=== PATIENT | male | born 1935 | race Caucasian/White ===

== ENCOUNTER 2016-12-09 18:43 | Inpatient (IN) ==
--- NOTE | 2016-12-09 18:50 | Emergency Department Note ---
Disposition Clinical Impression: Hematuria UTI (urinary tract infection) Qualifiers: Urinary tract infection type: acute cystitis Hematuria presence: with hematuria Qualified Code(s): N30.01 - Acute cystitis with hematuria Fever Qualifiers: Fever type: unspecified Qualified Code(s): R50.9 - Fever, unspecified Anemia Qualifiers: Anemia type: unspecified type Qualified Code(s): D64.9 - Anemia, unspecified Disposition: Admitted As Inpatient Condition: Fair Referrals: Unassigned,Provider [Non-Partnered Physician] - Forms: ED Satisfaction Letter Time of Disposition: 22:20 Male Urogenital HPI - General Chief complaint: ED Urogenital-Male Stated complaint: hematuria Time Seen by Provider: 12/09/16 18:46 Source: EMS Mode of arrival: EMS Limitations: other Nursing Notes Reviewed: Yes Vital Signs Reviewed: Yes - History of Present Illness HPI Narrative: 81-year-old [facility] and difficulty irrigating his chronic indwelling Syed. Patient has been seen twice here for similar complaints. Patient does have dark blood in his Syed and is noted to have a hemoglobin drop down to 8.1 from 9.5. The patient denies any pain on arrival. Pt Subjective Complaint: other (Hematuria), urinary retention Onset (ago): day(s) Duration: constant indwelling catheter - Related Data Home Medications Medication Instructions Recorded Confirmed Acetaminophen [Tylenol] 650 mg PO BID MDD 3000 mg/day 12/09/16 12/09/16 Acetaminophen [Tylenol] 650 mg PO Q4H PRN MDD 3000 mg/day 12/09/16 12/09/16 Allopurinol [Zyloprim 100 MG] 100 mg GTUBE DAILY 12/09/16 12/09/16 Amlodipine Besylate 10 mg GTUBE DAILY 12/09/16 12/09/16 Atorvastatin [Lipitor] 40 mg GTUBE DAILY 12/09/16 12/09/16 Balsam [place] Oil [Venelex 1 appl TP QID 12/09/16 12/09/16 Ointment Packet] Brimonidine 0.2% [Alphagan] 1 drop OP TID 12/09/16 12/09/16 Calcitriol [Rocaltrol] 0.25 mcg GTUBE DAILY 12/09/16 12/09/16 Carvedilol 12.5 mg GTUBE BID 12/09/16 12/09/16 Cholecalciferol (D-3) [Vitamin D] 2,000 unit PO DAILY 12/09/16 12/09/16 CloNIDine HCl 0.1 mg PO BID 12/09/16 12/09/16 Dorzolamide/Timolol/Pf [Cosopt Pf 1 drop OP BID 12/09/16 12/09/16 Eye Drops] Doxazosin Mesylate [Cardura] 8 mg GTUBE HS 12/09/16 12/09/16 Doxazosin Mesylate [Cardura] 8 mg PO QAM 12/09/16 12/09/16 Epoetin [place] [Procrit] 5,000 unit SQ MOWEFR 12/09/16 12/09/16 Ferrous Sulfate 325 mg GTUBE TID 12/09/16 12/09/16 Finasteride [Proscar] 5 mg GTUBE DAILY 12/09/16 12/09/16 Furosemide [Lasix] 40 mg GTUBE DAILY 12/09/16 12/09/16 Hydralazine HCl 100 mg GTUBE Q8H 12/09/16 12/09/16 Insulin ASPART [NovoLOG] 3 - 8 unit SQ PRN PRN 12/09/16 12/09/16 Insulin Glargine [Lantus] 16 unit SQ DAILY 12/09/16 12/09/16 Ipratropium/Albuterol Neb [Duoneb] 3 ml IH Q4H PRN 12/09/16 12/09/16 Isosorbide DInitrate [Isosorbide 15 mg PO TID 12/09/16 12/09/16 Dinitrate] Ketoconazole 2% CRM [Nizoral Cream] 1 appl TP BID 12/09/16 12/09/16 Latanoprost [Xalatan] 1 drop OP HS 12/09/16 12/09/16 Magnesium Hydroxide [Milk of 2,400 mg PO DAILY PRN 12/09/16 12/09/16 Magnesia] Melatonin 3 mg GTUBE HS 12/09/16 12/09/16 Methyl Salicylate/Menthol [Muscle 1 appl TP BID 12/09/16 12/09/16 Rub Cream] Nystatin OINT [Mycostatin] 1 appl TP BID 12/09/16 12/09/16 Propylene Glycol/Peg 400 [Systane 1 drop OP QID 12/09/16 12/09/16 0.3-0.4% Eye Drops] Sennosides/Docusate Sodium [Senna 2 each PO HS 12/09/16 12/09/16 Plus] Sertraline [Zoloft] 100 mg GTUBE DAILY 12/09/16 12/09/16 Sodium Bicarbonate 650 mg PO TID 12/09/16 12/09/16 Sodium Chloride 5% OPTH Oint 1 appl OP DAILY 12/09/16 12/09/16 [Riky-128] Sodium Chloride [Riky-128] 1 drop OP TID 12/09/16 12/09/16 Triamcinolone Acet 0.1% CRM 1 appl TP BID 12/09/16 12/09/16 [Kenalog] Allergies Allergy/AdvReac Type Severity Reaction Status Date / Time lisinopril AdvReac unknown Verified 12/09/16 20:15 Constitutional: Denies: fever, chills, weakness, weight change Eyes: Denies: eye pain, eye discharge, vision change ENT ED: Denies: ear pain, throat pain, dental pain, hearing loss, epistaxis, congestion, dysphagia Cardiovascular: Denies: chest pain, palpitations, dyspnea on exertion, edema, syncope Respiratory: Denies: cough, dyspnea, wheezes, hemoptysis, stridor Gastrointestinal: Denies: abdominal pain, nausea, vomiting, diarrhea, constipation, hematemesis, melena, hematochezia Genitourinary: Reports: hematuria. Denies: urgency, dysuria, frequency Musculoskeletal: Denies: back pain, neck pain, arthralgia, myalgia Integumentary: Denies: rash, abrasion, lesions Neurological: Denies: headache, weakness, numbness, paresthesias, confusion, abnormal gait, vertigo Psychiatric: Denies: anxiety, depression, suicidal thoughts, homicidal thoughts , auditory hallucinations, visual hallucinations Endocrine: Denies: fatigue Hematological/Lymphatic: Denies: easy bleeding, easy bruising Allergic/Immunologic: Denies: facial swelling, urticaria Past Medical History - Past Medical History Medical history: Reports: CHF, coronary artery disease, diabetes, hypertension, renal disease - Social History Smoking Status: Unknown if ever smoked Alcohol use: Reports: unknown Drug use: Reports: unknown Physical Exam - General Limitations: no limitations - Head Head exam: normal inspection - Eye Eye exam: Present: normal appearance - ENT ENT exam: normal exam, normal oropharynx, mucous membranes moist, normal external ear exam - Neck Neck exam: Present: normal inspection, full ROM, trachea midline - Chest Chest inspection: Present: normal inspection, symmetric chest wall rise - Respiratory Respiratory exam: Present: normal lung sounds bilaterally - Cardiovascular Cardiovascular exam: Present: regular rate, normal rhythm, normal heart sounds - Neurological Exam Neurological exam: Present: alert, oriented X3, normal gait - Psychiatric Psychiatric exam: Present: normal affect, normal mood - Skin Skin exam: Present: warm, dry, intact, normal color Course - Reevaluation(s) Reevaluation #1: 81-year-old had some problems with recurrent hematuria and obstructive catheter. This is his third visit and the last few days. He's had about a 3 g hemoglobin drop. We will admit the patient he will be seen by urology was given Rocephin as he does have a bit of a temperature and indications of infection associated with urine. Time: 22:17 - Consultations Consultation #1: Discussed with Dr. Bell, dipti. Time: 22:18 Vital Signs Temperature 100.4 F H 12/09/16 18:49 Pulse Rate 85 12/09/16 18:49 Respiratory Rate 20 12/09/16 18:49 Blood Pressure 152/71 12/09/16 18:49 O2 Sat by Pulse Oximetry 95 12/09/16 18:49 Temperature 100.4 F H 12/09/16 18:49 Pulse Rate 93 12/09/16 21:42 Respiratory Rate 20 12/09/16 19:57 Blood Pressure 157/92 12/09/16 21:42 O2 Sat by Pulse Oximetry 97 12/09/16 21:42 Oxygen Delivery Oxygen Delivery Room Air Urogenital-Male - Lab Data Result diagrams: 12/09/16 19:01 12/09/16 19:01 Lab Results 12/09/16 12/09/16 12/09/16 Range/Units 19:01 19:01 19:01 WBC 6.4 (4.3-11.1) K/mcL RBC 3.47 L (4.19-5.50) M/mcL Hgb 8.6 L D (12.9-16.9) g/dL Hct 27.9 L (37.5-50.1) % MCV 80.4 L (83.0-100.0) fL MCH 24.8 L (28.0-33.3) pg MCHC 30.8 L (31.6-35.5) g/dL RDW 17.2 H (11.5-14.5) % Plt Count 155 (140-400) K/mcL MPV 10.5 (9.4-12.4) fL Immature Gran % 0.5 (0-4) % Seg Neutrophils % 78.7 % Lymphocytes % 6.7 % Monocytes % 11.1 % Eosinophils % 2.7 % Basophils % 0.3 % Neutrophils # 5.0 (1.6-8.9) K/mcL Lymphocytes # 0.4 L (0.6-4.6) K/mcL Monocytes # 0.7 (0.0-1.3) K/mcL Eosinophils # 0.2 (0.0-0.6) K/mcL Basophils # 0.0 (0.0-0.2) K/mcL Nucleated RBCs/100 WBC 0.3 H (0) /100 WBC PT 13.3 H (9.4-12.1) Seconds INR 1.2 APTT 32.5 (26.0-36.0) Seconds Sodium 139 (136-145) mEq/L Potassium 4.5 D (3.5-4.5) mEq/L Chloride 107 (98-109) mEq/L Carbon Dioxide 20 (19-29) mEq/L BUN 79 H (8-26) mg/dL Creatinine 3.87 H (0.72-1.25) mg/dL Est GFR ( Amer) 18 L (> 60) Est GFR (Non-Af Amer) 15 L (> 60) BUN/Creatinine Ratio 20 (6-26) Glucose 264 H (70-99) mg/dL Calculated Osmolality 321 H (280-300) Calcium 8.2 L (8.6-10.8) mg/dL Total Bilirubin 0.3 (0.2-1.2) mg/dL Direct Bilirubin 0.1 (0.0-0.5) mg/dL Indirect Bilirubin 0.2 (0.0-1.2) mg/dL AST 38 H (5-34) Units/L ALT 43 (0-55) Units/L Alkaline Phosphatase 61 (38-126) Units/L Serum Total Protein 6.0 (6.0-8.3) g/dL Albumin 2.3 L (3.5-5.0) g/dL Globulin 3.7 H (2.4-3.5) g/dL Albumin/Globulin Ratio 0.6 L (1.1-2.2) Ur Specimen Adequacy Urine Color (Yellow) Urine Clarity (Clear) Urine pH (5.0-8.0) pH Units Ur Specific Burns (1.010-1.025) Urine Protein (Neg-Trace) mg/dL Urine Glucose (UA) (Normal) mg/dL Urine Ketones (Negative) mg/dL Urine Blood (Negative) Urine Nitrite (Negative) Urine Bilirubin (Negative) Urine Urobilinogen (Normal) mg/dL Ur Leukocyte Esterase (Negative) Ur Culture Indicated? (NO) Blood Type Antibody Screen 12/09/16 12/09/16 Range/Units 19:01 19:15 WBC (4.3-11.1) K/mcL RBC (4.19-5.50) M/mcL Hgb (12.9-16.9) g/dL Hct (37.5-50.1) % MCV (83.0-100.0) fL MCH (28.0-33.3) pg MCHC (31.6-35.5) g/dL RDW (11.5-14.5) % Plt Count (140-400) K/mcL MPV (9.4-12.4) fL Immature Gran % (0-4) % Seg Neutrophils % % Lymphocytes % % Monocytes % % Eosinophils % % Basophils % % Neutrophils # (1.6-8.9) K/mcL Lymphocytes # (0.6-4.6) K/mcL Monocytes # (0.0-1.3) K/mcL Eosinophils # (0.0-0.6) K/mcL Basophils # (0.0-0.2) K/mcL Nucleated RBCs/100 WBC (0) /100 WBC PT (9.4-12.1) Seconds INR APTT (26.0-36.0) Seconds Sodium (136-145) mEq/L Potassium (3.5-4.5) mEq/L Chloride (98-109) mEq/L Carbon Dioxide (19-29) mEq/L BUN (8-26) mg/dL Creatinine (0.72-1.25) mg/dL Est GFR ( Amer) (> 60) Est GFR (Non-Af Amer) (> 60) BUN/Creatinine Ratio (6-26) Glucose (70-99) mg/dL Calculated Osmolality (280-300) Calcium (8.6-10.8) mg/dL Total Bilirubin (0.2-1.2) mg/dL Direct Bilirubin (0.0-0.5) mg/dL Indirect Bilirubin (0.0-1.2) mg/dL AST (5-34) Units/L ALT (0-55) Units/L Alkaline Phosphatase (38-126) Units/L Serum Total Protein (6.0-8.3) g/dL Albumin (3.5-5.0) g/dL Globulin (2.4-3.5) g/dL Albumin/Globulin Ratio (1.1-2.2) Ur Specimen Adequacy See below A Urine Color Red A (Yellow) Urine Clarity Turbid A (Clear) Urine pH 6.0 (5.0-8.0) pH Units Ur Specific Burns 1.018 (1.010-1.025) Urine Protein >=1000 H (Neg-Trace) mg/dL Urine Glucose (UA) Normal (Normal) mg/dL Urine Ketones 40 H (Negative) mg/dL Urine Blood Large H (Negative) Urine Nitrite Positive A (Negative) Urine Bilirubin Large H (Negative) Urine Urobilinogen 4.0 H (Normal) mg/dL Ur Leukocyte Esterase Large H (Negative) Ur Culture Indicated? YES A (NO) Blood Type A POSITIVE Antibody Screen NEGATIVE
[2016-12-09 19:18] LABS: Basophils % 0.3 %; Eosinophils # 0.2 K/mcL (0.0-0.6); Eosinophils % 2.7 %; Hematocrit 27.9 % (37.5-50.1); Immature Granulocytes % 0.5 % (0-4); Lymphocytes # 0.4 K/mcL (0.6-4.6); Lymphocytes % 6.7 %; Mean Corpuscular HGB Conc 30.8 g/dL (31.6-35.5); Mean Corpuscular Hemoglobin 24.8 pg (28.0-33.3); Mean Corpuscular Volume 80.4 fL (83.0-100.0); Mean Platelet Volume 10.5 fL (9.4-12.4); Monocytes # 0.7 K/mcL (0.0-1.3); Monocytes % 11.1 %; Nucleated Red Blood Cells 0.3 /100 WBC (0); Platelet Count 155 K/mcL (140-400); Red Blood Count 3.47 M/mcL (4.19-5.50); Red Cell Distribution Width 17.2 % (11.5-14.5); Segmented Neutrophils % 78.7 %
[2016-12-09 19:19] LABS: Hemoglobin 8.6 g/dL (12.9-16.9)
[2016-12-09 19:23] LABS: INR 1.2; Prothrombin Time 13.3 Seconds (9.4-12.1)
[2016-12-09 19:26] LABS: Activated Partial Thrombo Time 32.5 Seconds (26.0-36.0)
[2016-12-09 19:30] LABS: Bilirubin,Urine Large (Negative); Blood,Urine Large (Negative); Clarity,Urine Turbid (Clear); Color,Urine Red (Yellow); Glucose,Urine (UA) Normal (Normal); Ketones,Urine 40 mg/dL (Negative); Leukocyte Esterase,Urine Large (Negative); Nitrite,Urine Positive (Negative); Protein,Urine >=1000 mg/dL (Neg-Trace); Specific Gravity,Urine 1.018 (1.010-1.025)
[2016-12-09 19:33] LABS: Calcium 8.2 mg/dL (8.6-10.8)
[2016-12-09 19:37] LABS: Potassium 4.5 mEq/L (3.5-4.5)
[2016-12-09 21:38] LABS: Albumin 2.3 g/dL (3.5-5.0); Albumin/Globulin Ratio 0.6 (1.1-2.2); Bilirubin,Direct 0.1 mg/dL (0.0-0.5); Bilirubin,Indirect 0.2 mg/dL (0.0-1.2); Bilirubin,Total 0.3 mg/dL (0.2-1.2); Globulin 3.7 g/dL (2.4-3.5)
[2016-12-09] MEDS ORDERED: Acetaminophen 325 MG TABLET PO PRN (22:07)
[2016-12-09] MEDS ORDERED: Ipratropium/Albuterol Neb 3 ML IH PRN (22:07)
[2016-12-09] MEDS ORDERED: *HR* Morphine 2 MG/ML SYRINGE IVP PRN (22:20)
[2016-12-09] MEDS ORDERED: *HR* Dextrose 50 % in Water (Syg) 50 ML SYRINGE IVP PRN (22:20)
[2016-12-09] MEDS ORDERED: *HR* OxyCODONE Immed Rel 5 MG TABLET PO PRN (22:20)
[2016-12-09] MEDS ORDERED: Dextrose Gel 15 GM PO PRN ×2 (22:20)
[2016-12-09] MEDS ORDERED: Naloxone 0.4 MG/ML INJ IVP PRN (22:20)
[2016-12-09] MEDS ORDERED: D5% in Water 1,000 ML IV PRN (22:20)
[2016-12-09] MEDS ORDERED: Ondansetron 4 MG/2 ML VIAL IVP PRN (22:20)
--- NOTE | 2016-12-09 22:45 | Internal Med History&Physical ---
Date of Encounter: 12/09/16 Time of Encounter: 22:00 Assessment and Plan (1) Gross hematuria Status: Acute . (2) Indwelling catheter present on admission Status: Acute . (3) Urinary tract infection associated with indwelling urethral catheter Status: Acute . Qualifiers: Encounter type: initial encounter Qualified Code(s): T83.511A - Infection and inflammatory reaction due to indwelling urethral catheter, initial encounter ; N39.0 - Urinary tract infection, site not specified (4) Bladder outlet obstruction Status: Acute . (5) Acute kidney injury superimposed on CKD Status: Acute . (6) Acute blood loss anemia Status: Acute . (7) Anemia in chronic renal disease Status: Acute . (8) BPH (benign prostatic hypertrophy) with urinary retention Status: Acute . (9) Anasarca associated with disorder of kidney Status: Acute . (10) Asymptomatic cholelithiasis Status: Acute . (11) Adrenal hyperplasia Status: Acute . (12) Urinary retention Status: Acute . (13) Iron deficiency anemia due to chronic blood loss Status: Chronic . (14) Hypoalbuminemia due to protein-calorie malnutrition Status: Chronic . (15) UTI (urinary tract infection) Status: Acute . Qualifiers: Urinary tract infection type: acute cystitis Hematuria presence: with hematuria Qualified Code(s): N30.01 - Acute cystitis with hematuria Internal Medicine - H&P: HPI Chief complaint: bloody urine Admitted From: Hospital to Hospital Transfer (Hospital transfer from [facility] to [facility]) Plans for Post Hospital Care: Transfer Other ([facility]) History of present illness: Mr. Webb is a 81 year old male [facility] patient with history significant for CKD III-IV,anemia of chronic dis, type II DM, hypertension, dyslipidemia, CAD/CABG/ AMI, valvular heart disease/mild aortic stenosis and moderate tricuspid regurgitation/LVEF 65%, systolic CHF, PAD, lumbago, hyperuricemia/gout, asymptomatic cholelithiasis, diverticulosis coli, carotid stenoses/ right ICA 50 %, H/O TIA, chr constipation, BPH/prostatism-prostatomegaly, bladder outlet obstruction /chronic indwelling catheter, recurrent UTI, Multiple sclerosis, h/ o CVA-ICH/expressive rtacyxb-magnuurjwr-onciaxzqb-right hemiplegia, h/o c dificle colitis, glaucoma, non smoker The patient was visited and interviewed and examined. Patient was admitted to [facility] via the emergency department when he presented by EMS services from [facility] long term where he dwelled in long-term care assignment. The patient is a poor historian and unable to give additional history. He presented because of hematuria and difficulty voiding and irrigating his chronic indwelling Syed catheter. The patient had been indwelling catheter for an unknown period of time at the [place] medical facility. His history does document previous presentations to [facility] for traumatic catheter placement and frequent prostatomegaly and bladder outlet obstruction. The patient had been seen on 2 other occasions for similar complaints. Each occasion the patient had inadvertently traumatized the prostate/ bladder neck by pulling the catheter. He was found to have dark blood within his Syed and also noted that his hemoglobin had dropped to 8.1 from 11.2 on 12/07/16 when Urology bus info consultant last replaced the Syed catheter with a coude. He denied pain when asked. There was no report of any fevers chills sweats. Abdominal pain and urinary retention was documented at the [place] facility. Syed catheter could not be irrigated at the site due to retained clots. Findings in the ED: Febrile. Pulse 80 respirations 16 BP 138/78. O2 saturation by pulse oximetry 93% room air. WBC 6.4 hemoglobin 8.5 platelets 155,000. MCV 80.4 MCH 24.8. RDW 17.2. PT 13.3 INR 1.2 PTT 32.5. Metabolic panel noted BUN 79 creatinine 3.87. GFR 15. Glucose 264 osmolality 321. Calcium 8.2. Hepatic function noted AST 38. Albumin 2.3 total protein 6. Urinalysis red in color. Large protein. Large ketone. Large blood. Large bilirubin. Large leukocyte esterase. Positive nitrite. 4.0 urobilinogen. Fecal occult blood stool negative. CT of the abdomen and pelvis without contrast demonstrated market distention of the bladder extending above the level of the umbilicus. Air-fluid level likely from recent catheterization. Overall thickening or pericholecystic fluid noted to suggest cystitis. Prostatomegaly likely contributing to postobstructive changes of the bladder. Mild ascites and diffuse body wall anasarca noted. Cholelithiasis noted. No definite acute abnormality otherwise noted in the limitations of the study. Preliminary impression suggests recurrent bladder outlet obstruction from retained clot with associated gross hematuria and acute blood loss anemia. Etiology secondary to recurring likely catheter trauma of prostatomegaly and bladder neck. During suggests chronic blood loss some extent with indices suggesting a relative iron deficiency. Hemoccult stool negative for blood. Patient presented for continued risk for further acute clinical decline and morbidity given his severity of the comorbidities. Workup and treatment will proceed comprehensively. Cumulative laboratory and radiographic data base was reviewed, considered and discussed. Pertinent ancillary medical records including ECW and PCI documentation was reviewed and considered. Given the patient's presenting concerns, past medical history, clinical findings and symptoms, he is admitted at this time will undergo further evaluation and disposition. Orders were written as per the computerized physician medical orderly system.......................................................................... .................... Consultative opinions will be sought as clinical circumstances justify. Initial consultative request submitted to urology. Pain management needs will be addressed. Laboratory and radiographic data base will be updated as appropriate. Studies include: Cultures of blood and urine, hemoccult, iron studies, B12, folate, ammonia, cardiac injury panel, BNP, pt,inr,ptt, metabolic and hematologic panel , magnesium, phosphorus, ionized calcium, thyroid panel, lipid profile, A1c, C- peptide, CRP, sedimentation rate, blood gas, lactic acid, UA, serologies, etc. Precautions: Aspiration, fall, delirium protocol/surveillance initiated. Telemetry with continuous hemodynamic monitoring and pulse oximetry initiated. Orthostatic vital signs Empiric antibiotic coverage: Intravenous Zosyn pending culture data. Type and screen for 2 units of packed red blood cells. Transfused to achieve a stable hemoglobin of greater than 10. Special studies: CT abd/pelvis, chest x-ray, telemetry, EKG, US retroperitoneum. Pulmonary toilet: Incentive spirometry. Aerosol bronchodilator, mucolytic, antitussivePRN. Supplemental oxygen. Corticosteroid therapyPRN. CPAP/BiPAP supplemental oxygenPRN. Aerosol Mucomyst therapyPRN. Fluid and electrolyte repletion efforts will proceed. Careful attention to fluid balance and renal recovery will be emphasized. Avoidance of nephrotoxic exposure and adverse drug drug interaction in the setting of impaired renal function will be monitored closely. Acute coronary syndrome protocol/surveillance initiated. DVT and PUD prophylaxis initiated: PPI therapy, intermittent pneumatic cuffs. Subcutaneous heparin. Early ambulation will be encouraged. Immunization updates recommended. Influenza and pneumococcal vaccinations as part of ongoing preventative healthcare recommendations strongly recommended. Smoking cessation counseling briefly addressed. Patient is a nonsmoker. Advanced care directive discussion briefly addressed. Patient does not declare any healthcare restrictions at this time. Cardiovascular risk appraisal and cardiovascular risk reduction efforts will be emphasized. Physical and occupational therapy may be counseled to evaluate patient's functional capacity and progress mobility if circumstances permit. Nutrition/dietary education counseling may be considered as circumstances justify. Outpatient medication schedules will be reviewed, confirmed and facilitated as appropriate. Reconciliation of home treatments including adjustments, substitutions and reintroduction into the treatment regimen will address necessary maintenance therapies for chronic pre-existing medical conditions. Plan of care has been reviewed and discussed in detail with the patient's caregivers. Questions addressed. Hospital course dictated by clinical findings, treatment response and potential consultative interventions. Patient is at risk for further acute clinical decline and morbidity due to his advanced age, presenting chief complaints and comorbid conditions. Condition is serious. Prognosis is guarded. CODE STATUS is full. Past Med Surg Social Fam HX - Past Medical History Source: old records reviewed Medical history: arthritis, CHF, coronary artery disease, diabetes, GI bleed ( Diverticulitis. C. difficile infection.), hyperlipidemia, hypertension, myocardial infarction, osteoporosis, peripheral artery disease (Right carotid artery stenosis), renal disease, TIA, valvular heart disease (I will aortic stenosis. Mild to moderate tricuspid regurgitation.), other Psychiatric history: other - Past Surgical History Surgical History: coronary bypass (CABG), other - Social History Smoking Status: Unknown if ever smoked Smokeless Tobacco Status: No Alcohol use: unknown Drug use: unknown Occupational status: retired Activity Level: Mostly sedentary Recent Out of Country Travel Within the Last 8 Weeks: No Exposure or Possible Exposure to Illness During Travel: No Internal Medicine - H&P: Meds Acetaminophen [Tylenol] 650 mg PO BID MDD 3000 mg/day 12/09/16 [History] Acetaminophen [Tylenol] 650 mg PO Q4H PRN MDD 3000 mg/day 12/09/16 [History] Allopurinol [Zyloprim 100 MG] 100 mg GTUBE DAILY 12/09/16 [History] Amlodipine Besylate 10 mg GTUBE DAILY 12/09/16 [History] Atorvastatin [Lipitor] 40 mg GTUBE DAILY 12/09/16 [History] Balsam [place] Oil [Venelex Ointment Packet] 1 appl TP QID 12/09/16 [History ] Brimonidine 0.2% [Alphagan] 1 drop OP TID 12/09/16 [History] Calcitriol [Rocaltrol] 0.25 mcg GTUBE DAILY 12/09/16 [History] Carvedilol 12.5 mg GTUBE BID 12/09/16 [History] Cholecalciferol (D-3) [Vitamin D] 2,000 unit PO DAILY 12/09/16 [History] CloNIDine HCl 0.1 mg PO BID 12/09/16 [History] Dorzolamide/Timolol/Pf [Cosopt Pf Eye Drops] 1 drop OP BID 12/09/16 [History] Doxazosin Mesylate [Cardura] 8 mg GTUBE HS 12/09/16 [History] Doxazosin Mesylate [Cardura] 8 mg PO QAM 12/09/16 [History] Epoetin [place] [Procrit] 5,000 unit SQ MOWEFR 12/09/16 [History] Ferrous Sulfate 325 mg GTUBE TID 12/09/16 [History] Finasteride [Proscar] 5 mg GTUBE DAILY 12/09/16 [History] Furosemide [Lasix] 40 mg GTUBE DAILY 12/09/16 [History] Hydralazine HCl 100 mg GTUBE Q8H 12/09/16 [History] Insulin ASPART [NovoLOG] 3 - 8 unit SQ PRN PRN 12/09/16 [History] Insulin Glargine [Lantus] 16 unit SQ DAILY 12/09/16 [History] Ipratropium/Albuterol Neb [Duoneb] 3 ml IH Q4H PRN 12/09/16 [History] Isosorbide DInitrate [Isosorbide Dinitrate] 15 mg PO TID 12/09/16 [History] Ketoconazole 2% CRM [Nizoral Cream] 1 appl TP BID 12/09/16 [History] Latanoprost [Xalatan] 1 drop OP HS 12/09/16 [History] Magnesium Hydroxide [Milk of Magnesia] 2,400 mg PO DAILY PRN 12/09/16 [History] Melatonin 3 mg GTUBE HS 12/09/16 [History] Methyl Salicylate/Menthol [Muscle Rub Cream] 1 appl TP BID 12/09/16 [History] Nystatin OINT [Mycostatin] 1 appl TP BID 12/09/16 [History] Propylene Glycol/Peg 400 [Systane 0.3-0.4% Eye Drops] 1 drop OP QID 12/09/16 [ History] Sennosides/Docusate Sodium [Senna Plus] 2 each PO HS 12/09/16 [History] Sertraline [Zoloft] 100 mg GTUBE DAILY 12/09/16 [History] Sodium Bicarbonate 650 mg PO TID 12/09/16 [History] Sodium Chloride 5% OPTH Oint [Riky-128] 1 appl OP DAILY 12/09/16 [History] Sodium Chloride [Riky-128] 1 drop OP TID 12/09/16 [History] Triamcinolone Acet 0.1% CRM [Kenalog] 1 appl TP BID 12/09/16 [History] Levofloxacin 500 mg PO DAILY #3 tablet 12/12/16 [Rx] Allergies lisinopril Adverse Reaction (Verified 12/09/16 20:15) unknown per va list All Systems PM: A 10-system review of systems was performed and is negative for pertinent findings except as documented above in the HPI. - Constitutional Constitutional: as per HPI, no chills, no fever(s), no night sweats - EENT Eyes: as per HPI, no change in vision, no discharge, no pain, no photophobia Ears: as per HPI, no ear discharge, no ear pain, no tinnitus Nose, mouth and throat: as per HPI, no dysphagia, no nasal discharge, no neck pain, no sore throat - Cardiovascular Cardiovascular ROS IM: as per HPI, no chest pain, no diaphoresis, no dyspnea, no lightheadedness, no palpitations, no syncope - Respiratory Respiratory: as per HPI, no cough, no dyspnea, no wheezing, no excessive phlegm production - Gastrointestinal Gastrointestinal: as per HPI, no abdominal pain, no diarrhea, no hematemesis, no hematochezia, no melena, no nausea, no vomiting - Genitourinary Genitourinary ROS male: as per HPI, difficulty urinating, hematuria, urinary hesitancy, other - Musculoskeletal Musculoskeletal ROS IM: as per HPI, no numbness, no tingling - Integumentary Integumentary IM: as per HPI, no rash, no unusual bruising - Neurological Neurological ROS: as per HPI, abnormal movements, abnormal speech, weakness, other, no confusion, no convulsions, no focal weakness, no numbness, no tingling , no tremor(s) - Psychiatric Psychiatric: as per HPI - Endocrine Endocrine IM: as per HPI - Hematologic/Lymphatic Hematologic/Lymphatic: as per HPI, no easy bruising - Allergic/Immunologic Allergic/Immunologic: as per HPI, no tongue swelling - Constitutional Vitals: Temp Pulse Resp BP Pulse Ox 100.4 F H 81 16 153/74 96 12/09/16 18:49 12/09/16 22:28 12/09/16 22:28 12/09/16 22:28 12/09/16 22:28 General appearance: Present: mild distress, A&O X 3, obese, answers questions appropriately - Head Head exam: Present: atraumatic, normocephalic - Eye Eye exam: Present: EOMI, PERRL, conjuntiva pink, sclera anicteric Pupils: Present: normal accommodation, PERRL - ENT ENT exam: Present: mucous membranes moist, normal oropharynx - Neck Neck exam general surgery: Present: full ROM - Respiratory Respiratory exam: Present: decreased breath sounds, CTAB. Absent: accessory muscle use, rales, rhonchi, wheezes - Cardiovascular Cardiovascular exam: Present: distant heart sounds, RRR, +S1, +S2. Absent: diastolic murmur, gallop, rubs, systolic murmur - GI/Abdominal GI/Abdominal exam: Present: normal bowel sounds, soft, no peritoneal signs. Absent: distended, tenderness - Extremities Exam Extremities exam: Present: warm, radial pulses palpable and symetrical. Absent : calf tenderness, cyanotic, pedal edema - Neurological Exam Neurological exam: Present: alert, CN II-XII intact, oriented X3, no focal deficits. Absent: pronater drift, facial droop, speech deficit - Psychiatric Psychiatric exam: Present: normal affect, normal mood - Skin Skin exam: Present: dry, intact, warm Internal Med - H&P Results - Labs CBC & Chem 7: 12/11/16 04:47 12/11/16 04:47 Labs: Short CBC 12/09/16 Range/Units 19:01 WBC 6.4 (4.3-11.1) K/mcL Hgb 8.6 L D (12.9-16.9) g/dL Hct 27.9 L (37.5-50.1) % Plt Count 155 (140-400) K/mcL Neutrophils # 5.0 (1.6-8.9) K/mcL BMP 12/09/16 19:01 Sodium 139 Potassium 4.5 D Chloride 107 Carbon Dioxide 20 BUN 79 H Creatinine 3.87 H Glucose 264 H Calcium 8.2 L Liver Function 12/09/16 Range/Units 19:01 Total Bilirubin 0.3 (0.2-1.2) mg/dL Direct Bilirubin 0.1 (0.0-0.5) mg/dL AST 38 H (5-34) Units/L ALT 43 (0-55) Units/L Alkaline Phosphatase 61 (38-126) Units/L Albumin 2.3 L (3.5-5.0) g/dL Urine 12/09/16 Range/Units 19:15 Urine Color Red A (Yellow) Urine Clarity Turbid A (Clear) Urine pH 6.0 (5.0-8.0) pH Units Ur Specific [place] 1.018 (1.010-1.025) Urine Protein >=1000 H (Neg-Trace) mg/dL Urine Glucose (UA) Normal (Normal) mg/dL - Impressions Vital Signs Temp Pulse Resp BP Pulse Ox 12/09/16 22:28 81 16 153/74 96 12/09/16 19:57 83 20 157/92 97 12/09/16 18:49 100.4 F H 85 20 152/71 95 Intake and Output 12/09/16 12/09/16 12/09/16 07:59 15:59 23:59 Intake Total 100 / 100 Balance 100 / 100 Intake: IV Fluids 100 / 100 Rocephin 1,000 MG In 100 / 100 Dextrose 5% (Minibag+) 100 ML 100 ML @ 200 mls/ hr IVPB ONCE ONE Rx#: [id number] Other: Weight 77.564 kg Patient Weight 12/09/16 23:59 Weight 77.564 kg Short CBC 12/09/16 Range/Units 19:01 WBC 6.4 (4.3-11.1) K/mcL Hgb 8.6 L D (12.9-16.9) g/dL Hct 27.9 L (37.5-50.1) % Plt Count 155 (140-400) K/mcL Neutrophils # 5.0 (1.6-8.9) K/mcL BMP 12/09/16 Range/Units 19:01 Sodium 139 (136-145) mEq/L Potassium 4.5 D (3.5-4.5) mEq/L Chloride 107 (98-109) mEq/L Carbon Dioxide 20 (19-29) mEq/L BUN 79 H (8-26) mg/dL Creatinine 3.87 H (0.72-1.25) mg/dL Glucose 264 H (70-99) mg/dL Calcium 8.2 L (8.6-10.8) mg/dL Liver Function 12/09/16 Range/Units 19:01 Total Bilirubin 0.3 (0.2-1.2) mg/dL Direct Bilirubin 0.1 (0.0-0.5) mg/dL AST 38 H (5-34) Units/L ALT 43 (0-55) Units/L Alkaline Phosphatase 61 (38-126) Units/L Albumin 2.3 L (3.5-5.0) g/dL Urine 12/09/16 Range/Units 19:15 Urine Color Red A (Yellow) Urine Clarity Turbid A (Clear) Urine pH 6.0 (5.0-8.0) pH Units Ur Specific [place] 1.018 (1.010-1.025) Urine Protein >=1000 H (Neg-Trace) mg/dL Urine Glucose (UA) Normal (Normal) mg/dL Abnormal lab results RBC 3.47 M/mcL (4.19-5.50) L 12/09/16 19:01 Hgb 8.5 g/dL (12.9-16.9) L 12/09/16 22:46 Hct 28.3 % (37.5-50.1) L 12/09/16 22:46 MCV 80.4 fL (83.0-100.0) L 12/09/16 19:01 MCH 24.8 pg (28.0-33.3) L 12/09/16 19:01 MCHC 30.8 g/dL (31.6-35.5) L 12/09/16 19:01 RDW 17.2 % (11.5-14.5) H 12/09/16 19:01 Lymphocytes # 0.4 K/mcL (0.6-4.6) L 12/09/16 19:01 Nucleated RBCs/100 WBC 0.3 /100 WBC (0) H 12/09/16 19:01 PT 13.3 Seconds (9.4-12.1) H 12/09/16 19:01 BUN 79 mg/dL (8-26) H 12/09/16 19:01 Creatinine 3.87 mg/dL (0.72-1.25) H 12/09/16 19:01 Est GFR ( Amer) 18 (> 60) L 12/09/16 19:01 Est GFR (Non-Af Amer) 15 (> 60) L 12/09/16 19:01 Glucose 264 mg/dL (70-99) H 12/09/16 19:01 Calculated Osmolality 321 (280-300) H 12/09/16 19:01 Calcium 8.2 mg/dL (8.6-10.8) L 12/09/16 19:01 AST 38 Units/L (5-34) H 12/09/16 19:01 Albumin 2.3 g/dL (3.5-5.0) L 12/09/16 19:01 Globulin 3.7 g/dL (2.4-3.5) H 12/09/16 19:01 Albumin/Globulin Ratio 0.6 (1.1-2.2) L 12/09/16 19:01 Ur Specimen Adequacy See below A 12/09/16 19:15 Urine Color Red (Yellow) A 12/09/16 19:15 Urine Clarity Turbid (Clear) A 12/09/16 19:15 Urine Protein >=1000 mg/dL (Neg-Trace) H 12/09/16 19:15 Urine Ketones 40 mg/dL (Negative) H 12/09/16 19:15 Urine Blood Large (Negative) H 12/09/16 19:15 Urine Nitrite Positive (Negative) A 12/09/16 19:15 Urine Bilirubin Large (Negative) H 12/09/16 19:15 Urine Urobilinogen 4.0 mg/dL (Normal) H 12/09/16 19:15 Ur Leukocyte Esterase Large (Negative) H 12/09/16 19:15 Ur Culture Indicated? YES (NO) A 12/09/16 19:15 Allergies Allergy/AdvReac Type Severity Reaction Status Date / Time lisinopril AdvReac unknown Verified 12/09/16 20:15 Laboratory Results WBC 6.4 K/mcL (4.3-11.1) 12/09/16 19:01 RBC 3.47 M/mcL (4.19-5.50) L 12/09/16 19:01 Hgb 8.5 g/dL (12.9-16.9) L 12/09/16 22:46 Hct 28.3 % (37.5-50.1) L 12/09/16 22:46 MCV 80.4 fL (83.0-100.0) L 12/09/16 19:01 MCH 24.8 pg (28.0-33.3) L 12/09/16 19:01 MCHC 30.8 g/dL (31.6-35.5) L 12/09/16 19:01 RDW 17.2 % (11.5-14.5) H 12/09/16 19:01 Plt Count 155 K/mcL (140-400) 12/09/16 19:01 MPV 10.5 fL (9.4-12.4) 12/09/16 19:01 Immature Gran % 0.5 % (0-4) 12/09/16 19:01 Seg Neutrophils % 78.7 % 12/09/16 19:01 Lymphocytes % 6.7 % 12/09/16 19:01 Monocytes % 11.1 % 12/09/16 19:01 Eosinophils % 2.7 % 12/09/16 19:01 Basophils % 0.3 % 12/09/16 19:01 Neutrophils # 5.0 K/mcL (1.6-8.9) 12/09/16 19:01 Lymphocytes # 0.4 K/mcL (0.6-4.6) L 12/09/16 19:01 Monocytes # 0.7 K/mcL (0.0-1.3) 12/09/16 19:01 Eosinophils # 0.2 K/mcL (0.0-0.6) 12/09/16 19:01 Basophils # 0.0 K/mcL (0.0-0.2) 12/09/16 19:01 Nucleated RBCs/100 WBC 0.3 /100 WBC (0) H 12/09/16 19:01 PT 13.3 Seconds (9.4-12.1) H 12/09/16 19:01 INR 1.2 12/09/16 19:01 APTT 32.5 Seconds (26.0-36.0) 12/09/16 19:01 Sodium 139 mEq/L (136-145) 12/09/16 19:01 Potassium 4.5 mEq/L (3.5-4.5) D 12/09/16 19:01 Chloride 107 mEq/L (98-109) 12/09/16 19:01 Carbon Dioxide 20 mEq/L (19-29) 12/09/16 19:01 BUN 79 mg/dL (8-26) H 12/09/16 19:01 Creatinine 3.87 mg/dL (0.72-1.25) H 12/09/16 19:01 Est GFR ( Amer) 18 (> 60) L 12/09/16 19:01 Est GFR (Non-Af Amer) 15 (> 60) L 12/09/16 19:01 BUN/Creatinine Ratio 20 (6-26) 12/09/16 19:01 Glucose 264 mg/dL (70-99) H 12/09/16 19:01 Calculated Osmolality 321 (280-300) H 12/09/16 19:01 Calcium 8.2 mg/dL (8.6-10.8) L 12/09/16 19:01 Total Bilirubin 0.3 mg/dL (0.2-1.2) 12/09/16 19:01 Direct Bilirubin 0.1 mg/dL (0.0-0.5) 12/09/16 19:01 Indirect Bilirubin 0.2 mg/dL (0.0-1.2) 12/09/16 19:01 AST 38 Units/L (5-34) H 12/09/16 19:01 ALT 43 Units/L (0-55) 12/09/16 19:01 Alkaline Phosphatase 61 Units/L (38-126) 12/09/16 19:01 Serum Total Protein 6.0 g/dL (6.0-8.3) 12/09/16 19:01 Albumin 2.3 g/dL (3.5-5.0) L 12/09/16 19:01 Globulin 3.7 g/dL (2.4-3.5) H 12/09/16 19:01 Albumin/Globulin Ratio 0.6 (1.1-2.2) L 12/09/16 19:01 Ur Specimen Adequacy See below A 12/09/16 19: Urine Color Red (Yellow) A 12/09/16 19: Urine Clarity Turbid (Clear) A 12/09/16 19: Urine pH 6.0 pH Units (5.0-8.0) 12/09/16 19:15 Ur Specific [place] 1.018 (1.010-1.025) 12/09/16 19:15 Urine Protein >=1000 mg/dL (Neg-Trace) H 12/09/16 19:15 Urine Glucose (UA) Normal mg/dL (Normal) 12/09/16 19:15 Urine Ketones 40 mg/dL (Negative) H 12/09/16 19:15 Urine Blood Large (Negative) H 12/09/16 19:15 Urine Nitrite Positive (Negative) A 12/09/16 19:15 Urine Bilirubin Large (Negative) H 12/09/16 19:15 Urine Urobilinogen 4.0 mg/dL (Normal) H 12/09/16 19:15 Ur Leukocyte Esterase Large (Negative) H 12/09/16 19:15 Ur Culture Indicated? YES (NO) A 12/09/16 19:15 Blood Type A POSITIVE 12/09/16 19: Antibody Screen NEGATIVE 12/09/16 19:01 Crossmatch See Detail 12/09/16 19:01
[2016-12-09 22:53] LABS: Hematocrit 28.3 % (37.5-50.1); Hemoglobin 8.5 g/dL (12.9-16.9)
[2016-12-09 23:02] LABS: Hemoglobin A1C 7.3 %
[2016-12-10] MEDS ORDERED: 0.9 % Sodium Chloride Mini Bag 100 ML ONE ×2 (00:15→03:19)
[2016-12-10] MEDS: Insulin LISPRO 300 UNITS/3 ML VIAL SQ SCH ×5 (01:21→20:38)
[2016-12-10] MEDS: Piperacillin/Tazobactam 3.375 GM in D5% in Water (Mini-Bag+) 100 ML IVPB SCH ×2 (01:21→12:21)
[2016-12-10] MEDS: 0.9 % Sodium Chloride 1,000 ML IVC SCH (01:34)
[2016-12-10] MEDS: hydrALAZINE 25 MG TABLET PO SCH ×4 (03:02→21:17)
[2016-12-10] MEDS: Acetaminophen 325 MG TABLET PO SCH ×2 (05:27→20:34)
[2016-12-10] MEDS: cloNIDine HCl 0.1 MG TABLET PO SCH ×2 (07:57→20:35)
[2016-12-10] MEDS: amLODIPine 5 MG TABLET GTUBE SCH (07:58)
[2016-12-10] MEDS: Furosemide 40 MG TABLET PO SCH (07:58)
[2016-12-10] MEDS: Artificial Tears SOLN 15 ML BOTTLE OP SCH ×4 (08:00→21:19)
[2016-12-10] MEDS: Finasteride 5 MG TABLET PO SCH (08:00)
[2016-12-10] MEDS: Dorzolamide/Timolol OPTH 10 ML BOTTLE BOTH EYES SCH ×2 (08:00→21:19)
[2016-12-10] MEDS: BALSAM PERU TP SCH ×4 (08:03→20:37)
[2016-12-10] MEDS: CASTOR OIL TP SCH ×4 (08:03→20:37)
[2016-12-10] MEDS: Sodium Chloride 5% OPTH 3.5 GM TUBE OP SCH (08:27)
[2016-12-10] MEDS: Nystatin OINT 15 GM TUBE TP SCH ×2 (08:29→21:23)
[2016-12-10] MEDS: Insulin DETEMIR 100 UNIT/ML X5UNITS SQ SCH (08:29)
--- NOTE | 2016-12-10 08:36 | Urology - Consult Note ---
Date of Encounter: 12/10/16 Time of Encounter: 08:34 - Assessment and Plan (1) Anemia Current Visit: Yes Status: Acute Assessment and plan: likely related to acute blood loss from hematuria for the past week. recommend to repeat cbc tomorrow. Qualifiers: Anemia type: unspecified type Qualified Code(s): D64.9 - Anemia, unspecified (2) Hematuria Current Visit: Yes Status: Acute Assessment and plan: catheter was manually irrigated with a small amount of clots returned. drained well and clear. keep patient from pulling on catheter (3) UTI (urinary tract infection) Current Visit: Yes Status: Acute Assessment and plan: continue current abx. likely catheter associated. Qualifiers: Urinary tract infection type: acute cystitis Hematuria presence: with hematuria Qualified Code(s): N30.01 - Acute cystitis with hematuria Urology CN:HPI Consult date: 12/10/16 Reason for consult Urology: Gross Hematuria Requesting physician: Yung Bell History of present illness: Kalen is a 81 y/o male with history of 3 trips to the ED this week secondary to hematuria. The patient is unable to answer questions. I had to place a catheter earlier this week. he then pulled the catheter back into his prostate 2 times later in the week. He now is admitted for hematuria now with blood loss anemia. Past Med Surg Social Fam HX - Past Medical History Medical history: arthritis, CHF, coronary artery disease, diabetes, hyperlipidemia, hypertension, myocardial infarction, osteoporosis, peripheral artery disease, renal disease, TIA, valvular heart disease, other Psychiatric history: other - Past Surgical History Surgical History: coronary bypass (CABG), other - Social History Smoking Status: Unknown if ever smoked Smokeless Tobacco Status: No Alcohol use: unknown Drug use: unknown Medications and Allergies Acetaminophen [Tylenol] 650 mg PO BID MDD 3000 mg/day 12/09/16 [History] Acetaminophen [Tylenol] 650 mg PO Q4H PRN MDD 3000 mg/day 12/09/16 [History] Allopurinol [Zyloprim 100 MG] 100 mg GTUBE DAILY 12/09/16 [History] Amlodipine Besylate 10 mg GTUBE DAILY 12/09/16 [History] Atorvastatin [Lipitor] 40 mg GTUBE DAILY 12/09/16 [History] Balsam [place] Oil [Venelex Ointment Packet] 1 appl TP QID 12/09/16 [History ] Brimonidine 0.2% [Alphagan] 1 drop OP TID 12/09/16 [History] Calcitriol [Rocaltrol] 0.25 mcg GTUBE DAILY 12/09/16 [History] Carvedilol 12.5 mg GTUBE BID 12/09/16 [History] Cholecalciferol (D-3) [Vitamin D] 2,000 unit PO DAILY 12/09/16 [History] CloNIDine HCl 0.1 mg PO BID 12/09/16 [History] Dorzolamide/Timolol/Pf [Cosopt Pf Eye Drops] 1 drop OP BID 12/09/16 [History] Doxazosin Mesylate [Cardura] 8 mg GTUBE HS 12/09/16 [History] Doxazosin Mesylate [Cardura] 8 mg PO QAM 12/09/16 [History] Epoetin Cortez [Procrit] 5,000 unit SQ MOWEFR 12/09/16 [History] Ferrous Sulfate 325 mg GTUBE TID 12/09/16 [History] Finasteride [Proscar] 5 mg GTUBE DAILY 12/09/16 [History] Furosemide [Lasix] 40 mg GTUBE DAILY 12/09/16 [History] Hydralazine HCl 100 mg GTUBE Q8H 12/09/16 [History] Insulin ASPART [NovoLOG] 3 - 8 unit SQ PRN PRN 12/09/16 [History] Insulin Glargine [Lantus] 16 unit SQ DAILY 12/09/16 [History] Ipratropium/Albuterol Neb [Duoneb] 3 ml IH Q4H PRN 12/09/16 [History] Isosorbide DInitrate [Isosorbide Dinitrate] 15 mg PO TID 12/09/16 [History] Ketoconazole 2% CRM [Nizoral Cream] 1 appl TP BID 12/09/16 [History] Latanoprost [Xalatan] 1 drop OP HS 12/09/16 [History] Magnesium Hydroxide [Milk of Magnesia] 2,400 mg PO DAILY PRN 12/09/16 [History] Melatonin 3 mg GTUBE HS 12/09/16 [History] Methyl Salicylate/Menthol [Muscle Rub Cream] 1 appl TP BID 12/09/16 [History] Nystatin OINT [Mycostatin] 1 appl TP BID 12/09/16 [History] Propylene Glycol/Peg 400 [Systane 0.3-0.4% Eye Drops] 1 drop OP QID 12/09/16 [ History] Sennosides/Docusate Sodium [Senna Plus] 2 each PO HS 12/09/16 [History] Sertraline [Zoloft] 100 mg GTUBE DAILY 12/09/16 [History] Sodium Bicarbonate 650 mg PO TID 12/09/16 [History] Sodium Chloride 5% OPTH Oint [Riky-128] 1 appl OP DAILY 12/09/16 [History] Sodium Chloride [Riky-128] 1 drop OP TID 12/09/16 [History] Triamcinolone Acet 0.1% CRM [Kenalog] 1 appl TP BID 12/09/16 [History] Allergies lisinopril Adverse Reaction (Verified 12/09/16 20:15) unknown per [facility] list Review of Systems ROS unobtainable: due to mental status Exam Initial Vital Signs Temp Pulse Resp BP Pulse Ox 100.4 F H 85 20 152/71 95 12/09/16 18:49 12/09/16 18:49 12/09/16 18:49 12/09/16 18:49 12/09/16 18:49 - General physical appearance Present: well developed - ENT Present: normal nares - Neck Present: no masses - Respiratory Present: normal respiratory effort - Cardiovascular Cardiovascular exam IM: RRR - Abdomen Abdomen: Present: soft - Genitourinary other (18fr cath in place with slightly bloody urine in it. ) - Integumentary Absent: no rash Urology Results - Labs 12/09/16 22:46 12/09/16 19:01 Abnormal lab results RBC 3.47 M/mcL (4.19-5.50) L 12/09/16 19:01 Hgb 8.5 g/dL (12.9-16.9) L 12/09/16 22:46 Hct 28.3 % (37.5-50.1) L 12/09/16 22:46 MCV 80.4 fL (83.0-100.0) L 12/09/16 19:01 MCH 24.8 pg (28.0-33.3) L 12/09/16 19:01 MCHC 30.8 g/dL (31.6-35.5) L 12/09/16 19:01 RDW 17.2 % (11.5-14.5) H 12/09/16 19:01 Lymphocytes # 0.4 K/mcL (0.6-4.6) L 12/09/16 19:01 Nucleated RBCs/100 WBC 0.3 /100 WBC (0) H 12/09/16 19:01 PT 13.3 Seconds (9.4-12.1) H 12/09/16 19:01 BUN 79 mg/dL (8-26) H 12/09/16 19:01 Creatinine 3.87 mg/dL (0.72-1.25) H 12/09/16 19:01 Est GFR ( Amer) 18 (> 60) L 12/09/16 19:01 Est GFR (Non-Af Amer) 15 (> 60) L 12/09/16 19:01 Glucose 264 mg/dL (70-99) H 12/09/16 19:01 POC Glucose 183 (58-89) H 12/10/16 01:17 Hemoglobin A1c 7.3 % (-5.6) H 12/09/16 22:46 Calculated Osmolality 321 (280-300) H 12/09/16 19: Calcium 8.2 mg/dL (8.6-10.8) L 12/09/16 19:01 AST 38 Units/L (5-34) H 12/09/16 19:01 Albumin 2.3 g/dL (3.5-5.0) L 12/09/16 19: Globulin 3.7 g/dL (2.4-3.5) H 12/09/16 19:01 Albumin/Globulin Ratio 0.6 (1.1-2.2) L 12/09/16 19:01 Ur Specimen Adequacy See below A 12/09/16 19: Urine Color Red (Yellow) A 12/09/16 19:15 Urine Clarity Turbid (Clear) A 12/09/16 19:15 Urine Protein >=1000 mg/dL (Neg-Trace) H 12/09/16 19:15 Urine Ketones 40 mg/dL (Negative) H 12/09/16 19:15 Urine Blood Large (Negative) H 12/09/16 19:15 Urine Nitrite Positive (Negative) A 12/09/16 19:15 Urine Bilirubin Large (Negative) H 12/09/16 19:15 Urine Urobilinogen 4.0 mg/dL (Normal) H 12/09/16 19:15 Ur Leukocyte Esterase Large (Negative) H 12/09/16 19:15 Ur Culture Indicated? YES (NO) A 12/09/16 19:15 All other labs normal. Consult Discharge Plan - Plan [facility]errals: [facility] [Primary Care Provider] -
[2016-12-10 08:45] LABS: INR 1.2; Prothrombin Time 13.3 Seconds (9.4-12.1)
[2016-12-10 08:47] LABS: Activated Partial Thrombo Time 33.9 Seconds (26.0-36.0)
[2016-12-10 08:57] LABS: Albumin 2.4 g/dL (3.5-5.0); Albumin/Globulin Ratio 0.6 (1.1-2.2); Bilirubin,Total 0.3 mg/dL (0.2-1.2); Calcium 7.9 mg/dL (8.6-10.8); Chol/HDL Ratio 3.1 (0-4.9); Globulin 4.2 g/dL (2.4-3.5); Magnesium 1.7 mg/dL (1.6-2.6); Phosphorous 4.4 mg/dL (2.3-4.7); Potassium 4.3 mEq/L (3.5-4.5); Total Protein 6.6 g/dL (6.0-8.3)
[2016-12-10] MEDS ORDERED: INSULIN GLARGINE SQ SCH (09:00)
[2016-12-10 09:17] LABS: Hematocrit 35.9 % (37.5-50.1)
[2016-12-10 09:18] LABS: Thyroid Stimulating Hormone 2.445 mcIU/mL (0.350-4.840)
[2016-12-10 09:20] LABS: Hemoglobin 10.9 g/dL (12.9-16.9)
[2016-12-10 09:31] LABS: Folate 15.9 ng/mL (7.0-31.4)
[2016-12-10 14:48] LABS: Hematocrit 31.5 % (37.5-50.1)
--- NOTE | 2016-12-10 15:52 | Internal Med Progress Note ---
Date of Encounter: 12/10/16 Time of Encounter: 15:50 - Assessment and plan (1) Acute blood loss anemia Current Visit: Yes Status: Acute Assessment and plan: possibel from hematuria, also has iron defeciency, will supplement iron. 2 units transfused, hb stable today will monitor. (2) Hematuria Current Visit: Yes Status: Acute Assessment and plan: seen by urology. catheter was manually irrigated with a small amount of clots returned. currently draining clear. continue to monitor (3) Indwelling catheter present on admission Current Visit: Yes Status: Acute (4) UTI (urinary tract infection) Current Visit: Yes Status: Acute Assessment and plan: will continue IV antibiotics. no fever or leucocytosis urine cx growing gram negative rods. Qualifiers: Urinary tract infection type: acute cystitis Hematuria presence: with hematuria Qualified Code(s): N30.01 - Acute cystitis with hematuria - Time Spent With Patient 25 - 35 minutes - Subjective Interval history: seen at the bedside, no meaningful conversation, poor historian. seen by urology, bieng treated for UTI and hematuria. - Constitutional Vitals: Temp Pulse Resp BP Pulse Ox 97.7 F 69 18 142/66 95 12/10/16 11:00 12/10/16 11:00 12/10/16 11:00 12/10/16 11:00 12/10/16 11:00 General appearance: Present: mild distress, A&O X 3, obese, answers questions appropriately Exam: - ENT Present: normal nares - Neck Present: no masses - Respiratory Present: b/l clear, no added sounds - Cardiovascular Cardiovascular exam IM: s1 and s2, no mr//g - Abdomen Abdomen: Present: soft, non tender, bs are present - Genitourinary other (18fr cath in place with slightly bloody urine in it. ) - Integumentary Absent: no rash Internal Medicine: Result - Labs CBC & Chem 7: 12/10/16 14:39 12/10/16 08:13 Labs: Short CBC 12/10/16 12/10/16 Range/Units 08:13 14:39 Hgb 10.9 L D 10.0 L (12.9-16.9) g/dL Hct 35.9 L 31.5 L (37.5-50.1) % BMP 12/10/16 08:13 Sodium 140 Potassium 4.3 Chloride 107 Carbon Dioxide 20 BUN 78 H Creatinine 3.77 H Glucose 164 H Calcium 7.9 L Liver Function 12/10/16 Range/Units 08:13 Total Bilirubin 0.3 (0.2-1.2) mg/dL AST 69 H (5-34) Units/L ALT 73 H (0-55) Units/L Alkaline Phosphatase 72 (38-126) Units/L Albumin 2.4 L (3.5-5.0) g/dL - ABG Interpretation ABG results: PT/INR, D-dimer PT 13.3 Seconds (9.4-12.1) H 12/10/16 08:13 Consult Discharge Plan - Plan [facility]errals: [facility] [Primary Care Provider] -
[2016-12-10] MEDS: Sennosides/Docusate Sodium TABLET PO SCH (20:33)
[2016-12-10] MEDS: Melatonin 3 MG TABLET GTUBE SCH (20:35)
[2016-12-10 20:48] LABS: Hematocrit 33.9 % (37.5-50.1); Hemoglobin 10.2 g/dL (12.9-16.9)
[2016-12-10] MEDS: Latanoprost 2.5 ML BOTTLE BOTH EYES SCH (21:42)
[2016-12-11] MEDS: Piperacillin/Tazobactam 3.375 GM in D5% in Water (Mini-Bag+) 100 ML IVPB SCH ×3 (00:23→23:56)
[2016-12-11] MEDS: 0.9 % Sodium Chloride 1,000 ML IVC SCH ×3 (00:24→21:04)
[2016-12-11] MEDS: hydrALAZINE 25 MG TABLET PO SCH ×3 (05:44→21:09)
[2016-12-11 05:46] LABS: Basophils % 0.4 %; Eosinophils # 0.4 K/mcL (0.0-0.6); Hematocrit 30.9 % (37.5-50.1); Hemoglobin 9.9 g/dL (12.9-16.9); Immature Granulocytes % 0.4 % (0-4); Lymphocytes # 0.8 K/mcL (0.6-4.6); Lymphocytes % 10.6 %; Mean Corpuscular Hemoglobin 25.6 pg (28.0-33.3); Mean Corpuscular Volume 80.1 fL (83.0-100.0); Mean Platelet Volume 10.9 fL (9.4-12.4); Monocytes # 0.8 K/mcL (0.0-1.3); Monocytes % 11.3 %; Neutrophils # 5.4 K/mcL (1.6-8.9); Nucleated Red Blood Cells 0.4 /100 WBC (0); Platelet Count 156 K/mcL (140-400); Red Blood Count 3.86 M/mcL (4.19-5.50); Red Cell Distribution Width 16.6 % (11.5-14.5); Segmented Neutrophils % 72.3 %
[2016-12-11 06:00] LABS: Albumin 2.1 g/dL (3.5-5.0); Albumin/Globulin Ratio 0.6 (1.1-2.2); Bilirubin,Direct 0.2 mg/dL (0.0-0.5); Bilirubin,Indirect 0.2 mg/dL (0.0-1.2); Bilirubin,Total 0.4 mg/dL (0.2-1.2); Calcium 7.8 mg/dL (8.6-10.8); Globulin 3.7 g/dL (2.4-3.5); Potassium 4.2 mEq/L (3.5-4.5); Total Protein 5.8 g/dL (6.0-8.3)
--- NOTE | 2016-12-11 08:24 | Urology Progress Note ---
Date of Encounter: 12/11/16 Time of Encounter: 08:22 - Assessment and Plan (1) Anemia Current Visit: Yes Status: Acute Qualifiers: Anemia type: unspecified type Qualified Code(s): D64.9 - Anemia, unspecified (2) Hematuria Current Visit: Yes Status: Acute Assessment and plan: resolved. ok to dc from urology standpoint. f/u in 2-3 weeks. continue catheter (3) UTI (urinary tract infection) Current Visit: Yes Status: Acute Qualifiers: Urinary tract infection type: acute cystitis Hematuria presence: with hematuria Qualified Code(s): N30.01 - Acute cystitis with hematuria Progress Note Narrative: patient seen. doing well. no problems with catheter Objective Initial Vital Signs Temp Pulse Resp BP Pulse Ox 100.4 F H 85 20 152/71 95 12/09/16 18:49 12/09/16 18:49 12/09/16 18:49 12/09/16 18:49 12/09/16 18:49 - Abdomen Present: soft - Genitourinary Present: other (urine clear yellow in tubing) - Labs 12/11/16 04:47 12/11/16 04:47 Diabetes panel 12/11/16 Range/Units 04:47 Sodium 138 (136-145) mEq/L Potassium 4.2 (3.5-4.5) mEq/L Chloride 109 (98-109) mEq/L Carbon Dioxide 15 L (19-29) mEq/L BUN 77 H (8-26) mg/dL Creatinine 3.69 H (0.72-1.25) mg/dL Glucose 49 L (70-99) mg/dL Calcium 7.8 L (8.6-10.8) mg/dL AST 83 H (5-34) Units/L ALT 90 H (0-55) Units/L Alkaline Phosphatase 62 (38-126) Units/L Albumin 2.1 L (3.5-5.0) g/dL Calcium panel 12/11/16 Range/Units 04:47 Calcium 7.8 L (8.6-10.8) mg/dL Albumin 2.1 L (3.5-5.0) g/dL Pituitary panel 12/11/16 Range/Units 04:47 Sodium 138 (136-145) mEq/L Potassium 4.2 (3.5-4.5) mEq/L Chloride 109 (98-109) mEq/L Carbon Dioxide 15 L (19-29) mEq/L BUN 77 H (8-26) mg/dL Creatinine 3.69 H (0.72-1.25) mg/dL Glucose 49 L (70-99) mg/dL Calcium 7.8 L (8.6-10.8) mg/dL Adrenal panel 12/11/16 Range/Units 04:47 Sodium 138 (136-145) mEq/L Potassium 4.2 (3.5-4.5) mEq/L Chloride 109 (98-109) mEq/L Carbon Dioxide 15 L (19-29) mEq/L BUN 77 H (8-26) mg/dL Creatinine 3.69 H (0.72-1.25) mg/dL Glucose 49 L (70-99) mg/dL Calcium 7.8 L (8.6-10.8) mg/dL Total Bilirubin 0.4 (0.2-1.2) mg/dL AST 83 H (5-34) Units/L ALT 90 H (0-55) Units/L Alkaline Phosphatase 62 (38-126) Units/L Albumin 2.1 L (3.5-5.0) g/dL Consult Discharge Plan - Plan [facility]errals: [facility] [Primary Care Provider] -
[2016-12-11] MEDS: CASTOR OIL TP SCH ×4 (09:23→23:58)
[2016-12-11] MEDS: BALSAM PERU TP SCH ×4 (09:23→23:58)
[2016-12-11] MEDS: Insulin LISPRO 300 UNITS/3 ML VIAL SQ SCH ×4 (09:23→21:05)
[2016-12-11] MEDS: Insulin DETEMIR 100 UNIT/ML X5UNITS SQ SCH (09:23)
[2016-12-11] MEDS: Acetaminophen 325 MG TABLET PO SCH ×2 (09:28→21:07)
[2016-12-11] MEDS: Finasteride 5 MG TABLET PO SCH (09:28)
[2016-12-11] MEDS: Furosemide 40 MG TABLET PO SCH (09:28)
[2016-12-11] MEDS: cloNIDine HCl 0.1 MG TABLET PO SCH ×2 (09:28→21:08)
[2016-12-11] MEDS: amLODIPine 5 MG TABLET GTUBE SCH (09:29)
[2016-12-11] MEDS: Artificial Tears SOLN 15 ML BOTTLE OP SCH ×4 (09:33→21:12)
[2016-12-11] MEDS: Dorzolamide/Timolol OPTH 10 ML BOTTLE BOTH EYES SCH ×2 (09:33→21:10)
[2016-12-11] MEDS: Nystatin OINT 15 GM TUBE TP SCH ×2 (09:35→21:12)
[2016-12-11] MEDS: Sodium Chloride 5% OPTH 3.5 GM TUBE OP SCH (09:35)
--- NOTE | 2016-12-11 13:17 | Internal Med Progress Note ---
Date of Encounter: 12/11/16 Time of Encounter: 13:11 - Assessment and plan (1) Acute blood loss anemia Current Visit: Yes Status: Acute Assessment and plan: possibel from hematuria, also has iron defeciency, will supplement iron. no hematuria today. 2 units transfused, hb stable will monitor. (2) Hematuria Current Visit: Yes Status: Acute Assessment and plan: seen by urology. catheter was manually irrigated with a small amount of clots returned. currently draining clear. continue to monitor (3) Indwelling catheter present on admission Current Visit: Yes Status: Acute (4) UTI (urinary tract infection) Current Visit: Yes Status: Acute Assessment and plan: will continue IV antibiotics. no fever or leucocytosis urine cx growing klebsiella will change to oral antbiotic on dc Qualifiers: Urinary tract infection type: acute cystitis Hematuria presence: with hematuria Qualified Code(s): N30.01 - Acute cystitis with hematuria - Time Spent With Patient 25 - 35 minutes - Subjective Interval history: seen at the bedside, poor historian, denies any pain, n/v no hematuria noted on the bag. seen by urology, benedicto treated for UTI and hematuria. he will go back to [place],, will need social work for arrangement. - Constitutional Vitals: Temp Pulse Resp BP Pulse Ox 98.4 F 75 18 160/66 95 12/11/16 11:46 12/11/16 11:46 12/11/16 11:46 12/11/16 11:46 12/11/16 11:46 General appearance: Present: A&O X 3, obese, answers questions appropriately Exam: - ENT Present: normal nares - Neck Present: no masses - Respiratory Present: b/l clear, no added sounds - Cardiovascular Cardiovascular exam IM: s1 and s2, no mr//g - Abdomen Abdomen: Present: soft, non tender, bs are present - Genitourinary other (18fr cath in place , no hematuria ) - Integumentary Absent: no rash Internal Medicine: Result - Labs CBC & Chem 7: 12/11/16 04:47 12/11/16 04:47 Labs: Short CBC 12/10/16 12/11/16 Range/Units 20:42 04:47 WBC 7.4 (4.3-11.1) K/mcL Hgb 10.2 L 9.9 L (12.9-16.9) g/dL Hct 33.9 L 30.9 L (37.5-50.1) % Plt Count 156 (140-400) K/mcL Neutrophils # 5.4 (1.6-8.9) K/mcL BMP 12/11/16 04:47 Sodium 138 Potassium 4.2 Chloride 109 Carbon Dioxide 15 L BUN 77 H Creatinine 3.69 H Glucose 49 L Calcium 7.8 L Liver Function 12/11/16 Range/Units 04:47 Total Bilirubin 0.4 (0.2-1.2) mg/dL Direct Bilirubin 0.2 (0.0-0.5) mg/dL AST 83 H (5-34) Units/L ALT 90 H (0-55) Units/L Alkaline Phosphatase 62 (38-126) Units/L Albumin 2.1 L (3.5-5.0) g/dL - ABG Interpretation ABG results: PT/INR, D-dimer PT 13.3 Seconds (9.4-12.1) H 12/10/16 08:13 - Impressions Impressions Chest X-Ray 12/11/16 08:07 IMPRESSION: Cardiomegaly with suspected pulmonary vascular congestion. D/ / Sara Feliciano Cha, MD / Sara Feliciano Cha, MD Interpreting Provider: Sara Feliciano Cha, MD Consult Discharge Plan - Plan [facility]errals: [facility] [Primary Care Provider] -
[2016-12-11] MEDS: Sennosides/Docusate Sodium TABLET PO SCH (21:08)
[2016-12-11] MEDS: Melatonin 3 MG TABLET GTUBE SCH (21:09)
[2016-12-11] MEDS: Latanoprost 2.5 ML BOTTLE BOTH EYES SCH (21:11)
[2016-12-12] MEDS: hydrALAZINE 25 MG TABLET PO SCH (06:03)
[2016-12-12] MEDS: amLODIPine 5 MG TABLET GTUBE SCH (07:38)
[2016-12-12] MEDS: Finasteride 5 MG TABLET PO SCH (07:38)
[2016-12-12] MEDS: cloNIDine HCl 0.1 MG TABLET PO SCH (07:38)
[2016-12-12] MEDS: Acetaminophen 325 MG TABLET PO SCH (07:38)
[2016-12-12] MEDS: Furosemide 40 MG TABLET PO SCH (07:39)
[2016-12-12] MEDS: Insulin LISPRO 300 UNITS/3 ML VIAL SQ SCH (07:39)
[2016-12-12] MEDS: Artificial Tears SOLN 15 ML BOTTLE OP SCH (07:40)
[2016-12-12] MEDS: Dorzolamide/Timolol OPTH 10 ML BOTTLE BOTH EYES SCH (07:41)
[2016-12-12] MEDS: Sodium Chloride 5% OPTH 3.5 GM TUBE OP SCH (07:42)
[2016-12-12] MEDS: Nystatin OINT 15 GM TUBE TP SCH (07:42)
[2016-12-12] MEDS: BALSAM PERU TP SCH (07:43)
[2016-12-12] MEDS: CASTOR OIL TP SCH (07:43)
--- NOTE | 2016-12-12 10:31 | Discharge Summary ---
Date of Encounter: 12/12/16 Time of Encounter: 10:29 - Discharge Diagnosis (1) Acute blood loss anemia Priority: Primary Status: Acute (2) Hematuria Priority: Primary Status: Acute (3) Indwelling catheter present on admission Priority: Primary Status: Acute (4) UTI (urinary tract infection) Priority: Primary Status: Acute Qualifiers: Urinary tract infection type: acute cystitis Hematuria presence: with hematuria Qualified Code(s): N30.01 - Acute cystitis with hematuria - Discharge Medications Prescriptions: Levofloxacin 500 mg PO DAILY #3 tablet Home Medications: Acetaminophen [Tylenol] 650 mg PO BID MDD 3000 mg/day 12/09/16 [History] Acetaminophen [Tylenol] 650 mg PO Q4H PRN MDD 3000 mg/day 12/09/16 [History] Allopurinol [Zyloprim 100 MG] 100 mg GTUBE DAILY 12/09/16 [History] Amlodipine Besylate 10 mg GTUBE DAILY 12/09/16 [History] Atorvastatin [Lipitor] 40 mg GTUBE DAILY 12/09/16 [History] Balsam [place] Oil [Venelex Ointment Packet] 1 appl TP QID 12/09/16 [History ] Brimonidine 0.2% [Alphagan] 1 drop OP TID 12/09/16 [History] Calcitriol [Rocaltrol] 0.25 mcg GTUBE DAILY 12/09/16 [History] Carvedilol 12.5 mg GTUBE BID 12/09/16 [History] Cholecalciferol (D-3) [Vitamin D] 2,000 unit PO DAILY 12/09/16 [History] CloNIDine HCl 0.1 mg PO BID 12/09/16 [History] Dorzolamide/Timolol/Pf [Cosopt Pf Eye Drops] 1 drop OP BID 12/09/16 [History] Doxazosin Mesylate [Cardura] 8 mg GTUBE HS 12/09/16 [History] Doxazosin Mesylate [Cardura] 8 mg PO QAM 12/09/16 [History] Epoetin Cortez [Procrit] 5,000 unit SQ MOWEFR 12/09/16 [History] Ferrous Sulfate 325 mg GTUBE TID 12/09/16 [History] Finasteride [Proscar] 5 mg GTUBE DAILY 12/09/16 [History] Furosemide [Lasix] 40 mg GTUBE DAILY 12/09/16 [History] Hydralazine HCl 100 mg GTUBE Q8H 12/09/16 [History] Insulin ASPART [NovoLOG] 3 - 8 unit SQ PRN PRN 12/09/16 [History] Insulin Glargine [Lantus] 16 unit SQ DAILY 12/09/16 [History] Ipratropium/Albuterol Neb [Duoneb] 3 ml IH Q4H PRN 12/09/16 [History] Isosorbide DInitrate [Isosorbide Dinitrate] 15 mg PO TID 12/09/16 [History] Ketoconazole 2% CRM [Nizoral Cream] 1 appl TP BID 12/09/16 [History] Latanoprost [Xalatan] 1 drop OP HS 12/09/16 [History] Magnesium Hydroxide [Milk of Magnesia] 2,400 mg PO DAILY PRN 12/09/16 [History] Melatonin 3 mg GTUBE HS 12/09/16 [History] Methyl Salicylate/Menthol [Muscle Rub Cream] 1 appl TP BID 12/09/16 [History] Nystatin OINT [Mycostatin] 1 appl TP BID 12/09/16 [History] Propylene Glycol/Peg 400 [Systane 0.3-0.4% Eye Drops] 1 drop OP QID 12/09/16 [ History] Sennosides/Docusate Sodium [Senna Plus] 2 each PO HS 12/09/16 [History] Sertraline [Zoloft] 100 mg GTUBE DAILY 12/09/16 [History] Sodium Bicarbonate 650 mg PO TID 12/09/16 [History] Sodium Chloride 5% OPTH Oint [Riky-128] 1 appl OP DAILY 12/09/16 [History] Sodium Chloride [Riky-128] 1 drop OP TID 12/09/16 [History] Triamcinolone Acet 0.1% CRM [Kenalog] 1 appl TP BID 12/09/16 [History] Levofloxacin 500 mg PO DAILY #3 tablet 12/12/16 [Rx] Allergies/Adverse Reactions: Allergies lisinopril Adverse Reaction (Verified 12/09/16 20:15) unknown per [facility] list Date of admission: 12/10/16 18:50 [facility] care [facility]: [facility] Discharging clinician: Blas Mora Anticipated date of discharge: 12/12/16 - Patient Status Disposition: Transfer [facility] Condition: Fair Functional capacity at discharge: uses cane/walker Overall status at discharge: patient is back to baseline - Discharge Instructions Follow Up With: [facility] [Primary Care Provider] - - Diet and Activity Activity: as per physical therapy Diet: advance to your usual diet Interval History: Kalen is a 81 y/o male with history of arthritis, CHF, coronary artery disease , diabetes, hyperlipidemia, hypertension, myocardial infarction, osteoporosis, peripheral artery disease, renal disease, TIA, valvular heart disease. he has had 3 trips to the ED this week secondary to hematuria. HE keeps pulling the catheter leading to traumatic injury to the bladder causing hematuria. He now is admitted for hematuria now with blood loss anemia. urology was consulted and catheter was irrigated with return of clots. after that , he has had no hematuria. He received 2 units of PRBC while inpatient, repeat hemoglobin has been stable. He is being discharged in stable condition back to [facility] Hospital course: Mr. Webb is a 81 year old male Time spent discussing smoking cessation with patient: more than 10 minutes - Time Spent with Patient Total time spent providing and/or coordinating discharge services: Greater than 30 minutes - Constitutional Vitals: Temp Pulse Resp BP Pulse Ox 98.2 F 70 14 156/67 94 L 12/12/16 05:24 12/12/16 05:24 12/12/16 05:24 12/12/16 05:24 12/12/16 05:24 General appearance: Present: A&O X 3, obese, answers questions appropriately Exam: - ENT Present: normal nares - Neck Present: no masses - Respiratory Present: normal respiratory effort - Cardiovascular Cardiovascular exam IM: RRR - Abdomen Abdomen: Present: soft - Genitourinary urine clear in the bag - Integumentary Absent: no rash
--- NOTE | 2016-12-12 10:32 | Physician Discharge Referral ---
ExtendedCare Referral Info Transfer To: MD Provider in Charge: ambrose mcginnis Institutional Level of Care: Intermediate - MR - Diagnosis (1) Acute blood loss anemia Status: Acute (2) Hematuria Status: Acute (3) Indwelling catheter present on admission Status: Acute (4) UTI (urinary tract infection) Status: Acute - Transfer Medications Prescriptions: Levofloxacin 500 mg PO DAILY #3 tablet Home Medications: Acetaminophen [Tylenol] 650 mg PO BID MDD 3000 mg/day 12/09/16 [History] Acetaminophen [Tylenol] 650 mg PO Q4H PRN MDD 3000 mg/day 12/09/16 [History] Allopurinol [Zyloprim 100 MG] 100 mg GTUBE DAILY 12/09/16 [History] Amlodipine Besylate 10 mg GTUBE DAILY 12/09/16 [History] Atorvastatin [Lipitor] 40 mg GTUBE DAILY 12/09/16 [History] Balsam [place] Oil [Venelex Ointment Packet] 1 appl TP QID 12/09/16 [History ] Brimonidine 0.2% [Alphagan] 1 drop OP TID 12/09/16 [History] Calcitriol [Rocaltrol] 0.25 mcg GTUBE DAILY 12/09/16 [History] Carvedilol 12.5 mg GTUBE BID 12/09/16 [History] Cholecalciferol (D-3) [Vitamin D] 2,000 unit PO DAILY 12/09/16 [History] CloNIDine HCl 0.1 mg PO BID 12/09/16 [History] Dorzolamide/Timolol/Pf [Cosopt Pf Eye Drops] 1 drop OP BID 12/09/16 [History] Doxazosin Mesylate [Cardura] 8 mg GTUBE HS 12/09/16 [History] Doxazosin Mesylate [Cardura] 8 mg PO QAM 12/09/16 [History] Epoetin Cortez [Procrit] 5,000 unit SQ MOWEFR 12/09/16 [History] Ferrous Sulfate 325 mg GTUBE TID 12/09/16 [History] Finasteride [Proscar] 5 mg GTUBE DAILY 12/09/16 [History] Furosemide [Lasix] 40 mg GTUBE DAILY 12/09/16 [History] Hydralazine HCl 100 mg GTUBE Q8H 12/09/16 [History] Insulin ASPART [NovoLOG] 3 - 8 unit SQ PRN PRN 12/09/16 [History] Insulin Glargine [Lantus] 16 unit SQ DAILY 12/09/16 [History] Ipratropium/Albuterol Neb [Duoneb] 3 ml IH Q4H PRN 12/09/16 [History] Isosorbide DInitrate [Isosorbide Dinitrate] 15 mg PO TID 12/09/16 [History] Ketoconazole 2% CRM [Nizoral Cream] 1 appl TP BID 12/09/16 [History] Latanoprost [Xalatan] 1 drop OP HS 12/09/16 [History] Magnesium Hydroxide [Milk of Magnesia] 2,400 mg PO DAILY PRN 12/09/16 [History] Melatonin 3 mg GTUBE HS 12/09/16 [History] Methyl Salicylate/Menthol [Muscle Rub Cream] 1 appl TP BID 12/09/16 [History] Nystatin OINT [Mycostatin] 1 appl TP BID 12/09/16 [History] Propylene Glycol/Peg 400 [Systane 0.3-0.4% Eye Drops] 1 drop OP QID 12/09/16 [ History] Sennosides/Docusate Sodium [Senna Plus] 2 each PO HS 12/09/16 [History] Sertraline [Zoloft] 100 mg GTUBE DAILY 12/09/16 [History] Sodium Bicarbonate 650 mg PO TID 12/09/16 [History] Sodium Chloride 5% OPTH Oint [Riky-128] 1 appl OP DAILY 12/09/16 [History] Sodium Chloride [Riky-128] 1 drop OP TID 12/09/16 [History] Triamcinolone Acet 0.1% CRM [Kenalog] 1 appl TP BID 12/09/16 [History] Levofloxacin 500 mg PO DAILY #3 tablet 12/12/16 [Rx] Allergies/Adverse Reactions: Allergies lisinopril Adverse Reaction (Verified 12/09/16 20:15) unknown per [facility] list - Respiratory Orders Smoking Cessation: Smoking cessation has been advised. For more information, call the [place] Tobacco Quit Line at 8-905-MHAQ-NOW. - Advance Directives Code Status: Full Code - Mobility Orders Chair - Rehabiliation Orders Rehab Potential: Fair Rehab Orders: Evaluation for Physical Therapy, Evaluation for Occupational Therapy - Diet Orders Regular CERTIFICATION: I certify that the transfer of the above named patient to an Extended Care Facility is necessary for the continuing treatment of the diagnosis listed. The above information is true and accurate reflection of patient's current condition. Confidential - Redisclosure prohibited without a patient's written consent.
[2016-12-12] MEDS: Insulin DETEMIR 100 UNIT/ML X5UNITS SQ SCH (10:36)
[2016-12-12 10:43] VITALS: BP 136/66
== END 2016-12-12 11:12 | DRG 699 ==
LOC: EMEROO 18:43 → INTOOBSV 23:04 → 3ANU 23:04
PROVIDERS: ADMIT Internal Medicine; ATTEND Internal Medicine Endocrinology, Diabetes & Metabolism

== ENCOUNTER 2017-04-21 14:10 | Inpatient (IN) ==
--- NOTE | 2017-04-21 14:19 | Emergency Department Note ---
Disposition Clinical Impression: CKD (chronic kidney disease) stage 5, GFR less than 15 ml/min Congestive heart failure Qualifiers: Congestive heart failure type: unspecified congestive heart failure type Congestive heart failure chronicity: unspecified congestive heart failure chronicity Qualified Code(s): I50.9 - Heart failure, unspecified Dyspnea Qualifiers: Dyspnea type: unspecified Qualified Code(s): R06.00 - Dyspnea, unspecified Disposition: Admitted As Inpatient SOB HPI - General Chief Complaint: ED Shortness of Breath/Dyspnea Stated Complaint: shortness of breath Time Seen by Provider: 04/21/17 14:17 Source: EMS Limitations: language barrier Nursing Notes Reviewed: Yes Vital Signs Reviewed: Yes - History of Present Illness She is a pleasant 81-year-old male who is here for shortness of breath and worsening heart failure per the [place] detention. 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 [facility] is not yet mature they recommended coming to [facility] for dialysis for worsening edema and shortness of breath despite diuretics. The patient denies being in any pain he states he is comfortable is not short of breath now with oxygen. Pt Subjective Complaint: shortness of breath Onset (ago): day(s) (2) Severity: mild Consistency/Duration: constant Improves with: oxygen Worsens with: nothing Associated symptoms: Denies: chest pain, pain with inspiration, fever Treatment prior to arrival: oxygen Cough present: No - Related Data Home Medications Medication Instructions Recorded Confirmed Acetaminophen [Tylenol] 650 mg PO BID MDD 3000 mg/day 12/09/16 04/21/17 Acetaminophen [Tylenol] 650 mg PO Q4H PRN MDD 3000 mg/day 12/09/16 04/21/17 Allopurinol [Zyloprim 100 MG] 100 mg PO DAILY 12/09/16 04/21/17 Amlodipine Besylate 10 mg PO DAILY 12/09/16 04/21/17 Brimonidine 0.2% [Alphagan] 1 drop OP TID 12/09/16 04/21/17 Carvedilol 12.5 mg PO BID 12/09/16 04/21/17 Cholecalciferol (D-3) [Vitamin D] 2,000 unit PO DAILY 12/09/16 04/21/17 Dorzolamide/Timolol/Pf [Cosopt Pf 1 drop OP BID 12/09/16 04/21/17 Eye Drops] Doxazosin Mesylate [Cardura] 8 mg PO BID 12/09/16 04/21/17 Epoetin Cortez [Procrit] 5,000 unit SQ MOWEFR 12/09/16 04/21/17 Ferrous Sulfate 325 mg PO TID 12/09/16 04/21/17 Finasteride [Proscar] 5 mg PO DAILY 12/09/16 04/21/17 Furosemide [Lasix] 60 mg PO BID 12/09/16 04/21/17 Hydralazine HCl 100 mg PO Q8H 12/09/16 04/21/17 Insulin ASPART [NovoLOG] 2 unit SQ BID 12/09/16 04/21/17 Insulin Glargine [Lantus] 10 unit SQ DAILY 12/09/16 04/21/17 Ipratropium/Albuterol Neb [Duoneb] 3 ml IH Q4H PRN 12/09/16 04/21/17 Latanoprost [Xalatan] 1 drop OP HS 12/09/16 04/21/17 Melatonin 3 mg PO HS 12/09/16 04/21/17 Methyl Salicylate/Menthol [Muscle 1 appl TP BID PRN 12/09/16 04/21/17 Rub Cream] Sertraline [Zoloft] 100 mg PO DAILY 12/09/16 04/21/17 Sodium Chloride [Riky-128] 1 drop OP QID 12/09/16 04/21/17 Aspirin Enteric Coated [Aspirin EC] 81 mg PO DAILY 04/21/17 04/21/17 Atorvastatin Calcium [Lipitor] 20 mg PO HS 04/21/17 04/21/17 Bacitracin OINT [Ak-Tracin] 1 appl TP DAILY 04/21/17 04/21/17 Erythromycin OPTH Oint 1 appl OP HS 04/21/17 04/21/17 Isosorbide MONOnitrate (24 HR) 90 mg PO DAILY 04/21/17 04/21/17 [Imdur] Omeprazole [PriLOSEC] 20 mg PO DAILY 04/21/17 04/21/17 Polyvinyl Alcohol [Artificial 2 drop OP Q4H PRN 04/21/17 04/21/17 Tears] PrednisoLONE Acetate 1% Opth 1 drop OP QID 04/21/17 04/21/17 [PredFORTE 1%] Sevelamer [Renvela] 1,600 mg PO TIDWM 04/21/17 04/21/17 cloNIDine HCl [Clonidine HCl] 0.2 mg PO TID 04/21/17 04/21/17 metOLazone [Zaroxolyn] 2.5 mg PO DAILY 04/21/17 04/21/17 Allergies Allergy/AdvReac Type Severity Reaction Status Date / Time lisinopril AdvReac unknown Verified 02/07/17 07:43 All systems ED: reviewed and negative except as stated. Constitutional: Denies: fever Past Medical History - Past Medical History Source: patient, old records reviewed, obtained from family (detention), nursing notes reviewed Medical history: Reports: arthritis, CHF, coronary artery disease, diabetes, GI bleed, hyperlipidemia, hypertension, myocardial infarction, osteoporosis, peripheral artery disease, renal disease, TIA, valvular heart disease, other Surgical history: Reports: coronary bypass (CABG), other Psychiatric history: Reports: no psych history, other - Social History Smoking Status: Unknown if ever smoked Smokeless Tobacco Status: No Alcohol use: Reports: unknown Drug use: Reports: unknown Physical Exam - General Limitations: language barrier General appearance: alert, in no apparent distress, other (Patient will answer questions he has some speech difficulty secondary to stroke he moans almost continuously but denies being in any pain) - Eye Eye exam: Present: normal appearance, PERRL, EOMI - ENT ENT exam: normal exam, normal oropharynx, mucous membranes moist - Neck Neck exam: Present: normal inspection, full ROM, trachea midline - Chest Chest inspection: Present: normal inspection, symmetric chest wall rise - Respiratory Respiratory exam: Present: other (Basilar rales). Absent: respiratory distress - Cardiovascular Cardiovascular exam: Present: regular rate, normal rhythm, normal heart sounds - Abdominal Exam Abdominal exam: Present: soft, Non-Tender. Absent: tenderness, distention, guarding, rebound, rigidity - Expanded Lower Extremity Exam Lower leg exam: Present: other (2-3+ pitting edema) - Neurological Exam Neurological exam: Present: alert. Absent: oriented X3 (Alert to person and place) - Skin Skin exam: Present: warm, dry, intact, normal color Course Vital Signs Temperature 97.6 F 04/21/17 14:13 Pulse Rate 69 04/21/17 14:13 Respiratory Rate 22 04/21/17 14:13 Blood Pressure 137/79 04/21/17 14:13 O2 Sat by Pulse Oximetry 96 04/21/17 14:13 Temperature 97.6 F 04/21/17 14:13 Pulse Rate 65 04/21/17 16:07 Respiratory Rate 13 04/21/17 16:07 Blood Pressure 141/69 04/21/17 16:07 O2 Sat by Pulse Oximetry 94 04/21/17 16:07 Oxygen Delivery Oxygen Delivery Nasal Cannula Shortness of Breath/Dyspnea - MDM Narrative Medical decision making narrative: Dr. Magdaleno was consult. I do not see a fistula in either the patient's arms , the detention at the [place] stated that the clinical lab specialist that his fistula was not mature enough for dialysis. The patient has not been dialyzed as of yet they have been watching his renal function and using by mouth diuretics for his chronic congestive heart failure - Medical Records Medical records reviewed: Yes I reviewed the patient's medical records. - Lab Data Lab results reviewed: Yes I reviewed the patient's lab results. Result diagrams: 04/21/17 14:32 04/21/17 14:32 Lab Results 04/21/17 04/21/17 04/21/17 Range/Units 14:32 14:32 14:32 WBC 6.5 (4.3-11.1) K/mcL RBC 2.86 L (4.19-5.50) M/mcL Hgb 7.1 L (12.9-16.9) g/dL Hct 23.3 L (37.5-50.1) % MCV 81.5 L (83.0-100.0) fL MCH 24.8 L (28.0-33.3) pg MCHC 30.5 L (31.6-35.5) g/dL RDW 20.8 H (11.5-14.5) % Plt Count 118 L (140-400) K/mcL MPV 9.1 L (9.4-12.4) fL Immature Gran % 1.1 (0-4) % Seg Neutrophils % 72.4 % Lymphocytes % 11.8 % Monocytes % 9.6 % Eosinophils % 4.8 % Basophils % 0.3 % Neutrophils # 4.7 (1.6-8.9) K/mcL Lymphocytes # 0.8 (0.6-4.6) K/mcL Monocytes # 0.6 (0.0-1.3) K/mcL Eosinophils # 0.3 (0.0-0.6) K/mcL Basophils # 0.0 (0.0-0.2) K/mcL Nucleated RBCs/100 WBC 0.3 H (0) /100 WBC PT 13.1 H (9.4-12.1) Seconds INR 1.2 APTT 35.2 (26.0-36.0) Seconds Sodium 137 (136-145) mEq/L Potassium 4.9 H (3.5-4.5) mEq/L Chloride 104 (98-109) mEq/L Carbon Dioxide 25 (19-29) mEq/L BUN 65 H (8-26) mg/dL Creatinine 5.72 H (0.72-1.25) mg/dL Est GFR ( Amer) 12 L (> 60) Est GFR (Non-Af Amer) 10 L (> 60) BUN/Creatinine Ratio 11 (6-26) Glucose 186 H (70-99) mg/dL Calculated Osmolality 308 H (280-300) Calcium 7.8 L (8.6-10.8) mg/dL Troponin I (0-0.03) ng/mL B-Natriuretic Peptide (0-100) pg/mL 04/21/17 04/21/17 Range/Units 14:32 14:32 WBC (4.3-11.1) K/mcL RBC (4.19-5.50) M/mcL Hgb (12.9-16.9) g/dL Hct (37.5-50.1) % MCV (83.0-100.0) fL MCH (28.0-33.3) pg MCHC (31.6-35.5) g/dL RDW (11.5-14.5) % Plt Count (140-400) K/mcL MPV (9.4-12.4) fL Immature Gran % (0-4) % Seg Neutrophils % % Lymphocytes % % Monocytes % % Eosinophils % % Basophils % % Neutrophils # (1.6-8.9) K/mcL Lymphocytes # (0.6-4.6) K/mcL Monocytes # (0.0-1.3) K/mcL Eosinophils # (0.0-0.6) K/mcL Basophils # (0.0-0.2) K/mcL Nucleated RBCs/100 WBC (0) /100 WBC PT (9.4-12.1) Seconds INR APTT (26.0-36.0) Seconds Sodium (136-145) mEq/L Potassium (3.5-4.5) mEq/L Chloride (98-109) mEq/L Carbon Dioxide (19-29) mEq/L BUN (8-26) mg/dL Creatinine (0.72-1.25) mg/dL Est GFR ( Amer) (> 60) Est GFR (Non-Af Amer) (> 60) BUN/Creatinine Ratio (6-26) Glucose (70-99) mg/dL Calculated Osmolality (280-300) Calcium (8.6-10.8) mg/dL Troponin I 0.03 (0-0.03) ng/mL B-Natriuretic Peptide 1797 H (0-100) pg/mL - Radiology Data Radiology results reviewed: Yes I reviewed the patient's radiology results. - EKG Data Rhythm: Reports: other (Supraventricular rhythm rate 66) Interpretation: Reports: nonspecific ST-T wave changes
[2017-04-21 14:40] LABS: Basophils % 0.3 %; Eosinophils # 0.3 K/mcL (0.0-0.6); Eosinophils % 4.8 %; Hematocrit 23.3 % (37.5-50.1); Immature Granulocytes % 1.1 % (0-4); Lymphocytes # 0.8 K/mcL (0.6-4.6); Lymphocytes % 11.8 %; Mean Corpuscular HGB Conc 30.5 g/dL (31.6-35.5); Mean Corpuscular Hemoglobin 24.8 pg (28.0-33.3); Mean Corpuscular Volume 81.5 fL (83.0-100.0); Mean Platelet Volume 9.1 fL (9.4-12.4); Monocytes # 0.6 K/mcL (0.0-1.3); Monocytes % 9.6 %; Neutrophils # 4.7 K/mcL (1.6-8.9); Nucleated Red Blood Cells 0.3 /100 WBC (0); Platelet Count 118 K/mcL (140-400); Red Blood Count 2.86 M/mcL (4.19-5.50); Red Cell Distribution Width 20.8 % (11.5-14.5); Segmented Neutrophils % 72.4 %
[2017-04-21 14:45] LABS: INR 1.2; Prothrombin Time 13.1 Seconds (9.4-12.1)
[2017-04-21 14:48] LABS: Activated Partial Thrombo Time 35.2 Seconds (26.0-36.0)
[2017-04-21 14:52] LABS: Calcium 7.8 mg/dL (8.6-10.8); Potassium 4.9 mEq/L (3.5-4.5)
[2017-04-21 14:59] LABS: Hemoglobin 7.1 g/dL (12.9-16.9)
[2017-04-21] MEDS ORDERED: Ondansetron 4 MG/2 ML VIAL IVP ONE (15:12)
[2017-04-21] MEDS ORDERED: *HR* OxyCODONE Immed Rel 5 MG TABLET PO PRN (17:55)
[2017-04-21] MEDS ORDERED: Ondansetron 4 MG/2 ML VIAL IVP PRN (17:55)
[2017-04-21] MEDS ORDERED: *HR* Morphine 2 MG/ML SYRINGE IVP PRN (17:55)
[2017-04-21] MEDS ORDERED: Acetaminophen 325 MG TABLET PO PRN (17:55)
[2017-04-21] MEDS ORDERED: Naloxone 0.4 MG/ML INJ IVP PRN (17:55)
[2017-04-21] MEDS ORDERED: Ipratropium/Albuterol Neb 3 ML IH PRN (17:57)
[2017-04-21] MEDS ORDERED: *HR* Dextrose 50 % in Water (Syg) 50 ML SYRINGE IVP PRN (17:59)
[2017-04-21] MEDS ORDERED: Dextrose Gel 15 GM PO PRN ×2 (17:59)
[2017-04-21] MEDS ORDERED: D5% in Water 1,000 ML IVC PRN (17:59)
[2017-04-21 18:53] LABS: Hemoglobin A1C 7.3 %
[2017-04-21] MEDS: cloNIDine HCl 0.1 MG TABLET PO SCH (20:49)
[2017-04-21] MEDS: Insulin LISPRO 300 UNITS/3 ML VIAL SQ SCH (20:49)
[2017-04-21] MEDS: Insulin DETEMIR 100 UNIT/ML X5UNITS SQ SCH (20:49)
[2017-04-21] MEDS: Furosemide 40 MG/4 ML VIAL IVP SCH (20:50)
[2017-04-21] MEDS: hydrALAZINE 25 MG TABLET PO SCH (20:50)
[2017-04-21] MEDS: *HR* Heparin 5,000 UNIT/ML VIAL SQ SCH (20:50)
[2017-04-21] MEDS: DORZOLAMIDE OP SCH (21:03)
[2017-04-21] MEDS: TIMOLOL OP SCH (21:03)
[2017-04-22] MEDS: hydrALAZINE 25 MG TABLET PO SCH ×3 (01:53→17:17)
[2017-04-22] MEDS: *HR* Heparin 5,000 UNIT/ML VIAL SQ SCH ×2 (06:12→20:47)
[2017-04-22 06:23] LABS: Basophils % 0.2 %; Eosinophils # 0.3 K/mcL (0.0-0.6); Eosinophils % 4.5 %; Hematocrit 24.1 % (37.5-50.1); Hemoglobin 7.1 g/dL (12.9-16.9); Immature Granulocytes % 0.5 % (0-4); Lymphocytes # 0.6 K/mcL (0.6-4.6); Lymphocytes % 9.4 %; Mean Corpuscular HGB Conc 29.5 g/dL (31.6-35.5); Mean Corpuscular Hemoglobin 24.3 pg (28.0-33.3); Mean Corpuscular Volume 82.5 fL (83.0-100.0); Mean Platelet Volume 10.3 fL (9.4-12.4); Monocytes # 0.6 K/mcL (0.0-1.3); Monocytes % 9.9 %; Neutrophils # 4.9 K/mcL (1.6-8.9); Nucleated Red Blood Cells 0.3 /100 WBC (0); Platelet Count 117 K/mcL (140-400); Red Blood Count 2.92 M/mcL (4.19-5.50); Red Cell Distribution Width 20.8 % (11.5-14.5); Segmented Neutrophils % 75.5 %
[2017-04-22 06:29] LABS: Albumin 2.5 g/dL (3.5-5.0); Phosphorous 5.2 mg/dL (2.3-4.7); Potassium 4.9 mEq/L (3.5-4.5)
[2017-04-22] MEDS: Insulin LISPRO 300 UNITS/3 ML VIAL SQ SCH ×3 (07:35→16:39)
[2017-04-22] MEDS: Finasteride 5 MG TABLET PO SCH (07:46)
[2017-04-22] MEDS: Isosorbide MONOnitrate (24 HR) 30 MG TAB.ER.24H PO SCH (07:46)
[2017-04-22] MEDS: Aspirin Enteric Coated 81 MG Tablet PO SCH (07:47)
[2017-04-22] MEDS: Furosemide 40 MG/4 ML VIAL IVP SCH ×2 (07:47→17:17)
[2017-04-22] MEDS: cloNIDine HCl 0.1 MG TABLET PO SCH ×3 (07:47→20:46)
[2017-04-22] MEDS: TIMOLOL OP SCH (07:48)
[2017-04-22] MEDS: DORZOLAMIDE OP SCH (07:48)
[2017-04-22] MEDS: Insulin DETEMIR 100 UNIT/ML X5UNITS SQ SCH ×2 (08:11→20:47)
--- NOTE | 2017-04-22 09:02 | Internal Med History&Physical ---
Date of Encounter: 04/21/17 Time of Encounter: 16:00 Assessment and Plan (1) CKD (chronic kidney disease) stage 5, GFR less than 15 ml/min Current visit: Yes Status: Chronic Gradually progressive CKD, with volume overload; no hyperkalemia; no urgent indication for HD at this time. Case d/w Nephrology- by ER physician, recommend medical management, will f/up full consult. Continue phosphate binders and multivitamins. (2) Congestive heart failure Current visit: Yes Status: Acute Acute volume overload due to CHF and CKD. Telemetry monitoring, trend Troponins. IV diuresis with Lasix and fluid restriction. Continue beta titi, nitrates. 2D Echocardiogram as below. Qualifiers: Congestive heart failure type: unspecified congestive heart failure type Congestive heart failure chronicity: acute on chronic Qualified Code(s): I50.9 - Heart failure, unspecified (3) Acute respiratory failure Current visit: Yes Status: Acute related to volume overload and pulmonary edema due to underlying CKD, CHF. Start IV Lasix and fluid restriction and monitor urine output. Check 2D Echocardiogram. Supplemental O2 as needed. Qualifiers: Respiratory failure complication: hypoxia Qualified Code(s): J96.01 - Acute respiratory failure with hypoxia (4) CAD (coronary artery disease) Current visit: Yes Status: Chronic continue ASA, beta titi, statin; Telemetry monitoring. Qualifiers: Coronary Disease-Associated Artery/Lesion type: bypass graft [place] vs. transplanted heart: [place] heart Associated angina: without angina Qualified Code(s): I25.810 - Atherosclerosis of coronary artery bypass graft(s) without angina pectoris (5) Essential hypertension Current visit: Yes Status: Chronic BP noted to be fairly controlled; resume home meds; (6) Diabetes mellitus Current visit: Yes Status: Chronic [place] blood glucose monitoring with basal bolus insulin regimen. Diabetic diet. Qualifiers: Diabetes mellitus type: type 2 Diabetes mellitus complication status: with kidney complications Diabetes mellitus complication detail: with chronic kidney disease Diabetes mellitus fdc insulin use: with fdc use Chronic kidney disease stage: stage 4 (severe) Qualified Code(s): E11.22 - Type 2 diabetes mellitus with diabetic chronic kidney disease; N18.4 - Chronic kidney disease, stage 4 (severe); Z79.4 - [facility] (current) use of insulin (7) PAD (peripheral artery disease) Current visit: Yes Status: Chronic (8) Anemia Current visit: Yes Status: Chronic Hb noted to be low, at baseline- 7.1; monitor for now; patient requires IV iron , Epogen and possible PRBC transfusion if continues to be low. 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 Webb is a 81 year old male [facility] resident who was sent for evaluation of dyspnea. Patient has speech impairment at baseline and unable to provide complete history, which is obtained from review of previous medical records and d/w ER physician. Patient was noted to have respiratory distress and shortness of breath for the last 2 days, got worse this morning, associated with leg swelling. He does not report chest pain, dizziness/syncope, cough, fever/chills. Per [facility] notes, he has worsening chronic kidney disease, follows with Nephrology (outside [facility]) and has AV fistula in place, which has not matured yet, but no fistula was noted by ER. Past Med Surg Social Fam HX - Past Medical History Medical history: arthritis, CHF, coronary artery disease, diabetes, GI bleed, hyperlipidemia, hypertension, myocardial infarction, osteoporosis, peripheral artery disease, renal disease, TIA, valvular heart disease, other Psychiatric history: no psych history, other - Past Surgical History Surgical History: coronary bypass (CABG), other - Social History Smoking Status: Former smoker Smokeless Tobacco Status: No Alcohol use: none Drug use: none Occupational status: retired Current living situation: [facility] Activity Level: Uses cane/walker Recent Out of Country Travel Within the Last 8 Weeks: No Internal Medicine - H&P: Meds Acetaminophen [Tylenol] 650 mg PO BID MDD 3000 mg/day 12/09/16 [History] Acetaminophen [Tylenol] 650 mg PO Q4H PRN MDD 3000 mg/day 12/09/16 [History] Allopurinol [Zyloprim 100 MG] 100 mg PO DAILY 12/09/16 [History] Amlodipine Besylate 10 mg PO DAILY 12/09/16 [History] Brimonidine 0.2% [Alphagan] 1 drop OP TID 12/09/16 [History] Carvedilol 12.5 mg PO BID 12/09/16 [History] Cholecalciferol (D-3) [Vitamin D] 2,000 unit PO DAILY 12/09/16 [History] Dorzolamide/Timolol/Pf [Cosopt Pf Eye Drops] 1 drop OP BID 12/09/16 [History] Doxazosin Mesylate [Cardura] 8 mg PO BID 12/09/16 [History] Epoetin Cortez [Procrit] 5,000 unit SQ MOWEFR 12/09/16 [History] Ferrous Sulfate 325 mg PO TID 12/09/16 [History] Finasteride [Proscar] 5 mg PO DAILY 12/09/16 [History] Furosemide [Lasix] 60 mg PO BID 12/09/16 [History] Hydralazine HCl 100 mg PO Q8H 12/09/16 [History] Insulin ASPART [NovoLOG] 2 unit SQ BID 12/09/16 [History] Insulin Glargine [Lantus] 10 unit SQ DAILY 12/09/16 [History] Ipratropium/Albuterol Neb [Duoneb] 3 ml IH Q4H PRN 12/09/16 [History] Latanoprost [Xalatan] 1 drop OP HS 12/09/16 [History] Melatonin 3 mg PO HS 12/09/16 [History] Methyl Salicylate/Menthol [Muscle Rub Cream] 1 appl TP BID PRN 12/09/16 [History ] Sertraline [Zoloft] 100 mg PO DAILY 12/09/16 [History] Sodium Chloride [Riky-128] 1 drop OP QID 12/09/16 [History] Aspirin Enteric Coated [Aspirin EC] 81 mg PO DAILY 04/21/17 [History] Atorvastatin Calcium [Lipitor] 20 mg PO HS 04/21/17 [History] Bacitracin OINT [Ak-Tracin] 1 appl TP DAILY 04/21/17 [History] Erythromycin OPTH Oint 1 appl OP HS 04/21/17 [History] Isosorbide MONOnitrate (24 HR) [Imdur] 90 mg PO DAILY 04/21/17 [History] Omeprazole [PriLOSEC] 20 mg PO DAILY 04/21/17 [History] Polyvinyl Alcohol [Artificial Tears] 2 drop OP Q4H PRN 04/21/17 [History] PrednisoLONE Acetate 1% Opth [PredFORTE 1%] 1 drop OP QID 04/21/17 [History] Sevelamer [Renvela] 1,600 mg PO TIDWM 04/21/17 [History] cloNIDine HCl [Clonidine HCl] 0.2 mg PO TID 04/21/17 [History] metOLazone [Zaroxolyn] 2.5 mg PO DAILY 04/21/17 [History] Allergies lisinopril Adverse Reaction (Verified 02/07/17 07:43) unknown per [place] All Systems PM: A 10-system review of systems was performed and is negative for pertinent findings except as documented above in the HPI. - Constitutional Constitutional: weight gain, no chills, no fever(s), no night sweats - EENT Eyes: no change in vision, no discharge, no pain, no photophobia Ears: no ear discharge, no ear pain, no tinnitus Nose, mouth and throat: no dysphagia, no nasal discharge, no neck pain, no sore throat - Cardiovascular Cardiovascular ROS IM: edema, no chest pain, no diaphoresis, no dyspnea, no lightheadedness, no palpitations, no syncope - Respiratory Respiratory: dyspnea, dyspnea on exertion, wheezing - Gastrointestinal Gastrointestinal: no abdominal pain, no diarrhea, no hematemesis, no hematochezia, no melena, no nausea, no vomiting - Musculoskeletal Musculoskeletal ROS IM: no numbness, no tingling - Integumentary Integumentary IM: no rash, no unusual bruising - Neurological Neurological ROS: no confusion, no convulsions, no focal weakness, no numbness, no tingling, no tremor(s) - Hematologic/Lymphatic Hematologic/Lymphatic: no easy bruising - Constitutional Vitals: Temp Pulse Resp BP Pulse Ox 98 F 62 17 136/63 97 04/22/17 07:07 04/22/17 07:07 04/22/17 07:07 04/22/17 07:07 04/22/17 07:07 General appearance: Present: A&O X 2, answers questions appropriately (muffled speech) - Respiratory Respiratory exam: Present: rales (bibasal crackles+, scattered rhonchi). Absent : accessory muscle use, rhonchi, wheezes - Cardiovascular Cardiovascular exam: Present: RRR, +S1, +S2. Absent: diastolic murmur, gallop, rubs, systolic murmur - GI/Abdominal GI/Abdominal exam: Present: normal bowel sounds, soft, no peritoneal signs. Absent: distended, tenderness - Extremities Exam Extremities exam: Present: full ROM, pedal edema (3+ pitting pedal edema B/L ankles and legs), warm, radial pulses palpable and symetrical. Absent: calf tenderness, cyanotic - Neurological Exam Neurological exam: Present: oriented X3, no focal deficits. Absent: pronater drift, facial droop, speech deficit - Skin Skin exam: Present: dry, intact Internal Med - H&P Results - Labs CBC & Chem 7: 04/22/17 05:30 04/22/17 05:30 Labs: Short CBC 04/22/17 Range/Units 05:30 WBC 6.5 (4.3-11.1) K/mcL Hgb 7.1 L (12.9-16.9) g/dL Hct 24.1 L (37.5-50.1) % Plt Count 117 L (140-400) K/mcL Neutrophils # 4.9 (1.6-8.9) K/mcL BMP 04/22/17 05:30 Sodium 138 Potassium 4.9 H Chloride 105 Carbon Dioxide 27 BUN 68 H Creatinine 5.91 H Glucose 58 L Calcium 8.0 L Liver Function 04/22/17 Range/Units 05:30 Albumin 2.5 L (3.5-5.0) g/dL - EKG Data -: EKG Interpreted by Myself (regular, narrow complex, no discernible P waves- ? accelerated junctional )
[2017-04-22] MEDS: metOLazone 2.5 MG TABLET PO SCH (09:35)
[2017-04-22] MEDS: Cholecalciferol (D-3) 1,000 UNIT TABLET PO SCH (09:35)
--- NOTE | 2017-04-22 10:30 | Nephrology Consult Note ---
Date of Encounter: 04/22/17 Time of Encounter: 09:20 Assessment and Plan (1) Acute kidney injury superimposed on CKD Current Visit: No Status: Acute KAREN in setting of heart failure exacerbation, diuretics, superimposed on CKD, most likely diabetic nephropathy, baseline widely fluctuates 2.5-3.7. Will obtain Renal US to r/o obstructive uropathy. No immediate need for HD. Will monitor. Avoid nephrotoxins. History of Present Illness - Reason for Consult Acute Kidney Injury - History of Present Illness Mr. Webb is an 81 year old male who was transferred from the [facility] to [place] with shortness of breath, worsening heart failure and worsening edema, not responding to PO diuretics. Started on IV Lasix and fluid restriction. History of CKD, baseline widely fluctuates 2.5-3.7. told follows with Nephrology in [place]. Renal fct worse 5.72-5.91 today. K+ stable at 4.9. Mild-1+ pitting edema LE. CTAB, documented urine output 300 cc. Patient noted to have indwelling Syed catheter to leg bag with approximately 200 cc urine this morning. 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 Other PMH- stroke, dementia, DM II, HTN, arthritis, CHF, coronary artery disease, GI bleed, hyperlipidemia, myocardial infarction, osteoporosis, peripheral artery disease, TIA, valvular heart disease, coronary bypass (CABG). [facility] states has left radiocephalic AV fistula that is not mature for HD. No thrill appreciated, weak bruit. Unable to see surgical scar of AVF placement due to Heplock in wrist even though arm band states access, no IV's, Labs or BP. Nursing advised to remove. Past Med Surg Social Fam HX - Past Medical History Medical history: arthritis, CHF, coronary artery disease, diabetes, GI bleed, hyperlipidemia, hypertension, myocardial infarction, osteoporosis, peripheral artery disease, renal disease, TIA, valvular heart disease, other Psychiatric history: no psych history, other - Past Surgical History Surgical History: coronary bypass (CABG), other - Social History Smoking Status: Former smoker Smokeless Tobacco Status: No Alcohol use: none Drug use: none Medications and Allergies Acetaminophen [Tylenol] 650 mg PO BID MDD 3000 mg/day 12/09/16 [History] Acetaminophen [Tylenol] 650 mg PO Q4H PRN MDD 3000 mg/day 12/09/16 [History] Allopurinol [Zyloprim 100 MG] 100 mg PO DAILY 12/09/16 [History] Amlodipine Besylate 10 mg PO DAILY 12/09/16 [History] Brimonidine 0.2% [Alphagan] 1 drop OP TID 12/09/16 [History] Carvedilol 12.5 mg PO BID 12/09/16 [History] Cholecalciferol (D-3) [Vitamin D] 2,000 unit PO DAILY 12/09/16 [History] Dorzolamide/Timolol/Pf [Cosopt Pf Eye Drops] 1 drop OP BID 12/09/16 [History] Doxazosin Mesylate [Cardura] 8 mg PO BID 12/09/16 [History] Epoetin Cortez [Procrit] 5,000 unit SQ MOWEFR 12/09/16 [History] Ferrous Sulfate 325 mg PO TID 12/09/16 [History] Finasteride [Proscar] 5 mg PO DAILY 12/09/16 [History] Furosemide [Lasix] 60 mg PO BID 12/09/16 [History] Hydralazine HCl 100 mg PO Q8H 12/09/16 [History] Insulin ASPART [NovoLOG] 2 unit SQ BID 12/09/16 [History] Insulin Glargine [Lantus] 10 unit SQ DAILY 12/09/16 [History] Ipratropium/Albuterol Neb [Duoneb] 3 ml IH Q4H PRN 12/09/16 [History] Latanoprost [Xalatan] 1 drop OP HS 12/09/16 [History] Melatonin 3 mg PO HS 12/09/16 [History] Methyl Salicylate/Menthol [Muscle Rub Cream] 1 appl TP BID PRN 12/09/16 [History ] Sertraline [Zoloft] 100 mg PO DAILY 12/09/16 [History] Sodium Chloride [Riky-128] 1 drop OP QID 12/09/16 [History] Aspirin Enteric Coated [Aspirin EC] 81 mg PO DAILY 04/21/17 [History] Atorvastatin Calcium [Lipitor] 20 mg PO HS 04/21/17 [History] Bacitracin OINT [Ak-Tracin] 1 appl TP DAILY 04/21/17 [History] Erythromycin OPTH Oint 1 appl OP HS 04/21/17 [History] Isosorbide MONOnitrate (24 HR) [Imdur] 90 mg PO DAILY 04/21/17 [History] Omeprazole [PriLOSEC] 20 mg PO DAILY 04/21/17 [History] Polyvinyl Alcohol [Artificial Tears] 2 drop OP Q4H PRN 04/21/17 [History] PrednisoLONE Acetate 1% Opth [PredFORTE 1%] 1 drop OP QID 04/21/17 [History] Sevelamer [Renvela] 1,600 mg PO TIDWM 04/21/17 [History] cloNIDine HCl [Clonidine HCl] 0.2 mg PO TID 04/21/17 [History] metOLazone [Zaroxolyn] 2.5 mg PO DAILY 04/21/17 [History] Allergies lisinopril Adverse Reaction (Verified 02/07/17 07:43) unknown per [facility] list Review of Systems ROS unobtainable: due to mental status Exam - Vital Signs Vital signs: Initial Vital Signs Temp Pulse Resp BP Pulse Ox 97.6 F 69 22 137/79 96 04/21/17 14:13 04/21/17 14:13 04/21/17 14:13 04/21/17 14:13 04/21/17 14:13 Vital Signs - Last 8 Hours Temp Pulse Resp BP Pulse Ox 04/22/17 09:36 149/68 04/22/17 07:07 98 F 62 17 136/63 97 04/22/17 04:20 97.6 F 59 18 147/62 98 Intake and Output 04/21/17 04/22/17 04/22/17 23:59 07:59 15:59 Intake Total 0 / 0 60 / 60 Output Total 300 / 300 525 / 525 300 / 300 Balance -300 / -300 -525 / -525 -240 / -240 Intake: Oral 0 / 0 60 / 60 Output: Urine 300 / 300 525 / 525 Catheter 300 / 300 Other: Stool Size Moderate Stool Consistency formed Stool Color Go Colored # Bowel Movements 1 Weight 87.2 kg Blood Glucose* 201 61 Patient Weight 04/22/17 23:59 Weight 87.2 kg - General Appearance General appearance: well-developed, well-nourished, appears started age EENT: mucous membranes moist Neck: no JVD, no carotid bruit Respiratory: clear Cardiology: edema, regular rate, regular rhythm Additional Comments: 2/6 systolic murmur - Dialysis Access Dialysis Vascular Access: Arteriovenous Fistula thrill: No bruit: Yes Additional Comments: [facility] states has left radiocephalic AV fistula that is not mature for HD. No thrill appreciated, weak bruit. Unable to see surgical scar of AVF placement Gastrointestinal: normoactive bowel sounds, no tenderness Integumentary: warm and dry Psychiatric: mood/affect appropriate, cooperative Results - Lab Results 04/22/17 05:30 04/22/17 05:30 Most recent lab results Calcium 8.0 mg/dL (8.6-10.8) L 04/22/17 05:30 Phosphorus 5.2 mg/dL (2.3-4.7) H 04/22/17 05:30 Consult Discharge Plan - Plan Referrals: [facility] [Primary Care Provider] -
--- NOTE | 2017-04-22 10:56 | Internal Med Progress Note ---
Date of Encounter: 04/22/17 Time of Encounter: 09:25 - Assessment and plan (1) Congestive heart failure Current Visit: Yes Status: Acute Assessment and plan: Follow ECHO I/O -1365 Patient on metolazone at home, continue same Started on lasix IV BID here, continue same On BB at home, continue same Not on ACEI, possibly due to CKD5 Strict I/O 1500cc fluid restriction Troponin negative n admission, patient has no chest pain Qualifiers: Congestive heart failure type: unspecified congestive heart failure type Congestive heart failure chronicity: acute on chronic Qualified Code(s): I50.9 - Heart failure, unspecified (2) CKD (chronic kidney disease) stage 5, GFR less than 15 ml/min Current Visit: Yes Status: Chronic Assessment and plan: Renal function is at baseline, nephrology following, input appreciated (3) CAD (coronary artery disease) Current Visit: Yes Status: Chronic Assessment and plan: Chronic, no acute events Continue BB, ASA, Imdur, Lipitor Qualifiers: Coronary Disease-Associated Artery/Lesion type: bypass graft [place] vs. transplanted heart: [place] heart Associated angina: without angina Qualified Code(s): I25.810 - Atherosclerosis of coronary artery bypass graft(s) without angina pectoris (4) Essential hypertension Current Visit: Yes Status: Chronic Assessment and plan: BP mostly controlled, continue current meds (5) Diabetes mellitus Current Visit: Yes Status: Chronic Assessment and plan: A1C 7.3% ADA diet FS ACHS Basal, prandial and supplemental insulin Qualifiers: Diabetes mellitus type: type 2 Diabetes mellitus complication status: with kidney complications Diabetes mellitus complication detail: with chronic kidney disease Diabetes mellitus long term care pharmacist insulin use: with care home use Chronic kidney disease stage: stage 4 (severe) Qualified Code(s): E11.22 - Type 2 diabetes mellitus with diabetic chronic kidney disease; N18.4 - Chronic kidney disease, stage 4 (severe); 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 - Subjective Interval history: 81 M Seen and evaluated at bedside with his daughter [facility] He has a PMH of CHF, CKD5, Dementia, History of CVA He is being managed for CHF exacerbation He denies new complains - Constitutional Vitals: Temp Pulse Resp BP Pulse Ox 98 F 62 17 149/68 97 04/22/17 07:07 04/22/17 07:07 04/22/17 07:07 04/22/17 09:36 04/22/17 07:07 General appearance: Present: A&O X 3, pleasant, no acute distress, answers questions appropriately (muffled speech) - Head Head exam: Present: atraumatic, normocephalic - Eye Eye exam: Present: PERRL, conjuntiva pink, sclera anicteric Pupils: Present: PERRL - Neck Neck exam general surgery: Present: supple, trachea midline. Absent: lymphadenopathy - Respiratory Additional comments: Bilateral transmitted sounds, no rhonchi - Cardiovascular Cardiovascular exam: Present: RRR, +S1, +S2. Absent: diastolic murmur, gallop, rubs, systolic murmur - GI/Abdominal GI/Abdominal exam: Present: normal bowel sounds, soft, no peritoneal signs. Absent: distended, tenderness - Extremities Exam Extremities exam: Present: pedal edema (BIlateral pitting pedal edema up to the bonilla), warm, radial pulses palpable and symetrical. Absent: calf tenderness, cyanotic - Neurological Exam Neurological exam: Present: alert, CN II-XII intact, oriented X3, no focal deficits, facial droop (Chronic from prior CVA). Absent: pronater drift, speech deficit - Skin Skin exam: Present: dry, intact Internal Medicine: Result - Labs CBC & Chem 7: 04/22/17 05:30 04/22/17 05:30 Labs: Short CBC 04/22/17 Range/Units 05:30 WBC 6.5 (4.3-11.1) K/mcL Hgb 7.1 L (12.9-16.9) g/dL Hct 24.1 L (37.5-50.1) % Plt Count 117 L (140-400) K/mcL Neutrophils # 4.9 (1.6-8.9) K/mcL BMP 04/22/17 05:30 Sodium 138 Potassium 4.9 H Chloride 105 Carbon Dioxide 27 BUN 68 H Creatinine 5.91 H Glucose 58 L Calcium 8.0 L Liver Function 04/22/17 Range/Units 05:30 Albumin 2.5 L (3.5-5.0) g/dL - ABG Interpretation ABG results: PT/INR, D-dimer PT 13.1 Seconds (9.4-12.1) H 04/21/17 14:32 Consult Discharge Plan - Plan Referrals: [facility] [Primary Care Provider] -
[2017-04-22 11:52] LABS: % Iron Saturation 11 % (20-55); Iron 25 mcg/dL (65-175); Transferrin 168 mg/dL (174-364)
[2017-04-22 18:52] LABS: Creatinine,Urine 38 mg/dL; Microalbum/Creatinine Ratio,Ur 2903 (0-30)
[2017-04-22 18:55] LABS: Microalbumin,Urine 1103 mg/L
[2017-04-22] MEDS: Melatonin 3 MG TABLET PO SCH (20:47)
[2017-04-22] MEDS: Latanoprost 2.5 ML BOTTLE BOTH EYES SCH (20:58)
[2017-04-23] MEDS: Insulin LISPRO 300 UNITS/3 ML VIAL SQ SCH ×5 (01:29→21:31)
[2017-04-23] MEDS: hydrALAZINE 25 MG TABLET PO SCH ×3 (01:30→16:46)
[2017-04-23] MEDS: Dorzolamide/Timolol OPTH 10 ML BOTTLE BOTH EYES SCH ×3 (01:30→21:31)
[2017-04-23 04:44] LABS: Basophils % 0.4 %; Eosinophils # 0.3 K/mcL (0.0-0.6); Eosinophils % 5.1 %; Hematocrit 23.5 % (37.5-50.1); Hemoglobin 7.1 g/dL (12.9-16.9); Immature Granulocytes % 0.4 % (0-4); Lymphocytes # 0.9 K/mcL (0.6-4.6); Lymphocytes % 17.8 %; Mean Corpuscular HGB Conc 30.2 g/dL (31.6-35.5); Mean Corpuscular Hemoglobin 25.1 pg (28.0-33.3); Monocytes # 0.7 K/mcL (0.0-1.3); Monocytes % 12.5 %; Neutrophils # 3.4 K/mcL (1.6-8.9); Nucleated Red Blood Cells 0.4 /100 WBC (0); Platelet Count 134 K/mcL (140-400); Red Blood Count 2.83 M/mcL (4.19-5.50); Red Cell Distribution Width 20.8 % (11.5-14.5); Segmented Neutrophils % 63.8 %
[2017-04-23 05:00] LABS: Calcium 8.3 mg/dL (8.6-10.8); Potassium 4.7 mEq/L (3.5-4.5)
[2017-04-23] MEDS: *HR* Heparin 5,000 UNIT/ML VIAL SQ SCH ×2 (06:25→17:55)
--- NOTE | 2017-04-23 08:37 | Nephrology Progress Note ---
Date of Encounter: 04/23/17 Time of Encounter: 08:25 - Assessment and Plan (1) Acute kidney injury superimposed on CKD Current Visit: No Status: Acute KAREN in setting of heart failure exacerbation, diuretics, superimposed on CKD, most likely diabetic nephropathy, baseline widely fluctuates 2.5-3.7. Renal fct worsening, creat 6.07, GFR 0, K 4.7. Has left radiocephalic AVF, that is not mature for use. Renal US shows no obstructive uropathy. No immediate need for HD. Will monitor. Avoid nephrotoxins. Subjective Interval history: Sitting up in bed, being fed breakfast per staff. Denies SOB. No new complaints. Objective - Vital Signs Vital signs: Vital Signs Temp Pulse Resp BP Pulse Ox 04/23/17 07:06 97.5 F L 58 18 140/58 97 04/23/17 03:34 97.9 F 60 18 157/71 95 04/22/17 23:23 98.2 F 66 16 155/69 97 04/22/17 19:25 98.2 F 64 14 156/69 98 04/22/17 16:26 98.1 F 67 18 148/64 97 04/22/17 11:44 98.1 F 65 16 129/63 97 04/22/17 09:36 149/68 Intake and Output 04/22/17 04/23/17 04/23/17 23:59 07:59 15:59 Intake Total 160 / 160 0 / 0 Output Total 800 / 800 600 / 600 Balance -640 / -640 -600 / -600 Intake: Oral 160 / 160 0 / 0 Output: Catheter 800 / 800 600 / 600 Other: Meal Dinner Percent of Meal Consumed 50% Weight 86.1 kg Blood Glucose* 115 101 Patient Weight 04/23/17 23:59 Weight 86.1 kg - General Appearance General appearance: Present: well-developed, well-nourished, appears started age EENT: Present: mucous membranes moist Neck: Present: no JVD Respiratory: Present: clear Cardiology: Present: edema, regular rate, regular rhythm Additional Comments: mild-1+ pitting edema, knees down. 2/6 systolic murmur. Dialysis Vascular Access: Arteriovenous Fistula thrill: No bruit: Yes Additional Comments: left radiocephlic AVF, + bruit, no thrill, unable to use Gastrointestinal: Present: normoactive bowel sounds, no tenderness Integumentary: Present: warm and dry Psychiatric: Present: mood/affect appropriate, cooperative - Lab 04/23/17 03:30 04/23/17 03:30 Most recent lab results Calcium 8.3 mg/dL (8.6-10.8) L 04/23/17 03:30 Phosphorus 5.2 mg/dL (2.3-4.7) H 04/22/17 05:30 Urine Creatinine 38 mg/dL 04/22/17 17:57 Consult Discharge Plan - Plan Referrals: [facility] [Primary Care Provider] -
[2017-04-23] MEDS: metOLazone 2.5 MG TABLET PO SCH (08:47)
[2017-04-23] MEDS: Isosorbide MONOnitrate (24 HR) 30 MG TAB.ER.24H PO SCH (08:47)
[2017-04-23] MEDS: Finasteride 5 MG TABLET PO SCH (08:47)
[2017-04-23] MEDS: Cholecalciferol (D-3) 1,000 UNIT TABLET PO SCH (08:47)
[2017-04-23] MEDS: Aspirin Enteric Coated 81 MG Tablet PO SCH (08:47)
[2017-04-23] MEDS: cloNIDine HCl 0.1 MG TABLET PO SCH ×3 (08:53→21:20)
[2017-04-23] MEDS ORDERED: Furosemide 40 MG/4 ML VIAL IVP SCH (09:00)
[2017-04-23] MEDS ORDERED: Insulin DETEMIR 100 UNIT/ML X5UNITS SQ SCH (09:00)
--- NOTE | 2017-04-23 12:00 | Internal Med Progress Note ---
Date of Encounter: 04/23/17 Time of Encounter: 09:10 - Assessment and plan (1) Congestive heart failure Current Visit: Yes Status: Acute Assessment and plan: Follow ECHO I/O -2405 Patient on metolazone at home, continue same Decrease Lasix to 40 mg daily IV On BB at home, continue same Not on ACEI, possibly due to CKD5 Strict I/O 1500cc fluid restriction Troponin negative n admission, patient has no chest pain Qualifiers: Congestive heart failure type: unspecified congestive heart failure type Congestive heart failure chronicity: acute on chronic Qualified Code(s): I50.9 - Heart failure, unspecified (2) CKD (chronic kidney disease) stage 5, GFR less than 15 ml/min Current Visit: Yes Status: Chronic Assessment and plan: Renal function is likely worsened this morning, nephrology following, input appreciated Lasix has been decreased, as per nephrology days no emergent indication for hemodialysis. (3) CAD (coronary artery disease) Current Visit: Yes Status: Chronic Assessment and plan: Chronic, no acute events Continue BB, ASA, Imdur, Lipitor Qualifiers: Coronary Disease-Associated Artery/Lesion type: bypass graft [place] vs. transplanted heart: [place] heart Associated angina: without angina Qualified Code(s): I25.810 - Atherosclerosis of coronary artery bypass graft(s) without angina pectoris (4) Essential hypertension Current Visit: Yes Status: Chronic Assessment and plan: BP mostly controlled, continue current meds (5) Diabetes mellitus Current Visit: Yes Status: Chronic Assessment and plan: A1C 7.3% ADA diet FS ACHS Basal, prandial and supplemental insulin, insulin has been decreased due to an episode of hypoglycemia documented in the labs without clinical symptoms. Patient encouraged to take his food. 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 His creatinine is worsening and has increased to 6 from 5.95 his baseline creatinine is around 4. Patient was having breakfast at time of evaluation and denies any new complaints. We will decrease his dose of Lasix due to his worsening renal function. Nephrology is following. - Constitutional Vitals: Temp Pulse Resp BP Pulse Ox 98.0 F 66 18 152/68 96 04/23/17 10:57 04/23/17 10:57 04/23/17 10:57 04/23/17 10:57 04/23/17 10:57 General appearance: Present: A&O X 3, pleasant, no acute distress, answers questions appropriately (muffled speech) - Head Head exam: Present: atraumatic, normocephalic - Eye Eye exam: Present: PERRL, conjuntiva pink, sclera anicteric Pupils: Present: PERRL - Neck Neck exam general surgery: Present: supple, trachea midline. Absent: lymphadenopathy - Respiratory Respiratory exam: Present: CTAB. Absent: accessory muscle use, rales, rhonchi, wheezes - Cardiovascular Cardiovascular exam: Present: irregular rhythm, +S1, +S2. Absent: diastolic murmur, gallop, rubs, systolic murmur - GI/Abdominal GI/Abdominal exam: Present: normal bowel sounds, soft, no peritoneal signs. Absent: distended, tenderness - Extremities Exam Extremities exam: Present: pedal edema, warm, radial pulses palpable and symetrical. Absent: calf tenderness, cyanotic - Neurological Exam Neurological exam: Present: alert, CN II-XII intact, oriented X3, no focal deficits, facial droop. Absent: pronater drift, speech deficit - Skin Skin exam: Present: dry Internal Medicine: Result - Labs CBC & Chem 7: 04/23/17 03:30 04/23/17 03:30 Labs: Short CBC 04/23/17 Range/Units 03:30 WBC 5.3 (4.3-11.1) K/mcL Hgb 7.1 L (12.9-16.9) g/dL Hct 23.5 L (37.5-50.1) % Plt Count 134 L (140-400) K/mcL Neutrophils # 3.4 (1.6-8.9) K/mcL BMP 07/16/17 03:30 Sodium 137 Potassium 4.7 H Chloride 104 Carbon Dioxide 25 BUN 72 H Creatinine 6.07 H Glucose 27 L* Calcium 8.3 L - ABG Interpretation ABG results: PT/INR, D-dimer PT 13.1 Seconds (9.4-12.1) H 04/21/17 14:32 - Impressions Impressions Retroperitoneum Ultrasound 04/22/17 13:00 IMPRESSION: Findings suggesting chronic medical renal disease with mild renal cortical atrophy. No hydronephrosis or intrarenal stones. Bilateral simple renal cortical cysts. Postvoid residual bladder volume of 123 mL. Otherwise unremarkable appearance of the bladder. Trace perihepatic ascites. D/ / 04/22/2017 13:44:12 Hill Abebe MD / Diana Castillo Interpreting Provider: Hill Abebe MD Consult Discharge Plan - Plan Referrals: [facility] [Primary Care Provider] -
[2017-04-23] MEDS: Insulin DETEMIR 100 UNIT/ML X5UNITS SQ SCH (21:32)
[2017-04-23] MEDS: Melatonin 3 MG TABLET PO SCH (21:32)
[2017-04-23] MEDS: Latanoprost 2.5 ML BOTTLE BOTH EYES SCH (21:32)
[2017-04-24] MEDS: hydrALAZINE 25 MG TABLET PO SCH ×3 (03:39→17:00)
[2017-04-24 05:34] LABS: Basophils % 0.3 %; Eosinophils # 0.3 K/mcL (0.0-0.6); Eosinophils % 4.7 %; Hematocrit 23.2 % (37.5-50.1); Immature Granulocytes % 0.5 % (0-4); Lymphocytes # 0.8 K/mcL (0.6-4.6); Lymphocytes % 13.9 %; Mean Corpuscular HGB Conc 30.2 g/dL (31.6-35.5); Mean Corpuscular Hemoglobin 25.1 pg (28.0-33.3); Mean Corpuscular Volume 83.2 fL (83.0-100.0); Mean Platelet Volume 11.1 fL (9.4-12.4); Monocytes # 0.7 K/mcL (0.0-1.3); Neutrophils # 3.9 K/mcL (1.6-8.9); Nucleated Red Blood Cells 0.3 /100 WBC (0); Platelet Count 131 K/mcL (140-400); Red Blood Count 2.79 M/mcL (4.19-5.50); Red Cell Distribution Width 20.9 % (11.5-14.5); Segmented Neutrophils % 68.6 %
[2017-04-24 05:45] LABS: Calcium 8.1 mg/dL (8.6-10.8)
--- NOTE | 2017-04-24 06:20 | Electrocardiograph Report ---
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
[2017-04-24] MEDS: *HR* Heparin 5,000 UNIT/ML VIAL SQ SCH ×2 (06:59→17:00)
[2017-04-24] MEDS: Insulin LISPRO 300 UNITS/3 ML VIAL SQ SCH ×4 (07:47→21:12)
[2017-04-24] MEDS: Cholecalciferol (D-3) 1,000 UNIT TABLET PO SCH (08:01)
[2017-04-24] MEDS: Isosorbide MONOnitrate (24 HR) 30 MG TAB.ER.24H PO SCH (08:01)
[2017-04-24] MEDS: Finasteride 5 MG TABLET PO SCH (08:01)
[2017-04-24] MEDS: Aspirin Enteric Coated 81 MG Tablet PO SCH (08:01)
[2017-04-24] MEDS: cloNIDine HCl 0.1 MG TABLET PO SCH ×3 (08:01→21:01)
[2017-04-24] MEDS: Dorzolamide/Timolol OPTH 10 ML BOTTLE BOTH EYES SCH ×2 (08:03→21:02)
--- NOTE | 2017-04-24 08:12 | Nephrology Progress Note ---
Date of Encounter: 04/24/17 Time of Encounter: 08:10 - Assessment and Plan (1) CKD (chronic kidney disease) stage 5, GFR less than 15 ml/min Current Visit: Yes Status: Chronic The patient has progressive chronic kidney disease related to diabetic nephropathy. He is down stage V. GFR is below 10. Was recommended to the patient will initiate dialysis following placement of a tunnel dialysis catheter. Patient states that he wants to think about whether or not he wants to proceed with dialysis at this time. We can continue with diuresis and monitor the patient's renal function. He will be started on Aranesp for management of his anemia. 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 He denies any nausea vomiting or shortness of breath. His azotemia continues to worsen. Urine output is satisfactory. Objective - Vital Signs Vital signs: Vital Signs Temp Pulse Resp BP Pulse Ox 04/24/17 06:40 98.3 F 61 16 145/71 97 04/24/17 03:43 97.5 F L 63 17 152/67 97 04/23/17 23:26 98.0 F 65 17 172/62 100 04/23/17 20:37 97.8 F 68 16 163/72 98 04/23/17 16:15 98.1 F 66 16 157/71 96 04/23/17 10:57 98.0 F 66 18 152/68 96 Intake and Output 04/23/17 04/24/17 04/24/17 23:59 07:59 15:59 Intake Total 60 / 60 Output Total 1200 / 1200 Balance -1140 / -1140 Intake: Oral 60 / 60 Output: Catheter 1200 / 1200 Other: Weight 86.3 kg Blood Glucose* 200 108 Patient Weight 04/24/17 23:59 Weight 86.3 kg - General Appearance Exam: Patient appears alert and oriented. He is in no acute distress. He does have some dysphagia. Lungs expiratory wheezing. Heart regular rate and rhythm. Abdomen is benign. There is some lower extremity swelling. There is an immature AV fistula in the left upper extremity. - Lab 04/24/17 04:39 04/24/17 04:39 Most recent lab results Calcium 8.1 mg/dL (8.6-10.8) L 04/24/17 04:39 Phosphorus 5.2 mg/dL (2.3-4.7) H 04/22/17 05:30 Urine Creatinine 38 mg/dL 04/22/17 17:57 Consult Discharge Plan - Plan Referrals: [facility] [Primary Care Provider] -
[2017-04-24] MEDS ORDERED: Darbepoetin 100 MCG/0.5 ML SYRINGE SQ SCH (08:15)
--- NOTE | 2017-04-24 11:52 | Internal Med Progress Note ---
Date of Encounter: 04/24/17 Time of Encounter: 08:30 - Assessment and plan (1) Congestive heart failure Current Visit: Yes Status: Acute Assessment and plan: ECHO not done, reordered I/O -[id number] Patient on metolazone at home, hold for now due to worsening renal function He was initially started on Lasix 40mg IV BID, was decreased to Lasix 40mg daily 04/23/17 Today his renal function i worse, I will hold lasix fo rnow On BB at home, continue same Not on ACEI, possibly due to CKD5 Strict I/O 1500cc fluid restriction Troponin negative on admission, patient has no chest pain I discussed option of hemodialysis/ultrafiltration with patient, he declines for now Patient is full code, continue to monitor Qualifiers: Congestive heart failure type: unspecified congestive heart failure type Congestive heart failure chronicity: acute on chronic Qualified Code(s): I50.9 - Heart failure, unspecified (2) CKD (chronic kidney disease) stage 5, GFR less than 15 ml/min Current Visit: Yes Status: Chronic Assessment and plan: Renal function worse this morning, nephrology following, input appreciated Lasix/Metolazone held, renal following Patient may need catheter placement and HD Check INR (3) CAD (coronary artery disease) Current Visit: Yes Status: Chronic Assessment and plan: Chronic, no acute events Continue BB, ASA, Imdur, Lipitor Qualifiers: Coronary Disease-Associated Artery/Lesion type: bypass graft [place] vs. transplanted heart: [place] heart Associated angina: without angina Qualified Code(s): I25.810 - Atherosclerosis of coronary artery bypass graft(s) without angina pectoris (4) Essential hypertension Current Visit: Yes Status: Chronic Assessment and plan: BP mostly controlled, continue current meds (5) Diabetes mellitus Current Visit: Yes Status: Chronic Assessment and plan: A1C 7.3% ADA diet FS ACHS Basal, prandial and supplemental insulin, insulin has been decreased due to an episode of hypoglycemia documented in the labs 04/23/17 without clinical symptoms. FS has improved, continue current regimen Qualifiers: Diabetes mellitus type: type 2 Diabetes mellitus complication status: with kidney complications Diabetes mellitus complication detail: with chronic kidney disease Diabetes mellitus terminal operations supervisor insulin use: with usp use Chronic kidney disease stage: stage 4 (severe) Qualified Code(s): E11.22 - Type 2 diabetes mellitus with diabetic chronic kidney disease; N18.4 - Chronic kidney disease, stage 4 (severe); Z79.4 - FDC (current) use of insulin - Subjective Interval history: 81 M Seen and evaluated at bedside He has a PMH of CHF, CKD5, Dementia, History of CVA He is being managed for CHF exacerbation He denies new complains His renal function continues to worsen, limiting how much diuresis we can do When I talked to the patient about dialysis, he declined , and states he will think about it He is otherwise stable and not in any form of respiratory distress His Oxygenation remains stable His other electrolytes are stable Nephrology is actively following - Constitutional Vitals: Temp Pulse Resp BP Pulse Ox 98.3 F 66 14 148/66 96 04/24/17 10:36 04/24/17 10:36 04/24/17 10:36 04/24/17 10:36 04/24/17 10:36 General appearance: Present: A&O X 3, pleasant, no acute distress, answers questions appropriately (muffled speech, chronic from prior CVA) - Head Head exam: Present: atraumatic, normocephalic - Eye Eye exam: Present: PERRL, conjuntiva pink, sclera anicteric Pupils: Present: PERRL - Neck Neck exam general surgery: Present: supple, trachea midline. Absent: lymphadenopathy - Respiratory Respiratory exam: Present: CTAB. Absent: accessory muscle use, rales, rhonchi, wheezes - Cardiovascular Cardiovascular exam: Present: RRR, +S1, +S2. Absent: systolic murmur - GI/Abdominal GI/Abdominal exam: Present: normal bowel sounds, soft, no peritoneal signs. Absent: distended, tenderness - Extremities Exam Extremities exam: Present: pedal edema, warm, radial pulses palpable and symetrical. Absent: calf tenderness, cyanotic Additional comments: Bilateral 2+-3+ pitting pedal edema up to the bonilla, with chronic venous stasis skin changes L>R No ulcers - Neurological Exam Neurological exam: Present: alert, CN II-XII intact, oriented X3, no focal deficits, speech deficit (Chronic). Absent: pronater drift, facial droop - Skin Skin exam: Present: dry Internal Medicine: Result - Labs CBC & Chem 7: 04/24/17 04:39 04/24/17 04:39 Labs: Short CBC 04/24/17 Range/Units 04:39 WBC 5.7 (4.3-11.1) K/mcL Hgb 7.0 L (12.9-16.9) g/dL Hct 23.2 L (37.5-50.1) % Plt Count 131 L (140-400) K/mcL Neutrophils # 3.9 (1.6-8.9) K/mcL BMP 04/24/17 04:39 Sodium 135 L Potassium 5.0 H Chloride 102 Carbon Dioxide 27 BUN 81 H Creatinine 6.48 H Glucose 107 H Calcium 8.1 L - ABG Interpretation ABG results: PT/INR, D-dimer PT 13.1 Seconds (9.4-12.1) H 04/21/17 14:32 Consult Discharge Plan - Plan [facility]: [facility]Primary Care Provider[facility] - ([facility]
[2017-04-24 13:45] LABS: INR 1.2; Prothrombin Time 12.9 Seconds (9.4-12.1)
[2017-04-24] MEDS: Melatonin 3 MG TABLET PO SCH (21:01)
[2017-04-24] MEDS: Insulin DETEMIR 100 UNIT/ML X5UNITS SQ SCH (21:03)
[2017-04-24] MEDS: Latanoprost 2.5 ML BOTTLE BOTH EYES SCH (21:03)
[2017-04-25] MEDS: hydrALAZINE 25 MG TABLET PO SCH ×3 (01:57→17:30)
[2017-04-25 05:35] LABS: INR 1.2; Prothrombin Time 12.6 Seconds (9.4-12.1)
[2017-04-25 05:36] LABS: Basophils % 0.3 %; Eosinophils # 0.3 K/mcL (0.0-0.6); Eosinophils % 4.8 %; Hematocrit 22.6 % (37.5-50.1); Hemoglobin 6.9 g/dL (12.9-16.9); Immature Granulocytes % 0.8 % (0-4); Lymphocytes # 0.7 K/mcL (0.6-4.6); Lymphocytes % 12.3 %; Mean Corpuscular HGB Conc 30.5 g/dL (31.6-35.5); Mean Corpuscular Hemoglobin 25.4 pg (28.0-33.3); Mean Corpuscular Volume 83.1 fL (83.0-100.0); Mean Platelet Volume 10.9 fL (9.4-12.4); Monocytes # 0.7 K/mcL (0.0-1.3); Monocytes % 11.3 %; Neutrophils # 4.3 K/mcL (1.6-8.9); Nucleated Red Blood Cells 0.3 /100 WBC (0); Platelet Count 136 K/mcL (140-400); Red Blood Count 2.72 M/mcL (4.19-5.50); Red Cell Distribution Width 20.8 % (11.5-14.5); Segmented Neutrophils % 70.5 %
[2017-04-25 05:56] LABS: Albumin 2.4 g/dL (3.5-5.0); Albumin/Globulin Ratio 0.7 (1.1-2.2); Bilirubin,Total 0.3 mg/dL (0.2-1.2); Calcium 8.2 mg/dL (8.6-10.8); Globulin 3.6 g/dL (2.4-3.5); Potassium 5.1 mEq/L (3.5-4.5)
[2017-04-25] MEDS: *HR* Heparin 5,000 UNIT/ML VIAL SQ SCH ×2 (06:23→17:33)
--- NOTE | 2017-04-25 08:12 | Nephrology Progress Note ---
Date of Encounter: 04/25/17 Time of Encounter: 08:10 - Assessment and Plan (1) CKD (chronic kidney disease) stage 5, GFR less than 15 ml/min Current Visit: Yes Status: Chronic The patient has progressive chronic kidney disease related to diabetic nephropathy. He is down stage V. GFR is below 10. I had another discussion with the patient regarding dialysis and what is involved. We discussed the dialysis schedule and how long each treatment takes and what would be involved. He did attempt to have some questions but at times he is difficult to understand. At the conclusion of the conversation he said that he would continue to think about it. 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 He denies any shortness of breath nausea vomiting anorexia or abdominal pain. Renal function remains poor. Urine output is about a liter yesterday. He remains anemic. He continues to say he is not sure if he wants dialysis. Objective - Vital Signs Vital signs: Vital Signs Temp Pulse Resp BP Pulse Ox 04/25/17 04:17 97.7 F 63 19 158/74 97 04/24/17 23:40 98.6 F 65 15 160/70 96 04/24/17 18:47 98.5 F 64 16 162/65 95 04/24/17 17:09 98.7 F 65 18 163/76 96 04/24/17 10:36 98.3 F 66 14 148/66 96 Intake and Output 04/24/17 04/25/17 04/25/17 23:59 07:59 15:59 Intake Total 100 / 100 0 / 0 Output Total 350 / 350 750 / 750 Balance -250 / -250 -750 / -750 Intake: Oral 100 / 100 0 / 0 Output: Urine 350 / 350 Catheter 750 / 750 Other: Meal Dinner Percent of Meal Consumed 95% Weight 81.2 kg Blood Glucose* 193 148 Patient Weight 04/25/17 23:59 Weight 81.2 kg - General Appearance Exam: Patient is alert and oriented. He does have dysphagia and is difficult to understand at times. Lungs clear to auscultation. Heart regular rate and rhythm. Abdomen is benign. There is lower extremity swelling. There is an immature fistula in the left upper extremity. - Lab 04/25/17 04:11 04/25/17 04:11 Most recent lab results Calcium 8.2 mg/dL (8.6-10.8) L 04/25/17 04:11 Phosphorus 5.2 mg/dL (2.3-4.7) H 04/22/17 05:30 Urine Creatinine 38 mg/dL 04/22/17 17:57 Consult Discharge Plan - Plan [facility]errals: [facility]Primary Care Provider[facility] - ([facility]
[2017-04-25] MEDS: Isosorbide MONOnitrate (24 HR) 30 MG TAB.ER.24H PO SCH (09:13)
[2017-04-25] MEDS: cloNIDine HCl 0.1 MG TABLET PO SCH ×3 (09:14→21:14)
[2017-04-25] MEDS: Cholecalciferol (D-3) 1,000 UNIT TABLET PO SCH (09:14)
[2017-04-25] MEDS: Aspirin Enteric Coated 81 MG Tablet PO SCH (09:14)
[2017-04-25] MEDS: Finasteride 5 MG TABLET PO SCH (09:14)
[2017-04-25] MEDS: Dorzolamide/Timolol OPTH 10 ML BOTTLE BOTH EYES SCH ×2 (09:17→21:16)
[2017-04-25] MEDS: Insulin LISPRO 300 UNITS/3 ML VIAL SQ SCH ×4 (09:41→21:23)
[2017-04-25] MEDS ORDERED: Heparin 1,000 UNITS/500 mL NS 0 ML ONE (09:42)
[2017-04-25] MEDS ORDERED: ceFAZolin 2,000 MG in D5% in Water (Mini-Bag+) 100 ML IVPB ONE ×2 (09:50→12:35)
[2017-04-25] MEDS ORDERED: *HR* Midazolam HCl 2 MG/2 ML VIAL IVP PRN ×2 (09:51→12:36)
[2017-04-25] MEDS ORDERED: *HR* FentaNYL (PF) 100 MCG/2 ML VIAL IVP PRN ×2 (09:51→12:36)
--- NOTE | 2017-04-25 09:54 | Pre-Sedation Evaluation ---
Pre-sedation evaluation - Pre-sedation checklist Date of procedure: 04/25/17 Procedure: Permacath Recent Vitals: Last Vital Signs Temp 98.3 F 04/25/17 07:15 Pulse 62 04/25/17 07:15 Resp 14 04/25/17 07:15 BP 160/73 04/25/17 07:15 Pulse Ox 95 04/25/17 07:15 H&P (including ROS) documented in medical record: Yes Previous reaction to sedatives/anesthetics: No Dietary Status: NPO after Midnight Dentition: poor dentition ASA Classification *see protocol: CLASS II-Mild systemic disease Plan of Care: Pt appropriate candidate for procedure/moderate/conscious sedation , Risks/benefits of procedure/sedation discussed w/ patient/family
--- NOTE | 2017-04-25 10:05 | IR Progress Note ---
Date of IR Procedure: 04/25/17 Vital Signs: Vital Signs/O2 Sat, Most Current Temp Pulse Resp BP Pulse Ox 98.3 F 62 14 160/73 95 04/25/17 07:15 04/25/17 07:15 04/25/17 07:15 04/25/17 07:15 04/25/17 07:15 Recent Labs: Lab Results 04/25/17 04/25/17 04/24/17 04:11 04:11 04:39 WBC 6.0 RBC 2.72 L Hgb 6.9 L Hct 22.6 L MCV 83.1 MCH 25.4 L MCHC 30.5 L RDW 20.8 H Plt Count 136 L MPV 10.9 Neutrophils # 4.3 Lymphocytes # 0.7 Monocytes # 0.7 Eosinophils # 0.3 Basophils # 0.0 Sodium 136 135 L Potassium 5.1 H 5.0 H Chloride 104 102 Carbon Dioxide 25 27 BUN 87 H 81 H Creatinine 6.53 H 6.48 H Est GFR ( Amer) 10 L 10 L Est GFR (Non-Af Amer) 8 L 8 L BUN/Creatinine Ratio 13 13 Glucose 162 H 107 H Uric Acid Calcium 8.2 L 8.1 L 04/24/17 04/23/17 04/23/17 04:39 03:30 03:30 WBC 5.7 5.3 RBC 2.79 L 2.83 L Hgb 7.0 L 7.1 L Hct 23.2 L 23.5 L MCV 83.2 83.0 MCH 25.1 L 25.1 L MCHC 30.2 L 30.2 L RDW 20.9 H 20.8 H Plt Count 131 L 134 L MPV 11.1 11.0 Neutrophils # 3.9 3.4 Lymphocytes # 0.8 0.9 Monocytes # 0.7 0.7 Eosinophils # 0.3 0.3 Basophils # 0.0 0.0 Sodium 137 Potassium 4.7 H Chloride 104 Carbon Dioxide 25 BUN 72 H Creatinine 6.07 H Est GFR ( Amer) 11 L Est GFR (Non-Af Amer) 9 L BUN/Creatinine Ratio 12 Glucose 27 L* Uric Acid Calcium 8.3 L 04/22/17 11:08 WBC RBC Hgb Hct MCV MCH MCHC RDW Plt Count MPV Neutrophils # Lymphocytes # Monocytes # Eosinophils # Basophils # Sodium Potassium Chloride Carbon Dioxide BUN Creatinine Est GFR ( Amer) Est GFR (Non-Af Amer) BUN/Creatinine Ratio Glucose Uric Acid 5.6 Calcium Assessment and Plan Pt here for tunneled dialysis catheter. After reviewing Dr Crocker's note will hold off on placement until he has had chance to discuss with POA. Tentatively rescheduled for tomorrow. Keep NPO after midnight.
--- NOTE | 2017-04-25 10:14 | Internal Med Progress Note ---
<AlexisJose E mazariegos - Last Filed: 04/25/17 11:23> Date of Encounter: 04/25/17 Time of Encounter: 09:59 - Assessment and plan (1) Congestive heart failure Current Visit: Yes Status: Acute Assessment and plan: - Heart failure with preserved EF of 50-55% on Echo done 04/24 - I/O - 4L since admission. BNP 1797 in ED. Tolerating 2 L O2 via NC. - lasix being held due to decreased renal function and refusal of HD, patient is on metolazone at home. - Continue home carvedilol 12.5mg BID - Not on ACEI, possibly due to CKD5 - Strict I/O, 1500cc fluid restriction - Patient is agreeing to line placement and HD this morning. - Scheduled for permacatheter placement this morning, however patient became very anxious on the way to placement. Nephrology was called and instructed to hold off on catheter and will reevaluate tomorrow because patient had not agreed to HD yet. Patient is currently in agreement for line placement and HD upon reevaluation this morning Qualifiers: Congestive heart failure type: diastolic Congestive heart failure chronicity: unspecified congestive heart failure chronicity Qualified Code(s) : I50.30 - Unspecified diastolic (congestive) heart failure (2) CKD (chronic kidney disease) stage 5, GFR less than 15 ml/min Current Visit: Yes Status: Chronic Assessment and plan: - Renal function worse this morning, BUN/ CR is 87/6.53, K or 5.1. nephrology following, input appreciated - Scheduled for permacatheter placement this AM, patient but patient was hesitant about dialysis so the line placement was cancelled. Re evaluation this morning the patient is agreeing to both line placement and dialysis. Will reschedule permacath placement for this afternoon or tomorrow. - Lasix/Metolazone held - INR 1.2 (3) CAD (coronary artery disease) Current Visit: Yes Status: Chronic Assessment and plan: Chronic, no acute events Continue BB, ASA, Imdur, Lipitor per home meds Qualifiers: Coronary Disease-Associated Artery/Lesion type: bypass graft [place] vs. transplanted heart: [place] heart Associated angina: without angina Qualified Code(s): I25.810 - Atherosclerosis of coronary artery bypass graft(s) without angina pectoris (4) Essential hypertension Current Visit: Yes Status: Chronic Assessment and plan: BP mostly controlled 148/66, continue current meds (5) Diabetes mellitus Current Visit: Yes Status: Chronic Assessment and plan: A1C 7.3% ADA diet FS ACHS Basal, prandial and supplemental insulin, insulin has been decreased due to an episode of hypoglycemia documented in the labs 04/23/17 without clinical symptoms. FS has improved, continue current regimen Qualifiers: Diabetes mellitus type: type 2 Diabetes mellitus complication status: with kidney complications Diabetes mellitus complication detail: with chronic kidney disease Diabetes mellitus long term care pharmacist insulin use: with long term care pharmacist use Chronic kidney disease stage: stage 4 (severe) Qualified Code(s): E11.22 - Type 2 diabetes mellitus with diabetic chronic kidney disease; N18.4 - Chronic kidney disease, stage 4 (severe); Z79.4 - superintendent terminal (current) use of insulin - Time Spent With Patient 25 - 35 minutes - Subjective Interval history: Patient was seen and examined at bedside this morning. He denies any complaints at this time. He states his breathing is better. He is unsure of why he did not receive a port catheter placement this morning, however he is in agreement to proceed and this afternoon or tomorrow. - Constitutional Vitals: Temp Pulse Resp BP Pulse Ox 98.3 F 62 14 160/73 95 04/25/17 07:15 04/25/17 07:15 04/25/17 07:15 04/25/17 07:15 04/25/17 07:15 General appearance: Present: A&O X 3, pleasant, no acute distress, answers questions appropriately (muffled speech, chronic from prior CVA) Exam: Gen.: Vitals noted. No acute distress. AAOx2 HEENT: PERRL/EOMI, oropharynx clear, Normocephalic, atraumatic Neck: Supple. No adenopathy. Cardiac: RRR, no murmur, +S1/S2 Pulmonary: Diffuse mild Rales in bilateral lungs. equal chest expansion Abdomen: soft, nontender, BS noted, no guarding Back: Nontender throughout. MSK: ROM intact, no joint swelling noted Extremities: Chronic bilateral venous stasis ulcers. no BLE edema, nontender calf, no cyanosis or clubbing Neuro: Dysphagia, very difficult to understand speech. A&Ox2, moves all extremities, no focal deficits Psych: Appropriate mood and behavior Internal Medicine: Result - Labs CBC & Chem 7: 04/25/17 04:11 04/25/17 04:11 Labs: Short CBC 04/25/17 Range/Units 04:11 WBC 6.0 (4.3-11.1) K/mcL Hgb 6.9 L (12.9-16.9) g/dL Hct 22.6 L (37.5-50.1) % Plt Count 136 L (140-400) K/mcL Neutrophils # 4.3 (1.6-8.9) K/mcL BMP 04/25/17 04:11 Sodium 136 Potassium 5.1 H Chloride 104 Carbon Dioxide 25 BUN 87 H Creatinine 6.53 H Glucose 162 H Calcium 8.2 L Liver Function 04/25/17 Range/Units 04:11 Total Bilirubin 0.3 (0.2-1.2) mg/dL AST 17 (5-34) Units/L ALT 19 (0-55) Units/L Alkaline Phosphatase 83 (38-126) Units/L Albumin 2.4 L (3.5-5.0) g/dL - ABG Interpretation ABG results: PT/INR, D-dimer PT 12.6 Seconds (9.4-12.1) H 04/25/17 04:11 Consult Discharge Plan - Plan [facility]errals: [facility]Primary Care Provider[facility] - ([facility] <Mirza Johnston H - Last Filed: 04/25/17 11:27> Date of Encounter: 04/25/17 - Constitutional Vitals: Temp Pulse Resp BP Pulse Ox 98.3 F 62 14 160/73 95 04/25/17 07:15 04/25/17 07:15 04/25/17 07:15 04/25/17 07:15 04/25/17 07:15 Internal Medicine: Result - Labs CBC & Chem 7: 04/25/17 04:11 04/25/17 04:11 Labs: Short CBC 04/25/17 Range/Units 04:11 WBC 6.0 (4.3-11.1) K/mcL Hgb 6.9 L (12.9-16.9) g/dL Hct 22.6 L (37.5-50.1) % Plt Count 136 L (140-400) K/mcL Neutrophils # 4.3 (1.6-8.9) K/mcL BMP 04/25/17 04:11 Sodium 136 Potassium 5.1 H Chloride 104 Carbon Dioxide 25 BUN 87 H Creatinine 6.53 H Glucose 162 H Calcium 8.2 L Liver Function 04/25/17 Range/Units 04:11 Total Bilirubin 0.3 (0.2-1.2) mg/dL AST 17 (5-34) Units/L ALT 19 (0-55) Units/L Alkaline Phosphatase 83 (38-126) Units/L Albumin 2.4 L (3.5-5.0) g/dL - ABG Interpretation ABG results: PT/INR, D-dimer PT 12.6 Seconds (9.4-12.1) H 04/25/17 04:11 - Attending Attestation Permacath today I examined this patient and my medical decision-making was reviewed with the Resident Physician. I agree with the documented findings, disposition and treatment plan as described except to the extent set forth below.
[2017-04-25] MEDS ORDERED: Heparin 1,000 UNITS/500 mL NS 500 ML ONE (11:59)
[2017-04-25] MEDS ORDERED: 0.9 % Sodium Chloride 500 ML ONE (12:47)
[2017-04-25] MEDS ORDERED: *HR* Heparin 5,000 UNIT/ML VIAL ONE (13:11)
--- NOTE | 2017-04-25 13:13 | IR Procedure Note ---
Date of procedure: 04/25/17 Consent Obtained: Written consent Timeout: Correct patient and procedure verified, Time out performed, Skin prep completed Local anesthetic: Lidocaine 1% Indications: CRF Procedure Performed: Permacath placement Results/Findings: RIJ 14F 28cm Tito-Split TDc placement Complications: None; Tolerated procedure well (Monitor on floor)
[2017-04-25] MEDS: Furosemide 40 MG/4 ML VIAL IVP SCH (17:29)
[2017-04-25] MEDS: Insulin DETEMIR 100 UNIT/ML X5UNITS SQ SCH (21:15)
[2017-04-25] MEDS: Latanoprost 2.5 ML BOTTLE BOTH EYES SCH (21:15)
[2017-04-25] MEDS: Melatonin 3 MG TABLET PO SCH (21:15)
[2017-04-26] MEDS: hydrALAZINE 25 MG TABLET PO SCH ×3 (01:48→16:43)
[2017-04-26] MEDS: Triamcinolone Acet 0.1% CRM 15 GM TUBE TP SCH ×3 (02:24→22:45)
[2017-04-26] MEDS: *HR* Heparin 5,000 UNIT/ML VIAL SQ SCH (05:46)
[2017-04-26 06:57] LABS: Hematocrit 23.9 % (37.5-50.1); Mean Corpuscular HGB Conc 29.3 g/dL (31.6-35.5); Mean Corpuscular Hemoglobin 24.3 pg (28.0-33.3); Mean Platelet Volume 9.9 fL (9.4-12.4); Platelet Count 138 K/mcL (140-400); Red Blood Count 2.88 M/mcL (4.19-5.50); Red Cell Distribution Width 20.7 % (11.5-14.5)
[2017-04-26 06:59] LABS: Calcium 8.5 mg/dL (8.6-10.8); Potassium 5.1 mEq/L (3.5-4.5)
[2017-04-26] MEDS ORDERED: *HR* Heparin 10,000 UNIT/10 ML VIAL IV PRN (08:18)
[2017-04-26] MEDS ORDERED: 0.9 % Sodium Chloride 250 ML IVC PRN (08:18)
[2017-04-26] MEDS ORDERED: 0.9 % Sodium Chloride 1,000 ML PRIME SCH (08:30)
[2017-04-26] MEDS: Cholecalciferol (D-3) 1,000 UNIT TABLET PO SCH (09:06)
[2017-04-26] MEDS: cloNIDine HCl 0.1 MG TABLET PO SCH ×3 (09:06→22:29)
[2017-04-26] MEDS: Aspirin Enteric Coated 81 MG Tablet PO SCH (09:07)
[2017-04-26] MEDS: Finasteride 5 MG TABLET PO SCH (09:07)
[2017-04-26] MEDS: Isosorbide MONOnitrate (24 HR) 30 MG TAB.ER.24H PO SCH (09:07)
[2017-04-26] MEDS: Insulin LISPRO 300 UNITS/3 ML VIAL SQ SCH ×4 (09:08→22:44)
[2017-04-26] MEDS: Furosemide 40 MG/4 ML VIAL IVP SCH ×2 (09:08→16:42)
[2017-04-26] MEDS: Dorzolamide/Timolol OPTH 10 ML BOTTLE BOTH EYES SCH ×2 (09:09→22:32)
--- NOTE | 2017-04-26 09:09 | Nephrology Progress Note ---
Date of Encounter: 04/26/17 Time of Encounter: 08:50 - Assessment and Plan (1) Acute kidney injury superimposed on CKD Current Visit: No Status: Acute KAREN in setting of heart failure exacerbation, diuretics, superimposed on CKD, most likely diabetic nephropathy, baseline widely fluctuates 2.5-3.7. Renal fct plateued creat 6.25, GFR 10, K 5.1. Has left radiocephalic AVF, that is not mature for use. Renal US shows no obstructive uropathy. Had permacath placed yesterday with bleeding issues at site this morning with IR to obtain hemostasis. Had intentions of starting on HD today but will let permcath site rest and attempt tomorrow. Chronic HD being set up with [place] unit. Will monitor. Avoid nephrotoxins. Subjective Interval history: Bleeding issues at permcath site, IR in to control. Currently have statsis. Objective - Vital Signs Vital signs: Vital Signs Temp Pulse Resp BP Pulse Ox 04/26/17 05:27 97.7 F 66 17 148/66 93 04/26/17 00:29 97.6 F 63 16 156/64 95 04/25/17 19:55 97.8 F 70 16 163/73 95 04/25/17 15:11 97.9 F 66 14 152/70 97 04/25/17 14:35 69 16 142/63 04/25/17 14:20 97.5 F L 68 16 167/72 04/25/17 14:05 97.5 F L 65 14 153/70 98 04/25/17 13:43 98.5 F 64 16 150/63 04/25/17 13:03 70 16 162/66 96 04/25/17 12:57 60 16 153/76 96 04/25/17 11:42 97.6 F 63 18 159/81 97 Intake and Output 04/25/17 04/26/17 04/26/17 23:59 07:59 15:59 Intake Total 0 / 0 Output Total 1500 / 1500 Balance 0 / 0 -1500 / -1500 Intake: Oral 0 / 0 Output: Catheter 1500 / 1500 Other: Weight 81.1 kg Blood Glucose* 196 Patient Weight 04/26/17 23:59 Weight 81.1 kg - General Appearance General appearance: Present: well-developed, well-nourished, appears started age EENT: Present: mucous membranes moist Neck: Present: no JVD Respiratory: Present: clear Cardiology: Present: edema, regular rate, regular rhythm Additional Comments: mild pitting edema Gastrointestinal: Present: normoactive bowel sounds, no tenderness Integumentary: Present: warm and dry Psychiatric: Present: mood/affect appropriate, cooperative - Lab 04/26/17 05:42 04/26/17 05:42 Most recent lab results Calcium 8.5 mg/dL (8.6-10.8) L 04/26/17 05:42 Phosphorus 5.2 mg/dL (2.3-4.7) H 04/22/17 05:30 Urine Creatinine 38 mg/dL 04/22/17 10:10 Consult Discharge Plan - Plan Referrals: [facility] [Primary Care Provider[facility] - ([facility]
--- NOTE | 2017-04-26 10:36 | Internal Med Progress Note ---
<Nay Cunhaew - Last Filed: 04/26/17 11:51> Date of Encounter: 04/26/17 Time of Encounter: 10:33 - Assessment and plan (1) Congestive heart failure Current Visit: Yes Status: Acute Assessment and plan: - Diastolic Heart failure with preserved EF of 50-55% on Echo done 04/24 - Plan for hemodialysis tomorrow, given bleeding at site of catheter placement this morning. Nephrology following - I/O - 7L since admission. BNP 1797 in ED. Tolerating 3 L O2 via NC. - lasix being held due to decreased renal function. patient is on metolazone at home. - Strict I/O, 1500cc fluid restriction Qualifiers: Congestive heart failure type: diastolic Congestive heart failure chronicity: unspecified congestive heart failure chronicity Qualified Code(s) : I50.30 - Unspecified diastolic (congestive) heart failure (2) CKD (chronic kidney disease) stage 5, GFR less than 15 ml/min Current Visit: Yes Status: Chronic Assessment and plan: - Renal function worse this morning, BUN/ CR is 94/6.25, K of 5.1. nephrology following, input appreciated - Dialysis catheter placed yesterday at right subclavian, bleeding from site this morning. We will plan on dialysis tomorrow morning per nephrology. - Lasix/Metolazone held - INR 1.2 (3) CAD (coronary artery disease) Current Visit: Yes Status: Chronic Assessment and plan: Chronic, no acute events Continue BB, ASA, Imdur, Lipitor per home meds Qualifiers: Coronary Disease-Associated Artery/Lesion type: bypass graft [place] vs. transplanted heart: [place] heart Associated angina: without angina Qualified Code(s): I25.810 - Atherosclerosis of coronary artery bypass graft(s) without angina pectoris (4) Essential hypertension Current Visit: Yes Status: Chronic Assessment and plan: BP mostly controlled 148/66, continue current meds (5) Diabetes mellitus Current Visit: Yes Status: Chronic Assessment and plan: A1C 7.3% ADA diet FS ACHS Basal, prandial and supplemental insulin, insulin has been decreased due to an episode of hypoglycemia documented in the labs 04/23/17 without clinical symptoms. 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 He denies any complaints at this time. He states his breathing is better. He is tolerating the catheter placement well. - Constitutional Vitals: Temp Pulse Resp BP Pulse Ox 98.3 F 65 18 176/82 99 04/26/17 08:51 04/26/17 08:51 04/26/17 08:51 04/26/17 08:51 04/26/17 08:51 General appearance: Present: A&O X 3, pleasant, no acute distress, answers questions appropriately (muffled speech, chronic from prior CVA) Exam: Gen.: Vitals noted. No acute distress. AAOx1. Difficult to understand due to slurring of words. HEENT: PERRL/EOMI, oropharynx clear, Normocephalic, atraumatic Neck: Supple. No adenopathy. Cardiac: RRR, no murmur, +S1/S2. hemodialysis catheter in right subclavian bandage over, no current bleeding. Pulmonary: Mild wheezing and rales diffusely. no rales or rhonchi, equal chest expansion Abdomen: soft, nontender, BS noted, no guarding Back: Nontender throughout. MSK: ROM intact, no joint swelling noted Extremities: 1+ edema in bilateral lower extremities. nontender calf, no cyanosis or clubbing Neuro: A&Ox1, moves all extremities, no focal deficits Psych: Appropriate mood and behavior Internal Medicine: Result - Labs CBC & Chem 7: 04/26/17 05:42 04/26/17 05:42 Labs: Short CBC 04/26/17 Range/Units 05:42 WBC 6.1 (4.3-11.1) K/mcL Hgb 7.0 L (12.9-16.9) g/dL Hct 23.9 L (37.5-50.1) % Plt Count 138 L (140-400) K/mcL BMP 04/26/17 05:42 Sodium 138 Potassium 5.1 H Chloride 105 Carbon Dioxide 25 BUN 94 H Creatinine 6.25 H Glucose 136 H Calcium 8.5 L - ABG Interpretation ABG results: PT/INR, D-dimer PT 12.6 Seconds (9.4-12.1) H 04/25/17 04:11 - Impressions Impressions Guidance Needle Placement Ultrasound 04/25/17 00:00 IMPRESSION: 1. Right internal jugular vein tunneled dialysis catheter placement as discussed above. D/ / Ander Fuentes MD / Ander Fuentes MD Interpreting Provider: Ander Fuentes MD Insertion Tunneled Catheter 04/25/17 00:00 IMPRESSION: 1. Right internal jugular vein tunneled dialysis catheter placement as discussed above. D/ / Ander Fuentes MD / Ander Fuentes MD Interpreting Provider: Ander Fuentes MD Consult Discharge Plan - Plan [facility]errals: [facility] [Primary Care Provider[facility] - ([facility] <Mirza Johnston H - Last Filed: 04/26/17 14:37> Date of Encounter: 04/26/17 - Constitutional Vitals: Temp Pulse Resp BP Pulse Ox 98.5 F 68 18 164/67 98 04/26/17 11:10 04/26/17 11:10 04/26/17 11:10 04/26/17 11:10 04/26/17 11:10 Internal Medicine: Result - Labs CBC & Chem 7: 04/26/17 05:42 04/26/17 05:42 Labs: Short CBC 04/26/17 Range/Units 05:42 WBC 6.1 (4.3-11.1) K/mcL Hgb 7.0 L (12.9-16.9) g/dL Hct 23.9 L (37.5-50.1) % Plt Count 138 L (140-400) K/mcL BMP 04/26/17 05:42 Sodium 138 Potassium 5.1 H Chloride 105 Carbon Dioxide 25 BUN 94 H Creatinine 6.25 H Glucose 136 H Calcium 8.5 L - ABG Interpretation ABG results: PT/INR, D-dimer PT 12.6 Seconds (9.4-12.1) H 04/25/17 04:11 - Impressions Impressions Guidance Needle Placement Ultrasound 04/25/17 00:00 IMPRESSION: 1. Right internal jugular vein tunneled dialysis catheter placement as discussed above. D/ / Ander Fuentes MD / Ander Fuentes MD Interpreting Provider: Ander Fuentes MD Insertion Tunneled Catheter 04/25/17 00:00 IMPRESSION: 1. Right internal jugular vein tunneled dialysis catheter placement as discussed above. D/ / Ander Fuentes MD / Ander Fuentes MD Interpreting Provider: Ander Fuentes MD - Attending Attestation acute diastolic chf exacerbation acute on chronic renal failure ( CKD5) HD in am I examined this patient and my medical decision-making was reviewed with the Resident Physician. I agree with the documented findings, disposition and treatment plan as described except to the extent set forth below.
[2017-04-26 11:44] LABS: Hepatitis B Surface Antigen Nonreactive (Nonreactive)
[2017-04-26] MEDS ORDERED: SODIUM CHLORIDE 0.9% IVPB SCH (11:45)
[2017-04-26] MEDS ORDERED: DESMOPRESSIN IVPB SCH (11:45)
--- NOTE | 2017-04-26 11:45 | IR Progress Note ---
Vital Signs: Vital Signs/O2 Sat, Most Current Temp Pulse Resp BP Pulse Ox 98.5 F 68 18 164/67 98 04/26/17 11:10 04/26/17 11:10 04/26/17 11:10 04/26/17 11:10 04/26/17 11:10 Recent Labs: Lab Results 04/26/17 04/26/17 04/25/17 05:42 05:42 04:11 WBC 6.1 RBC 2.88 L Hgb 7.0 L Hct 23.9 L MCV 83.0 MCH 24.3 L MCHC 29.3 L RDW 20.7 H Plt Count 138 L MPV 9.9 Neutrophils # Lymphocytes # Monocytes # Eosinophils # Basophils # Sodium 138 136 Potassium 5.1 H 5.1 H Chloride 105 104 Carbon Dioxide 25 25 BUN 94 H 87 H Creatinine 6.25 H 6.53 H Est GFR ( Amer) 10 L 10 L Est GFR (Non-Af Amer) 9 L 8 L BUN/Creatinine Ratio 15 13 Glucose 136 H 162 H Calcium 8.5 L 8.2 L 04/25/17 04/24/17 04/24/17 04:11 04:39 04:39 WBC 6.0 5.7 RBC 2.72 L 2.79 L Hgb 6.9 L 7.0 L Hct 22.6 L 23.2 L MCV 83.1 83.2 MCH 25.4 L 25.1 L MCHC 30.5 L 30.2 L RDW 20.8 H 20.9 H Plt Count 136 L 131 L MPV 10.9 11.1 Neutrophils # 4.3 3.9 Lymphocytes # 0.7 0.8 Monocytes # 0.7 0.7 Eosinophils # 0.3 0.3 Basophils # 0.0 0.0 Sodium 135 L Potassium 5.0 H Chloride 102 Carbon Dioxide 27 BUN 81 H Creatinine 6.48 H Est GFR ( Amer) 10 L Est GFR (Non-Af Amer) 8 L BUN/Creatinine Ratio 13 Glucose 107 H Calcium 8.1 L Assessment and Plan Called to see patient because of bleeding from tunnel site. Applied pressure and surgiflow with gelfoam. Hemostasis achieved but then received a call back 2 hrs later with rebleed. Will try DD EYE SURGEON infusion.
[2017-04-26] MEDS ORDERED: SODIUM CHLORIDE 0.9% IVPB ONE (12:00)
[2017-04-26] MEDS ORDERED: DESMOPRESSIN IVPB ONE (12:00)
[2017-04-26] MEDS ORDERED: Sennosides/Docusate Sodium TABLET PO PRN (17:07)
--- NOTE | 2017-04-26 17:59 | Event Note ---
Date of Encounter: 04/26/17 Time of Encounter: 17:53 Physician was called into patient's room to evaluate new onset chest, abdominal pain. Patient was evaluated at bedside. Patient's daughter reports her father has had an upset stomach since eating chicken soup for lunch. EKG was ordered and showed no acute changed when compared from previous. Stat CXR also showed mild atelectasis and stable pleural effusion. Nursing reports patient's last bowel movement was yesterday, normal color but a small amount. Patient was given phenergan and sinna plus. Patient was noted to be hypertensive in the 180s. He received 100 mg of hydralazine and repeat systolic was in 150s. Patient reportedly had a large bowel movement and had no further complaints after and was sleeping soundly.
[2017-04-26] MEDS: Melatonin 3 MG TABLET PO SCH (22:28)
[2017-04-26] MEDS: Latanoprost 2.5 ML BOTTLE BOTH EYES SCH (22:31)
[2017-04-26] MEDS: Insulin DETEMIR 100 UNIT/ML X5UNITS SQ SCH (23:20)
[2017-04-27] MEDS: hydrALAZINE 25 MG TABLET PO SCH ×3 (04:02→19:29)
[2017-04-27 05:22] LABS: Hematocrit 23.1 % (37.5-50.1); Mean Corpuscular HGB Conc 30.3 g/dL (31.6-35.5); Mean Corpuscular Hemoglobin 25.5 pg (28.0-33.3); Mean Platelet Volume 10.6 fL (9.4-12.4); Platelet Count 137 K/mcL (140-400); Red Blood Count 2.75 M/mcL (4.19-5.50); Red Cell Distribution Width 20.8 % (11.5-14.5)
[2017-04-27 05:24] LABS: Calcium 8.4 mg/dL (8.6-10.8); Potassium 4.9 mEq/L (3.5-4.5)
[2017-04-27] MEDS: cloNIDine HCl 0.1 MG TABLET PO SCH ×3 (08:41→21:46)
[2017-04-27] MEDS: Isosorbide MONOnitrate (24 HR) 30 MG TAB.ER.24H PO SCH (08:41)
[2017-04-27] MEDS: Insulin LISPRO 300 UNITS/3 ML VIAL SQ SCH ×4 (08:41→21:47)
[2017-04-27] MEDS: Cholecalciferol (D-3) 1,000 UNIT TABLET PO SCH (08:42)
[2017-04-27] MEDS: Furosemide 40 MG/4 ML VIAL IVP SCH ×2 (08:42→16:21)
[2017-04-27] MEDS: Finasteride 5 MG TABLET PO SCH (08:42)
[2017-04-27] MEDS: Dorzolamide/Timolol OPTH 10 ML BOTTLE BOTH EYES SCH ×2 (08:43→21:46)
[2017-04-27] MEDS: Triamcinolone Acet 0.1% CRM 15 GM TUBE TP SCH ×2 (08:44→21:48)
--- NOTE | 2017-04-27 09:45 | Nephrology Progress Note ---
Date of Encounter: 04/27/17 Time of Encounter: 09:20 - Assessment and Plan (1) Acute kidney injury superimposed on CKD Current Visit: No Status: Acute KAREN in setting of heart failure exacerbation, diuretics, superimposed on CKD, most likely diabetic nephropathy, baseline widely fluctuates 2.5-3.7. Renal fct plateued creat 6.23, K 4.9. Has left radiocephalic AVF, that is not mature for use. Renal US shows no obstructive uropathy. No further bleeding issues with permacath. Will start HD today. Hgb 7.0. Will transfuse 2 units PRBC's with HD. Orders given. Chronic HD being set up with [facility] unit. Will monitor. Avoid nephrotoxins. Subjective Interval history: Laying in bed, alert, watching tv. Objective - Vital Signs Vital signs: Vital Signs Temp Pulse Resp BP Pulse Ox 04/27/17 07:03 97.9 F 73 16 127/74 97 04/27/17 05:28 98.4 F 70 16 137/70 99 04/27/17 00:58 98.5 F 77 20 134/54 98 04/26/17 20:39 99.1 F 75 20 146/68 97 04/26/17 18:10 152/73 04/26/17 16:15 98.3 F 80 18 180/74 97 04/26/17 11:10 98.5 F 68 18 164/67 98 Intake and Output 04/26/17 04/27/17 04/27/17 23:59 07:59 15:59 Intake Total 600 / 600 0 / 0 Output Total 1400 / 1400 300 / 300 Balance -800 / -800 -300 / -300 Intake: Oral 600 / 600 0 / 0 Output: Urine 0 / 0 Catheter 1400 / 1400 300 / 300 Other: Meal APPLESAUCE WITH MEDS Stool Size Moderate Smear Stool Consistency formed Stool Characteristics Pasty Stool Color Brown Brown # Bowel Movements 1 Weight 78.3 kg Blood Glucose* 199 187 Patient Weight 04/27/17 23:59 Weight 78.3 kg - General Appearance General appearance: Present: well-developed, well-nourished, appears started age EENT: Present: mucous membranes moist Neck: Present: no JVD Respiratory: Present: rhonchi Cardiology: Present: edema, regular rate, regular rhythm Additional Comments: mild pitting LE Gastrointestinal: Present: normoactive bowel sounds, no tenderness, no guarding Integumentary: Present: warm and dry Psychiatric: Present: mood/affect appropriate, cooperative - Lab 04/27/17 04:44 04/27/17 04:44 Most recent lab results Calcium 8.4 mg/dL (8.6-10.8) L 04/27/17 04:44 Phosphorus 5.2 mg/dL (2.3-4.7) H 04/22/17 05:30 Urine Creatinine 38 mg/dL 04/22/17 10:10 Consult Discharge Plan - Plan [facility]errals: [facility] [Primary Care Provider] - ([facility]
--- NOTE | 2017-04-27 10:01 | Discharge Summary ---
<Jose E Cunha - Last Filed: 04/27/17 10:38> Date of Encounter: 04/27/17 Time of Encounter: 09:56 - Discharge Diagnosis (1) Congestive heart failure Priority: Primary Status: Acute Comments: HFpEF, EF of 50-55% Qualifiers: Congestive heart failure type: diastolic Congestive heart failure chronicity: acute Qualified Code(s): I50.31 - Acute diastolic (congestive) heart failure (2) CKD (chronic kidney disease) stage 5, GFR less than 15 ml/min Priority: Primary Status: Chronic Comments: New onset of dialysis with right subclavian catheter placed (3) CAD (coronary artery disease) Priority: Secondary Status: Chronic Qualifiers: Coronary Disease-Associated Artery/Lesion type: bypass graft [place] vs. transplanted heart: [place] heart Associated angina: without angina Qualified Code(s): I25.810 - Atherosclerosis of coronary artery bypass graft(s) without angina pectoris (4) Essential hypertension Priority: Secondary Status: Chronic (5) Diabetes mellitus Priority: Secondary Status: Chronic Qualifiers: Diabetes mellitus type: type 2 Diabetes mellitus complication status: with kidney complications Diabetes mellitus complication detail: with chronic kidney disease Diabetes mellitus jail insulin use: with lobsterman use Chronic kidney disease stage: stage 4 (severe) Qualified Code(s): E11.22 - Type 2 diabetes mellitus with diabetic chronic kidney disease; N18.4 - Chronic kidney disease, stage 4 (severe); Z79.4 - senior care (current) use of insulin - Discharge Medications Home Medications: Acetaminophen [Tylenol] 650 mg PO BID MDD 3000 mg/day 12/09/16 [History] Acetaminophen [Tylenol] 650 mg PO Q4H PRN MDD 3000 mg/day 12/09/16 [History] Allopurinol [Zyloprim 100 MG] 100 mg PO DAILY 12/09/16 [History] Amlodipine Besylate 10 mg PO DAILY 12/09/16 [History] Brimonidine 0.2% [Alphagan] 1 drop OP TID 12/09/16 [History] Carvedilol 12.5 mg PO BID 12/09/16 [History] Cholecalciferol (D-3) [Vitamin D] 2,000 unit PO DAILY 12/09/16 [History] Dorzolamide/Timolol/Pf [Cosopt Pf Eye Drops] 1 drop OP BID 12/09/16 [History] Doxazosin Mesylate [Cardura] 8 mg PO BID 12/09/16 [History] Epoetin [place] [Procrit] 5,000 unit SQ MOWEFR 12/09/16 [History] Ferrous Sulfate 325 mg PO TID 12/09/16 [History] Finasteride [Proscar] 5 mg PO DAILY 12/09/16 [History] Furosemide [Lasix] 60 mg PO BID 12/09/16 [History] Hydralazine HCl 100 mg PO Q8H 12/09/16 [History] Insulin ASPART [NovoLOG] 2 unit SQ BID 12/09/16 [History] Insulin Glargine [Lantus] 10 unit SQ DAILY 12/09/16 [History] Ipratropium/Albuterol Neb [Duoneb] 3 ml IH Q4H PRN 12/09/16 [History] Latanoprost [Xalatan] 1 drop OP HS 12/09/16 [History] Melatonin 3 mg PO HS 12/09/16 [History] Methyl Salicylate/Menthol [Muscle Rub Cream] 1 appl TP BID PRN 12/09/16 [History ] Sertraline [Zoloft] 100 mg PO DAILY 12/09/16 [History] Sodium Chloride [Riky-128] 1 drop OP QID 12/09/16 [History] Aspirin Enteric Coated [Aspirin EC] 81 mg PO DAILY 04/21/17 [History] Atorvastatin Calcium [Lipitor] 20 mg PO HS 04/21/17 [History] Bacitracin OINT [Ak-Tracin] 1 appl TP DAILY 04/21/17 [History] Erythromycin OPTH Oint 1 appl OP HS 04/21/17 [History] Omeprazole [PriLOSEC] 20 mg PO DAILY 04/21/17 [History] Polyvinyl Alcohol [Artificial Tears] 2 drop OP Q4H PRN 04/21/17 [History] PrednisoLONE Acetate 1% Opth [PredFORTE 1%] 1 drop OP QID 04/21/17 [History] Sevelamer [Renvela] 1,600 mg PO TIDWM 04/21/17 [History] cloNIDine HCl [Clonidine HCl] 0.2 mg PO TID 04/21/17 [History] Allergies/Adverse Reactions: Allergies lisinopril Adverse Reaction (Verified 02/07/17 07:43) unknown per [facility] list Procedures/tests Complete & Pending: Procedures Performed prior 72 hours Category Date Time Status IR cvc insrt tunnel wo prt/family day carer [IR] Routine IR 04/25/17 Completed IR us guide needle place [IR] Routine IR 04/25/17 Completed EV echocardiogram Routine Y 04/24/17 11:55 Completed Date of admission: 04/21/17 16:48 Primary care physician: [facility]CP [facility] Consults: 04/21/17 19:00 Consult to Car Body Inspector [CONS] Routine Reason for SW Consult: discharge planning 04/24/17 13:26 Consult to Interventional Radiology [CONS] Routine Consulting Provider: Radiology Interventional Cols Reason for Consult: perma cath placement Call Completed: Yes 04/26/17 08:30 Consult to Dialysis [CONS] ONCE 04/26/17 15:10 Consult to Occupational Therapy [CONS] Routine Comment: Evaluate, develop and implement POC Reason for Consult: eval Consult to Physical Therapy [CONS] Routine Comment: Evaluate, develop and implement POC Reason for Consult: eval Discharging clinician: Jose E Cunha Anticipated date of discharge: 04/27/17 - Patient Status Disposition: Transfer SNF Condition: Fair Functional capacity at discharge: wheelchair bound Overall status at discharge: patient is progressing back to baseline - Discharge Instructions Follow Up With: [facility]Primary Care Provider] - ([place]) Additional Instructions: [facility] referral has been completed. Pts. chair time will be M-W-F at 1245. She states they are expecting pt. on Monday. [facility] informed. - Diet and Activity Activity: as per physical therapy Diet: diabetic diet, low salt diet Hospital course: Mr. Webb is a 81 year old male from the [place] shelter with the complaint of shortness of breath, lower extremity swelling. He has a Clinical history of congestive heart failure, stroke, dementia, multiple sclerosis, diabetes, CAD, hyperlipidemia, hypertension, [place], peripheral artery disease, chronic kidney disease stage V not on dialysis. Patient was not able to provide much history secondary to slurred speech upon admission. Per the shelter notes, he has worsening chronic kidney disease, follows with nephrology at an outside [place] [facility]. He does have an AV fistula in place in his left forearm, however this has not matured yet. In the emergency room, patient was noted to be in respiratory distress with shortness of breath for the last 2 days with associated bilateral leg swelling. He was able to communicate is not having any chest pain, dizziness, syncope, cough, fever, chills. Vital signs were within normal limits. His lab values were significant for anemia with H&H of 7.1/23.3, thrombocytopenia at 118, potassium 4.9, BUN/creatinine of 65/5.72, PT of 13.1, BNP of 1797, and troponin of 0.03. Patient was admitted to medicine service with a diagnosis of digestive heart failure exacerbation, chronic kidney disease stage V not on dialysis. During hospital stay, patient was treated with diuretics, fluid restriction. Echocardiogram revealed diastolic dysfunction with an ejection fraction of 50-55 %. Patient was gently diuresed with resolution of symptoms. Also during admission stay, Nephrology was consulted for chronic kidney disease stage V. After thorough discussion, patient and daughter who is his power of ip attorney have decided that he will begin hemodialysis at this time. A tunneled hemodialysis catheter was placed in his right subclavian vein with some bleeding from insertion sites during the following day, which has resolved after holding his aspirin, heparin and administering desmopressin. Patient will receive hemodialysis on day of discharge. Patient's hemoglobin remained stable at 79 hospital stay, he did receive 2 units of blood and on 04/27/17 for increased stability during dialysis, evaluation for physical therapy and occupational therapy. Patient tolerated hemodialysis without complications and improvement of volume status, electrolyte imbalances. Day of discharge, patient was medically stable and will be transferred back to the [place] long[place] stay facility. He was instructed to follow-up with his primary care physician, copper roller handler printing, button broacher. - Time Spent with Patient Total time spent providing and/or coordinating discharge services: - Constitutional Vitals: Temp Pulse Resp BP Pulse Ox 97.9 F 73 16 127/74 97 04/27/17 07:03 04/27/17 07:03 04/27/17 07:03 04/27/17 07:03 04/27/17 07:03 General appearance: Present: A&O X 3, pleasant, no acute distress, answers questions appropriately (muffled speech, chronic from prior CVA) Exam: Gen.: Vitals noted. No acute distress. Unable to determine mental status secondary to slurred speech. HEENT: PERRL/EOMI, oropharynx clear, Normocephalic, atraumatic Neck: Supple. No adenopathy. Cardiac: RRR, no murmur, +S1/S2 Pulmonary: mild wheezing diffusey. no rales or rhonchi, equal chest expansion Abdomen: soft, nontender, BS noted, no guarding Back: Nontender throughout. MSK: ROM intact, no joint swelling noted Extremities: no BLE edema, nontender calf, no cyanosis or clubbing Neuro: Difficult to understand speech. moves all extremities, no focal deficits Psych: Appropriate mood and behavior <Mirza Johnston H - Last Filed: 04/27/17 15:24> Date of Encounter: 04/27/17 Procedures/tests Complete & Pending: Procedures Performed prior 72 hours Category Date Time Status IR cvc insrt tunnel wo prt/family day carer [IR] Routine IR 04/25/17 Completed IR us guide needle place [IR] Routine IR 04/25/17 Completed ECG 12 lead ECG [ECG] Routine Y 04/26/17 16:45 Completed Date of admission: 04/21/17 16:48 Primary care physician: [facility]CP [facility] Consults: 04/21/17 19:00 Consult to Car Body Inspector [CONS] Routine Reason for SW Consult: discharge planning 04/24/17 13:26 Consult to Interventional Radiology [CONS] Routine Consulting Provider: Radiology Interventional Cols Reason for Consult: perma cath placement Call Completed: Yes 04/26/17 08:30 Consult to Dialysis [CONS] ONCE 04/26/17 15:10 Consult to Occupational Therapy [CONS] Routine Comment: Evaluate, develop and implement POC Reason for Consult: eval Consult to Physical Therapy [CONS] Routine Comment: Evaluate, develop and implement POC Reason for Consult: eval 04/27/17 13:00 Consult to Dialysis [CONS] ONCE Hospital course: Mr. Webb is a 81 year old male - Time Spent with Patient Total time spent providing and/or coordinating discharge services: - Constitutional Vitals: Temp Pulse Resp BP Pulse Ox 98.1 F 65 22 148/58 97 04/27/17 14:41 04/27/17 13:46 04/27/17 14:41 04/27/17 14:41 04/27/17 11:51 - Attending Attestation Acute diastolic CHF exacerbation likely secondary to volume overload/chronic kidney disease stage V on hemodialyses now Chronic anemia likely related to chronic kidney disease, transfused 2 units of red blood cells, complete dialysis today, may be discharged afterwards I examined this patient and my medical decision-making was reviewed with the Resident Physician. I agree with the documented findings, disposition and treatment plan as described except to the extent set forth below.
--- NOTE | 2017-04-27 11:00 | Physician Discharge Referral ---
<Jose E Cunha - Last Filed: 04/27/17 10:58> [facility] Referral Info Provider in Charge after Transfer: PCP Institutional Level of Care: Skilled - Diagnosis (1) Congestive heart failure Priority: Primary Status: Acute (2) CKD (chronic kidney disease) stage 5, GFR less than 15 ml/min Priority: Primary (Patient is scheduled expected at [facility] [place] on Monday) Status: Chronic (3) CAD (coronary artery disease) Priority: Secondary Status: Chronic (4) Essential hypertension Priority: Secondary Status: Chronic (5) Diabetes mellitus Priority: Secondary Status: Chronic - Transfer Medications Home Medications: Acetaminophen [Tylenol] 650 mg PO BID MDD 3000 mg/day 12/09/16 [History] Acetaminophen [Tylenol] 650 mg PO Q4H PRN MDD 3000 mg/day 12/09/16 [History] Allopurinol [Zyloprim 100 MG] 100 mg PO DAILY 12/09/16 [History] Amlodipine Besylate 10 mg PO DAILY 12/09/16 [History] Brimonidine 0.2% [Alphagan] 1 drop OP TID 12/09/16 [History] Carvedilol 12.5 mg PO BID 12/09/16 [History] Cholecalciferol (D-3) [Vitamin D] 2,000 unit PO DAILY 12/09/16 [History] Dorzolamide/Timolol/Pf [Cosopt Pf Eye Drops] 1 drop OP BID 12/09/16 [History] Doxazosin Mesylate [Cardura] 8 mg PO BID 12/09/16 [History] Epoetin Cortez [Procrit] 5,000 unit SQ MOWEFR 12/09/16 [History] Ferrous Sulfate 325 mg PO TID 12/09/16 [History] Finasteride [Proscar] 5 mg PO DAILY 12/09/16 [History] Furosemide [Lasix] 60 mg PO BID 12/09/16 [History] Hydralazine HCl 100 mg PO Q8H 12/09/16 [History] Insulin ASPART [NovoLOG] 2 unit SQ BID 12/09/16 [History] Insulin Glargine [Lantus] 10 unit SQ DAILY 12/09/16 [History] Ipratropium/Albuterol Neb [Duoneb] 3 ml IH Q4H PRN 12/09/16 [History] Latanoprost [Xalatan] 1 drop OP HS 12/09/16 [History] Melatonin 3 mg PO HS 12/09/16 [History] Methyl Salicylate/Menthol [Muscle Rub Cream] 1 appl TP BID PRN 12/09/16 [History ] Sertraline [Zoloft] 100 mg PO DAILY 12/09/16 [History] Sodium Chloride [Riky-128] 1 drop OP QID 12/09/16 [History] Aspirin Enteric Coated [Aspirin EC] 81 mg PO DAILY 04/21/17 [History] Atorvastatin Calcium [Lipitor] 20 mg PO HS 04/21/17 [History] Bacitracin OINT [Ak-Tracin] 1 appl TP DAILY 04/21/17 [History] Erythromycin OPTH Oint 1 appl OP HS 04/21/17 [History] Omeprazole [PriLOSEC] 20 mg PO DAILY 04/21/17 [History] Polyvinyl Alcohol [Artificial Tears] 2 drop OP Q4H PRN 04/21/17 [History] PrednisoLONE Acetate 1% Opth [PredFORTE 1%] 1 drop OP QID 04/21/17 [History] Sevelamer [Renvela] 1,600 mg PO TIDWM 04/21/17 [History] cloNIDine HCl [Clonidine HCl] 0.2 mg PO TID 04/21/17 [History] Allergies/Adverse Reactions: Allergies lisinopril Adverse Reaction (Verified 02/07/17 07:43) unknown per [facility] list - Respiratory Orders Oxygen / L per min (3 L) Smoking Cessation: Smoking cessation has been advised. For more information, call the [place] Tobacco Quit Line at 7-513-UMRC-NOW. - Advance Directives Power of Children'S Librarian: Yes (Daughter, Chloe) Code Status: Full Code - Rehabiliation Orders Rehab Potential: Fair Rehab Orders: Evaluation for Physical Therapy, Evaluation for Occupational Therapy - Diet Orders No Concentrated Sweets, Renal, Cardiac CERTIFICATION: I certify that the transfer of the above named patient to an Extended Care Facility is necessary for the continuing treatment of the diagnosis listed. The above information is true and accurate reflection of patient's current condition. Confidential - Redisclosure prohibited without a patient's written consent. <Mirza Johnston H - Last Filed: 04/27/17 15:24> - Respiratory Orders Smoking Cessation: Smoking cessation has been advised. For more information, call the [place] Tobacco Quit Line at 9-401-EXAN-NOW. CERTIFICATION: I certify that the transfer of the above named patient to an Extended Care Facility is necessary for the continuing treatment of the diagnosis listed. The above information is true and accurate reflection of patient's current condition. Confidential - Redisclosure prohibited without a patient's written consent. I examined this patient and my medical decision-making was reviewed with the Resident Physician. I agree with the documented findings, disposition and treatment plan as described except to the extent set forth below.
[2017-04-27] MEDS ORDERED: 0.9 % Sodium Chloride 250 ML IVC PRN (12:49)
[2017-04-27] MEDS ORDERED: 0.9 % Sodium Chloride 1,000 ML PRIME SCH (13:00)
--- NOTE | 2017-04-27 15:10 | Electrocardiograph Report ---
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
[2017-04-27 15:11] LABS: Hematocrit 26.7 % (37.5-50.1); Hemoglobin 8.1 g/dL (12.9-16.9); Mean Corpuscular HGB Conc 30.3 g/dL (31.6-35.5); Mean Corpuscular Hemoglobin 25.2 pg (28.0-33.3); Mean Corpuscular Volume 82.9 fL (83.0-100.0); Platelet Count 150 K/mcL (140-400); Red Blood Count 3.22 M/mcL (4.19-5.50)
[2017-04-27 15:23] LABS: Calcium 8.7 mg/dL (8.6-10.8); Potassium 4.1 mEq/L (3.5-4.5)
[2017-04-27] MEDS ORDERED: 0.9 % Sodium Chloride 250 ML ONE (17:15)
[2017-04-27] MEDS: Melatonin 3 MG TABLET PO SCH (21:46)
[2017-04-27] MEDS: Latanoprost 2.5 ML BOTTLE BOTH EYES SCH (21:50)
[2017-04-27] MEDS: Insulin DETEMIR 100 UNIT/ML X5UNITS SQ SCH (21:50)
[2017-04-28] MEDS: hydrALAZINE 25 MG TABLET PO SCH ×2 (01:54→14:23)
[2017-04-28 06:10] LABS: Calcium 8.5 mg/dL (8.6-10.8); Potassium 4.5 mEq/L (3.5-4.5)
[2017-04-28 06:23] LABS: Hematocrit 27.5 % (37.5-50.1); Hemoglobin 8.3 g/dL (12.9-16.9); Mean Corpuscular HGB Conc 30.2 g/dL (31.6-35.5); Mean Corpuscular Hemoglobin 25.2 pg (28.0-33.3); Mean Corpuscular Volume 83.6 fL (83.0-100.0); Mean Platelet Volume 10.2 fL (9.4-12.4); Platelet Count 149 K/mcL (140-400); Red Blood Count 3.29 M/mcL (4.19-5.50); Red Cell Distribution Width 19.9 % (11.5-14.5)
[2017-04-28] MEDS: Insulin LISPRO 300 UNITS/3 ML VIAL SQ SCH ×2 (07:44→12:13)
[2017-04-28] MEDS: Furosemide 40 MG/4 ML VIAL IVP SCH (07:48)
[2017-04-28] MEDS: Isosorbide MONOnitrate (24 HR) 30 MG TAB.ER.24H PO SCH (07:49)
[2017-04-28] MEDS: cloNIDine HCl 0.1 MG TABLET PO SCH (07:49)
[2017-04-28] MEDS: Triamcinolone Acet 0.1% CRM 15 GM TUBE TP SCH (07:50)
[2017-04-28] MEDS: Dorzolamide/Timolol OPTH 10 ML BOTTLE BOTH EYES SCH (07:50)
[2017-04-28] MEDS: Finasteride 5 MG TABLET PO SCH (07:50)
[2017-04-28] MEDS: Cholecalciferol (D-3) 1,000 UNIT TABLET PO SCH (07:50)
[2017-04-28] MEDS ORDERED: *HR* Heparin 10,000 UNIT/10 ML VIAL IV PRN (09:10)
[2017-04-28] MEDS ORDERED: 0.9 % Sodium Chloride 250 ML IVC PRN (09:10)
--- NOTE | 2017-04-28 09:38 | Nephrology Progress Note ---
Date of Encounter: 04/28/17 Time of Encounter: 09:15 - Assessment and Plan (1) Acute kidney injury superimposed on CKD Current Visit: No Status: Acute KAREN in setting of heart failure exacerbation, diuretics, superimposed on CKD, most likely diabetic nephropathy, baseline widely fluctuates 2.5-3.7. Has left radiocephalic AVF, that is not mature for use. Renal US shows no obstructive uropathy. No further bleeding issues with permacath. HD started yesterday, will dialyze again today. Orders given. Hgb 8.3 following 2 units PRBC's given yesterday. Chronic HD being set up with [place] unit. Will monitor. Avoid nephrotoxins. Subjective Interval history: Laying in bed, alert, watching tv. Objective - Vital Signs Vital signs: Vital Signs Temp Pulse Resp BP Pulse Ox 04/28/17 09:15 73 95 04/28/17 07:39 98 04/28/17 06:56 98.4 F 70 16 158/65 98 04/28/17 05:11 98.5 F 68 16 135/51 97 04/28/17 00:03 98.9 F 75 16 175/71 97 04/27/17 21:47 92 04/27/17 18:01 98.7 F 75 16 127/59 92 04/27/17 17:46 99.3 F 78 18 133/80 94 04/27/17 17:37 99.0 F 70 18 102/69 95 04/27/17 16:12 98.9 F 18 166/71 04/27/17 15:50 166/80 04/27/17 15:35 135/90 04/27/17 15:20 143/64 04/27/17 15:05 151/68 04/27/17 14:50 147/66 04/27/17 14:41 98.1 F 22 148/58 04/27/17 14:35 134/54 04/27/17 14:20 151/56 04/27/17 14:05 145/50 04/27/17 13:50 152/78 04/27/17 13:46 98.3 F 65 22 145/81 04/27/17 13:35 154/52 04/27/17 13:31 98.2 F 67 18 139/50 04/27/17 13:20 98.5 F 22 133/67 07/20/17 11:51 97.9 F 67 20 157/73 97 04/27/17 11:02 97.8 F 66 16 153/73 97 Intake and Output 04/27/17 04/28/17 04/28/17 23:59 07:59 15:59 Intake Total 760 / 760 60 / 60 120 / 120 Output Total 1949 / 1949 Balance -1190 / -1190 60 / 60 120 / 120 Intake: Oral 60 / 60 60 / 60 120 / 120 Blood Product 700 / 700 Rbcs Leuko Poor As-1 700 / 700 Unit [id number] Output: Urine 0 / 0 Total Dialysis (HD) 1949 Output Other: Meal Breakfast Percent of Meal Consumed 90% Stool Size Small Stool Consistency formed Blood Glucose* 295 184 Hemodialysis Net Fluid 1000 Removed (mL) - General Appearance General appearance: Present: well-developed, well-nourished, appears started age EENT: Present: mucous membranes moist Neck: Present: no JVD Respiratory: Present: rhonchi Cardiology: Present: edema, regular rate, regular rhythm Gastrointestinal: Present: normoactive bowel sounds, no tenderness, no guarding Integumentary: Present: warm and dry Psychiatric: Present: mood/affect appropriate, cooperative - Lab 04/28/17 05:39 04/28/17 05:39 Most recent lab results Calcium 8.5 mg/dL (8.6-10.8) L 04/28/17 05:39 Phosphorus 5.2 mg/dL (2.3-4.7) H 04/22/17 05:30 Urine Creatinine 38 mg/dL 04/22/17 10:10 Consult Discharge Plan - Plan Additional Instructions: [facility] referral has been completed. Pts. chair time will be M-W-F at 1245. She states they are expecting pt. on Monday. [facility] informed. Referrals: [facility],PCP [Primary Care Provider] - (Patient will follow up with VA PCP at the [place] inpatient facility)
--- NOTE | 2017-04-28 10:05 | Internal Med Progress Note ---
<RoxannJose E mccray - Last Filed: 04/28/17 10:02> Date of Encounter: 04/28/17 Time of Encounter: 10:02 - Assessment and plan (1) Congestive heart failure Status: Acute Assessment and plan: - Diastolic Heart failure with preserved EF of 50-55% on Echo done 04/24 - s/p HD yesterday. Will repeat dialysis this afternoon before discharge. - I/O - 7L since admission. BNP 1797 in ED. Tolerating 3 L O2 via NC. - Will continue lasix home dose. - Strict I/O, 1500cc fluid restriction Qualifiers: Congestive heart failure type: diastolic Congestive heart failure chronicity: acute Qualified Code(s): I50.31 - Acute diastolic (congestive) heart failure (2) CKD (chronic kidney disease) stage 5, GFR less than 15 ml/min Status: Chronic Assessment and plan: - Renal function worse this morning, BUN/ CR is 60/4.51, K of 4.5 after dialysis yesterday. nephrology following, input appreciated - Will receive second round of dialysis this morning before discharge to SNF. (3) CAD (coronary artery disease) Status: Chronic Assessment and plan: Chronic, no acute events Continue BB, ASA, Imdur, Lipitor per home meds Qualifiers: Coronary Disease-Associated Artery/Lesion type: bypass graft Platinum vs. transplanted heart: [place] heart Associated angina: without angina Qualified Code(s): I25.810 - Atherosclerosis of coronary artery bypass graft(s) without angina pectoris (4) Essential hypertension Status: Chronic Assessment and plan: BP mostly controlled 135/51, continue current meds (5) Diabetes mellitus Status: Chronic Assessment and plan: A1C 7.3% ADA diet FS ACHS Will continue home medications upon discharge. Qualifiers: Diabetes mellitus type: type 2 Diabetes mellitus complication status: with kidney complications Diabetes mellitus complication detail: with chronic kidney disease Diabetes mellitus half-way insulin use: with half-way use Chronic kidney disease stage: stage 4 (severe) Qualified Code(s): E11.22 - Type 2 diabetes mellitus with diabetic chronic kidney disease; N18.4 - Chronic kidney disease, stage 4 (severe); Z79.4 - group home (current) use of insulin - Time Spent With Patient 25 - 35 minutes - Subjective Interval history: Patient was seen and examined at bedside this morning. He denies any complaints at this time. He states his breathing is better. He denies any symptoms of SOB , CP, belly pain. Patient has been accepted at [facility] facility and will be discharged today. 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 No acute distress. AAOx3 HEENT: PERRL/EOMI, oropharynx clear, Normocephalic, atraumatic Neck: Supple. No adenopathy. Cardiac: RRR, no murmur, +S1/S2 Pulmonary: Mild diffuse wheezing. CTA bilaterally, no wheezes, rales or rhonchi , equal chest expansion Abdomen: soft, nontender, BS noted, no guarding Back: Nontender throughout. MSK: no joint swelling noted Extremities: no BLE edema, nontender calf, no cyanosis or clubbing Neuro: Slurred speech which is chronic, difficult to understand. Unable to assess AO status. moves all extremities, no focal deficits Psych: Appropriate mood and behavior Internal Medicine: Result - Labs CBC & Chem 7: 04/28/17 05:39 04/28/17 05:39 Labs: Short CBC 04/27/17 04/28/17 Range/Units 14:57 05:39 WBC 6.9 6.8 (4.3-11.1) K/mcL Hgb 8.1 L 8.3 L (12.9-16.9) g/dL Hct 26.7 L 27.5 L (37.5-50.1) % Plt Count 150 149 (140-400) K/mcL BMP 04/27/17 04/28/17 14:57 05:39 Sodium 138 138 Potassium 4.1 4.5 Chloride 101 102 Carbon Dioxide 27 30 H BUN 58 H D 60 H Creatinine 4.11 H 4.51 H Glucose 158 H 177 H Calcium 8.7 8.5 L - ABG Interpretation ABG results: PT/INR, D-dimer PT 12.6 Seconds (9.4-12.1) H 04/25/17 04:11 - Impressions Impressions Guidance Needle Placement Ultrasound 04/25/17 00:00 IMPRESSION: 1. Right internal jugular vein tunneled dialysis catheter placement as discussed above. D/ / Ander Fuentes MD / Ander Fuentes MD Interpreting Provider: Ander Fuentes MD Chest X-Ray 04/26/17 17:10 IMPRESSION: Increased size of small right pleural effusion. Stable to minimally increased pulmonary vascular congestion. Ill-defined opacification medially at the left lung base, most likely atelectasis. D/ / 04/26/2017 17:38:57 Jose Juan Ayala MD / jaskaran Interpreting Provider: Jose Juan Ayala MD Consult Discharge Plan - Plan Additional Instructions: [facility] referral has been completed. Pts. chair time will be M-W-F at 1245. She states they are expecting pt. on Monday. [facility] informed. Referrals: VA,PCP [Primary Care Provider] - (Patient will follow up with VA PCP at the [place] inpatient facility) <Mirza Johnston H - Last Filed: 04/28/17 15:02> Date of Encounter: 04/28/17 - Constitutional Vitals: Temp Pulse Resp BP Pulse Ox 97.7 F 73 6 148/39 95 04/28/17 13:10 04/28/17 09:15 04/28/17 13:10 04/28/17 13:10 04/28/17 09:15 Internal Medicine: Result - Labs CBC & Chem 7: 04/28/17 05:39 04/28/17 05:39 Labs: Short CBC 04/27/17 04/28/17 Range/Units 14:57 05:39 WBC 6.9 6.8 (4.3-11.1) K/mcL Hgb 8.1 L 8.3 L (12.9-16.9) g/dL Hct 26.7 L 27.5 L (37.5-50.1) % Plt Count 150 149 (140-400) K/mcL BMP 04/27/17 04/28/17 14:57 05:39 Sodium 138 138 Potassium 4.1 4.5 Chloride 101 102 Carbon Dioxide 27 30 H BUN 58 H D 60 H Creatinine 4.11 H 4.51 H Glucose 158 H 177 H Calcium 8.7 8.5 L - ABG Interpretation ABG results: PT/INR, D-dimer PT 12.6 Seconds (9.4-12.1) H 04/25/17 04:11 - Attending Attestation stable to discharge after dialysis I examined this patient and my medical decision-making was reviewed with the Resident Physician. I agree with the documented findings, disposition and treatment plan as described except to the extent set forth below.
[2017-04-28] MEDS ORDERED: 0.9 % Sodium Chloride 2,000 ML ONE (10:57)
[2017-04-28] MEDS: Aspirin Enteric Coated 81 MG Tablet PO SCH (11:40)
[2017-04-28 14:58] VITALS: BP 148/39
== END 2017-04-28 14:29 | DRG 291 ==
LOC: EMEROO 14:10 → 2ANU 16:48 → SUATTDRO 16:48 → 2ANU 17:48
PROVIDERS: ADMIT Internal Medicine; ATTEND Internal Medicine
PROC: IRPERMA (2017-04-25 12:00)

== ENCOUNTER 2017-05-10 14:58 | Inpatient (IN) ==
[2017-05-10 16:17] LABS: Basophils % 0.2 %; Eosinophils % 0.2 %; Hematocrit 36.8 % (37.5-50.1); Hemoglobin 11.1 g/dL (12.9-16.9); Immature Granulocytes % 0.7 % (0-4); Lymphocytes # 0.7 K/mcL (0.6-4.6); Lymphocytes % 5.8 %; Mean Corpuscular HGB Conc 30.2 g/dL (31.6-35.5); Mean Corpuscular Hemoglobin 24.9 pg (28.0-33.3); Mean Corpuscular Volume 82.7 fL (83.0-100.0); Mean Platelet Volume 9.3 fL (9.4-12.4); Monocytes # 1.1 K/mcL (0.0-1.3); Monocytes % 8.7 %; Neutrophils # 10.3 K/mcL (1.6-8.9); Platelet Count 211 K/mcL (140-400); Red Blood Count 4.45 M/mcL (4.19-5.50); Red Cell Distribution Width 18.7 % (11.5-14.5); Segmented Neutrophils % 84.4 %
[2017-05-10 16:26] LABS: INR 1.3; Prothrombin Time 14.3 Seconds (9.4-12.1)
[2017-05-10 16:27] LABS: Bilirubin,Urine Small (Negative); Blood,Urine Moderate (Negative); Clarity,Urine Turbid (Clear); Color,Urine Dark Yellow (Yellow); Glucose,Urine (UA) 250 mg/dL (Normal); Ketones,Urine Trace mg/dL (Negative); Leukocyte Esterase,Urine Large (Negative); Nitrite,Urine Negative (Negative); PH,Urine 7.5 pH Units (5.0-8.0); Protein,Urine >=1000 mg/dL (Neg-Trace); Urobilinogen,Urine Normal (Normal)
[2017-05-10 16:28] LABS: Activated Partial Thrombo Time 40.5 Seconds (26.0-36.0)
[2017-05-10 16:33] LABS: Albumin 2.4 g/dL (3.5-5.0); Albumin/Globulin Ratio 0.5 (1.1-2.2); Bilirubin,Direct 0.3 mg/dL (0.0-0.5); Bilirubin,Indirect 0.5 mg/dL (0.0-1.2); Bilirubin,Total 0.8 mg/dL (0.2-1.2); Calcium 8.9 mg/dL (8.6-10.8); Magnesium 1.7 mg/dL (1.6-2.6); Phosphorous 1.9 mg/dL (2.3-4.7); Potassium 3.4 mEq/L (3.5-4.5); Total Protein 7.4 g/dL (6.0-8.3)
[2017-05-10 16:39] LABS: Bacteria,Urine Moderate per hpf (None-Few); Hyaline Casts,Urine None Seen per lpf (None-Few); Squamous Epithelial Cell,Urine Many per lpf (None-Few); WBC,Urine TNTC per hpf (0-3)
[2017-05-10] MEDS ORDERED: Vancomycin 1,000 MG in D5% in Water 250 ML IVPB ONE (16:57)
[2017-05-10] MEDS ORDERED: Piperacillin/Tazobactam 3.375 GM in D5% in Water (Mini-Bag+) 100 ML IVPB ONE (16:57)
--- NOTE | 2017-05-10 16:57 | Emergency Department Note ---
Disposition Clinical Impression: Elevated troponin I level Sepsis Qualifiers: Sepsis type: sepsis due to unspecified organism Qualified Code(s): A41.9 - Sepsis, unspecified organism Disposition: Admitted As Inpatient Condition: Serious Time of Disposition: 17:43 General Adult HPI - General Chief complaint: ED Recheck/Abnormal Lab/Rx Stated complaint: sepsis per Dialysis Time Seen by Provider: 05/10/17 15:40 Source: patient, family Limitations: altered mental status, physical limitation, other Nursing Notes Reviewed: Yes Vital Signs Reviewed: Yes - History of Present Illness HPI Narrative: Patient is a 81-year-old male who presents to the ED and transferred from dialysis for suspected sepsis. [facility] Patient is due to dialysis had a new dialysis port placed 2 weeks ago. Patient began to have fevers running 102.5, was started on Tylenol and had cultures taken which grew out gram-positive clusters in started on bank and ceftazidime by [facility] infectious disease. Note that it was staff today. Patient was transferred from dialysis would believe that patient's temporary dialysis catheter is the source of infection. Spoke to [place] loan servicing representative Suze Joshi CMP states the patient was transferred here for treatment for sepsis and removal and replacement of temporary dialysis catheter. She states that patient has been improving since being started on vancomycin and ceftazidime, and was able to feed himself this morning. She states patient always has garbled speech, has a history of hypertension, COPD, CHF, CVA, CAD and PAD. Pain Scale: 6 - Related Data Home Medications Medication Instructions Recorded Confirmed Acetaminophen [Tylenol] 650 mg PO BID MDD 3000 mg/day 12/09/16 04/21/17 Acetaminophen [Tylenol] 650 mg PO Q4H PRN MDD 3000 mg/day 12/09/16 04/21/17 Allopurinol [Zyloprim 100 MG] 100 mg PO DAILY 12/09/16 04/21/17 Amlodipine Besylate 10 mg PO DAILY 12/09/16 04/21/17 Brimonidine 0.2% [Alphagan] 1 drop OP TID 12/09/16 04/21/17 Carvedilol 12.5 mg PO BID 12/09/16 04/21/17 Cholecalciferol (D-3) [Vitamin D] 2,000 unit PO DAILY 12/09/16 04/21/17 Dorzolamide/Timolol/Pf [Cosopt Pf 1 drop OP BID 12/09/16 04/21/17 Eye Drops] Doxazosin Mesylate [Cardura] 8 mg PO BID 12/09/16 04/21/17 Epoetin Cortez [Procrit] 5,000 unit SQ MOWEFR 12/09/16 04/21/17 Ferrous Sulfate 325 mg PO TID 12/09/16 04/21/17 Finasteride [Proscar] 5 mg PO DAILY 12/09/16 04/21/17 Furosemide [Lasix] 60 mg PO BID 12/09/16 04/21/17 Hydralazine HCl 100 mg PO Q8H 12/09/16 04/21/17 Insulin ASPART [NovoLOG] 2 unit SQ BID 12/09/16 04/21/17 Insulin Glargine [Lantus] 10 unit SQ DAILY 12/09/16 04/21/17 Ipratropium/Albuterol Neb [Duoneb] 3 ml IH Q4H PRN 12/09/16 04/21/17 Latanoprost [Xalatan] 1 drop OP HS 12/09/16 04/21/17 Melatonin 3 mg PO HS 12/09/16 04/21/17 Sertraline [Zoloft] 100 mg PO DAILY 12/09/16 04/21/17 Aspirin Enteric Coated [Aspirin EC] 81 mg PO DAILY 04/21/17 04/21/17 Atorvastatin Calcium [Lipitor] 20 mg PO HS 04/21/17 04/21/17 Omeprazole [PriLOSEC] 20 mg PO DAILY 04/21/17 04/21/17 PrednisoLONE Acetate 1% Opth 1 drop OP QID 04/21/17 04/21/17 [PredFORTE 1%] Sevelamer [Renvela] 1,600 mg PO TIDWM 04/21/17 04/21/17 cloNIDine HCl [Clonidine HCl] 0.2 mg PO TID 04/21/17 04/21/17 Allergies Allergy/AdvReac Type Severity Reaction Status Date / Time lisinopril AdvReac unknown Verified 05/10/17 15:37 Review of Systems: As Per HPI Limitations: ROS unobtainable due to patients medical condition (Patient's speech is garbled and difficult to understand) Past Medical History - Past Medical History Attestation: Yes The following information was validated with the patient. Source: obtained from family, nursing notes reviewed Medical history: Reports: arthritis, CHF, coronary artery disease, diabetes, GI bleed, hyperlipidemia, hypertension, myocardial infarction, osteoporosis, peripheral artery disease, renal disease, TIA, valvular heart disease, other Surgical history: Reports: coronary bypass (CABG), other Psychiatric history: Reports: no psych history, other - Social History Smoking Status: Former smoker Smokeless Tobacco Status: No Alcohol use: Reports: none Drug use: Reports: none Physical Exam Vital Signs Temperature 98.3 F 05/10/17 15:32 Pulse Rate 68 05/10/17 15:32 Respiratory Rate 12 05/10/17 15:32 Blood Pressure 147/69 05/10/17 15:32 O2 Sat by Pulse Oximetry 99 05/10/17 15:32 Temperature 98.3 F 05/10/17 15:32 Pulse Rate 68 05/10/17 17:12 Respiratory Rate 20 05/10/17 17:12 Blood Pressure 114/89 05/10/17 17:12 O2 Sat by Pulse Oximetry 97 05/10/17 17:12 Oxygen Delivery Oxygen Delivery Room Air -General Appearance: Patient is a 81-year-old male is alert and oriented to self and place. Difficult to understand patient's speech as it is garbled. Patient moans continuously. - Head Head exam: atraumatic, normocephalic, normal inspection - Eye Eye exam: Present: normal appearance, PERRL, EOMI, negative for scleral icterus negative for conjunctival pallor - ENT ENT exam: Patient's posterior cervical spine tenderness to light palpation - Neck Neck exam: Present: normal inspection, full ROM, trachea midline, negative JVD - Chest Chest inspection: Present: Patient has bilateral equal rise and fall of chest wall. Non-tender to palpation., - Respiratory Respiratory exam: Clear to auscultation bilaterally without wheezes rales or rhonchi Cardiovascular Cardiovascular exam: Present: regular rate, normal rhythm, normal heart sounds, without murmurs rubs or gallops. - Abdominal Exam Abdominal exam: Present: soft, nondistended, Non-Tender light and deep palpation in all quadrants. Bowel sounds normoactive throughout all 4 quadrants. Negative for hyper or hyperresonance. - Extremities Exam Extremities exam: Present: normal inspection, full ROM - Back Exam Back exam: Present: - Skin Skin exam: Present: warm, dry, intact, normal color - General Limitations: language barrier, altered mental status, physical limitation, other General appearance: alert, lethargic Course - Reevaluation(s) Reevaluation #1: Had long discussion with family members who requests transfer patient to [facility]. Explained to them that days currently closed right now and transfer will not be able to be facilitated this time. The social work administrator is a was present at the time and concurred with that assessment. They are in agreement for admission to the hospital but would like to discuss in with nephrology and hospitalist concerning near future transfer possible. Time: 16:50 Reevaluation #2: Vancomycin and Zosyn ordered Time: 16:57 Reevaluation #3: Patient blood pressure 101/73. Dropped from 114 over 70s. Patient's lung sounds are clear. Patient's breathing is clear and unlabored. Going to administer 1 L fluid bolus and reassess Time: 17:55 Additional Reevaluation(s): Patient's blood pressure appeared to have stopped and was 73 systolic from 101. Recheck patient's blood pressure manually which read 118/68. Patient's blood pressure pressure was from patient's leg. And recheck was found patient's right upper arm. Ordered fluid boluses with patient She liters for relative bradycardia patient. Patient's blood pressure is in normal ranges but this is a drop from 140s to 150s systolic. Patient will also be going to the ICU insulin of 2 to [place] for close monitoring. Upgrading patient from sepsis to severe sepsis. BMP 3251. - Consultations Consultation #1: [facility]: Suze aFrfan per phone call: Patient began having fevers several days ago. Patient's blood was cultured which grew out staph and was started on antibiotics per consult with [facility] infectious disease Dr. Quintero. Patient went for hemodialysis today under Dr. Banegas who recommended patient be sent here to [place] for removal and replacement of temperature and I will scattered believed to be source of infection. Time: 16:30 Consultation #2: Accepted for admission to the hospitalist Maritza Gamble at 1723 hrs. Time: 17:26 Time: 18:46 Vital Signs Temperature 98.3 F 05/10/17 15:32 Pulse Rate 68 05/10/17 15:32 Respiratory Rate 12 08/02/17 15:32 Blood Pressure 147/69 05/10/17 15:32 O2 Sat by Pulse Oximetry 99 05/10/17 15:32 Temperature 98.3 F 05/10/17 15:32 Pulse Rate 68 05/10/17 17:12 Respiratory Rate 20 05/10/17 18:04 Blood Pressure 101/78 05/10/17 18:04 O2 Sat by Pulse Oximetry 97 05/10/17 17:12 Oxygen Delivery Oxygen Delivery Room Air Medical Decision Making - MDM Narrative Medical decision making narrative: Patient presents with sepsis. Patient's vital signs normal ranges. Patient has a lactate of 1.0, and a WBC of 12.2. Hemoglobin shows anemia 11.1 which is slightly greater than previous of 10.2. Patient has chronic anemia and has received transfusion in the past. Patient's potassium today is 3.4 mildly low. Patient has a BUN and creatinine of 14 and 1.94 respectively which is greatly reduced from 41/4.17 [facility]. Patient's platelet count 210. Patient has an elevated troponin of 0.06 and patient's EKG shows some inverted T waves V1 and V2 V3 but no ST elevations or depressions and a leads. Culture performed at [facility] by infectious disease cultured out staph and patient was started on bank and cefotaxime. Cultures of urine drawn here Patient has been started on vancomycin and Zosyn here. Patient's last bank trough was 12.1. Patient's currently hemodynamically stable. Patient's chest x-ray does show vascular congestion. Patient has a history of CHF and ESRD on dialysis. Currently patient does not meet severe sepsis criteria and giving comorbidities patient will be continually monitored about withholding fluids in large boluses at this time. Patient will receive a 500 mL and reassessed after BNP results come in and patient is not in fluid overload. Patient's BMP around 3200. The patient's blood pressure dropped below 100. After recheck it was 101/73. Administered 1 L bolus normal saline. Patient received a second IV line. Pressors were placed the bedside. Considered placing central line but patient's blood pressures seemed to stay above 100. Patient will be admitted with [address] Spoke to hospitalist and explaining patient's situation concerning blood pressures here and patient placed to 2 [facility]. Recommend close evaluation and ICU placement if needed. Patient has been accepted for admission by hospitalist Damairs Gamble [facility] - Medical Records Medical records reviewed: Yes I reviewed the patient's medical records. [facility] present patient's file and reviewed - Lab Data Lab results reviewed: Yes I reviewed the patient's lab results. Lab results narrative: Short CBC 05/10/17 Range/Units 16:07 WBC 12.2 H (4.3-11.1) K/mcL Hgb 11.1 L (12.9-16.9) g/dL Hct 36.8 L (37.5-50.1) % Plt Count 211 (140-400) K/mcL Neutrophils # 10.3 H (1.6-8.9) K/mcL BMP 05/10/17 Range/Units 16:07 Sodium 139 (136-145) mEq/L Potassium 3.4 L (3.5-4.5) mEq/L Chloride 99 (98-109) mEq/L Carbon Dioxide 33 H (19-29) mEq/L BUN 14 (8-26) mg/dL Creatinine 1.94 H (0.72-1.25) mg/dL Glucose 134 H (70-99) mg/dL Calcium 8.9 (8.6-10.8) mg/dL Cardiac Enzymes 05/10/17 Range/Units 16:07 Troponin I 0.06 H* (0-0.03) ng/mL Liver Function 05/10/17 Range/Units 16:07 Total Bilirubin 0.8 (0.2-1.2) mg/dL Direct Bilirubin 0.3 (0.0-0.5) mg/dL AST 29 (5-34) Units/L ALT 36 (0-55) Units/L Alkaline Phosphatase 134 H (38-126) Units/L Albumin 2.4 L (3.5-5.0) g/dL Urine 05/10/17 Range/Units 16:12 Urine Color Dark Yellow (Yellow) Urine Clarity Turbid A (Clear) Urine pH 7.5 (5.0-8.0) pH Units Ur Specific [place] 1.030 H (1.010-1.025) Urine Protein >=1000 H (Neg-Trace) mg/dL Urine Glucose (UA) 250 H (Normal) mg/dL Result diagrams: 05/10/17 16:07 05/10/17 16:07 Lab Results 05/10/17 05/10/17 05/10/17 Range/Units 16:07 16:07 16:07 WBC 12.2 H (4.3-11.1) K/mcL RBC 4.45 (4.19-5.50) M/mcL Hgb 11.1 L (12.9-16.9) g/dL Hct 36.8 L (37.5-50.1) % MCV 82.7 L (83.0-100.0) fL MCH 24.9 L (28.0-33.3) pg MCHC 30.2 L (31.6-35.5) g/dL RDW 18.7 H (11.5-14.5) % Plt Count 211 (140-400) K/mcL MPV 9.3 L (9.4-12.4) fL Immature Gran % 0.7 (0-4) % Seg Neutrophils % 84.4 % Lymphocytes % 5.8 % Monocytes % 8.7 % Eosinophils % 0.2 % Basophils % 0.2 % Neutrophils # 10.3 H (1.6-8.9) K/mcL Lymphocytes # 0.7 (0.6-4.6) K/mcL Monocytes # 1.1 (0.0-1.3) K/mcL Eosinophils # 0.0 (0.0-0.6) K/mcL Basophils # 0.0 (0.0-0.2) K/mcL PT 14.3 H (9.4-12.1) Seconds INR 1.3 APTT 40.5 H (26.0-36.0) Seconds Sodium 139 (136-145) mEq/L Potassium 3.4 L (3.5-4.5) mEq/L Chloride 99 (98-109) mEq/L Carbon Dioxide 33 H (19-29) mEq/L BUN 14 (8-26) mg/dL Creatinine 1.94 H (0.72-1.25) mg/dL Est GFR ( Amer) 40 L (> 60) Est GFR (Non-Af Amer) 33 L (> 60) BUN/Creatinine Ratio 7 (6-26) Glucose 134 H (70-99) mg/dL Calculated Osmolality 290 (280-300) Lactic Acid (0.5-2.2) mmol/L Calcium 8.9 (8.6-10.8) mg/dL Phosphorus 1.9 L (2.3-4.7) mg/dL Magnesium 1.7 (1.6-2.6) mg/dL Total Bilirubin 0.8 (0.2-1.2) mg/dL Direct Bilirubin 0.3 (0.0-0.5) mg/dL Indirect Bilirubin 0.5 (0.0-1.2) mg/dL AST 29 (5-34) Units/L ALT 36 (0-55) Units/L Alkaline Phosphatase 134 H (38-126) Units/L Troponin I (0-0.03) ng/mL B-Natriuretic Peptide (0-100) pg/mL Serum Total Protein 7.4 (6.0-8.3) g/dL Albumin 2.4 L (3.5-5.0) g/dL Globulin 5.0 H (2.4-3.5) g/dL Albumin/Globulin Ratio 0.5 L (1.1-2.2) Lipase 21 (8-78) Units/L Urine Color (Yellow) Urine Clarity (Clear) Urine pH (5.0-8.0) pH Units Ur Specific [place] (1.010-1.025) Urine Protein (Neg-Trace) mg/dL Urine Glucose (UA) (Normal) mg/dL Urine Ketones (Negative) mg/dL Urine Blood (Negative) Urine Nitrite (Negative) Urine Bilirubin (Negative) Urine Urobilinogen (Normal) mg/dL Ur Leukocyte Esterase (Negative) Urine Microscopic RBC (0-3) per hpf Urine Microscopic WBC (0-3) per hpf Ur Squamous Epith Cells (None-Few) per lpf Triple Phos Crystals Urine Bacteria (None-Few) per hpf Hyaline Casts (None-Few) per lpf Urine Yeast Ur Culture Indicated? (NO) 05/10/17 05/10/17 05/10/17 Range/Units 16:07 16:07 16:07 WBC (4.3-11.1) K/mcL RBC (4.19-5.50) M/mcL Hgb (12.9-16.9) g/dL Hct (37.5-50.1) % MCV (83.0-100.0) fL MCH (28.0-33.3) pg MCHC (31.6-35.5) g/dL RDW (11.5-14.5) % Plt Count (140-400) K/mcL MPV (9.4-12.4) fL Immature Gran % (0-4) % Seg Neutrophils % % Lymphocytes % % Monocytes % % Eosinophils % % Basophils % % Neutrophils # (1.6-8.9) K/mcL Lymphocytes # (0.6-4.6) K/mcL Monocytes # (0.0-1.3) K/mcL Eosinophils # (0.0-0.6) K/mcL Basophils # (0.0-0.2) K/mcL PT (9.4-12.1) Seconds INR APTT (26.0-36.0) Seconds Sodium (136-145) mEq/L Potassium (3.5-4.5) mEq/L Chloride (98-109) mEq/L Carbon Dioxide (19-29) mEq/L BUN (8-26) mg/dL Creatinine (0.72-1.25) mg/dL Est GFR ( Amer) (> 60) Est GFR (Non-Af Amer) (> 60) BUN/Creatinine Ratio (6-26) Glucose (70-99) mg/dL Calculated Osmolality (280-300) Lactic Acid 1.0 (0.5-2.2) mmol/L Calcium (8.6-10.8) mg/dL Phosphorus (2.3-4.7) mg/dL Magnesium (1.6-2.6) mg/dL Total Bilirubin (0.2-1.2) mg/dL Direct Bilirubin (0.0-0.5) mg/dL Indirect Bilirubin (0.0-1.2) mg/dL AST (5-34) Units/L ALT (0-55) Units/L Alkaline Phosphatase (38-126) Units/L Troponin I 0.06 H* (0-0.03) ng/mL B-Natriuretic Peptide 3251 H (0-100) pg/mL Serum Total Protein (6.0-8.3) g/dL Albumin (3.5-5.0) g/dL Globulin (2.4-3.5) g/dL Albumin/Globulin Ratio (1.1-2.2) Lipase (8-78) Units/L Urine Color (Yellow) Urine Clarity (Clear) Urine pH (5.0-8.0) pH Units Ur Specific [place] (1.010-1.025) Urine Protein (Neg-Trace) mg/dL Urine Glucose (UA) (Normal) mg/dL Urine Ketones (Negative) mg/dL Urine Blood (Negative) Urine Nitrite (Negative) Urine Bilirubin (Negative) Urine Urobilinogen (Normal) mg/dL Ur Leukocyte Esterase (Negative) Urine Microscopic RBC (0-3) per hpf Urine Microscopic WBC (0-3) per hpf Ur Squamous Epith Cells (None-Few) per lpf Triple Phos Crystals Urine Bacteria (None-Few) per hpf Hyaline Casts (None-Few) per lpf Urine Yeast Ur Culture Indicated? (NO) 05/10/17 Range/Units 16:12 WBC (4.3-11.1) K/mcL RBC (4.19-5.50) M/mcL Hgb (12.9-16.9) g/dL Hct (37.5-50.1) % MCV (83.0-100.0) fL MCH (28.0-33.3) pg MCHC (31.6-35.5) g/dL RDW (11.5-14.5) % Plt Count (140-400) K/mcL MPV (9.4-12.4) fL Immature Gran % (0-4) % Seg Neutrophils % % Lymphocytes % % Monocytes % % Eosinophils % % Basophils % % Neutrophils # (1.6-8.9) K/mcL Lymphocytes # (0.6-4.6) K/mcL Monocytes # (0.0-1.3) K/mcL Eosinophils # (0.0-0.6) K/mcL Basophils # (0.0-0.2) K/mcL PT (9.4-12.1) Seconds INR APTT (26.0-36.0) Seconds Sodium (136-145) mEq/L Potassium (3.5-4.5) mEq/L Chloride (98-109) mEq/L Carbon Dioxide (19-29) mEq/L BUN (8-26) mg/dL Creatinine (0.72-1.25) mg/dL Est GFR ( Amer) (> 60) Est GFR (Non-Af Amer) (> 60) BUN/Creatinine Ratio (6-26) Glucose (70-99) mg/dL Calculated Osmolality (280-300) Lactic Acid (0.5-2.2) mmol/L Calcium (8.6-10.8) mg/dL Phosphorus (2.3-4.7) mg/dL Magnesium (1.6-2.6) mg/dL Total Bilirubin (0.2-1.2) mg/dL Direct Bilirubin (0.0-0.5) mg/dL Indirect Bilirubin (0.0-1.2) mg/dL AST (5-34) Units/L ALT (0-55) Units/L Alkaline Phosphatase (38-126) Units/L Troponin I (0-0.03) ng/mL B-Natriuretic Peptide (0-100) pg/mL Serum Total Protein (6.0-8.3) g/dL Albumin (3.5-5.0) g/dL Globulin (2.4-3.5) g/dL Albumin/Globulin Ratio (1.1-2.2) Lipase (8-78) Units/L Urine Color Dark Yellow (Yellow) Urine Clarity Turbid A (Clear) Urine pH 7.5 (5.0-8.0) pH Units Ur Specific [place] 1.030 H (1.010-1.025) Urine Protein >=1000 H (Neg-Trace) mg/dL Urine Glucose (UA) 250 H (Normal) mg/dL Urine Ketones Trace H (Negative) mg/dL Urine Blood Moderate H (Negative) Urine Nitrite Negative (Negative) Urine Bilirubin Small H (Negative) Urine Urobilinogen Normal (Normal) mg/dL Ur Leukocyte Esterase Large H (Negative) Urine Microscopic RBC 15-30 H (0-3) per hpf Urine Microscopic WBC TNTC H (0-3) per hpf Ur Squamous Epith Cells Many H (None-Few) per lpf Triple Phos Crystals Present Urine Bacteria Moderate H (None-Few) per hpf Hyaline Casts None Seen (None-Few) per lpf Urine Yeast PALLET REPAIRER Ur Culture Indicated? YES A (NO) - Radiology Data Radiology results reviewed: Yes I reviewed the patient's radiology results. Chest X-Ray 05/10/17 15:42 IMPRESSION: Cardiomegaly with vascular congestion. D/ / Rafat Kohli MD / Rafat Kohli MD Interpreting Provider: Rafat Kohli MD - EKG Data EKG #1 EKG attestation: Yes I reviewed and interpreted this EKG. EKG results narrative: EKG taken to May 2017 at 1549 hrs. shows a first-degree AV block underlying sinus rhythm no ST depressions or elevations any leads. Patient has a deep QRSs in V1 and V2 V3 4 left ventricular hypertrophy and inverted T waves in V1 and V2 through EKG was compared to previous EKG taken 04/26/2017 which is similar with the exception of inverted T waves in anterior leads V1 and V2 V3.
[2017-05-10 17:05] LABS: RBC,Urine 15-30 per hpf (0-3)
[2017-05-10 17:11] LABS: Triple Phosphate Crystal,Urine Present
[2017-05-10] MEDS ORDERED: 0.9 % Sodium Chloride 500 ML IVC ONE (17:40)
[2017-05-10] MEDS ORDERED: 0.9 % Sodium Chloride 1,000 ML IVC ONE ×2 (17:54→18:15)
[2017-05-10] MEDS ORDERED: *HR* Morphine 2 MG/ML SYRINGE IVP PRN (18:05)
[2017-05-10] MEDS ORDERED: Ondansetron 4 MG/2 ML VIAL IVP PRN (18:05)
[2017-05-10] MEDS ORDERED: Naloxone 0.4 MG/ML INJ IVP PRN (18:05)
[2017-05-10] MEDS ORDERED: *HR* Dextrose 50 % in Water (Syg) 50 ML SYRINGE IVP PRN (18:09)
[2017-05-10] MEDS ORDERED: D5% in Water 1,000 ML IVC PRN (18:09)
[2017-05-10] MEDS ORDERED: Dextrose Gel 15 GM PO PRN ×2 (18:09)
[2017-05-10] MEDS ORDERED: Ipratropium/Albuterol Neb 3 ML IH PRN (18:12)
[2017-05-10] MEDS ORDERED: 0.9 % Sodium Chloride 1,000 ML IVC SCH (18:15)
--- NOTE | 2017-05-10 18:29 | Internal Med History&Physical ---
Date of Encounter: 05/10/17 Time of Encounter: 18:15 Assessment and Plan (1) Sepsis Current visit: Yes Status: Acute Sepsis present on admission - likely source is right subclavian HD catheter and also due to UTI HD catheter will need to be removed and patient will require new access for HD Continue empiric IV Zosyn, IV vancomycin, Tylenol PRN Lactic acid - 1.0 WBC - 12.2 BN peptide - 3251 Troponin - 0.06 Cultures - pending Chest x-ray - cardiomegaly with vascular congestion UA - positive leukocyte esterase and bacteria Nephrology consult pending Strict I's and O's, fluid restriction, daily weight Cardiac telemetry, labs in a.m. Qualifiers: Sepsis type: sepsis due to unspecified organism Qualified Code(s): A41.9 - Sepsis, unspecified organism (2) ESRD (end stage renal disease) on dialysis Current visit: Yes Status: Acute End-stage renal disease on hemodialysis Monday Right subclavian hemodialysis catheter in place Nephrology consult (3) Elevated troponin I level Current visit: Yes Status: Acute Troponin elevated at 0.06 (probably due to CHF exacerbation), cycle troponin EKG - underlying sinus rhythm with first-degree AV block with no acute ST-T changes with inverted T waves in V1 and V2 Repeat EKG in a.m. (4) Congestive heart failure Current visit: No Status: Acute Acute exacerbation of chronic diastolic CHF LVEF 50-55% - lung sounds are clear bilaterally and patient does not have lower leg edema BN peptide - 3251 Troponin - 0.06 Chest x-ray - cardiomegaly with vascular congestion EKG - sinus rhythm with first-degree AV block with no acute ST-T changes Continue IV Lasix, strict I's and O's, fluid restriction, daily weight Cardiac telemetry, labs in a.m. 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 Webb is a 81 year old male with past medical history of arthritis, CHF, coronary artery disease, diabetes, history of GI bleed, hyperlipidemia, hypertension, osteoporosis, peripheral arterial disease, end-stage renal disease and CVA. Patient presents to the ED from dialysis unit for suspected sepsis. Patient is a resident of the [facility] at the [place]. Examined in the ED. Patient is drowsy but is easily arousable. He has dysarthria and his speech is garbled. He is unable to provide any history. All history is obtained from patient's daughter was at bedside and also from patient's medical records. Daughter states that patient was advised to go to the ED from dialysis today because of persistent fever. Patient has had a fever of 102. According to daughter he has not complained of chest pain or shortness of breath. Patient has not had any vomiting or diarrhea. No aggravating or alleviating factors. No other acute complaints. Patient apparently had cultures done recently and was started on Ceftazidime by [facility] infectious disease as per records. A entry level sales representative at the [place] was contacted by the ED physician today, and she stated the patient was transferred for sepsis and for removal of temporary dialysis catheter. Patient had a right subclavian dialysis catheter placed about 2 weeks ago. Patient was recently admitted for shortness of breath secondary to CHF exacerbation and fluid overload due to end-stage renal disease. He was recently started on dialysis. Dr. Crocker had advised the patient to be admitted for removal and placement of temporary hemodialysis catheter which is likely the source of his sepsis. Initial workup in the ED revealed elevated white count, elevated BNP peptide and elevated At 0.06. Urinalysis Was Positive for Leukocyte Esterase and Bacteria. Blood Cultures and Urine Cultures Have Been Ordered. Troponin Will Be Trended. IV Zosyn and Vancomycin Have Been Added. Patient is being admitted for sepsis. Patient and daughter have been explained about his guarded condition and plan of care. They understood and agreed. No unanswered questions. CODE STATUS full code. Past Med Surg Social Fam HX - Past Medical History Medical history: arthritis, CHF, coronary artery disease, diabetes, GI bleed, hyperlipidemia, hypertension, myocardial infarction, osteoporosis, peripheral artery disease, renal disease, TIA, valvular heart disease, other Psychiatric history: no psych history, other - Past Surgical History Surgical History: coronary bypass (CABG), other (Peripheral arterial graft) - Social History Smoking Status: Former smoker Smokeless Tobacco Status: No Alcohol use: none Drug use: none Internal Medicine - H&P: Meds Acetaminophen [Tylenol] 650 mg PO BID 12/09/16 [History] Acetaminophen [Tylenol] 650 mg PO Q4H PRN MDD 3000 mg/day 12/09/16 [History] Allopurinol [Zyloprim 100 MG] 100 mg PO DAILY 12/09/16 [History] Amlodipine Besylate 10 mg PO DAILY 12/09/16 [History] Brimonidine 0.2% [Alphagan] 1 drop OP TID 12/09/16 [History] Carvedilol 12.5 mg PO BID 12/09/16 [History] Cholecalciferol (D-3) [Vitamin D] 2,000 unit PO DAILY 12/09/16 [History] Dorzolamide/Timolol/Pf [Cosopt Pf Eye Drops] 1 drop OP BID 12/09/16 [History] Doxazosin Mesylate [Cardura] 8 mg PO BID 12/09/16 [History] Epoetin Cortez [Procrit] 5,000 unit SQ MOWEFR 12/09/16 [History] Ferrous Sulfate 325 mg PO TID 12/09/16 [History] Finasteride [Proscar] 5 mg PO DAILY 12/09/16 [History] Furosemide [Lasix] 60 mg PO BID 12/09/16 [History] Hydralazine HCl 100 mg PO Q8H 12/09/16 [History] Insulin ASPART [NovoLOG] 4 unit SQ BID 12/09/16 [History] Insulin Glargine [Lantus] 15 unit SQ DAILY 12/09/16 [History] Ipratropium/Albuterol Neb [Duoneb] 3 ml IH Q6H PRN 12/09/16 [History] Latanoprost [Xalatan] 1 drop OP HS 12/09/16 [History] Melatonin 3 mg PO HS 12/09/16 [History] Sertraline [Zoloft] 100 mg PO DAILY 12/09/16 [History] Aspirin Enteric Coated [Aspirin EC] 81 mg PO DAILY 04/21/17 [History] Atorvastatin Calcium [Lipitor] 20 mg PO HS 04/21/17 [History] Omeprazole [PriLOSEC] 20 mg PO DAILY 04/21/17 [History] PrednisoLONE Acetate 1% Opth [PredFORTE 1%] 1 drop OP QID 04/21/17 [History] Sevelamer [Renvela] 1,600 mg PO TIDWM 04/21/17 [History] cloNIDine HCl [Clonidine HCl] 0.2 mg PO TID 04/21/17 [History] Allergies lisinopril Adverse Reaction (Verified 05/10/17 15:37) unknown per [facility] list ROS unobtainable: due to mental status All Systems PM: A 10-system review of systems was performed and is negative for pertinent findings except as documented above in the HPI. Review of systems: Patient has dysarthria which is chronic and his speech is garbled. All history is obtained from daughter who was at bedside and also from patient's medical records. - Constitutional Vitals: Temp Pulse Resp BP Pulse Ox 98.3 F 68 20 101/78 97 05/10/17 15:32 05/10/17 17:12 05/10/17 18:04 05/10/17 18:04 05/10/17 17:12 General appearance: Present: no acute distress Exam: Generalized weakness, chronically ill appearing, dysarthria and garbled speech, drowsy but easily arousable. Unable to provide history. - Head Head exam: Present: atraumatic - Eye Eye exam: Absent: scleral icterus - ENT ENT exam: Present: mucous membranes dry - Neck Neck exam general surgery: Present: supple Additional comments: Right subclavian hemodialysis catheter in place - Respiratory Respiratory exam: Present: CTAB. Absent: accessory muscle use, rales, rhonchi, wheezes, tachypnea - Cardiovascular Cardiovascular exam: Present: RRR, +S1, +S2, systolic murmur - GI/Abdominal GI/Abdominal exam: Present: soft, no peritoneal signs. Absent: distended, firm , guarding, rigid, tenderness - Extremities Exam Extremities exam: Present: radial pulses palpable and symetrical. Absent: cyanotic, pedal edema, tenderness - Neurological Exam Neurological exam: Present: speech deficit. Absent: facial droop Additional comments: Patient is drowsy but easily arousable, he has dysarthria and garbled speech, he is unable to verbalize and does not provide history, he is able to follow simple verbal commands. Unable to fully assess neuro exam at this time. Patient does have a history of stroke and has a right-sided hemiparesis Internal Med - H&P Results - Labs CBC & Chem 7: 05/10/17 16:07 05/10/17 16:07
[2017-05-10] MEDS ORDERED: Norepinephrine 4 MG in D5% in Water 250 ML IVC SCH (18:30)
[2017-05-10] MEDS ORDERED: Vancomycin 1,250 MG in D5% in Water 250 ML IVPB ONE (19:00)
[2017-05-10] MEDS: cloNIDine HCl 0.1 MG TABLET PO SCH (20:29)
[2017-05-10] MEDS: hydrALAZINE 25 MG TABLET PO SCH (20:29)
[2017-05-10] MEDS: Furosemide 40 MG/4 ML VIAL IVP SCH (20:30)
[2017-05-10] MEDS: Acetaminophen 325 MG TABLET PO PRN (20:47)
[2017-05-10] MEDS ORDERED: Latanoprost 2.5 ML BOTTLE BOTH EYES SCH (21:00)
[2017-05-10] MEDS ORDERED: Insulin LISPRO 300 UNITS/3 ML VIAL SQ SCH (21:00)
[2017-05-10] MEDS ORDERED: Melatonin 3 MG TABLET PO SCH (21:00)
[2017-05-10] MEDS: Dorzolamide/Timolol OPTH 10 ML BOTTLE BOTH EYES SCH (21:01)
[2017-05-10] MEDS: PrednisoLONE Acetate 1% Opth 5 ML BOTTLE BOTH EYES SCH (21:08)
[2017-05-10] MEDS: 0.9 % Sodium Chloride 1,000 ML IVC SCH (21:15)
--- NOTE | 2017-05-10 21:34 | Emergency Department Note ---
START Narrative - START START: I examined this patient and my medical decision-making was reviewed with the Resident Physician. I agree with the documented findings, disposition and treatment plan as described except to the extent set forth below. In summary 81 -year-old male with a history of end-stage renal disease who had positive blood cultures from outside facility. Vancomycin was started by outside facility. Presents with now more lethargic overall appearance as well as concern for hypotension. Concern for underlying septic shock. IV fluids initiated. 30 mL per kilogram fluid bolus given. Broad-spectrum antibiotic therapy initiated. Cultures were repeated. Possible sources tempered dialysis catheter versus findings of urinary tract infection. Coverage for both gram-positive and gram- negative infections initiated. Patient be admitted for further evaluation. I think her to 35 minutes of critical care time assessed in this acutely ill male suffering from septic shock from underlying urinary tract infection and possible temporary dialysis catheter infection. Patient remains in critical condition with high potential for life-threatening deterioration. Critical care time is good and billable procedures.
[2017-05-11 01:20] LABS: Basophils % 0.3 %; Eosinophils # 0.1 K/mcL (0.0-0.6); Eosinophils % 0.6 %; Hematocrit 29.1 % (37.5-50.1); Immature Granulocytes % 0.6 % (0-4); Lymphocytes # 0.9 K/mcL (0.6-4.6); Lymphocytes % 8.5 %; Mean Corpuscular HGB Conc 30.2 g/dL (31.6-35.5); Mean Corpuscular Hemoglobin 25.2 pg (28.0-33.3); Mean Corpuscular Volume 83.4 fL (83.0-100.0); Mean Platelet Volume 10.1 fL (9.4-12.4); Monocytes # 1.3 K/mcL (0.0-1.3); Monocytes % 12.2 %; Neutrophils # 8.5 K/mcL (1.6-8.9); Nucleated Red Blood Cells 0.2 /100 WBC (0); Platelet Count 195 K/mcL (140-400); Red Blood Count 3.49 M/mcL (4.19-5.50); Red Cell Distribution Width 18.6 % (11.5-14.5); Segmented Neutrophils % 77.8 %
[2017-05-11 01:35] LABS: Hemoglobin 8.8 g/dL (12.9-16.9)
[2017-05-11 01:42] LABS: Albumin 2.1 g/dL (3.5-5.0); Albumin/Globulin Ratio 0.5 (1.1-2.2); Bilirubin,Total 0.5 mg/dL (0.2-1.2); Calcium 7.9 mg/dL (8.6-10.8); Potassium 3.2 mEq/L (3.5-4.5); Total Protein 6.1 g/dL (6.0-8.3)
[2017-05-11] MEDS: hydrALAZINE 25 MG TABLET PO SCH ×2 (02:17→10:03)
[2017-05-11] MEDS: 0.9 % Sodium Chloride 1,000 ML IVC SCH (05:38)
[2017-05-11] MEDS ORDERED: Famotidine 20 MG/2 ML VIAL IVP SCH (06:00)
[2017-05-11] MEDS ORDERED: Piperacillin/Tazobactam 3.375 GM in D5% in Water (Mini-Bag+) 100 ML IVPB SCH (06:00)
[2017-05-11] MEDS ORDERED: *HR* Heparin 5,000 UNIT/ML VIAL SQ SCH (06:00)
--- NOTE | 2017-05-11 08:21 | Nephrology Consult Note ---
Date of Encounter: 05/11/17 Time of Encounter: 08:18 Assessment and Plan (1) ESRD (end stage renal disease) on dialysis Current Visit: Yes Status: Acute Patient has staph aureus bacteremia in the setting of a recently placed hemodialysis catheter. He will require removal without dialysis catheter. He will require treatment with vancomycin until final culture results are available. In the meantime he will need to be dialyzed with a temporary dialysis catheter. A tunnel dialysis catheter can be replaced when blood cultures are clear. (2) Complication, dialysis catheter clot or failure Current Visit: Yes Status: Acute History of Present Illness - History of Present Illness This is an 81-year-old male who recently was started on dialysis. He is receiving dialysis in [place] resides at the [place] [facility]. Patient had a tunnel dialysis catheter placed her to DNR on April 26. Has an AV fistula in place that is not able to be used. Earlier in the week the patient developed some fever at the [place]. Peripheral blood cultures were done and those blood cultures are growing staph aureus. Blood cultures were rechecked in dialysis and drawn through his indwelling line. Those cultures are also growing gram-positive organisms. Patient with subsequent recent to the hospital. He will require catheter removal as well as antibiotic treatment. He will need to be dialyzed with a temporary dialysis catheter until blood cultures are clear. Patient is unable to give much history. He has remote history of a stroke and dysphagia. Currently appears to be less oriented than he was previously. When asked any questions all he does is moaning unintelligibly. Past Med Surg Social Fam HX - Past Medical History Medical history: arthritis, CHF, coronary artery disease, diabetes, GI bleed, hyperlipidemia, hypertension, myocardial infarction, osteoporosis, peripheral artery disease, renal disease, TIA, valvular heart disease, other Psychiatric history: no psych history, other - Past Surgical History Surgical History: coronary bypass (CABG), other - Social History Smoking Status: Former smoker Smokeless Tobacco Status: No Alcohol use: none Drug use: none Medications and Allergies Acetaminophen [Tylenol] 650 mg PO BID 12/09/16 [History] Acetaminophen [Tylenol] 650 mg PO Q4H PRN MDD 3000 mg/day 12/09/16 [History] Allopurinol [Zyloprim 100 MG] 100 mg PO DAILY 12/09/16 [History] Amlodipine Besylate 10 mg PO DAILY 12/09/16 [History] Brimonidine 0.2% [Alphagan] 1 drop OP TID 12/09/16 [History] Carvedilol 12.5 mg PO BID 12/09/16 [History] Cholecalciferol (D-3) [Vitamin D] 2,000 unit PO DAILY 12/09/16 [History] Dorzolamide/Timolol/Pf [Cosopt Pf Eye Drops] 1 drop OP BID 12/09/16 [History] Doxazosin Mesylate [Cardura] 8 mg PO BID 12/09/16 [History] Epoetin Cortez [Procrit] 5,000 unit SQ MOWEFR 12/09/16 [History] Ferrous Sulfate 325 mg PO TID 12/09/16 [History] Finasteride [Proscar] 5 mg PO DAILY 12/09/16 [History] Furosemide [Lasix] 60 mg PO BID 12/09/16 [History] Hydralazine HCl 100 mg PO Q8H 12/09/16 [History] Insulin ASPART [NovoLOG] 4 unit SQ BID 12/09/16 [History] Insulin Glargine [Lantus] 15 unit SQ DAILY 12/09/16 [History] Ipratropium/Albuterol Neb [Duoneb] 3 ml IH Q6H PRN 12/09/16 [History] Latanoprost [Xalatan] 1 drop OP HS 12/09/16 [History] Melatonin 3 mg PO HS 12/09/16 [History] Sertraline [Zoloft] 100 mg PO DAILY 12/09/16 [History] Aspirin Enteric Coated [Aspirin EC] 81 mg PO DAILY 04/21/17 [History] Atorvastatin Calcium [Lipitor] 20 mg PO HS 04/21/17 [History] Omeprazole [PriLOSEC] 20 mg PO DAILY 04/21/17 [History] PrednisoLONE Acetate 1% Opth [PredFORTE 1%] 1 drop OP QID 04/21/17 [History] Sevelamer [Renvela] 1,600 mg PO TIDWM 04/21/17 [History] cloNIDine HCl [Clonidine HCl] 0.2 mg PO TID 04/21/17 [History] Allergies lisinopril Adverse Reaction (Verified 05/10/17 15:37) unknown per [facility] list Review of Systems ROS unobtainable: due to mental status Exam - Vital Signs Vital signs: Initial Vital Signs Temp Pulse Resp BP Pulse Ox 98.3 F 68 12 147/69 99 05/10/17 15:32 05/10/17 15:32 05/10/17 15:32 05/10/17 15:32 05/10/17 15:32 Vital Signs - Last 8 Hours Temp Pulse Resp BP Pulse Ox 05/11/17 07:43 99.5 F 73 17 166/71 95 05/11/17 05:12 98.4 F 71 17 153/73 95 05/11/17 00:21 99.5 F 71 17 147/61 97 Intake and Output 05/10/17 05/11/17 05/11/17 23:59 07:59 15:59 Intake Total 250 / 350 915 / 915 Output Total 225 / 225 Balance 250 / 350 690 / 690 Intake: IV Fluids 250 / 250 915 / 915 0.9 % Sodium Chloride 1, 915 / 915 000 ML @ 100 mls/hr IVC . Q10H ANNI Rx#:[id number] Vancocin 1,250 MG In 250 / 250 Dextrose 5% 250 ML @ 167 mls/hr IVPB ONCE ONE Rx#: [id number] Output: Catheter 225 / 225 Other: Weight 68.5 kg Blood Glucose* 96 123 Patient Weight 05/11/17 23:59 Weight 68.5 kg - General Appearance Exam: Patient is unable to communicate. Blood pressure stable. Temperature is 99.5. Lung sounds otherwise clear. Heart regular rhythm with a 2/6 soft ejection murmur. There is a tunneled dialysis catheter in the right chest. There is no induration or redness over the tunnel. The catheter exit site does appear to be tende abdomen is soft and nontender. No guarding no rigidity. There is no peripheral edema. A Syed catheter is in place. Results - Lab Results 05/11/17 00:50 05/11/17 00:50 Most recent lab results Calcium 7.9 mg/dL (8.6-10.8) L 05/11/17 00:50 Phosphorus 1.9 mg/dL (2.3-4.7) L 05/10/17 16:07 Magnesium 1.7 mg/dL (1.6-2.6) 05/10/17 16:07 Consult Discharge Plan - Plan [facility]errals: [facility] [Primary Care Provider] -
[2017-05-11 08:33] LABS: Acinetobacter baumannii by PCR Not Detected (Not Detect); Candida albicans by PCR Not Detected (Not Detect); Candida glabrata by PCR Not Detected (Not Detect); Candida krusei by PCR Not Detected (Not Detect); Candida parapsilosis by PCR Not Detected (Not Detect); Candida tropicalis by PCR Not Detected (Not Detect); Enterococcus by PCR Not Detected (Not Detect); Escherichia coli by PCR Not Detected (Not Detect); Klebsiella oxytoca by PCR Not Detected (Not Detect); Klebsiella pneumoniae by PCR Not Detected (Not Detect); Pseudomonas aeruginosa by PCR Not Detected (Not Detect); Serratia marcescens by PCR Not Detected (Not Detect); Staphylococcus aureus by PCR ***DETECTED*** (Not Detect); Streptococcus agalactiae(B)PCR Not Detected (Not Detect); Streptococcus by PCR Not Detected (Not Detect); Streptococcus pneumoniae PCR Not Detected (Not Detect); Streptococcus pyogenes (A) PCR Not Detected (Not Detect); blaKPC Carbapenem-Resist Gene Not Detected (Not Detect); mecA Methicillin-Resist Gene ***DETECTED*** (Not Detect); vanA/B Vancomycin-Resist Genes Not Detected (Not Detect)
[2017-05-11] MEDS ORDERED: NON-FORMULARY MEDICATION 1 EACH EACH (Insulin Glargine [Lantus] 15 UNIT) SQ SCH (09:00)
[2017-05-11] MEDS ORDERED: Cholecalciferol (D-3) 1,000 UNIT TABLET PO SCH (09:00)
[2017-05-11] MEDS ORDERED: Insulin DETEMIR 100 UNIT/ML X5UNITS SQ SCH (09:00)
[2017-05-11] MEDS ORDERED: Finasteride 5 MG TABLET PO SCH (09:00)
[2017-05-11] MEDS ORDERED: amLODIPine 5 MG TABLET PO SCH (09:00)
[2017-05-11] MEDS ORDERED: Aspirin Enteric Coated 81 MG Tablet PO SCH (09:00)
[2017-05-11] MEDS: cloNIDine HCl 0.1 MG TABLET PO SCH ×2 (10:03→15:31)
[2017-05-11] MEDS: Acetaminophen 325 MG TABLET PO PRN (10:04)
[2017-05-11] MEDS: Furosemide 40 MG/4 ML VIAL IVP SCH (10:05)
[2017-05-11] MEDS: Insulin LISPRO 300 UNITS/3 ML VIAL SQ SCH ×2 (10:06→11:44)
[2017-05-11] MEDS: Dorzolamide/Timolol OPTH 10 ML BOTTLE BOTH EYES SCH (10:08)
[2017-05-11] MEDS: PrednisoLONE Acetate 1% Opth 5 ML BOTTLE BOTH EYES SCH ×2 (10:08→15:33)
--- NOTE | 2017-05-11 10:25 | Electrocardiograph Report ---
[place] [address] Test Date: 2017-05-10 Pat Name: Kalen Webb Department: 103 Room: 2N09 Gender: M Sample Wrapper: KELLIE : 1935 Requested By: Saurav Triplett Order Number: [id number] Reading MD: Omar Valdovinos MD Measurements Intervals [place] Rate: 70 P: 0 FL: 292 QRS: 3 QRSD: 90 T: 99 QT: 401 QTc: 422 Interpretive Statements SINUS RHYTHM WITH FIRST DEGREE AV BLOCK LEFT VENTRICULAR HYPERTROPHY AND ST-T CHANGE Poor R wave progression Electronically Signed On 05-11-2017 10:24:04 EDT by Omar Valdovinos MD
--- NOTE | 2017-05-11 15:38 | Discharge Summary ---
Date of Encounter: 05/11/17 Time of Encounter: 15:36 - Discharge Diagnosis (1) MRSA bacteremia Priority: Primary Status: Acute (2) Sepsis Priority: Primary Status: Acute Qualifiers: Sepsis type: sepsis due to unspecified organism Qualified Code(s): A41.9 - Sepsis, unspecified organism (3) ESRD (end stage renal disease) on dialysis Priority: Secondary Status: Acute (4) Iron deficiency anemia due to chronic blood loss Priority: Secondary Status: Chronic (5) Hypoalbuminemia due to protein-calorie malnutrition Priority: Secondary Status: Chronic (6) CAD (coronary artery disease) Priority: Secondary Status: Chronic Qualifiers: Coronary Disease-Associated Artery/Lesion type: bypass graft [place] vs. transplanted heart: [place] heart Associated angina: without angina Qualified Code(s): I25.810 - Atherosclerosis of coronary artery bypass graft(s) without angina pectoris (7) Essential hypertension Priority: Secondary Status: Chronic (8) Diabetes mellitus Priority: Secondary Status: Chronic Qualifiers: Diabetes mellitus type: type 2 Diabetes mellitus complication status: with kidney complications Diabetes mellitus complication detail: with chronic kidney disease Diabetes mellitus fdc insulin use: with fdc use Chronic kidney disease stage: stage 4 (severe) Qualified Code(s): E11.22 - Type 2 diabetes mellitus with diabetic chronic kidney disease; N18.4 - Chronic kidney disease, stage 4 (severe); 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 (9) PAD (peripheral artery disease) Priority: Secondary Status: Chronic (10) CVA (cerebral vascular accident) Priority: Secondary Status: Chronic Qualifiers: CVA mechanism: unspecified Qualified Code(s): I63.9 - Cerebral infarction, unspecified - Discharge Medications Home Medications: Acetaminophen [Tylenol] 650 mg PO BID 12/09/16 [History] Acetaminophen [Tylenol] 650 mg PO Q4H PRN MDD 3000 mg/day 12/09/16 [History] Allopurinol [Zyloprim 100 MG] 100 mg PO DAILY 12/09/16 [History] Amlodipine Besylate 10 mg PO DAILY 12/09/16 [History] Brimonidine 0.2% [Alphagan] 1 drop OP TID 12/09/16 [History] Carvedilol 12.5 mg PO BID 12/09/16 [History] Cholecalciferol (D-3) [Vitamin D] 2,000 unit PO DAILY 12/09/16 [History] Dorzolamide/Timolol/Pf [Cosopt Pf Eye Drops] 1 drop OP BID 12/09/16 [History] Doxazosin Mesylate [Cardura] 8 mg PO BID 12/09/16 [History] Epoetin Cortez [Procrit] 5,000 unit SQ MOWEFR 12/09/16 [History] Ferrous Sulfate 325 mg PO TID 12/09/16 [History] Finasteride [Proscar] 5 mg PO DAILY 12/09/16 [History] Furosemide [Lasix] 60 mg PO BID 12/09/16 [History] Hydralazine HCl 100 mg PO Q8H 12/09/16 [History] Insulin ASPART [NovoLOG] 4 unit SQ BID 12/09/16 [History] Insulin Glargine [Lantus] 15 unit SQ DAILY 12/09/16 [History] Ipratropium/Albuterol Neb [Duoneb] 3 ml IH Q6H PRN 12/09/16 [History] Latanoprost [Xalatan] 1 drop OP HS 12/09/16 [History] Melatonin 3 mg PO HS 12/09/16 [History] Sertraline [Zoloft] 100 mg PO DAILY 12/09/16 [History] Aspirin Enteric Coated [Aspirin EC] 81 mg PO DAILY 04/21/17 [History] Atorvastatin Calcium [Lipitor] 20 mg PO HS 04/21/17 [History] Omeprazole [PriLOSEC] 20 mg PO DAILY 04/21/17 [History] PrednisoLONE Acetate 1% Opth [PredFORTE 1%] 1 drop OP QID 04/21/17 [History] Sevelamer [Renvela] 1,600 mg PO TIDWM 04/21/17 [History] cloNIDine HCl [Clonidine HCl] 0.2 mg PO TID 04/21/17 [History] Heparin 5,000 unit SQ Q12HR vial 05/11/17 [Rx] Vancomycin [Vancocin] 0 each IVPB AD PRN vial 05/11/17 [Rx] Allergies/Adverse Reactions: Allergies lisinopril Adverse Reaction (Verified 05/10/17 15:37) unknown per [facility] list Procedures/tests Complete & Pending: Procedures Performed prior 72 hours Category Date Time Status IR 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 [IR] Routine IR 05/11/17 Completed Date of admission: 05/10/17 19:03 Primary care physician: [facility]CP [facility] Consults: 05/11/17 08:23 Consult to Interventional Radiology [CONS] Routine Consulting Provider: Radiology Interventional Cols Reason for Consult: remove tunneled dialysis catheter, send tip for culture Time Notified: 08:24 Call Completed: No - Patient Status Disposition: Transfer Other Condition: Serious - Discharge Instructions Follow Up With: [facility] [Primary Care Provider] - Hospital course: This is an 81-year-old male with past medical history of arthritis, CHF, coronary artery disease, diabetes, history of GI bleed, hyperlipidemia, hypertension, osteoporosis, peripheral arterial disease, end-stage renal disease and CVA who recently was started on dialysis. He is receiving dialysis in [facility] at the [place] [facility]. Patient had a tunnel dialysis catheter placed Rt IJ on April 26. Has an AV fistula in place that is not able to be used. Earlier in the week the patient developed some fever at the [place]. Peripheral blood cultures were done and those blood cultures are growing staph aureus. Blood cultures were rechecked in dialysis and drawn through his indwelling line. Those cultures are also growing gram-positive organisms. Pt was sent to our ER last night to get admitted for further care. Pt was amditted here for acute MRSA bacteremia and started him on Vancomycin IV abx. Also continued him on Lasix , pt does have chronic indwelling cordoba catheter which got changes y/d. We did remove his dialysis catheter by IR this morning and sent the tip for culture. Pt was seen by Emergency Medicine here and recommend to continue Lasix for diuresis and empirical abx. At this point pt's daughter wanted to transfer him to [facility] at [place]. Our SW did reach out to [facility] transfer center and Dr. Roy who reviewed pt's records and gracefully accepted for transfer for further care. Today pt is alert, awake and following few commands, seems to be at his baseline. His vitals at the time of discharge : BP: 165 /72, FL: 75, RR : 19, T: 98.5 - Time Spent with Patient Total time spent providing and/or coordinating discharge services: - Constitutional Vitals: Temp Pulse Resp BP Pulse Ox 98.5 F 66 19 165/72 95 05/11/17 11:06 05/11/17 15:16 05/11/17 11:06 05/11/17 11:06 05/11/17 11:06 General appearance: Present: A&O X 0, no acute distress - Head Head exam: Present: atraumatic, normal inspection - Respiratory Respiratory exam: Present: decreased breath sounds, rales, wheezes. Absent: respiratory distress, rhonchi - Cardiovascular Cardiovascular exam: Present: RRR, +S1, +S2. Absent: systolic murmur - GI/Abdominal GI/Abdominal exam: Present: normal bowel sounds, soft. Absent: rebound, rigid, tenderness - Neurological Exam Additional comments: chronic slurred speech and residual paralysis. Bed bound - Skin Skin exam: Absent: rash
[2017-05-11 16:26] VITALS: BP 156/66
[2017-05-11] MEDS ORDERED: Furosemide 40 MG TABLET PO SCH (17:00)
[2017-05-11] MEDS ORDERED: Aminoglycoside Consult 1 EACH MC ONE (18:22)
== END 2017-05-11 18:23 | disposition other institution (70) | DRG 314 ==
LOC: EMEROO 14:58 → 2NNU 14:58 → 2NENU 18:13 → ICNU 18:35 → 2NNU 19:03
PROVIDERS: ADMIT Internal Medicine; ATTEND Family Medicine

== ENCOUNTER 2017-10-28 19:02 | Observation (INO) ==
--- NOTE | 2017-10-28 19:13 | Emergency Department Note ---
Disposition Clinical Impression: Gross hematuria Disposition: Admitted As Inpatient Condition: Fair [facility]: [facility] Care Provider[facility] - Forms: ED Satisfaction Letter Time of Disposition: 21:00 Male Urogenital HPI - General Chief complaint: ED Urogenital-Male Stated complaint: blood in urine; [facility] pt Time Seen by Provider: 10/28/17 19:10 Source: patient, EMS Mode of arrival: EMS Limitations: no limitations Nursing Notes Reviewed: Yes Vital Signs Reviewed: Yes - History of Present Illness HPI Narrative: 82-year-old who was inpatient at the [facility] who was found to have some blood in his Syed and some blood around his catheter. She was sent here for urology evaluation. 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 Reports: denies other symptoms - Related Data Home Medications Medication Instructions Recorded Confirmed Acetaminophen [Tylenol] 650 mg PO BID 12/09/16 05/10/17 Acetaminophen [Tylenol] 650 mg PO Q4H PRN MDD 3000 mg/day 12/09/16 05/10/17 Allopurinol [Zyloprim 100 MG] 100 mg PO DAILY 12/09/16 05/10/17 Amlodipine Besylate 10 mg PO DAILY 12/09/16 05/10/17 Brimonidine 0.2% [Alphagan] 1 drop OP TID 12/09/16 05/10/17 Carvedilol 12.5 mg PO BID 12/09/16 05/10/17 Cholecalciferol (D-3) [Vitamin D] 2,000 unit PO DAILY 12/09/16 05/10/17 Dorzolamide/Timolol/Pf [Cosopt Pf 1 drop OP BID 12/09/16 05/10/17 Eye Drops] Doxazosin Mesylate [Cardura] 8 mg PO BID 12/09/16 05/10/17 Epoetin Cortez [Procrit] 5,000 unit SQ MOWEFR 12/09/16 05/10/17 Ferrous Sulfate 325 mg PO TID 12/09/16 05/10/17 Finasteride [Proscar] 5 mg PO DAILY 12/09/16 05/10/17 Furosemide [Lasix] 60 mg PO BID 12/09/16 05/10/17 Hydralazine HCl 100 mg PO Q8H 12/09/16 05/10/17 Insulin ASPART [NovoLOG] 4 unit SQ BID 12/09/16 05/10/17 Insulin Glargine [Lantus] 15 unit SQ DAILY 12/09/16 05/10/17 Ipratropium/Albuterol Neb [Duoneb] 3 ml IH Q6H PRN 12/09/16 05/10/17 Latanoprost [Xalatan] 1 drop OP HS 12/09/16 05/10/17 Melatonin 3 mg PO HS 12/09/16 05/10/17 Sertraline [Zoloft] 100 mg PO DAILY 12/09/16 05/10/17 Aspirin Enteric Coated [Aspirin EC] 81 mg PO DAILY 04/21/17 05/10/17 Atorvastatin Calcium [Lipitor] 20 mg PO HS 04/21/17 05/10/17 Omeprazole [PriLOSEC] 20 mg PO DAILY 04/21/17 05/10/17 PrednisoLONE Acetate 1% Opth 1 drop OP QID 04/21/17 05/10/17 [PredFORTE 1%] Sevelamer [Renvela] 1,600 mg PO TIDWM 04/21/17 05/10/17 cloNIDine HCl [Clonidine HCl] 0.2 mg PO TID 04/21/17 05/10/17 Previous Rx's Medication Instructions Recorded Heparin 5,000 unit SQ Q12HR vial 05/11/17 Vancomycin [Vancocin] 0 each IVPB AD PRN vial 05/11/17 Allergies Allergy/AdvReac Type Severity Reaction Status Date / Time lisinopril AdvReac unknown Verified 05/10/17 15:37 All systems ED: reviewed and negative except as stated. Constitutional: Denies: fever, chills, weakness, weight change Eyes: Denies: eye pain, eye discharge, vision change ENT ED: Denies: ear pain, throat pain, dental pain, hearing loss, epistaxis, congestion, dysphagia Cardiovascular: Denies: chest pain, palpitations, dyspnea on exertion, edema, syncope Respiratory: Denies: cough, dyspnea, wheezes, hemoptysis, stridor Gastrointestinal: Denies: abdominal pain, nausea, vomiting, diarrhea, constipation, hematemesis, melena, hematochezia Genitourinary: Reports: hematuria. Denies: urgency, dysuria, frequency Musculoskeletal: Denies: back pain, neck pain, arthralgia, myalgia Integumentary: Denies: rash, abrasion, lesions Neurological: Denies: headache, weakness, numbness, paresthesias, confusion, abnormal gait, vertigo Psychiatric: Denies: anxiety, depression, suicidal thoughts, homicidal thoughts , auditory hallucinations, visual hallucinations Endocrine: Denies: fatigue Hematological/Lymphatic: Denies: easy bleeding, easy bruising Allergic/Immunologic: Denies: facial swelling, urticaria Past Medical History - Past Medical History Medical history: Reports: arthritis, CHF, coronary artery disease, diabetes, GI bleed, hyperlipidemia, hypertension, myocardial infarction, osteoporosis, peripheral artery disease, renal disease, TIA, valvular heart disease, other Surgical history: Reports: coronary bypass (CABG), other Psychiatric history: Reports: no psych history, other - Social History Smoking Status: Former smoker Smokeless Tobacco Status: No Alcohol use: Reports: none Drug use: Reports: none Physical Exam - General Limitations: no limitations General appearance: alert, in no apparent distress - Head Head exam: normal inspection - Eye Eye exam: Present: normal appearance - ENT ENT exam: normal exam, normal oropharynx, mucous membranes moist, normal external ear exam - Neck Neck exam: Present: normal inspection, full ROM, trachea midline - Chest Chest inspection: Present: normal inspection, symmetric chest wall rise - Respiratory Respiratory exam: Present: normal lung sounds bilaterally - Cardiovascular Cardiovascular exam: Present: regular rate, normal rhythm, normal heart sounds - Neurological Exam Neurological exam: Present: alert - Psychiatric Psychiatric exam: Present: normal affect, normal mood - Skin Skin exam: Present: warm, dry, intact, normal color Course - Reevaluation(s) Reevaluation #1: 82-year-old male who comes from the [facility] with gross hematuria in his Syed. Patient will be admitted for further evaluation and treatment. Time: 20:59 - Consultations Consultation #1: Discussed with , he did come and see the patient and replace the Syed will admit to hospitalist with consult. Time: 20:59 Consultation #2: Discussed with , admit. Time: 20:59 Vital Signs Temperature 98.1 F 10/28/17 19:09 Pulse Rate 63 10/28/17 19:09 Respiratory Rate 16 10/28/17 19:09 Blood Pressure 141/69 10/28/17 19:09 O2 Sat by Pulse Oximetry 96 10/28/17 19:09 Temperature 98.1 F 10/28/17 19:09 Pulse Rate 63 10/28/17 19:09 Respiratory Rate 16 10/28/17 19:09 Blood Pressure 141/69 10/28/17 19:09 O2 Sat by Pulse Oximetry 96 10/28/17 19:09 Oxygen Delivery Oxygen Delivery Room Air Urogenital-Male - Lab Data Result diagrams: 10/28/17 19:17 10/28/17 19:17 Lab Results 10/28/17 10/28/17 10/28/17 Range/Units 19:17 19:17 19:17 WBC 6.9 (4.3-11.1) K/mcL RBC 4.26 (4.19-5.50) M/mcL Hgb 11.0 L (12.9-16.9) g/dL Hct 36.2 L (37.5-50.1) % MCV 85.0 (83.0-100.0) fL MCH 25.8 L (28.0-33.3) pg MCHC 30.4 L (31.6-35.5) g/dL RDW 17.2 H (11.5-14.5) % Plt Count 140 (140-400) K/mcL MPV 9.2 L (9.4-12.4) fL Immature Gran % 0.3 (0-4) % Seg Neutrophils % 79.6 % Lymphocytes % 8.3 % Monocytes % 7.4 % Eosinophils % 4.1 % Basophils % 0.3 % Neutrophils # 5.5 (1.6-8.9) K/mcL Lymphocytes # 0.6 (0.6-4.6) K/mcL Monocytes # 0.5 (0.0-1.3) K/mcL Eosinophils # 0.3 (0.0-0.6) K/mcL Basophils # 0.0 (0.0-0.2) K/mcL PT 13.0 H (9.4-12.1) Seconds INR 1.2 APTT 34.4 (26.0-36.0) Seconds Sodium 134 L (136-145) mEq/L Potassium 3.7 (3.5-5.1) mEq/L Chloride 99 (98-107) mEq/L Carbon Dioxide 27 (23-29) mEq/L BUN 30 H (8-23) mg/dL Creatinine 2.96 H (0.70-1.30) mg/dL Est GFR ( Amer) 25 L (> 60) Est GFR (Non-Af Amer) 20 L (> 60) BUN/Creatinine Ratio 10 (6-26) Glucose 179 H (70-105) mg/dL Calculated Osmolality 289 (280-300) Calcium 7.8 L (8.6-10.3) mg/dL Blood Type Antibody Screen 10/28/17 Range/Units 19:35 WBC (4.3-11.1) K/mcL RBC (4.19-5.50) M/mcL Hgb (12.9-16.9) g/dL Hct (37.5-50.1) % MCV (83.0-100.0) fL MCH (28.0-33.3) pg MCHC (31.6-35.5) g/dL RDW (11.5-14.5) % Plt Count (140-400) K/mcL MPV (9.4-12.4) fL Immature Gran % (0-4) % Seg Neutrophils % % Lymphocytes % % Monocytes % % Eosinophils % % Basophils % % Neutrophils # (1.6-8.9) K/mcL Lymphocytes # (0.6-4.6) K/mcL Monocytes # (0.0-1.3) K/mcL Eosinophils # (0.0-0.6) K/mcL Basophils # (0.0-0.2) K/mcL PT (9.4-12.1) Seconds INR APTT (26.0-36.0) Seconds Sodium (136-145) mEq/L Potassium (3.5-5.1) mEq/L Chloride (98-107) mEq/L Carbon Dioxide (23-29) mEq/L BUN (8-23) mg/dL Creatinine (0.70-1.30) mg/dL Est GFR ( Amer) (> 60) Est GFR (Non-Af Amer) (> 60) BUN/Creatinine Ratio (6-26) Glucose (70-105) mg/dL Calculated Osmolality (280-300) Calcium (8.6-10.3) mg/dL Blood Type A POSITIVE Antibody Screen NEGATIVE
[2017-10-28 19:25] LABS: Basophils % 0.3 %; Eosinophils # 0.3 K/mcL (0.0-0.6); Eosinophils % 4.1 %; Hematocrit 36.2 % (37.5-50.1); Immature Granulocytes % 0.3 % (0-4); Lymphocytes # 0.6 K/mcL (0.6-4.6); Lymphocytes % 8.3 %; Mean Corpuscular HGB Conc 30.4 g/dL (31.6-35.5); Mean Corpuscular Hemoglobin 25.8 pg (28.0-33.3); Mean Platelet Volume 9.2 fL (9.4-12.4); Monocytes # 0.5 K/mcL (0.0-1.3); Monocytes % 7.4 %; Neutrophils # 5.5 K/mcL (1.6-8.9); Platelet Count 140 K/mcL (140-400); Red Blood Count 4.26 M/mcL (4.19-5.50); Red Cell Distribution Width 17.2 % (11.5-14.5); Segmented Neutrophils % 79.6 %
[2017-10-28 19:30] LABS: INR 1.2
[2017-10-28 19:33] LABS: Activated Partial Thrombo Time 34.4 Seconds (26.0-36.0)
[2017-10-28 19:41] LABS: Calcium 7.8 mg/dL (8.6-10.3); Potassium 3.7 mEq/L (3.5-5.1)
--- NOTE | 2017-10-28 21:16 | Urology - Consult Note ---
Date of Encounter: 10/28/17 Time of Encounter: 21:13 - Assessment and Plan (1) Gross hematuria Current Visit: Yes Status: Acute Assessment and plan: I attempted to irrigate the patient's catheter with normal saline. I returned a small amount of clots in the patient's bladder. Patient's catheter did not irrigate appropriately. I removed this catheter where it was found to have greater than 60 mL in the balloon and then placed a 24-Uzbek hematuria catheter was significant resistance around the prostate. 25 mL's of saline was placed in the balloon. At this point I then manually irrigated the patient's bladder which irrigated well. Patient was connected to slow drip on continuous bladder irrigation. My best guess is that the catheter was not completely in the patient's bladder and this is why the catheter did not irrigate well. Patient has a history of traumatically pulling on his own catheters. We will need to keep a close eye on this. Patient was brought in for continuous bladder irrigation overnight. My hope is that he would be able to be discharged potentially tomorrow. Urology CN:HPI Consult date: 10/28/17 Reason for consult Urology: Difficult Syed Requesting physician: Ayush Penny History of present illness: Kalen is a 82-year-old male well-known to the urology service for history of traumatic catheter removal and needing continuous bladder irrigation. Patient arrived to the ED this evening as a transfer from the [place] for gross hematuria through the catheter and around the catheter. Attempts were made to irrigate the catheter which were unsuccessful in clearing the patient's catheter. Patient is nonverbal and unable to answer questions. Past Med Surg Social Fam HX - Past Medical History Medical history: arthritis, CHF, coronary artery disease, diabetes, GI bleed, hyperlipidemia, hypertension, myocardial infarction, osteoporosis, peripheral artery disease, renal disease, TIA, valvular heart disease, other Psychiatric history: no psych history, other - Past Surgical History Surgical History: coronary bypass (CABG), other - Social History Smoking Status: Former smoker Smokeless Tobacco Status: No Alcohol use: none Drug use: none Medications and Allergies Acetaminophen [Tylenol] 650 mg PO BID 12/09/16 [History] Acetaminophen [Tylenol] 650 mg PO Q4H PRN MDD 3000 mg/day 12/09/16 [History] Allopurinol [Zyloprim 100 MG] 100 mg PO DAILY 12/09/16 [History] Amlodipine Besylate 10 mg PO DAILY 12/09/16 [History] Brimonidine 0.2% [Alphagan] 1 drop OP TID 12/09/16 [History] Carvedilol 12.5 mg PO BID 12/09/16 [History] Cholecalciferol (D-3) [Vitamin D] 2,000 unit PO DAILY 12/09/16 [History] Dorzolamide/Timolol/Pf [Cosopt Pf Eye Drops] 1 drop OP BID 12/09/16 [History] Doxazosin Mesylate [Cardura] 8 mg PO BID 12/09/16 [History] Epoetin Cortez [Procrit] 5,000 unit SQ MOWEFR 12/09/16 [History] Ferrous Sulfate 325 mg PO TID 12/09/16 [History] Finasteride [Proscar] 5 mg PO DAILY 12/09/16 [History] Furosemide [Lasix] 60 mg PO BID 12/09/16 [History] Hydralazine HCl 100 mg PO Q8H 12/09/16 [History] Insulin ASPART [NovoLOG] 4 unit SQ BID 12/09/16 [History] Insulin Glargine [Lantus] 15 unit SQ DAILY 12/09/16 [History] Ipratropium/Albuterol Neb [Duoneb] 3 ml IH Q6H PRN 12/09/16 [History] Latanoprost [Xalatan] 1 drop OP HS 12/09/16 [History] Melatonin 3 mg PO HS 12/09/16 [History] Sertraline [Zoloft] 100 mg PO DAILY 12/09/16 [History] Aspirin Enteric Coated [Aspirin EC] 81 mg PO DAILY 04/21/17 [History] Atorvastatin Calcium [Lipitor] 20 mg PO HS 04/21/17 [History] Omeprazole [PriLOSEC] 20 mg PO DAILY 04/21/17 [History] PrednisoLONE Acetate 1% Opth [PredFORTE 1%] 1 drop OP QID 04/21/17 [History] Sevelamer [Renvela] 1,600 mg PO TIDWM 04/21/17 [History] cloNIDine HCl [Clonidine HCl] 0.2 mg PO TID 04/21/17 [History] Heparin 5,000 unit SQ Q12HR vial 05/11/17 [Rx] Vancomycin [Vancocin] 0 each IVPB AD PRN vial 05/11/17 [Rx] 3 Allergy/AdvReac Type Severity Reaction Status Date / Time lisinopril AdvReac unknown Verified 05/10/17 15:37 Review of Systems ROS unobtainable: due to mental status Exam Initial Vital Signs Temp Pulse Resp BP Pulse Ox 98.1 F 63 16 141/69 96 10/28/17 19:09 10/28/17 19:09 10/28/17 19:09 10/28/17 19:09 10/28/17 19:09 - General physical appearance Present: well developed, moderate distress - Eyes Present: PERRL. Absent: icteric - ENT Present: normal nares - Neck Present: no masses - Respiratory Present: normal respiratory effort - Cardiovascular Cardiovascular exam IM: RRR - Abdomen Abdomen: Present: soft. Absent: suprapubic tenderness - Genitourinary other (Gross blood coming from catheter as well as around catheter) - Integumentary Present: no rash - Neurologic Present: normal coordination - Musculoskeletal Present: normal gait Urology Results - Labs 10/28/17 19:17 10/28/17 19:17 Abnormal lab results Hgb 11.0 g/dL (12.9-16.9) L 10/28/17 19:17 Hct 36.2 % (37.5-50.1) L 10/28/17 19:17 MCH 25.8 pg (28.0-33.3) L 10/28/17 19:17 MCHC 30.4 g/dL (31.6-35.5) L 10/28/17 19:17 RDW 17.2 % (11.5-14.5) H 10/28/17 19:17 MPV 9.2 fL (9.4-12.4) L 10/28/17 19:17 PT 13.0 Seconds (9.4-12.1) H 10/28/17 19:17 Sodium 134 mEq/L (136-145) L 10/28/17 19:17 BUN 30 mg/dL (8-23) H 10/28/17 19:17 Creatinine 2.96 mg/dL (0.70-1.30) H 10/28/17 19:17 Est GFR ( Amer) 25 (> 60) L 10/28/17 19:17 Est GFR (Non-Af Amer) 20 (> 60) L 10/28/17 19:17 Glucose 179 mg/dL (70-105) H 10/28/17 19:17 Calcium 7.8 mg/dL (8.6-10.3) L 10/28/17 19:17 All other labs normal. Consult Discharge Plan - Plan [facility]errals: [facility] [Primary Care Provider] -
[2017-10-29] MEDS ORDERED: Ondansetron 4 MG/2 ML VIAL IVP PRN (00:56)
[2017-10-29] MEDS ORDERED: Naloxone 0.4 MG/ML INJ IVP PRN (00:56)
[2017-10-29] MEDS ORDERED: Acetaminophen 325 MG TABLET PO PRN (01:01)
--- NOTE | 2017-10-29 01:09 | Internal Med History&Physical ---
Date of Encounter: 10/29/17 Time of Encounter: 01:00 Assessment and Plan (1) Gross hematuria Current visit: Yes Status: Acute Secondary to cordoba trauma, being managed by urology service - Urology managing, appreciate assistance (2) Anemia Current visit: No Status: Chronic Chronic issue, hemoglobin at baseline. - Monitor daily hgb Qualifiers: Anemia type: due to chronic kidney disease Chronic kidney disease stage: stage 4 (severe) Qualified Code(s): N18.4 - Chronic kidney disease, stage 4 ( severe); D63.1 - Anemia in chronic kidney disease (3) ESRD (end stage renal disease) on dialysis Current visit: No Status: Acute Follows with Dr. Crocker. - Electrolytes stable. 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 Qualifiers: CVA mechanism: unspecified Qualified Code(s): I63.9 - Cerebral infarction, unspecified (5) DVT prophylaxis Current visit: No Status: Acute SCDs in setting of active bleeding Internal Medicine - H&P: HPI Chief complaint: hematuria Admitted From: Emergency Dept Plans for Post Hospital Care: Home History of present illness: Mr. Webb is a 82 year old male with history of ESRD on HD, CVA with residual speech deficits, and chronic cordoba who presented to the ED this evening from the [place] because of hematuria. He is unable to tell me history, but it appears he has been admitted numerous times because of hematuria from pulling on his cordoba. He was evaluated by urology in the ED and the cordoba was replaced and continuous bladder irrigation was initiated. He denies chest pain or shortness of breath and currently has no complaints other than being cold. Past Med Surg Social Fam HX - Past Medical History Medical history: arthritis, CHF, coronary artery disease, diabetes, GI bleed, hyperlipidemia, hypertension, myocardial infarction, osteoporosis, peripheral artery disease, renal disease, TIA, valvular heart disease, other Psychiatric history: no psych history, other - Past Surgical History Surgical History: coronary bypass (CABG), other - Social History Smoking Status: Former smoker Smokeless Tobacco Status: No Alcohol use: none Drug use: none Internal Medicine - H&P: Meds Acetaminophen [Tylenol] 650 mg PO BID 12/09/16 [History] Acetaminophen [Tylenol] 650 mg PO Q6HR PRN MDD 3000 mg/day 12/09/16 [History] Allopurinol [Zyloprim 100 MG] 100 mg PO DAILY 12/09/16 [History] Amlodipine Besylate 10 mg PO DAILY 12/09/16 [History] Brimonidine 0.2% [Alphagan] 1 drop OP TID 12/09/16 [History] Carvedilol 12.5 mg PO BID 12/09/16 [History] Cholecalciferol (D-3) [Vitamin D] 2,000 unit PO DAILY 12/09/16 [History] Dorzolamide/Timolol/Pf [Cosopt Pf Eye Drops] 1 drop OP BID 12/09/16 [History] Doxazosin Mesylate [Cardura] 8 mg PO BID 12/09/16 [History] Epoetin Cortez [Procrit] 5,000 unit SQ MOWEFR 12/09/16 [History] Ferrous Sulfate 325 mg PO TID 12/09/16 [History] Finasteride [Proscar] 5 mg PO DAILY 12/09/16 [History] Furosemide [Lasix] 60 mg PO BID 12/09/16 [History] Hydralazine HCl 100 mg PO Q8H 12/09/16 [History] Insulin ASPART [NovoLOG] 4 unit SQ BID 12/09/16 [History] Insulin Glargine [Lantus] 15 unit SQ DAILY 12/09/16 [History] Ipratropium/Albuterol Neb [Duoneb] 3 ml IH Q6H PRN 12/09/16 [History] Latanoprost [Xalatan] 1 drop OP HS 12/09/16 [History] Melatonin 3 mg PO HS 12/09/16 [History] Sertraline [Zoloft] 100 mg PO DAILY 12/09/16 [History] Aspirin Enteric Coated [Aspirin EC] 81 mg PO DAILY 04/21/17 [History] Atorvastatin Calcium [Lipitor] 40 mg PO HS 04/21/17 [History] Omeprazole [PriLOSEC] 20 mg PO DAILY 04/21/17 [History] PrednisoLONE Acetate 1% Opth [PredFORTE 1%] 1 drop OP QID 04/21/17 [History] Sevelamer [Renvela] 1,600 mg PO TIDWM 04/21/17 [History] cloNIDine HCl [Clonidine HCl] 0.2 mg PO TID 04/21/17 [History] Heparin 5,000 unit SQ Q12HR vial 05/11/17 [Rx] Vancomycin [Vancocin] 0 each IVPB AD PRN vial 05/11/17 [Rx] 3 Allergy/AdvReac Type Severity Reaction Status Date / Time lisinopril AdvReac unknown Verified 05/10/17 15:37 ROS unobtainable: due to mental status All Systems PM: A 10-system review of systems was performed and is negative for pertinent findings except as documented above in the HPI. - Constitutional Vitals: Temp Pulse Resp BP Pulse Ox 98.3 F 57 21 164/66 97 10/28/17 23:09 10/28/17 23:09 10/28/17 23:09 10/28/17 23:09 10/28/17 23:09 General appearance: Present: A&O X 2, no acute distress - Head Head exam: Present: atraumatic - Eye Eye exam: Present: EOMI, sclera anicteric - ENT ENT exam: Present: mucous membranes moist - Neck Neck exam general surgery: Present: supple - Respiratory Respiratory exam: Present: CTAB - Cardiovascular Cardiovascular exam: Present: RRR. Absent: diastolic murmur, gallop, rubs, systolic murmur - GI/Abdominal GI/Abdominal exam: Present: normal bowel sounds, soft. Absent: distended, tenderness - Extremities Exam Extremities exam: Absent: pedal edema - Skin Skin exam: Absent: rash Internal Med - H&P Results - Labs CBC & Chem 7: 10/28/17 19:17 10/28/17 19:17
[2017-10-29 04:32] LABS: Basophils # 0.1 K/mcL (0.0-0.2); Basophils % 0.8 %; Eosinophils # 0.3 K/mcL (0.0-0.6); Eosinophils % 4.4 %; Hematocrit 34.4 % (37.5-50.1); Hemoglobin 10.6 g/dL (12.9-16.9); Immature Granulocytes % 0.3 % (0-4); Lymphocytes # 0.9 K/mcL (0.6-4.6); Lymphocytes % 14.5 %; Mean Corpuscular HGB Conc 30.8 g/dL (31.6-35.5); Mean Corpuscular Hemoglobin 25.8 pg (28.0-33.3); Mean Corpuscular Volume 83.7 fL (83.0-100.0); Mean Platelet Volume 10.5 fL (9.4-12.4); Monocytes # 0.6 K/mcL (0.0-1.3); Monocytes % 8.6 %; Neutrophils # 4.6 K/mcL (1.6-8.9); Platelet Count 159 K/mcL (140-400); Red Blood Count 4.11 M/mcL (4.19-5.50); Red Cell Distribution Width 17.2 % (11.5-14.5); Segmented Neutrophils % 71.4 %
[2017-10-29 04:43] LABS: Calcium 8.1 mg/dL (8.6-10.3); Potassium 3.7 mEq/L (3.5-5.1)
[2017-10-29] MEDS: amLODIPine 5 MG TABLET PO SCH (08:41)
[2017-10-29] MEDS: Aspirin Enteric Coated 81 MG Tablet PO SCH (08:41)
--- NOTE | 2017-10-29 08:49 | Urology Progress Note ---
Date of Encounter: 10/29/17 Time of Encounter: 08:47 - Assessment and Plan (1) Gross hematuria Current Visit: Yes Status: Acute Assessment and plan: resolved. ok to dc home per urology with catheter in place. can f/u with DR. Jarvis in 3-4 weeks for catheter change. Progress Note Narrative: patient seen. urine clear this am on very slow drip. Objective Initial Vital Signs Temp Pulse Resp BP Pulse Ox 98.1 F 63 16 141/69 96 10/28/17 19:09 10/28/17 19:09 10/28/17 19:09 10/28/17 19:09 10/28/17 19:09 - General physical appearance Present: well developed - Abdomen Present: soft - Genitourinary Present: other (urine clear in tubing on very slow drip ) - Labs 10/29/17 03:45 10/29/17 03:45 Diabetes panel 10/29/17 Range/Units 03:45 Sodium 136 (136-145) mEq/L Potassium 3.7 (3.5-5.1) mEq/L Chloride 99 (98-107) mEq/L Carbon Dioxide 27 (23-29) mEq/L BUN 34 H (8-23) mg/dL Creatinine 3.36 H (0.70-1.30) mg/dL Glucose 155 H (70-105) mg/dL Calcium 8.1 L (8.6-10.3) mg/dL Calcium panel 10/29/17 Range/Units 03:45 Calcium 8.1 L (8.6-10.3) mg/dL Pituitary panel 10/29/17 Range/Units 03:45 Sodium 136 (136-145) mEq/L Potassium 3.7 (3.5-5.1) mEq/L Chloride 99 (98-107) mEq/L Carbon Dioxide 27 (23-29) mEq/L BUN 34 H (8-23) mg/dL Creatinine 3.36 H (0.70-1.30) mg/dL Glucose 155 H (70-105) mg/dL Calcium 8.1 L (8.6-10.3) mg/dL Adrenal panel 10/29/17 Range/Units 03:45 Sodium 136 (136-145) mEq/L Potassium 3.7 (3.5-5.1) mEq/L Chloride 99 (98-107) mEq/L Carbon Dioxide 27 (23-29) mEq/L BUN 34 H (8-23) mg/dL Creatinine 3.36 H (0.70-1.30) mg/dL Glucose 155 H (70-105) mg/dL Calcium 8.1 L (8.6-10.3) mg/dL - VTE Documentation of Mechanical Device: Intermittent pneumatic compression device Consult Discharge Plan - Plan [facility]errals: [facility] [Primary Care Provider[facility] -
[2017-10-29 13:53] LABS: Bilirubin,Urine Negative (Negative); Blood,Urine Large (Negative); Clarity,Urine Turbid (Clear); Color,Urine Dark Yellow (Yellow); Glucose,Urine (UA) 100 mg/dL (Normal); Ketones,Urine Negative (Negative); Leukocyte Esterase,Urine Large (Negative); Nitrite,Urine Negative (Negative); PH,Urine 6.5 pH Units (5.0-8.0); Protein,Urine >=300 mg/dL (Neg-Trace); Specific Gravity,Urine 1.008 (1.010-1.025); Urobilinogen,Urine Normal (Normal)
[2017-10-29 13:54] LABS: Bacteria,Urine None Seen per hpf (None-Few); Squamous Epithelial Cell,Urine Many per lpf (None-Few); WBC,Urine TNTC per hpf (0-3)
--- NOTE | 2017-10-29 15:09 | Discharge Summary ---
Date of Encounter: 10/29/17 Time of Encounter: 11:00 - Discharge Diagnosis (1) Hematuria Priority: Primary Status: Acute Qualifiers: Glomerular morphologic changes: unspecified whether glomerular morphologic changes present Qualified Code(s): N02.9 - Recurrent and persistent hematuria with unspecified morphologic changes - Discharge Medications Home Medications: Acetaminophen [Tylenol] 650 mg PO BID 12/09/16 [History] Acetaminophen [Tylenol] 650 mg PO Q6HR PRN MDD 3000 mg/day 12/09/16 [History] Allopurinol [Zyloprim 100 MG] 100 mg PO DAILY 12/09/16 [History] Amlodipine Besylate 10 mg PO DAILY 12/09/16 [History] Brimonidine 0.2% [Alphagan] 1 drop OP TID 12/09/16 [History] Carvedilol 25 mg PO BID 12/09/16 [History] Cholecalciferol (D-3) [Vitamin D] 2,000 unit PO DAILY 12/09/16 [History] Dorzolamide/Timolol/Pf [Cosopt Pf Eye Drops] 1 drop OP BID 12/09/16 [History] Doxazosin Mesylate [Cardura] 8 mg PO BID 12/09/16 [History] Epoetin Cortez [Procrit] 5,000 unit SQ MOWEFR 12/09/16 [History] Ferrous Sulfate 325 mg PO TID 12/09/16 [History] Finasteride [Proscar] 5 mg PO DAILY 12/09/16 [History] Furosemide [Lasix] 60 mg PO BID 12/09/16 [History] Hydralazine HCl 100 mg PO Q8H 12/09/16 [History] Insulin ASPART [NovoLOG] 4 unit SQ TIDAC 12/09/16 [History] Insulin Glargine [Lantus] 9 unit SQ DAILY 12/09/16 [History] Ipratropium/Albuterol Neb [Duoneb] 3 ml IH Q4HR 12/09/16 [History] Latanoprost [Xalatan] 1 drop OP HS 12/09/16 [History] Melatonin 3 mg PO HS 12/09/16 [History] Sertraline [Zoloft] 100 mg PO DAILY 12/09/16 [History] Aspirin Enteric Coated [Aspirin EC] 81 mg PO DAILY 04/21/17 [History] Atorvastatin Calcium [Lipitor] 40 mg PO HS 04/21/17 [History] Omeprazole [PriLOSEC] 20 mg PO DAILY 04/21/17 [History] PrednisoLONE Acetate 1% Opth [PredFORTE 1%] 1 drop OP QID 04/21/17 [History] Sevelamer [Renvela] 800 mg PO TIDWM 04/21/17 [History] cloNIDine HCl [Clonidine HCl] 0.1 mg PO TID 04/21/17 [History] Heparin 5,000 unit SQ Q12HR vial 05/11/17 [Rx] Vancomycin [Vancocin] 0 each IVPB AD PRN vial 05/11/17 [Rx] Allergies/Adverse Reactions: 3 Allergy/AdvReac Type Severity Reaction Status Date / Time lisinopril AdvReac unknown Verified 05/10/17 15:37 Date of admission: 10/28/17 21:09 Primary care physician: PCP SMITA - Patient Status Disposition: Transfer [facility] Condition: Fair - Discharge Instructions [facility] Care Provider[facility] - Hospital course: Patient is an 82-year-old male with past medical history significant for ESRD on HD, CVA with residual speech deficits, and chronic cordoba catheter who presented to the ER from the NH on 10/28/17 due to hematuria. He was evaluated by urology in the ED and the codroba catheter was replaced and continuous bladder irrigation was initiated per urology recommendations. He was admitted to the medical floor for further evaluation. During patients hospital stay, urology evaluated the patient and noted that the hematuria has resolved. Recommendations for patient to be discharged back to the NH with Cordoba catheter in place and to follow up with Dr. Jarvis in 3- 4 weeks for catheter change. - Time Spent with Patient Total time spent providing and/or coordinating discharge services: Less than 30 minutes - Constitutional Vitals: Temp Pulse Resp BP Pulse Ox 99.2 F 63 16 170/71 95 10/29/17 10:22 10/29/17 10:22 10/29/17 10:22 10/29/17 10:22 10/29/17 10:22 General appearance: Present: A&O X 2, no acute distress - Cardiovascular Cardiovascular exam: Present: RRR, +S1, +S2. Absent: diastolic murmur, gallop, rubs, systolic murmur - VTE Documentation of Mechanical Device: Intermittent pneumatic compression device
--- NOTE | 2017-10-29 15:10 | Physician Discharge Referral ---
[facility] Referral Info [facility] - Diagnosis (1) Hematuria Priority: Primary Status: Acute - Transfer Medications Home Medications: Acetaminophen [Tylenol] 650 mg PO BID 12/09/16 [History] Acetaminophen [Tylenol] 650 mg PO Q6HR PRN MDD 3000 mg/day 12/09/16 [History] Allopurinol [Zyloprim 100 MG] 100 mg PO DAILY 12/09/16 [History] Amlodipine Besylate 10 mg PO DAILY 12/09/16 [History] Brimonidine 0.2% [Alphagan] 1 drop OP TID 12/09/16 [History] Carvedilol 25 mg PO BID 12/09/16 [History] Cholecalciferol (D-3) [Vitamin D] 2,000 unit PO DAILY 12/09/16 [History] Dorzolamide/Timolol/Pf [Cosopt Pf Eye Drops] 1 drop OP BID 12/09/16 [History] Doxazosin Mesylate [Cardura] 8 mg PO BID 12/09/16 [History] Epoetin Cortez [Procrit] 5,000 unit SQ MOWEFR 12/09/16 [History] Ferrous Sulfate 325 mg PO TID 12/09/16 [History] Finasteride [Proscar] 5 mg PO DAILY 12/09/16 [History] Furosemide [Lasix] 60 mg PO BID 12/09/16 [History] Hydralazine HCl 100 mg PO Q8H 12/09/16 [History] Insulin ASPART [NovoLOG] 4 unit SQ TIDAC 12/09/16 [History] Insulin Glargine [Lantus] 9 unit SQ DAILY 12/09/16 [History] Ipratropium/Albuterol Neb [Duoneb] 3 ml IH Q4HR 12/09/16 [History] Latanoprost [Xalatan] 1 drop OP HS 12/09/16 [History] Melatonin 3 mg PO HS 12/09/16 [History] Sertraline [Zoloft] 100 mg PO DAILY 12/09/16 [History] Aspirin Enteric Coated [Aspirin EC] 81 mg PO DAILY 04/21/17 [History] Atorvastatin Calcium [Lipitor] 40 mg PO HS 04/21/17 [History] Omeprazole [PriLOSEC] 20 mg PO DAILY 04/21/17 [History] PrednisoLONE Acetate 1% Opth [PredFORTE 1%] 1 drop OP QID 04/21/17 [History] Sevelamer [Renvela] 800 mg PO TIDWM 04/21/17 [History] cloNIDine HCl [Clonidine HCl] 0.1 mg PO TID 04/21/17 [History] Heparin 5,000 unit SQ Q12HR vial 05/11/17 [Rx] Vancomycin [Vancocin] 0 each IVPB AD PRN vial 05/11/17 [Rx] Allergies/Adverse Reactions: 3 Allergy/AdvReac Type Severity Reaction Status Date / Time lisinopril AdvReac unknown Verified 05/10/17 15:37 - Respiratory Orders Smoking Cessation: Smoking cessation has been advised. For more information, call the [place] Tobacco Quit Line at 3-385-TKIDNOW. CERTIFICATION: I certify that the transfer of the above named patient to an Extended Care Facility is necessary for the continuing treatment of the diagnosis listed. The above information is true and accurate reflection of patient's current condition. Confidential - Redisclosure prohibited without a patient's written consent.
[2017-10-30 07:54] VITALS: BP 182/74
[2017-10-30] MEDS: Aspirin Enteric Coated 81 MG Tablet PO SCH (09:36)
[2017-10-30] MEDS: amLODIPine 5 MG TABLET PO SCH (09:36)
--- NOTE | 2017-10-30 17:50 | Event Note ---
Date of Encounter: 10/30/17 Time of Encounter: 11:00 [facility] to approved by their physician
== END 2017-10-30 11:55 ==
LOC: EMEROO 19:02 → 3NENU 19:02
PROVIDERS: ADMIT Internal Medicine; ATTEND Hospitalist

== ENCOUNTER 2017-11-01 19:16 | Inpatient (IN) ==
--- NOTE | 2017-11-01 19:25 | Emergency Department Note ---
Disposition Clinical Impression: Anemia, Hematuria, CKD (chronic kidney disease) stage V requiring chronic dialysis, Cystitis Disposition: Admitted As Inpatient Condition: Good General Adult HPI - General Chief complaint: ED General Medical Stated complaint: low Hgb, blood in urine Time Seen by Provider: 11/01/17 19:22 - Related Data Home Medications Medication Instructions Recorded Confirmed Acetaminophen [Tylenol] 650 mg PO Q6HR PRN 12/09/16 11/01/17 Amlodipine Besylate 10 mg PO DAILY 12/09/16 11/01/17 Brimonidine 0.2% [Alphagan] 1 drop LEFT EYE TID 12/09/16 11/01/17 Carvedilol 25 mg PO BID 12/09/16 11/01/17 Dorzolamide/Timolol/Pf [Cosopt Pf 1 drop LEFT EYE BID 12/09/16 11/01/17 Eye Drops] Doxazosin Mesylate [Cardura] 8 mg PO BID 12/09/16 11/01/17 Finasteride [Proscar] 5 mg PO DAILY 12/09/16 11/01/17 Hydralazine HCl 100 mg PO TID 12/09/16 11/01/17 Insulin ASPART [NovoLOG] 4 unit SQ TIDAC 12/09/16 11/01/17 Insulin Glargine [Lantus] 9 unit SQ DAILY 12/09/16 11/01/17 Ipratropium/Albuterol Neb [Duoneb] 3 ml IH Q4HR PRN 12/09/16 11/01/17 Latanoprost [Xalatan] 1 drop LEFT EYE HS 12/09/16 11/01/17 Sertraline [Zoloft] 100 mg PO DAILY 12/09/16 11/01/17 Atorvastatin Calcium [Lipitor] 40 mg PO HS 04/21/17 11/01/17 Omeprazole [PriLOSEC] 20 mg PO DAILY 04/21/17 11/01/17 PrednisoLONE Acetate 1% Opth 1 drop RIGHT EYE QID 04/21/17 11/01/17 [PredFORTE 1%] Sevelamer [Renvela] 800 mg PO TIDWM 04/21/17 11/01/17 cloNIDine HCl [Clonidine HCl] 0.1 mg PO TID 04/21/17 11/01/17 Aspirin 81 mg PO DAILY 11/01/17 11/01/17 Calcitriol [Rocaltrol] 0.25 mcg PO DAILY 11/01/17 11/01/17 Carboxymethylcellulose Sodium 1 drop BOTH EYES AD PRN 11/01/17 11/01/17 [Refresh Liquigel] Ergocalciferol (VITAMIN D2) 50,000 unit PO MO 11/01/17 11/01/17 [Vitamin D2] Erythromycin OPTH Oint 1 appl RIGHT EYE QID 11/01/17 11/01/17 Hydrocortisone 1% CREAM [Cortaid] 1 appl TP BID PRN 11/01/17 11/01/17 Isosorbide MONOnitrate (24 HR) 30 mg PO DAILY 11/01/17 11/01/17 [Imdur] Mineral Oil/Petrolatum,White 1 appl TP DAILY 11/01/17 11/01/17 [Eucerin Creme] Nitroglycerin [Nitrostat] 0.4 mg SL Q5M PRN 11/01/17 11/01/17 Ondansetron HCl [Zofran] 4 mg PO TID PRN 11/01/17 11/01/17 Polyethylene Glycol 3350 [MiraLAX] 17 gm PO DAILY PRN 11/01/17 11/01/17 Polyvinyl Alcohol [Artificial 2 drop BOTH EYES QID 11/01/17 11/01/17 Tears] Renal Vitamin [Renal Caps Softgel] 1 mg PO DAILY 11/01/17 11/01/17 Allergies Allergy/AdvReac Type Severity Reaction Status Date / Time lisinopril AdvReac unknown Verified 05/10/17 15:37 Past Medical History - Past Medical History Medical history: Reports: arthritis, CHF, coronary artery disease, diabetes, GI bleed, hyperlipidemia, hypertension, myocardial infarction, osteoporosis, peripheral artery disease, renal disease, TIA, valvular heart disease, other Surgical history: Reports: coronary bypass (CABG), other Psychiatric history: Reports: no psych history, other - Social History Smoking Status: Former smoker Smokeless Tobacco Status: No Alcohol use: Reports: none Drug use: Reports: none Course Vital Signs Temperature 99.1 F 11/01/17 19:18 Pulse Rate 74 11/01/17 19:18 Respiratory Rate 16 11/01/17 19:18 Blood Pressure 144/67 11/01/17 19:18 O2 Sat by Pulse Oximetry 96 11/01/17 19:18 Temperature 98.2 F 11/04/17 04:32 Pulse Rate 76 11/04/17 04:32 Respiratory Rate 14 11/04/17 04:32 Blood Pressure 166/70 11/04/17 04:32 O2 Sat by Pulse Oximetry 96 11/04/17 04:32 Oxygen Delivery Oxygen Delivery Room Air Medical Decision Making - Lab Data Result diagrams: 11/04/17 05:27 11/04/17 05:27 Lab Results 11/01/17 11/01/17 11/01/17 Range/Units 19:30 19:30 19:30 WBC 6.7 (4.3-11.1) K/mcL RBC 3.56 L (4.19-5.50) M/mcL Hgb 9.3 L (12.9-16.9) g/dL Hct 30.4 L (37.5-50.1) % MCV 85.4 (83.0-100.0) fL MCH 26.1 L (28.0-33.3) pg MCHC 30.6 L (31.6-35.5) g/dL RDW 17.2 H (11.5-14.5) % Plt Count 188 (140-400) K/mcL MPV 9.8 (9.4-12.4) fL Immature Gran % 0.4 (0-4) % Seg Neutrophils % 72.7 % Lymphocytes % 13.2 % Monocytes % 8.6 % Eosinophils % 4.5 % Basophils % 0.6 % Neutrophils # 4.9 (1.6-8.9) K/mcL Lymphocytes # 0.9 (0.6-4.6) K/mcL Monocytes # 0.6 (0.0-1.3) K/mcL Eosinophils # 0.3 (0.0-0.6) K/mcL Basophils # 0.0 (0.0-0.2) K/mcL Nucleated RBCs/100 WBC (0) /100 WBC PT 12.7 H (9.4-12.1) Seconds INR 1.2 Sodium 138 (136-145) mEq/L Potassium 4.9 (3.5-5.1) mEq/L Chloride 103 (98-107) mEq/L Carbon Dioxide 26 (23-29) mEq/L BUN 15 (8-23) mg/dL Creatinine 1.85 H (0.70-1.30) mg/dL Est GFR ( Amer) 43 L (> 60) Est GFR (Non-Af Amer) 35 L (> 60) BUN/Creatinine Ratio 8 (6-26) Glucose 277 H (70-105) mg/dL POC Glucose (58-89) Calculated Osmolality 297 (280-300) Calcium 7.0 L (8.6-10.3) mg/dL Iron (65-175) mcg/dL % Saturation (20-55) % Transferrin (203-362) mg/dL Total Bilirubin 0.3 (0.3-1.0) mg/dL AST 57 H (13-39) Units/L ALT 37 (7-52) Units/L Alkaline Phosphatase 68 (34-104) Units/L Troponin I (< 0.04) ng/mL Serum Total Protein 6.0 L (6.4-8.9) g/dL Albumin 3.2 L (3.5-5.7) g/dL Globulin 2.8 (2.4-3.5) g/dL Albumin/Globulin Ratio 1.1 (1.1-2.2) Hep Bs Antigen (Nonreactive) Hep Bs Antibody mIU/mL Specimen Rejected Blood Type Antibody Screen 11/01/17 11/01/17 11/01/17 Range/Units 19:30 19:30 19:45 WBC (4.3-11.1) K/mcL RBC (4.19-5.50) M/mcL Hgb (12.9-16.9) g/dL Hct (37.5-50.1) % MCV (83.0-100.0) fL MCH (28.0-33.3) pg MCHC (31.6-35.5) g/dL RDW (11.5-14.5) % Plt Count (140-400) K/mcL MPV (9.4-12.4) fL Immature Gran % (0-4) % Seg Neutrophils % % Lymphocytes % % Monocytes % % Eosinophils % % Basophils % % Neutrophils # (1.6-8.9) K/mcL Lymphocytes # (0.6-4.6) K/mcL Monocytes # (0.0-1.3) K/mcL Eosinophils # (0.0-0.6) K/mcL Basophils # (0.0-0.2) K/mcL Nucleated RBCs/100 WBC (0) /100 WBC PT (9.4-12.1) Seconds INR Sodium (136-145) mEq/L Potassium (3.5-5.1) mEq/L Chloride (98-107) mEq/L Carbon Dioxide (23-29) mEq/L BUN (8-23) mg/dL Creatinine (0.70-1.30) mg/dL Est GFR ( Amer) (> 60) Est GFR (Non-Af Amer) (> 60) BUN/Creatinine Ratio (6-26) Glucose (70-105) mg/dL POC Glucose (58-89) Calculated Osmolality (280-300) Calcium (8.6-10.3) mg/dL Iron (65-175) mcg/dL % Saturation (20-55) % Transferrin (203-362) mg/dL Total Bilirubin (0.3-1.0) mg/dL AST (13-39) Units/L ALT (7-52) Units/L Alkaline Phosphatase (34-104) Units/L Troponin I 0.04 H* (< 0.04) ng/mL Serum Total Protein (6.4-8.9) g/dL Albumin (3.5-5.7) g/dL Globulin (2.4-3.5) g/dL Albumin/Globulin Ratio (1.1-2.2) Hep Bs Antigen (Nonreactive) Hep Bs Antibody mIU/mL Specimen Rejected Hemolyzed Miscellaneous Blood Type Antibody Screen 11/01/17 11/01/17 11/02/17 Range/Units 20:17 22:29 05:22 WBC 6.8 (4.3-11.1) K/mcL RBC 3.38 L (4.19-5.50) M/mcL Hgb 8.8 L (12.9-16.9) g/dL Hct 28.9 L (37.5-50.1) % MCV 85.5 (83.0-100.0) fL MCH 26.0 L (28.0-33.3) pg MCHC 30.4 L (31.6-35.5) g/dL RDW 17.2 H (11.5-14.5) % Plt Count 169 (140-400) K/mcL MPV 9.8 (9.4-12.4) fL Immature Gran % 0.6 (0-4) % Seg Neutrophils % 69.7 % Lymphocytes % 14.8 % Monocytes % 8.9 % Eosinophils % 5.0 % Basophils % 1.0 % Neutrophils # 4.7 (1.6-8.9) K/mcL Lymphocytes # 1.0 (0.6-4.6) K/mcL Monocytes # 0.6 (0.0-1.3) K/mcL Eosinophils # 0.3 (0.0-0.6) K/mcL Basophils # 0.1 (0.0-0.2) K/mcL Nucleated RBCs/100 WBC 0.3 H (0) /100 WBC PT (9.4-12.1) Seconds INR Sodium (136-145) mEq/L Potassium (3.5-5.1) mEq/L Chloride (98-107) mEq/L Carbon Dioxide (23-29) mEq/L BUN (8-23) mg/dL Creatinine (0.70-1.30) mg/dL Est GFR ( Amer) (> 60) Est GFR (Non-Af Amer) (> 60) BUN/Creatinine Ratio (6-26) Glucose (70-105) mg/dL POC Glucose 307 H (58-89) Calculated Osmolality (280-300) Calcium (8.6-10.3) mg/dL Iron (65-175) mcg/dL % Saturation (20-55) % Transferrin (203-362) mg/dL Total Bilirubin (0.3-1.0) mg/dL AST (13-39) Units/L ALT (7-52) Units/L Alkaline Phosphatase (34-104) Units/L Troponin I (< 0.04) ng/mL Serum Total Protein (6.4-8.9) g/dL Albumin (3.5-5.7) g/dL Globulin (2.4-3.5) g/dL Albumin/Globulin Ratio (1.1-2.2) Hep Bs Antigen (Nonreactive) Hep Bs Antibody mIU/mL Specimen Rejected Blood Type A POSITIVE Antibody Screen NEGATIVE 11/02/17 11/02/17 11/02/17 Range/Units 05:22 07:45 10:30 WBC (4.3-11.1) K/mcL RBC (4.19-5.50) M/mcL Hgb 9.5 L (12.9-16.9) g/dL Hct (37.5-50.1) % MCV (83.0-100.0) fL MCH (28.0-33.3) pg MCHC (31.6-35.5) g/dL RDW (11.5-14.5) % Plt Count (140-400) K/mcL MPV (9.4-12.4) fL Immature Gran % (0-4) % Seg Neutrophils % % Lymphocytes % % Monocytes % % Eosinophils % % Basophils % % Neutrophils # (1.6-8.9) K/mcL Lymphocytes # (0.6-4.6) K/mcL Monocytes # (0.0-1.3) K/mcL Eosinophils # (0.0-0.6) K/mcL Basophils # (0.0-0.2) K/mcL Nucleated RBCs/100 WBC (0) /100 WBC PT (9.4-12.1) Seconds INR Sodium 141 (136-145) mEq/L Potassium 3.4 L D (3.5-5.1) mEq/L Chloride 104 (98-107) mEq/L Carbon Dioxide 29 (23-29) mEq/L BUN 23 (8-23) mg/dL Creatinine 2.50 H (0.70-1.30) mg/dL Est GFR ( Amer) 30 L (> 60) Est GFR (Non-Af Amer) 25 L (> 60) BUN/Creatinine Ratio 9 (6-26) Glucose 103 (70-105) mg/dL POC Glucose 110 H (58-89) Calculated Osmolality 296 (280-300) Calcium 7.5 L (8.6-10.3) mg/dL Iron (65-175) mcg/dL % Saturation (20-55) % Transferrin (203-362) mg/dL Total Bilirubin (0.3-1.0) mg/dL AST (13-39) Units/L ALT (7-52) Units/L Alkaline Phosphatase (34-104) Units/L Troponin I (< 0.04) ng/mL Serum Total Protein (6.4-8.9) g/dL Albumin (3.5-5.7) g/dL Globulin (2.4-3.5) g/dL Albumin/Globulin Ratio (1.1-2.2) Hep Bs Antigen (Nonreactive) Hep Bs Antibody mIU/mL Specimen Rejected Blood Type Antibody Screen 11/02/17 11/02/17 11/02/17 Range/Units 11:57 14:08 17:04 WBC (4.3-11.1) K/mcL RBC (4.19-5.50) M/mcL Hgb 9.0 L (12.9-16.9) g/dL Hct (37.5-50.1) % MCV (83.0-100.0) fL MCH (28.0-33.3) pg MCHC (31.6-35.5) g/dL RDW (11.5-14.5) % Plt Count (140-400) K/mcL MPV (9.4-12.4) fL Immature Gran % (0-4) % Seg Neutrophils % % Lymphocytes % % Monocytes % % Eosinophils % % Basophils % % Neutrophils # (1.6-8.9) K/mcL Lymphocytes # (0.6-4.6) K/mcL Monocytes # (0.0-1.3) K/mcL Eosinophils # (0.0-0.6) K/mcL Basophils # (0.0-0.2) K/mcL Nucleated RBCs/100 WBC (0) /100 WBC PT (9.4-12.1) Seconds INR Sodium (136-145) mEq/L Potassium (3.5-5.1) mEq/L Chloride (98-107) mEq/L Carbon Dioxide (23-29) mEq/L BUN (8-23) mg/dL Creatinine (0.70-1.30) mg/dL Est GFR ( Amer) (> 60) Est GFR (Non-Af Amer) (> 60) BUN/Creatinine Ratio (6-26) Glucose (70-105) mg/dL POC Glucose 150 H 159 H (58-89) Calculated Osmolality (280-300) Calcium (8.6-10.3) mg/dL Iron (65-175) mcg/dL % Saturation (20-55) % Transferrin (203-362) mg/dL Total Bilirubin (0.3-1.0) mg/dL AST (13-39) Units/L ALT (7-52) Units/L Alkaline Phosphatase (34-104) Units/L Troponin I (< 0.04) ng/mL Serum Total Protein (6.4-8.9) g/dL Albumin (3.5-5.7) g/dL Globulin (2.4-3.5) g/dL Albumin/Globulin Ratio (1.1-2.2) Hep Bs Antigen (Nonreactive) Hep Bs Antibody mIU/mL Specimen Rejected Blood Type Antibody Screen 11/02/17 11/03/17 11/03/17 Range/Units 20:49 05:46 05:46 WBC 6.4 (4.3-11.1) K/mcL RBC 3.12 L (4.19-5.50) M/mcL Hgb 8.2 L (12.9-16.9) g/dL Hct 26.9 L (37.5-50.1) % MCV 86.2 (83.0-100.0) fL MCH 26.3 L (28.0-33.3) pg MCHC 30.5 L (31.6-35.5) g/dL RDW 17.3 H (11.5-14.5) % Plt Count 175 (140-400) K/mcL MPV 10.2 (9.4-12.4) fL Immature Gran % (0-4) % Seg Neutrophils % % Lymphocytes % % Monocytes % % Eosinophils % % Basophils % % Neutrophils # (1.6-8.9) K/mcL Lymphocytes # (0.6-4.6) K/mcL Monocytes # (0.0-1.3) K/mcL Eosinophils # (0.0-0.6) K/mcL Basophils # (0.0-0.2) K/mcL Nucleated RBCs/100 WBC (0) /100 WBC PT (9.4-12.1) Seconds INR Sodium 139 (136-145) mEq/L Potassium 3.7 (3.5-5.1) mEq/L Chloride 105 (98-107) mEq/L Carbon Dioxide 25 (23-29) mEq/L BUN 39 H (8-23) mg/dL Creatinine 3.74 H (0.70-1.30) mg/dL Est GFR ( Amer) 19 L (> 60) Est GFR (Non-Af Amer) 16 L (> 60) BUN/Creatinine Ratio 10 (6-26) Glucose 185 H (70-105) mg/dL POC Glucose 261 H (58-89) Calculated Osmolality 302 H (280-300) Calcium 7.9 L (8.6-10.3) mg/dL Iron 47 L (65-175) mcg/dL % Saturation 23 (20-55) % Transferrin 147 L (203-362) mg/dL Total Bilirubin (0.3-1.0) mg/dL AST (13-39) Units/L ALT (7-52) Units/L Alkaline Phosphatase (34-104) Units/L Troponin I (< 0.04) ng/mL Serum Total Protein (6.4-8.9) g/dL Albumin (3.5-5.7) g/dL Globulin (2.4-3.5) g/dL Albumin/Globulin Ratio (1.1-2.2) Hep Bs Antigen (Nonreactive) Hep Bs Antibody mIU/mL Specimen Rejected Blood Type Antibody Screen 11/03/17 11/03/17 11/03/17 Range/Units 07:01 07:53 11:41 WBC (4.3-11.1) K/mcL RBC (4.19-5.50) M/mcL Hgb (12.9-16.9) g/dL Hct (37.5-50.1) % MCV (83.0-100.0) fL MCH (28.0-33.3) pg MCHC (31.6-35.5) g/dL RDW (11.5-14.5) % Plt Count (140-400) K/mcL MPV (9.4-12.4) fL Immature Gran % (0-4) % Seg Neutrophils % % Lymphocytes % % Monocytes % % Eosinophils % % Basophils % % Neutrophils # (1.6-8.9) K/mcL Lymphocytes # (0.6-4.6) K/mcL Monocytes # (0.0-1.3) K/mcL Eosinophils # (0.0-0.6) K/mcL Basophils # (0.0-0.2) K/mcL Nucleated RBCs/100 WBC (0) /100 WBC PT (9.4-12.1) Seconds INR Sodium (136-145) mEq/L Potassium (3.5-5.1) mEq/L Chloride (98-107) mEq/L Carbon Dioxide (23-29) mEq/L BUN (8-23) mg/dL Creatinine (0.70-1.30) mg/dL Est GFR ( Amer) (> 60) Est GFR (Non-Af Amer) (> 60) BUN/Creatinine Ratio (6-26) Glucose (70-105) mg/dL POC Glucose 186 H 158 H (58-89) Calculated Osmolality (280-300) Calcium (8.6-10.3) mg/dL Iron (65-175) mcg/dL % Saturation (20-55) % Transferrin (203-362) mg/dL Total Bilirubin (0.3-1.0) mg/dL AST (13-39) Units/L ALT (7-52) Units/L Alkaline Phosphatase (34-104) Units/L Troponin I (< 0.04) ng/mL Serum Total Protein (6.4-8.9) g/dL Albumin (3.5-5.7) g/dL Globulin (2.4-3.5) g/dL Albumin/Globulin Ratio (1.1-2.2) Hep Bs Antigen Nonreactive (Nonreactive) Hep Bs Antibody 0.15 mIU/mL Specimen Rejected Blood Type Antibody Screen Attestation Statement - Attestation Attestation: I examined this patient and my medical decision-making was reviewed with the Resident Physician. I agree with the documented findings, disposition and treatment plan as described except to the extent set forth below. [id number] time provided Patient arrives by EMS from dialysis. There was concern that the patient has a dropping hemoglobin and gross hematuria from his Syed catheter. The patient is debilitated at baseline. The Syed collection appliance does contain dark bloody-colored urine.
--- NOTE | 2017-11-01 19:31 | Emergency Department Note ---
Disposition Clinical Impression: CKD (chronic kidney disease) stage V requiring chronic dialysis, Cystitis Anemia Qualifiers: Anemia type: unspecified type Qualified Code(s): D64.9 - Anemia, unspecified Hematuria Qualifiers: Hematuria type: gross Qualified Code(s): R31.0 - Gross hematuria Disposition: Admitted As Inpatient Condition: Good [facility]errals: [facility]Primary Care Provider[facility] - Forms: ED Satisfaction Letter, Work/School Release Time of Disposition: 21:08 General Adult HPI - General Chief complaint: ED General Medical Stated complaint: low Hgb, blood in urine Time Seen by Provider: 11/01/17 19:22 Source: EMS Limitations: no limitations Nursing Notes Reviewed: Yes Vital Signs Reviewed: Yes - History of Present Illness HPI Narrative: Patient is an 82-year-old male that presents to the emergency department for blood in his urine. Vision has been seen for this and been admitted to the hospital for the same thing approximately 5 days ago. The patient is a dialysis patient who dialyzes Monday and Monday. The family member in the room states that he has had a history of hematuria and it is progressively gotten worse over the past few days. He was brought to the emergency department due to an acute drop in his hemoglobin. Patient also has limited ability to provide history due to previous stroke and limited speech. She did mention that he is having abdominal pain at this time. Denies any other pain. Pain Scale: 4 - Related Data Home Medications Medication Instructions Recorded Confirmed Acetaminophen [Tylenol] 650 mg PO BID 12/09/16 10/29/17 Acetaminophen [Tylenol] 650 mg PO Q6HR PRN MDD 3000 mg/day 12/09/16 10/28/17 Allopurinol [Zyloprim 100 MG] 100 mg PO DAILY 12/09/16 10/28/17 Amlodipine Besylate 10 mg PO DAILY 12/09/16 10/28/17 Brimonidine 0.2% [Alphagan] 1 drop OP TID 12/09/16 10/29/17 Carvedilol 25 mg PO BID 12/09/16 10/29/17 Cholecalciferol (D-3) [Vitamin D] 2,000 unit PO DAILY 12/09/16 05/10/17 Dorzolamide/Timolol/Pf [Cosopt Pf 1 drop OP BID 12/09/16 10/29/17 Eye Drops] Doxazosin Mesylate [Cardura] 8 mg PO BID 12/09/16 10/29/17 Epoetin Cortez [Procrit] 5,000 unit SQ MOWEFR 12/09/16 05/10/17 Ferrous Sulfate 325 mg PO TID 12/09/16 05/10/17 Finasteride [Proscar] 5 mg PO DAILY 12/09/16 10/29/17 Furosemide [Lasix] 60 mg PO BID 12/09/16 05/10/17 Hydralazine HCl 100 mg PO Q8H 12/09/16 10/29/17 Insulin ASPART [NovoLOG] 4 unit SQ TIDAC 12/09/16 10/29/17 Insulin Glargine [Lantus] 9 unit SQ DAILY 12/09/16 10/29/17 Ipratropium/Albuterol Neb [Duoneb] 3 ml IH Q4HR 12/09/16 10/29/17 Latanoprost [Xalatan] 1 drop OP HS 12/09/16 10/29/17 Melatonin 3 mg PO HS 12/09/16 05/10/17 Sertraline [Zoloft] 100 mg PO DAILY 12/09/16 10/29/17 Aspirin Enteric Coated [Aspirin EC] 81 mg PO DAILY 04/21/17 10/28/17 Atorvastatin Calcium [Lipitor] 40 mg PO HS 04/21/17 10/28/17 Omeprazole [PriLOSEC] 20 mg PO DAILY 04/21/17 10/29/17 PrednisoLONE Acetate 1% Opth 1 drop OP QID 04/21/17 05/10/17 [PredFORTE 1%] Sevelamer [Renvela] 800 mg PO TIDWM 04/21/17 10/29/17 cloNIDine HCl [Clonidine HCl] 0.1 mg PO TID 04/21/17 10/29/17 Previous Rx's Medication Instructions Recorded Heparin 5,000 unit SQ Q12HR vial 05/11/17 Vancomycin [Vancocin] 0 each IVPB AD PRN vial 05/11/17 Allergies Allergy/AdvReac Type Severity Reaction Status Date / Time lisinopril AdvReac unknown Verified 05/10/17 15:37 All systems ED: reviewed and negative except as stated. Gastrointestinal: Reports: abdominal pain Genitourinary: Reports: hematuria, other (Cordoba catherter in place) Past Medical History - Past Medical History Medical history: Reports: arthritis, CHF, coronary artery disease, diabetes, GI bleed, hyperlipidemia, hypertension, myocardial infarction, osteoporosis, peripheral artery disease, renal disease, TIA, valvular heart disease, other Surgical history: Reports: coronary bypass (CABG), other Psychiatric history: Reports: no psych history, other - Social History Smoking Status: Former smoker Smokeless Tobacco Status: No Alcohol use: Reports: none Drug use: Reports: none Physical Exam - General Limitations: no limitations General appearance: alert, in no apparent distress - Head Head exam: atraumatic, normocephalic - Eye Eye exam: Present: normal appearance, EOMI - Neck Neck exam: Present: normal inspection, full ROM, trachea midline - Respiratory Respiratory exam: Present: normal lung sounds bilaterally. Absent: respiratory distress, wheezes - Cardiovascular Cardiovascular exam: Present: regular rate, normal rhythm, normal heart sounds, +S1, +S2 - Abdominal Exam Abdominal exam: Present: soft, tenderness, normal bowel sounds Abdominal tenderness: Present: suprapubic, diffuse - Neurological Exam Neurological exam: Present: alert - Psychiatric Psychiatric exam: Present: normal affect, normal mood - Skin Skin exam: Present: warm, dry, intact - Other Other exam information: Patient has luzmaria hematuria in his cordoba bag and tubing Course Vital Signs Temperature 99.1 F 11/01/17 19:18 Pulse Rate 74 11/01/17 19:18 Respiratory Rate 16 11/01/17 19:18 Blood Pressure 144/67 11/01/17 19:18 O2 Sat by Pulse Oximetry 96 11/01/17 19:18 Temperature 99.1 F 11/01/17 19:18 Pulse Rate 79 11/01/17 20:27 Respiratory Rate 18 11/01/17 20:27 Blood Pressure 136/63 11/01/17 20:27 O2 Sat by Pulse Oximetry 95 11/01/17 20:27 Oxygen Delivery Oxygen Delivery Room Air Medical Decision Making - [facility] Narrative Medical decision making narrative: Due the patient having hematuria and having recently been hospitalized we will repeat basic laboratory testings and get a CT scan of the abdomen and pelvis. The patient's hemoglobin was 9.3. This has actually increased from earlier today when it was 8.4. The patient having recently been seen by urology and having gross hematuria we have called and spoke with urology and they agreed to consult on this patient after they have been admitted to the hospital. The patient elevated creatinine but this actually is at baseline for the patient due to the patient having chronic kidney disease and receiving dialysis. Patient elevated troponin of 0.04. Patient has a chronically elevated troponin likely secondary to his chronic kidney disease. The patient's urinalysis was unable to be performed by lab due to the specimen containing gross blood. CT scan showed possible cystitis with a Cordoba catheter in place. The patient will need to be admitted to the hospital for further evaluation and management. Called and spoke with the hospitalist and they have accepted the patient service. Patient will be admitted to the hospital this time for further evaluation and management. - Medical Records Medical records reviewed: Yes I reviewed the patient's medical records. - Lab Data Lab results reviewed: Yes I reviewed the patient's lab results. Result diagrams: 11/01/17 19:30 11/01/17 19:30 Lab Results 11/01/17 11/01/17 11/01/17 Range/Units 19:30 19:30 19:30 WBC 6.7 (4.3-11.1) K/mcL RBC 3.56 L (4.19-5.50) M/mcL Hgb 9.3 L (12.9-16.9) g/dL Hct 30.4 L (37.5-50.1) % MCV 85.4 (83.0-100.0) fL MCH 26.1 L (28.0-33.3) pg MCHC 30.6 L (31.6-35.5) g/dL RDW 17.2 H (11.5-14.5) % Plt Count 188 (140-400) K/mcL MPV 9.8 (9.4-12.4) fL Immature Gran % 0.4 (0-4) % Seg Neutrophils % 72.7 % Lymphocytes % 13.2 % Monocytes % 8.6 % Eosinophils % 4.5 % Basophils % 0.6 % Neutrophils # 4.9 (1.6-8.9) K/mcL Lymphocytes # 0.9 (0.6-4.6) K/mcL Monocytes # 0.6 (0.0-1.3) K/mcL Eosinophils # 0.3 (0.0-0.6) K/mcL Basophils # 0.0 (0.0-0.2) K/mcL PT 12.7 H (9.4-12.1) Seconds INR 1.2 Sodium 138 (136-145) mEq/L Potassium 4.9 (3.5-5.1) mEq/L Chloride 103 (98-107) mEq/L Carbon Dioxide 26 (23-29) mEq/L BUN 15 (8-23) mg/dL Creatinine 1.85 H (0.70-1.30) mg/dL Est GFR ( Amer) 43 L (> 60) Est GFR (Non-Af Amer) 35 L (> 60) BUN/Creatinine Ratio 8 (6-26) Glucose 277 H (70-105) mg/dL Calculated Osmolality 297 (280-300) Calcium 7.0 L (8.6-10.3) mg/dL AST 57 H (13-39) Units/L ALT 37 (7-52) Units/L Alkaline Phosphatase 68 (34-104) Units/L Serum Total Protein 6.0 L (6.4-8.9) g/dL Albumin 3.2 L (3.5-5.7) g/dL Globulin 2.8 (2.4-3.5) g/dL Albumin/Globulin Ratio 1.1 (1.1-2.2) Specimen Rejected 11/01/17 11/01/17 Range/Units 19:30 19:45 WBC (4.3-11.1) K/mcL RBC (4.19-5.50) M/mcL Hgb (12.9-16.9) g/dL Hct (37.5-50.1) % MCV (83.0-100.0) fL MCH (28.0-33.3) pg MCHC (31.6-35.5) g/dL RDW (11.5-14.5) % Plt Count (140-400) K/mcL MPV (9.4-12.4) fL Immature Gran % (0-4) % Seg Neutrophils % % Lymphocytes % % Monocytes % % Eosinophils % % Basophils % % Neutrophils # (1.6-8.9) K/mcL Lymphocytes # (0.6-4.6) K/mcL Monocytes # (0.0-1.3) K/mcL Eosinophils # (0.0-0.6) K/mcL Basophils # (0.0-0.2) K/mcL PT (9.4-12.1) Seconds INR Sodium (136-145) mEq/L Potassium (3.5-5.1) mEq/L Chloride (98-107) mEq/L Carbon Dioxide (23-29) mEq/L BUN (8-23) mg/dL Creatinine (0.70-1.30) mg/dL Est GFR ( Amer) (> 60) Est GFR (Non-Af Amer) (> 60) BUN/Creatinine Ratio (6-26) Glucose (70-105) mg/dL Calculated Osmolality (280-300) Calcium (8.6-10.3) mg/dL AST (13-39) Units/L ALT (7-52) Units/L Alkaline Phosphatase (34-104) Units/L Serum Total Protein (6.4-8.9) g/dL Albumin (3.5-5.7) g/dL Globulin (2.4-3.5) g/dL Albumin/Globulin Ratio (1.1-2.2) Specimen Rejected Hemolyzed Miscellaneous - Radiology Data Radiology results reviewed: Yes I reviewed the patient's radiology results. Abdomen/Pelvis CT 11/01/17 19:23 IMPRESSION: 1. Diffuse bladder wall thickening with mild infiltration of the adjacent fat suggesting a cystitis. No evidence of obstructive uropathy. Cordoba catheter in place. 2. Diffuse colonic stool burden. Diverticulosis with no acute features. 3. Grossly stable bilateral renal lesions most consistent with cysts. 4. Moderate prostatomegaly. 5. Atherosclerotic disease within the aorta and coronary circulation. D/ / 11/01/2017 20:34:07 Emeka Peralta MD / [email or web address] Interpreting Provider: Emeka Peralta MD - EKG Data EKG #1 EKG attestation: Yes I reviewed and interpreted this EKG. EKG results narrative: EKG showed a sinus rhythm at a rate of 79 bpm, LA interval of 333, QRS ration of 79, QTC of 472 with a normal axis. There is no STEMI noted on this EKG. There were some T-wave inversions in the inferior and lateral leads. This is compared to previous EKG on 8/2/17 these inversions were not present on previous EKG.
[2017-11-01 19:55] LABS: Basophils % 0.6 %; Eosinophils # 0.3 K/mcL (0.0-0.6); Eosinophils % 4.5 %; Hematocrit 30.4 % (37.5-50.1); Hemoglobin 9.3 g/dL (12.9-16.9); Immature Granulocytes % 0.4 % (0-4); Lymphocytes # 0.9 K/mcL (0.6-4.6); Lymphocytes % 13.2 %; Mean Corpuscular HGB Conc 30.6 g/dL (31.6-35.5); Mean Corpuscular Hemoglobin 26.1 pg (28.0-33.3); Mean Corpuscular Volume 85.4 fL (83.0-100.0); Mean Platelet Volume 9.8 fL (9.4-12.4); Monocytes # 0.6 K/mcL (0.0-1.3); Monocytes % 8.6 %; Neutrophils # 4.9 K/mcL (1.6-8.9); Platelet Count 188 K/mcL (140-400); Red Blood Count 3.56 M/mcL (4.19-5.50); Red Cell Distribution Width 17.2 % (11.5-14.5); Segmented Neutrophils % 72.7 %
[2017-11-01 19:58] LABS: Albumin 3.2 g/dL (3.5-5.7); Albumin/Globulin Ratio 1.1 (1.1-2.2); Globulin 2.8 g/dL (2.4-3.5); Potassium 4.9 mEq/L (3.5-5.1)
[2017-11-01 20:25] LABS: INR 1.2; Prothrombin Time 12.7 Seconds (9.4-12.1)
[2017-11-01] MEDS ORDERED: cefTRIAXone 1,000 MG in Water for inj. (sterile) 20 ML 10 ML IVP ONE (20:47)
[2017-11-01] MEDS ORDERED: *HR* Dextrose 50 % in Water (Syg) 50 ML SYRINGE IVP PRN (22:05)
[2017-11-01] MEDS ORDERED: Naloxone 0.4 MG/ML INJ IVP PRN (22:05)
[2017-11-01] MEDS ORDERED: Dextrose Gel 15 GM/37.5 ML TUBE PO PRN ×2 (22:05)
[2017-11-01] MEDS ORDERED: Acetaminophen 325 MG TABLET PO PRN (22:05)
[2017-11-01] MEDS ORDERED: D5% in Water 1,000 ML IVC PRN (22:05)
[2017-11-01] MEDS ORDERED: 0.9 % Sodium Chloride 1,000 ML IVC SCH (22:15)
[2017-11-01] MEDS ORDERED: Ondansetron ODT 4 MG TAB.RAPDIS PO PRN (22:17)
--- NOTE | 2017-11-01 22:37 | Internal Med History&Physical ---
<Omi Patel - Last Filed: 11/01/17 22:33> Date of Encounter: 11/01/17 Time of Encounter: 21:33 Assessment and Plan (1) Gross hematuria Current visit: No Status: Acute Patient is chronically anemic, but somewhat acutely so as well; hematuria potentially factor of detectable blood loss will trend H&H qAM Urology consulted and visit pending will give patient gentle IVF at 75mL/hr (2) Indwelling catheter present on admission Current visit: No Status: Chronic possible precipitant of present hematuria as well as CT-demonstrated wall thickening will maintain pending uro consult urology has been consulted by ED team (3) Bladder wall thickening Current visit: Yes Status: Acute will continue IV Rocephin for concern of UTI (4) Elevated troponin I level Current visit: No Status: Acute likely due to volume overload & underling mixed CHF -- last ECHO done in April of 2017 will monitor no known anginal equivalent symptoms such as chest pain per daughter (5) Diabetes mellitus Current visit: No Status: Chronic SSI orders placed holding LA insulin Qualifiers: Diabetes mellitus type: type 2 Diabetes mellitus complication status: with kidney complications Diabetes mellitus complication detail: with chronic kidney disease Diabetes mellitus terminal clerk insulin use: with terminal clerk use Chronic kidney disease stage: stage 4 (severe) Qualified Code(s): E11.22 - Type 2 diabetes mellitus with diabetic chronic kidney disease; N18.4 - Chronic kidney disease, stage 4 (severe); Z79.4 - long term care administrator (current) use of insulin (6) ESRD (end stage renal disease) on dialysis Current visit: Yes Status: Acute on HD MWF -- recent consult note by HERNÁN Curtis -- [facility] will probably need consult depending on length of stay for IP HD (7) DVT prophylaxis Current visit: No Status: Acute due to bleeding, will withhold pharmacologic prophylaxis SCDs ordered Internal Medicine - H&P: HPI Chief complaint: blood in urine + decrease hemoglobin Admitted From: Emergency Dept History of present illness: Mr. Webb is a 82 year old male with history of CVA, long-term Syed placement , CKD/ESRD on HD. CVA in 2016. Recent history of ongoing hematuria that has been worse over the last for 5 days. History limited due to patient's inability to speak clearly secondary to prior CVA. Patient's daughter's present and provides all available medical history. Of note, patient's daughter states she is DPI probation. Patient's daughter states that over the past few days, urine has become notably grossly bloody, but darker in quality and has featured with clots. Patient has had recent admission for this an evaluation by urology. Patient is also on hemodialysis 3 times a week; recent documentation in computer system by HERNÁN Tineo. Patient's daughter states she has not aware of any other newer ongoing symptoms in recent time course. On emergency department work up, patient was shown to have slight decrease in hemoglobin versus prior/usual levels. Patient also had CT of the abdomen which demonstrated diffuse bladder wall thickening. Patient is admitted for further evaluation and monitoring as well as for urology consultation. Past Med Surg Social Fam HX - Past Medical History Medical history: arthritis, CHF, coronary artery disease, diabetes, GI bleed, hyperlipidemia, hypertension, myocardial infarction, osteoporosis, peripheral artery disease, renal disease, TIA, valvular heart disease, other Psychiatric history: no psych history, other - Past Surgical History Surgical History: coronary bypass (CABG), other - Social History Smoking Status: Former smoker Smokeless Tobacco Status: No Alcohol use: none Drug use: none Internal Medicine - H&P: Meds Acetaminophen [Tylenol] 650 mg PO Q6HR PRN 12/09/16 [History] Amlodipine Besylate 10 mg PO DAILY 12/09/16 [History] Brimonidine 0.2% [Alphagan] 1 drop LEFT EYE TID 12/09/16 [History] Carvedilol 25 mg PO BID 12/09/16 [History] Dorzolamide/Timolol/Pf [Cosopt Pf Eye Drops] 1 drop LEFT EYE BID 12/09/16 [ History] Doxazosin Mesylate [Cardura] 8 mg PO BID 12/09/16 [History] Finasteride [Proscar] 5 mg PO DAILY 12/09/16 [History] Hydralazine HCl 100 mg PO TID 12/09/16 [History] Insulin ASPART [NovoLOG] 4 unit SQ TIDAC 12/09/16 [History] Insulin Glargine [Lantus] 9 unit SQ DAILY 12/09/16 [History] Ipratropium/Albuterol Neb [Duoneb] 3 ml IH Q4HR PRN 12/09/16 [History] Latanoprost [Xalatan] 1 drop LEFT EYE HS 12/09/16 [History] Sertraline [Zoloft] 100 mg PO DAILY 12/09/16 [History] Atorvastatin Calcium [Lipitor] 40 mg PO HS 04/21/17 [History] Omeprazole [PriLOSEC] 20 mg PO DAILY 04/21/17 [History] PrednisoLONE Acetate 1% Opth [PredFORTE 1%] 1 drop RIGHT EYE QID 04/21/17 [ History] Sevelamer [Renvela] 800 mg PO TIDWM 04/21/17 [History] cloNIDine HCl [Clonidine HCl] 0.1 mg PO TID 04/21/17 [History] Aspirin 81 mg PO DAILY 11/01/17 [History] Calcitriol [Rocaltrol] 0.25 mcg PO DAILY 11/01/17 [History] Carboxymethylcellulose Sodium [Refresh Liquigel] 1 drop BOTH EYES AD PRN [History] Ergocalciferol (VITAMIN D2) [Vitamin D2] 50,000 unit PO MO 11/01/17 [History] Erythromycin OPTH Oint 1 appl RIGHT EYE QID 11/01/17 [History] Hydrocortisone 1% CREAM [Cortaid] 1 appl TP BID PRN 11/01/17 [History] Isosorbide MONOnitrate (24 HR) [Imdur] 30 mg PO DAILY 11/01/17 [History] Mineral Oil/Petrolatum,White [Eucerin Creme] 1 appl TP DAILY 11/01/17 [History] Nitroglycerin [Nitrostat] 0.4 mg SL Q5M PRN 11/01/17 [History] Ondansetron HCl [Zofran] 4 mg PO TID PRN 11/01/17 [History] Polyethylene Glycol 3350 [MiraLAX] 17 gm PO DAILY PRN 11/01/17 [History] Polyvinyl Alcohol [Artificial Tears] 2 drop BOTH EYES QID 11/01/17 [History] Renal Vitamin [Renal Caps Softgel] 1 mg PO DAILY 11/01/17 [History] 3 Allergy/AdvReac Type Severity Reaction Status Date / Time lisinopril AdvReac unknown Verified 05/10/17 15:37 All Systems PM: incomprehensible speech limits ability to elaborate on ROS - Constitutional Vitals: Temp Pulse Resp BP Pulse Ox 99.3 F 73 16 131/74 95 11/01/17 22:18 11/01/17 22:18 11/01/17 22:18 11/01/17 22:18 11/01/17 22:18 CONSTITUTIONAL: Alert and oriented X3, well-nourished, well appearing, in no apparent distress; unable to speak comprehensibly due to CVA history HEAD: Normocephalic; atraumatic. EYES: PERRL, no scleral icterus, no drainage, no conjunctival injection NOSE: The nose is normal in appearance without rhinorrhea Oropharynx: pink/moist, no tonsillar edema/erythema/exudates CHEST: temp cath apparent and apparently well-intact to right anterior chest wall RESP: NRD without use of accessory musculature, CTA b/l with no wheezes/rales/ rhonchi CARD: Regular rhythm, without murmurs, rubs, or gallop SKIN: normal appearance, no pallor/diaphoresis,mottling,jaundice,cyanosis EXT: DP/Rad pulses 2+ and symmetrical; no lateralizing edema; no other lesions seen Internal Med - H&P Results - Labs CBC & Chem 7: 11/01/17 19:30 11/01/17 19:30 <Aracely Lopez - Last Filed: 11/01/17 23:39> Date of Encounter: 11/01/17 Time of Encounter: 21:20 Internal Medicine - H&P: HPI History of present illness: Mr. Webb is a 82 year old male All Systems PM: A 10-system review of systems was performed and is negative for pertinent findings except as documented above in the HPI. - Constitutional Vitals: Temp Pulse Resp BP Pulse Ox 99.3 F 73 16 131/74 95 11/01/17 22:18 11/01/17 22:18 11/01/17 22:18 11/01/17 22:18 11/01/17 22:18 Internal Med - H&P Results - Labs CBC & Chem 7: 11/01/17 19:30 11/01/17 19:30 - Attending Attestation I examined this patient and my medical decision-making was reviewed with the Resident Physician, Omi Patel. I agree with the documented findings, disposition and treatment plan as described except to the extent set forth below. 82-year-old male patient with history of end-stage renal disease on hemodialysis and chronic indwelling Syed catheter presented with complaints of gross hematuria. He had just been discharged from the hospital following a similar presentation during which time he had bladder irrigation done by urology. At the time of discharge his hematuria had subsided. The patient denies any symptoms but he had been called the dialysis center and advised to come in after he was noted to have a drop in his hemoglobin levels. Blood work done earlier today showed a hemoglobin level of 8.4. Recheck here showed a hemoglobin level of 9.3. At the time of discharge on 10/29/2017, his hemoglobin was 10.6. He denies any pain, shortness of breath or dizziness. He was able to complete dialysis today. On exam, patient is awake and alert. He has difficult speech due to prior stroke. Heart sounds are normal. No pedal edema noted. Does have grossly bloody urine in his Syed bag. Gross hematuria: Monitor vital signs. Monitor blood counts. Consult urology for further recommendations and management. High risk for complications given his underlying comorbidities. Chronic indwelling Syed catheter: High risk for infections. Prior urine culture results positive for Lexie. Patient received ceftriaxone in the ER. Stop ceftriaxone. Will start treatment for Lexie with fluconazole. Mild troponin elevation: This is chronic for the patient. ESRD: On hemodialysis. Will consult nephrology for dialysis needs. DVT prophylaxis: With SCDs alone.
[2017-11-01 23:10] LABS: Bilirubin,Total 0.3 mg/dL (0.3-1.0)
[2017-11-01] MEDS: Insulin LISPRO 300 UNITS/3 ML VIAL SQ SCH (23:44)
[2017-11-01] MEDS ORDERED: Fluconazole 200 MG/100 ML 200 MG/100 ML BAG IVPB SCH (23:45)
[2017-11-02 05:39] LABS: Hematocrit 28.9 % (37.5-50.1); Hemoglobin 8.8 g/dL (12.9-16.9); Immature Granulocytes % 0.6 % (0-4); Lymphocytes % 14.8 %; Mean Corpuscular HGB Conc 30.4 g/dL (31.6-35.5); Mean Corpuscular Volume 85.5 fL (83.0-100.0); Mean Platelet Volume 9.8 fL (9.4-12.4); Monocytes % 8.9 %; Platelet Count 169 K/mcL (140-400); Red Blood Count 3.38 M/mcL (4.19-5.50); Red Cell Distribution Width 17.2 % (11.5-14.5); Segmented Neutrophils % 69.7 %
[2017-11-02 05:40] LABS: Basophils # 0.1 K/mcL (0.0-0.2); Eosinophils # 0.3 K/mcL (0.0-0.6); Monocytes # 0.6 K/mcL (0.0-1.3); Neutrophils # 4.7 K/mcL (1.6-8.9); Nucleated Red Blood Cells 0.3 /100 WBC (0)
[2017-11-02 06:15] LABS: Calcium 7.5 mg/dL (8.6-10.3); Potassium 3.4 mEq/L (3.5-5.1)
--- NOTE | 2017-11-02 07:24 | Urology - Consult Note ---
Date of Encounter: 11/02/17 Time of Encounter: 07:22 - Assessment and Plan (1) Hematuria Current Visit: Yes Status: Acute Assessment and plan: 8-year-old male with recurrent gross hematuria. We will irrigate the catheter and initiate bladder irrigation. His H&H will be closely followed. Bleeding is likely related to his prostate. Urology will continue to follow along. Qualifiers: Hematuria type: gross Qualified Code(s): R31.0 - Gross hematuria Urology CN:CRISTAL Consult date: 11/02/17 Reason for consult Urology: Gross Hematuria History of present illness: Kalen is a 82-year-old male well-known to the urology service for history of traumatic catheter removal and needing continuous bladder irrigation. He has a history of renal failure and has been undergoing hemodialysis. He was in dialysis yesterday and began to have gross hematuria through the catheter. He has a 24 Yi through a catheter from his most recent admission. Patient is nonverbal and unable to answer questions. Past Med Surg Social Fam HX - Past Medical History Medical history: arthritis, CHF, coronary artery disease, CVA, diabetes, dialysis, GI bleed, hyperlipidemia, hypertension, myocardial infarction, osteoporosis, peripheral artery disease, renal disease, TIA, valvular heart disease, other Psychiatric history: no psych history, other - Past Surgical History Surgical History: coronary bypass (CABG) - Social History Smoking Status: Former smoker Smokeless Tobacco Status: No Alcohol use: none Drug use: none - Family History Mother History Unknown: Yes Medications and Allergies Acetaminophen [Tylenol] 650 mg PO Q6HR PRN 12/09/16 [History] Amlodipine Besylate 10 mg PO DAILY 12/09/16 [History] Brimonidine 0.2% [Alphagan] 1 drop LEFT EYE TID 12/09/16 [History] Carvedilol 25 mg PO BID 12/09/16 [History] Dorzolamide/Timolol/Pf [Cosopt Pf Eye Drops] 1 drop LEFT EYE BID 12/09/16 [ History] Doxazosin Mesylate [Cardura] 8 mg PO BID 12/09/16 [History] Finasteride [Proscar] 5 mg PO DAILY 12/09/16 [History] Hydralazine HCl 100 mg PO TID 12/09/16 [History] Insulin ASPART [NovoLOG] 4 unit SQ TIDAC 12/09/16 [History] Insulin Glargine [Lantus] 9 unit SQ DAILY 12/09/16 [History] Ipratropium/Albuterol Neb [Duoneb] 3 ml IH Q4HR PRN 12/09/16 [History] Latanoprost [Xalatan] 1 drop LEFT EYE HS 12/09/16 [History] Sertraline [Zoloft] 100 mg PO DAILY 12/09/16 [History] Atorvastatin Calcium [Lipitor] 40 mg PO HS 04/21/17 [History] Omeprazole [PriLOSEC] 20 mg PO DAILY 04/21/17 [History] PrednisoLONE Acetate 1% Opth [PredFORTE 1%] 1 drop RIGHT EYE QID 04/21/17 [ History] Sevelamer [Renvela] 800 mg PO TIDWM 04/21/17 [History] cloNIDine HCl [Clonidine HCl] 0.1 mg PO TID 04/21/17 [History] Aspirin 81 mg PO DAILY 11/01/17 [History] Calcitriol [Rocaltrol] 0.25 mcg PO DAILY 11/01/17 [History] Carboxymethylcellulose Sodium [Refresh Liquigel] 1 drop BOTH EYES AD PRN [History] Ergocalciferol (VITAMIN D2) [Vitamin D2] 50,000 unit PO MO 11/01/17 [History] Erythromycin OPTH Oint 1 appl RIGHT EYE QID 11/01/17 [History] Hydrocortisone 1% CREAM [Cortaid] 1 appl TP BID PRN 11/01/17 [History] Isosorbide MONOnitrate (24 HR) [Imdur] 30 mg PO DAILY 11/01/17 [History] Mineral Oil/Petrolatum,White [Eucerin Creme] 1 appl TP DAILY 11/01/17 [History] Nitroglycerin [Nitrostat] 0.4 mg SL Q5M PRN 11/01/17 [History] Ondansetron HCl [Zofran] 4 mg PO TID PRN 11/01/17 [History] Polyethylene Glycol 3350 [MiraLAX] 17 gm PO DAILY PRN 11/01/17 [History] Polyvinyl Alcohol [Artificial Tears] 2 drop BOTH EYES QID 11/01/17 [History] Renal Vitamin [Renal Caps Softgel] 1 mg PO DAILY 11/01/17 [History] 3 Allergy/AdvReac Type Severity Reaction Status Date / Time lisinopril AdvReac unknown Verified 05/10/17 15:37 Review of Systems ROS unobtainable: due to mental status Exam Initial Vital Signs Temp Pulse Resp BP Pulse Ox 99.1 F 74 16 144/67 96 11/01/17 19:18 11/01/17 19:18 11/01/17 19:18 11/01/17 19:18 11/01/17 19:18 - General physical appearance Present: well developed, well nourished, no distress - Eyes Absent: icteric - ENT Present: normal nares - Neck Present: trachea midline - Respiratory Present: normal respiratory effort - Cardiovascular Cardiovascular exam IM: RRR - Abdomen Abdomen: Present: soft - Genitourinary other (24 Yi three-way catheter with grossly bloody urine present.) Urology Results - Labs 11/02/17 05:22 11/02/17 05:22 Abnormal lab results RBC 3.38 M/mcL (4.19-5.50) L 11/02/17 05:22 Hgb 8.8 g/dL (12.9-16.9) L 11/02/17 05:22 Hct 28.9 % (37.5-50.1) L 11/02/17 05:22 MCH 26.0 pg (28.0-33.3) L 11/02/17 05:22 MCHC 30.4 g/dL (31.6-35.5) L 11/02/17 05:22 RDW 17.2 % (11.5-14.5) H 11/02/17 05:22 Nucleated RBCs/100 WBC 0.3 /100 WBC (0) H 11/02/17 05:22 PT 12.7 Seconds (9.4-12.1) H 11/01/17 19:30 Potassium 3.4 mEq/L (3.5-5.1) L D 11/02/17 05:22 Creatinine 2.50 mg/dL (0.70-1.30) H 11/02/17 05:22 Est GFR ( Amer) 30 (> 60) L 11/02/17 05:22 Est GFR (Non-Af Amer) 25 (> 60) L 11/02/17 05:22 Calcium 7.5 mg/dL (8.6-10.3) L 11/02/17 05:22 AST 57 Units/L (13-39) H 11/01/17 19:30 Troponin I 0.04 ng/mL (< 0.04) H* 11/01/17 19:30 Serum Total Protein 6.0 g/dL (6.4-8.9) L 11/01/17 19:30 Albumin 3.2 g/dL (3.5-5.7) L 11/01/17 19:30 Diabetes panel 11/02/17 Range/Units 05:22 Sodium 141 (136-145) mEq/L Potassium 3.4 L D (3.5-5.1) mEq/L Chloride 104 (98-107) mEq/L Carbon Dioxide 29 (23-29) mEq/L BUN 23 (8-23) mg/dL Creatinine 2.50 H (0.70-1.30) mg/dL Glucose 103 (70-105) mg/dL Calcium 7.5 L (8.6-10.3) mg/dL Calcium panel 11/02/17 Range/Units 05:22 Calcium 7.5 L (8.6-10.3) mg/dL Pituitary panel 11/02/17 Range/Units 05:22 Sodium 141 (136-145) mEq/L Potassium 3.4 L D (3.5-5.1) mEq/L Chloride 104 (98-107) mEq/L Carbon Dioxide 29 (23-29) mEq/L BUN 23 (8-23) mg/dL Creatinine 2.50 H (0.70-1.30) mg/dL Glucose 103 (70-105) mg/dL Calcium 7.5 L (8.6-10.3) mg/dL Adrenal panel 11/02/17 Range/Units 05:22 Sodium 141 (136-145) mEq/L Potassium 3.4 L D (3.5-5.1) mEq/L Chloride 104 (98-107) mEq/L Carbon Dioxide 29 (23-29) mEq/L BUN 23 (8-23) mg/dL Creatinine 2.50 H (0.70-1.30) mg/dL Glucose 103 (70-105) mg/dL Calcium 7.5 L (8.6-10.3) mg/dL All other labs normal. - Imaging CT scan - abdomen: report reviewed, image reviewed CT scan - pelvis: report reviewed, image reviewed Consult Discharge Plan - Plan [facility]: [facility] [Primary Care Provider] -
[2017-11-02] MEDS: Insulin LISPRO 300 UNITS/3 ML VIAL SQ SCH ×4 (07:54→21:29)
[2017-11-02] MEDS ORDERED: cefTRIAXone 1,000 MG in Water for inj. (sterile) 10 ML IVP SCH (09:00)
[2017-11-02] MEDS: Artificial Tears SOLN 15 ML BOTTLE BOTH EYES SCH ×4 (09:45→21:21)
[2017-11-02] MEDS: cloNIDine HCl 0.1 MG TABLET PO SCH ×2 (13:20→21:20)
[2017-11-02] MEDS: amLODIPine 5 MG TABLET PO SCH (13:21)
--- NOTE | 2017-11-02 17:52 | Electrocardiograph Report ---
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
--- NOTE | 2017-11-02 18:18 | Nephrology Consult Note ---
Date of Encounter: 11/02/17 Time of Encounter: 10:10 Assessment and Plan (1) ESRD (end stage renal disease) on dialysis Current Visit: Yes Status: Chronic ESRD on HD M/W/. He last dialyzed at [facility] yesterday (Monday), and so I recommend he next have dialysis on Monday (tomorrow). He may need MICHELLE added during this admission. Will monitor BP, H/H, UOP, Ca, Albumin and nutrition. I requested the inpatient np test his Permacath, which aspirated and flushed well, plus she was able dress it nicely. Continue to follow a renal protective and supportive strategy. Thank you for consulting the [facility] service My colleague Dr. Finn will be on-call tomorrow. Thank you. (2) Hematuria Current Visit: Yes Status: Acute Agree with CBI. Appreciate urology. Qualifiers: Hematuria type: gross Qualified Code(s): R31.0 - Gross hematuria (3) Acute blood loss anemia Current Visit: No Status: Acute Suspect d/t the gross hematuria (4) Essential hypertension Current Visit: No Status: Chronic CCC History of Present Illness - Reason for Consult Consult date: 11/02/17 end stage renal disease Requesting physician: Gabriella De Luna - Chief Complaint ESRD - History of Present Illness Kalen Webb is a very pleasant 82 y/o male with a pmh of CVA and dysarthria, ESRD on HD M/W/ (followed by Dr. Stovall) and et al who presented for gross hematuria. He was seen by Urology and started on CBI. The pt's primary kindergarten assistant is Dr. Stovall, since per report, the pt recently returned to [place], [place], after a hospitalization in [place], [place], for CVA and was started on HD there, and then the pt was placed randomly into the [facility] dialysis unit when he was discharged from a [place] hospital. The was not able provide much history due to his dysarthria and there was no family in the room during my rounds this AM. His dialysis catheter (Right Permacath) had some loose sutures per the floor RN and in redressing it with the inpatient np, the cuff was not exposed. Most HPI and ROS was completely limited other than chart review d/t his hx of CVA and pronounced dysarthria. Past Med Surg Social Fam HX - Past Medical History Medical history: arthritis, CHF, coronary artery disease, CVA, diabetes, dialysis, GI bleed, hyperlipidemia, hypertension, myocardial infarction, osteoporosis, peripheral artery disease, renal disease, TIA, valvular heart disease, other Psychiatric history: no psych history, other - Past Surgical History Surgical History: coronary bypass (CABG) - Social History Smoking Status: Former smoker Smokeless Tobacco Status: No Alcohol use: none Drug use: none - Family History Mother History Unknown: Yes Medications and Allergies Acetaminophen [Tylenol] 650 mg PO Q6HR PRN 12/09/16 [History] Amlodipine Besylate 10 mg PO DAILY 12/09/16 [History] Brimonidine 0.2% [Alphagan] 1 drop LEFT EYE TID 12/09/16 [History] Carvedilol 25 mg PO BID 12/09/16 [History] Dorzolamide/Timolol/Pf [Cosopt Pf Eye Drops] 1 drop LEFT EYE BID 12/09/16 [ History] Doxazosin Mesylate [Cardura] 8 mg PO BID 12/09/16 [History] Finasteride [Proscar] 5 mg PO DAILY 12/09/16 [History] Hydralazine HCl 100 mg PO TID 12/09/16 [History] Insulin ASPART [NovoLOG] 4 unit SQ TIDAC 12/09/16 [History] Insulin Glargine [Lantus] 9 unit SQ DAILY 12/09/16 [History] Ipratropium/Albuterol Neb [Duoneb] 3 ml IH Q4HR PRN 12/09/16 [History] Latanoprost [Xalatan] 1 drop LEFT EYE HS 12/09/16 [History] Sertraline [Zoloft] 100 mg PO DAILY 12/09/16 [History] Atorvastatin Calcium [Lipitor] 40 mg PO HS 04/21/17 [History] Omeprazole [PriLOSEC] 20 mg PO DAILY 04/21/17 [History] PrednisoLONE Acetate 1% Opth [PredFORTE 1%] 1 drop RIGHT EYE QID 04/21/17 [ History] Sevelamer [Renvela] 800 mg PO TIDWM 04/21/17 [History] cloNIDine HCl [Clonidine HCl] 0.1 mg PO TID 04/21/17 [History] Aspirin 81 mg PO DAILY 11/01/17 [History] Calcitriol [Rocaltrol] 0.25 mcg PO DAILY 11/01/17 [History] Carboxymethylcellulose Sodium [Refresh Liquigel] 1 drop BOTH EYES AD PRN [History] Ergocalciferol (VITAMIN D2) [Vitamin D2] 50,000 unit PO MO 11/01/17 [History] Erythromycin OPTH Oint 1 appl RIGHT EYE QID 11/01/17 [History] Hydrocortisone 1% CREAM [Cortaid] 1 appl TP BID PRN 11/01/17 [History] Isosorbide MONOnitrate (24 HR) [Imdur] 30 mg PO DAILY 11/01/17 [History] Mineral Oil/Petrolatum,White [Eucerin Creme] 1 appl TP DAILY 11/01/17 [History] Nitroglycerin [Nitrostat] 0.4 mg SL Q5M PRN 11/01/17 [History] Ondansetron HCl [Zofran] 4 mg PO TID PRN 11/01/17 [History] Polyethylene Glycol 3350 [MiraLAX] 17 gm PO DAILY PRN 11/01/17 [History] Polyvinyl Alcohol [Artificial Tears] 2 drop BOTH EYES QID 11/01/17 [History] Renal Vitamin [Renal Caps Softgel] 1 mg PO DAILY 11/01/17 [History] 3 Allergy/AdvReac Type Severity Reaction Status Date / Time lisinopril AdvReac unknown Verified 05/10/17 15:37 Review of Systems ROS unobtainable: other (CVA induced dysarthria) Exam - Vital Signs Vital signs: Initial Vital Signs Temp Pulse Resp BP Pulse Ox 99.1 F 74 16 144/67 96 11/01/17 19:18 11/01/17 19:18 11/01/17 19:18 11/01/17 19:18 11/01/17 19:18 Vital Signs - Last 8 Hours Temp Pulse Resp BP Pulse Ox 11/02/17 17:02 98.6 F 70 16 168/69 96 11/02/17 11:00 97.6 F 75 18 184/77 94 Intake and Output 11/02/17 11/02/17 11/02/17 07:59 15:59 23:59 Intake Total 100 / 100 170 / 170 Output Total 825 / 825 250 / 250 Balance 100 / 100 -655 / -655 -250 / -250 Intake: IV Fluids 100 / 100 Diflucan Premix 200 MG/100 ML 100 / 100 200 mg In 100 ml @ 100 mls/hr IVPB Q24H [facility] Rx#:[id number] Oral 170 / 170 Output: Urine 575 / 575 250 / 250 Catheter 250 / 250 Other: Intake, CBI Fluid 700 800 Meal Breakfast Percent of Meal Consumed 100% Output, CBI Fluid 700 800 Blood Glucose* 110 150 159 - General Appearance General appearance: well-developed, appears started age, cachectic, chronically ill, fatigue, frail EENT: ATNC, PERRL, mucous membranes moist Neck: supple Respiratory: clear Cardiology: no edema, regular rate, regular rhythm, normal S1, normal S2 - Dialysis Access Dialysis Vascular Access: Venous Catheter (Rt Permacath: cuff not exposed and no surrounding erythema but the suture was not securely placed) Gastrointestinal: normoactive bowel sounds, no tenderness, no guarding Integumentary: warm and dry Neurologic: no asterixis, aphasia (and dysarthria) Musculoskeletal: no deformities, no erythema, no clubbing Psychiatric: mood/affect appropriate, cooperative Results - Lab Results 11/02/17 14:08 11/02/17 05:22 Most recent lab results Calcium 7.5 mg/dL (8.6-10.3) L 11/02/17 05:22 I reviewed the progress notes, labs, meds, vital signs, imaging. Consult Discharge Plan - Plan [facility]errals: [facility] [Primary Care Provider] -
[2017-11-02] MEDS: Isosorbide MONOnitrate (24 HR) 30 MG TAB.ER.24H PO SCH (18:21)
--- NOTE | 2017-11-02 18:40 | Internal Med Progress Note ---
Date of Encounter: 11/02/17 Time of Encounter: 08:50 - Assessment and plan (1) Hematuria Current Visit: Yes Status: Acute Assessment and plan: Noted to have gross hematuria with clots; Urology on board, plan for CBI today; likely related to prostatomegaly; CT abdomen shows prostatomegaly and bladder wall thickening; monitor Hb, baseline at 10 and it is 8.8 today; plan to transfuse of <8; Qualifiers: Glomerular morphologic changes: unspecified whether glomerular morphologic changes present Qualified Code(s): N02.9 - Recurrent and persistent hematuria with unspecified morphologic changes (2) UTI (urinary tract infection) Current Visit: Yes Status: Acute Assessment and plan: recent urine culture from 10/29/17 grows Lexie; continue PO Fluconazole to complete a 5-day course; Qualifiers: Urinary tract infection type: acute cystitis Hematuria presence: with hematuria Qualified Code(s): N30.01 - Acute cystitis with hematuria (3) Diabetes mellitus Current Visit: Yes Status: Chronic Assessment and plan: continue Accucheck blood glucose monitoring with sliding scale insulin; diabetic diet; Qualifiers: Diabetes mellitus type: type 2 Diabetes mellitus complication status: with kidney complications Diabetes mellitus complication detail: with chronic kidney disease Diabetes mellitus penitentiary insulin 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 Chronic kidney disease stage: on chronic dialysis Qualified Code(s): E11.22 - Type 2 diabetes mellitus with diabetic chronic kidney disease; N18.6 - End stage renal disease; N18.6 - End stage renal disease; N18.6 - End stage renal disease; N18.6 - End stage renal disease; Z79.4 - prison (current) use of insulin; Z79.4 - prison (current) use of insulin; Z79.4 - prison (current ) use of insulin; Z79.4 - prison (current) use of insulin; Z99.2 - Dependence on renal dialysis; Z99.2 - Dependence on renal dialysis; Z99.2 - Dependence on renal dialysis; Z99.2 - Dependence on renal dialysis (4) ESRD (end stage renal disease) on dialysis Current Visit: Yes Status: Chronic Assessment and plan: Nephrology on board, receiving regular HD sessions in the hospital; (5) Indwelling catheter present on admission Current Visit: Yes Status: Chronic Assessment and plan: patient has chronic Syed catheter due to previous stroke; (6) Acute blood loss anemia Current Visit: Yes Status: Acute Assessment and plan: continue to monitor Hb and transfuse if <8; (7) 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 transplanted heart: [place] heart Associated angina: without angina Qualified Code(s): I25.810 - Atherosclerosis of coronary artery bypass graft(s) without angina pectoris (10) Essential hypertension Current Visit: Yes Status: Chronic Assessment and plan: BP noted to be elevated; will resume home meds; (11) PAD (peripheral artery disease) Current Visit: Yes Status: Chronic (12) CVA (cerebral vascular accident) Current Visit: Yes Status: Chronic Qualifiers: CVA mechanism: unspecified Qualified Code(s): I63.9 - Cerebral infarction, unspecified - Subjective Interval history: Reports feeling well; denies abdominal pain, nausea, vomiting; he continues to have hematuria with clots; has slurred speech with intermittent confusion from previous stroke; - Constitutional Vitals: Temp Pulse Resp BP Pulse Ox 99.2 F 71 16 163/70 97 11/02/17 18:31 11/02/17 18:31 11/02/17 18:31 11/02/17 18:31 11/02/17 18:31 General appearance: Present: A&O X 2. Absent: answers questions appropriately - Respiratory Respiratory exam: Present: CTAB. Absent: accessory muscle use, rales, rhonchi, wheezes - Cardiovascular Cardiovascular exam: Present: RRR, +S1, +S2, systolic murmur. Absent: diastolic murmur, gallop, rubs - GI/Abdominal GI/Abdominal exam: Present: normal bowel sounds, soft (lower abdominal and suprapubic tenderness), no peritoneal signs. Absent: distended, tenderness - Extremities Exam Extremities exam: Present: pedal edema, warm, radial pulses palpable and symmetrical. Absent: calf tenderness, cyanotic - Neurological Exam Neurological exam: Present: altered, CN II-XII intact (dysphasia), no focal deficits (B/L LE weakness). Absent: pronater drift, facial droop, speech deficit Internal Medicine: Result - Labs CBC & Chem 7: 11/04/17 05:27 11/04/17 05:27 Labs: Short CBC 11/02/17 11/02/17 11/02/17 Range/Units 05:22 10:30 14:08 WBC 6.8 (4.3-11.1) K/mcL Hgb 8.8 L 9.5 L 9.0 L (12.9-16.9) g/dL Hct 28.9 L (37.5-50.1) % Plt Count 169 (140-400) K/mcL Neutrophils # 4.7 (1.6-8.9) K/mcL BMP 11/02/17 05:22 Sodium 141 Potassium 3.4 L D Chloride 104 Carbon Dioxide 29 BUN 23 Creatinine 2.50 H Glucose 103 Calcium 7.5 L - ABG Interpretation ABG results: PT/INR, D-dimer PT 12.7 Seconds (9.4-12.1) H 11/01/17 19:30 Consult Discharge Plan - Plan [facility]errals: [facility] [Primary Care Provider] -
[2017-11-02] MEDS ORDERED: Insulin LISPRO 300 UNITS/3 ML VIAL SQ SCH (21:00)
[2017-11-02] MEDS: Fluconazole 100 MG TABLET PO SCH (21:20)
[2017-11-03 06:02] LABS: Hematocrit 26.9 % (37.5-50.1); Hemoglobin 8.2 g/dL (12.9-16.9); Mean Corpuscular HGB Conc 30.5 g/dL (31.6-35.5); Mean Corpuscular Hemoglobin 26.3 pg (28.0-33.3); Mean Corpuscular Volume 86.2 fL (83.0-100.0); Mean Platelet Volume 10.2 fL (9.4-12.4); Platelet Count 175 K/mcL (140-400); Red Blood Count 3.12 M/mcL (4.19-5.50); Red Cell Distribution Width 17.3 % (11.5-14.5)
[2017-11-03] MEDS ORDERED: 0.9 % Sodium Chloride 250 ML IVC PRN (06:09)
[2017-11-03 06:23] LABS: Calcium 7.9 mg/dL (8.6-10.3); Potassium 3.7 mEq/L (3.5-5.1)
--- NOTE | 2017-11-03 07:25 | Urology Progress Note ---
Date of Encounter: 11/03/17 Time of Encounter: 07:24 - Assessment and Plan (1) Hematuria Current Visit: Yes Status: Acute Assessment and plan: Hematuria has resolved. We will monitor for now. Okay to turn off CBI. I would continue Syed catheter. Qualifiers: Hematuria type: gross Qualified Code(s): R31.0 - Gross hematuria Progress Note Narrative: 82-year-old man with hematuria is improving. Urine is clear today on CBI. Objective Initial Vital Signs Temp Pulse Resp BP Pulse Ox 99.1 F 74 16 144/67 96 11/01/17 19:18 11/01/17 19:18 11/01/17 19:18 11/01/17 19:18 11/01/17 19:18 - General physical appearance Present: well developed, well nourished, no distress - Respiratory Present: normal respiratory effort - Genitourinary Urine Appearance: Present: Clear - Labs 11/03/17 05:46 11/03/17 05:46 Diabetes panel 11/03/17 Range/Units 05:46 Sodium 139 (136-145) mEq/L Potassium 3.7 (3.5-5.1) mEq/L Chloride 105 (98-107) mEq/L Carbon Dioxide 25 (23-29) mEq/L BUN 39 H (8-23) mg/dL Creatinine 3.74 H (0.70-1.30) mg/dL Glucose 185 H (70-105) mg/dL Calcium 7.9 L (8.6-10.3) mg/dL Calcium panel 11/03/17 Range/Units 05:46 Calcium 7.9 L (8.6-10.3) mg/dL Pituitary panel 11/03/17 Range/Units 05:46 Sodium 139 (136-145) mEq/L Potassium 3.7 (3.5-5.1) mEq/L Chloride 105 (98-107) mEq/L Carbon Dioxide 25 (23-29) mEq/L BUN 39 H (8-23) mg/dL Creatinine 3.74 H (0.70-1.30) mg/dL Glucose 185 H (70-105) mg/dL Calcium 7.9 L (8.6-10.3) mg/dL Adrenal panel 11/03/17 Range/Units 05:46 Sodium 139 (136-145) mEq/L Potassium 3.7 (3.5-5.1) mEq/L Chloride 105 (98-107) mEq/L Carbon Dioxide 25 (23-29) mEq/L BUN 39 H (8-23) mg/dL Creatinine 3.74 H (0.70-1.30) mg/dL Glucose 185 H (70-105) mg/dL Calcium 7.9 L (8.6-10.3) mg/dL Consult Discharge Plan - Plan Referrals: [facility] [Primary Care Provider] -
[2017-11-03] MEDS: Insulin LISPRO 300 UNITS/3 ML VIAL SQ SCH ×4 (08:08→21:47)
[2017-11-03] MEDS: cloNIDine HCl 0.1 MG TABLET PO SCH ×3 (08:08→21:34)
[2017-11-03] MEDS: Isosorbide MONOnitrate (24 HR) 30 MG TAB.ER.24H PO SCH (08:08)
[2017-11-03] MEDS: amLODIPine 5 MG TABLET PO SCH (08:08)
[2017-11-03] MEDS: Artificial Tears SOLN 15 ML BOTTLE BOTH EYES SCH ×4 (08:09→21:41)
[2017-11-03 08:39] LABS: Hepatitis B Surface Antibody 0.15 mIU/mL; Hepatitis B Surface Antigen Nonreactive (Nonreactive)
--- NOTE | 2017-11-03 13:04 | Nephrology Progress Note ---
Date of Encounter: 11/03/17 Time of Encounter: 13:00 - Assessment and Plan (1) ESRD (end stage renal disease) on dialysis Status: Chronic Continue HD with UF as tolerated Continue renal diet (2) Anemia Status: Chronic Hgb decreased at 8.2 likely due to hematuria Will check iron levels and continue EPO Qualifiers: Anemia type: unspecified type Qualified Code(s): D64.9 - Anemia, unspecified (3) Hematuria Status: Acute Per recs Qualifiers: Hematuria type: gross Qualified Code(s): R31.0 - Gross hematuria Subjective Interval history: Pt seen and examined on HD, interim events noted. gross hematuria resolved after CBI. Objective - Vital Signs Vital signs: Vital Signs Temp Pulse Resp BP Pulse Ox 11/03/17 10:39 98.3 F 66 17 116/49 96 11/03/17 06:59 98.5 F 72 17 163/69 97 11/03/17 03:57 98.5 F 65 17 161/76 97 11/02/17 23:32 98.7 F 71 17 162/69 97 11/02/17 18:31 99.2 F 71 16 163/70 97 11/02/17 17:02 98.6 F 70 16 168/69 96 Intake and Output 11/02/17 11/03/17 11/03/17 23:59 07:59 15:59 Intake Total 0 / 0 0 / 0 120 / 120 Output Total 3400 / 3400 1949 / 1950 0 / 0 Balance -3400 / -3400 -1950 / -1950 120 / 120 Intake: Oral 0 / 0 0 / 0 120 / 120 Output: Urine 2350 / 2350 1949 0 / 0 Catheter 1050 / 1050 2-way Urethral 1050 / 1050 Other: Intake, CBI Fluid 800 1,000 Meal Breakfast Percent of Meal Consumed 100% Output, CBI Fluid 800 1,000 Weight 71.9 kg Blood Glucose* 261 186 158 Patient Weight 11/03/17 23:59 Weight 71.9 kg - General Appearance General appearance: Present: frail EENT: Present: ATNC, mucous membranes moist Neck: Present: no JVD, supple Respiratory: Present: clear (ant bilat) Cardiology: Present: no edema, normal S1, normal S2 Dialysis Vascular Access: Venous Catheter (permcath) Gastrointestinal: Present: no tenderness, no guarding Integumentary: Present: warm and dry Neurologic: Present: no asterixis Musculoskeletal: Present: no deformities Psychiatric: Present: mood/affect appropriate, cooperative - Lab 11/06/17 04:08 11/06/17 04:08 Most recent lab results Calcium 7.9 mg/dL (8.6-10.3) L 11/03/17 05:46 Consult Discharge Plan - Plan Referrals: [facility] [Primary Care Provider] - ([facility]) Prescriptions: Fluconazole [Diflucan] 200 mg PO Q24H #2 tablet
[2017-11-03] MEDS: hydrALAZINE 25 MG TABLET PO SCH ×2 (17:00→21:35)
[2017-11-03] MEDS ORDERED: 0.9 % Sodium Chloride 1,000 ML ONE (17:50)
--- NOTE | 2017-11-03 17:53 | Internal Med Progress Note ---
Date of Encounter: 11/03/17 Time of Encounter: 11:00 - Assessment and plan (1) Hematuria Current Visit: Yes Status: Acute Assessment and plan: Improved. Completed continuous bladder irrigation. Urology follow-up noted, continue to monitor hemoglobin. CT abdomen shows prostatomegaly and bladder wall thickening; monitor Hb, baseline at 10 and it is 8.2 today; plan to transfuse if <8; Qualifiers: Glomerular morphologic changes: unspecified whether glomerular morphologic changes present Qualified Code(s): N02.9 - Recurrent and persistent hematuria with unspecified morphologic changes (2) UTI (urinary tract infection) Current Visit: Yes Status: Acute Assessment and plan: recent urine culture from 10/29/17 grows Lexie; continue PO Fluconazole to complete a 5-day course; Qualifiers: Urinary tract infection type: acute cystitis Hematuria presence: with hematuria Qualified Code(s): N30.01 - Acute cystitis with hematuria (3) Indwelling catheter present on admission Current Visit: Yes Status: Chronic Assessment and plan: patient has chronic Syed catheter due to previous stroke; (4) Acute blood loss anemia Current Visit: Yes Status: Acute Assessment and plan: continue to monitor Hb and transfuse if <8; (5) 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 transplanted heart: [place] heart Associated angina: without angina Qualified Code(s): I25.810 - Atherosclerosis of coronary artery bypass graft(s) without angina pectoris (8) Essential hypertension Current Visit: Yes Status: Chronic Assessment and plan: BP noted to be better controlled; continue home meds; (9) Diabetes mellitus Current Visit: Yes Status: Chronic Assessment and plan: continue Accucheck blood glucose monitoring with sliding scale insulin; diabetic diet; Qualifiers: Diabetes mellitus type: type 2 Diabetes mellitus complication status: with kidney complications Diabetes mellitus complication detail: with chronic kidney disease Diabetes mellitus mcc insulin use: with intermediate teacher use Chronic kidney disease stage: on chronic dialysis Qualified Code(s): E11.22 - Type 2 diabetes mellitus with diabetic chronic kidney disease; N18.6 - End stage renal disease; Z99.2 - Dependence on renal dialysis; Z99.2 - Dependence on renal dialysis; Z99.2 - Dependence on renal dialysis; N18.6 - End stage renal disease; N18.6 - End stage renal disease; N18.6 - End stage renal disease ; Z79.4 - detention (current) use of insulin; Z79.4 - detention (current) use of insulin; Z79.4 - long term care social worker (current) use of insulin; Z79.4 - long term care social worker ( current) use of insulin; Z99.2 - Dependence on renal dialysis (10) PAD (peripheral artery disease) Current Visit: Yes Status: Chronic (11) ESRD (end stage renal disease) on dialysis Current Visit: Yes Status: Chronic Assessment and plan: Nephrology on board, receiving regular HD sessions in the hospital; (12) CVA (cerebral vascular accident) Current Visit: Yes Status: Chronic Qualifiers: CVA mechanism: unspecified Qualified Code(s): I63.9 - Cerebral infarction, unspecified - Subjective Interval history: Patient is noted to be very sleepy, unable to provide any history. Hematuria appears to be resolved, noted to have clear urine in Syed bag. No fever, chills, shortness of breath. - Constitutional Vitals: Temp Pulse Resp BP Pulse Ox 97.5 F L 66 17 105/53 96 11/03/17 17:04 11/03/17 10:39 11/03/17 17:04 11/03/17 17:04 11/03/17 10:39 General appearance: Present: A&O X 1. Absent: answers questions appropriately - Respiratory Respiratory exam: Present: CTAB. Absent: accessory muscle use, rales, rhonchi, wheezes - Cardiovascular Cardiovascular exam: Present: RRR, +S1, +S2, systolic murmur. Absent: diastolic murmur, gallop, rubs - GI/Abdominal GI/Abdominal exam: Present: normal bowel sounds, soft (Syed catheter with clear urine.), no peritoneal signs. Absent: distended, tenderness - Extremities Exam Extremities exam: Present: pedal edema, warm, radial pulses palpable and symmetrical. Absent: calf tenderness, cyanotic - Neurological Exam Neurological exam: Present: altered, CN II-XII intact, no focal deficits ( Decreased motor power in bilateral lower extremities). Absent: pronater drift, facial droop, speech deficit Internal Medicine: Result - Labs CBC & Chem 7: 11/04/17 05:27 11/04/17 05:27 - ABG Interpretation ABG results: PT/INR, D-dimer PT 12.7 Seconds (9.4-12.1) H 11/01/17 19:30 Consult Discharge Plan - Plan [facility] Care Provider[facility] - ([facility])
[2017-11-03] MEDS: Ipratropium/Albuterol Neb 3 ML IH SCH ×2 (20:41→22:04)
[2017-11-03] MEDS: Acetylcysteine 10% 2 ML INHSOL IH SCH ×2 (20:41→22:04)
[2017-11-03] MEDS: Fluconazole 100 MG TABLET PO SCH (21:34)
[2017-11-04] MEDS: Ipratropium/Albuterol Neb 3 ML IH SCH ×4 (03:29→21:50)
[2017-11-04] MEDS: Acetylcysteine 10% 2 ML INHSOL IH SCH ×4 (03:30→21:50)
[2017-11-04 05:53] LABS: Hematocrit 28.5 % (37.5-50.1); Hemoglobin 8.8 g/dL (12.9-16.9); Mean Corpuscular HGB Conc 30.9 g/dL (31.6-35.5); Mean Corpuscular Hemoglobin 26.3 pg (28.0-33.3); Mean Corpuscular Volume 85.3 fL (83.0-100.0); Mean Platelet Volume 9.7 fL (9.4-12.4); Platelet Count 194 K/mcL (140-400); Red Blood Count 3.34 M/mcL (4.19-5.50); Red Cell Distribution Width 17.1 % (11.5-14.5)
[2017-11-04 06:17] LABS: Calcium 8.2 mg/dL (8.6-10.3); Potassium 3.1 mEq/L (3.5-5.1)
[2017-11-04] MEDS: Insulin LISPRO 300 UNITS/3 ML VIAL SQ SCH ×4 (08:55→20:55)
[2017-11-04] MEDS: cloNIDine HCl 0.1 MG TABLET PO SCH ×3 (08:55→20:50)
[2017-11-04] MEDS: Artificial Tears SOLN 15 ML BOTTLE BOTH EYES SCH ×4 (08:55→23:14)
[2017-11-04] MEDS: amLODIPine 5 MG TABLET PO SCH (08:55)
[2017-11-04] MEDS: hydrALAZINE 25 MG TABLET PO SCH ×3 (08:55→20:50)
[2017-11-04] MEDS: Isosorbide MONOnitrate (24 HR) 30 MG TAB.ER.24H PO SCH (08:55)
--- NOTE | 2017-11-04 09:19 | Urology Progress Note ---
Date of Encounter: 11/04/17 Time of Encounter: 09:17 - Assessment and Plan (1) Hematuria Current Visit: Yes Status: Acute Assessment and plan: His hematuria has resolved. I would recommend discharging him home with the current catheter. He can follow up in 1-2 weeks for a catheter change. Alternatively, [facility] Qualifiers: Hematuria type: gross Qualified Code(s): R31.0 - Gross hematuria Progress Note Narrative: 82-year-old man with hematuria. The bleeding has resolved. He has been off bladder irrigation. He is doing well. Objective Initial Vital Signs Temp Pulse Resp BP Pulse Ox 99.1 F 74 16 144/67 96 11/01/17 19:18 11/01/17 19:18 11/01/17 19:18 11/01/17 19:18 11/01/17 19:18 - General physical appearance Present: well developed, well nourished, no distress - Respiratory Present: normal respiratory effort - Abdomen Present: soft - Genitourinary Urine Appearance: Present: Clear - Labs 11/04/17 05:27 11/04/17 05:27 Diabetes panel 11/04/17 Range/Units 05:27 Sodium 138 (136-145) mEq/L Potassium 3.1 L (3.5-5.1) mEq/L Chloride 96 L (98-107) mEq/L Carbon Dioxide 35 H (23-29) mEq/L BUN 21 (8-23) mg/dL Creatinine 2.70 H (0.70-1.30) mg/dL Glucose 217 H (70-105) mg/dL Calcium 8.2 L (8.6-10.3) mg/dL Calcium panel 11/04/17 Range/Units 05:27 Calcium 8.2 L (8.6-10.3) mg/dL Pituitary panel 11/04/17 Range/Units 05:27 Sodium 138 (136-145) mEq/L Potassium 3.1 L (3.5-5.1) mEq/L Chloride 96 L (98-107) mEq/L Carbon Dioxide 35 H (23-29) mEq/L BUN 21 (8-23) mg/dL Creatinine 2.70 H (0.70-1.30) mg/dL Glucose 217 H (70-105) mg/dL Calcium 8.2 L (8.6-10.3) mg/dL Adrenal panel 11/04/17 Range/Units 05:27 Sodium 138 (136-145) mEq/L Potassium 3.1 L (3.5-5.1) mEq/L Chloride 96 L (98-107) mEq/L Carbon Dioxide 35 H (23-29) mEq/L BUN 21 (8-23) mg/dL Creatinine 2.70 H (0.70-1.30) mg/dL Glucose 217 H (70-105) mg/dL Calcium 8.2 L (8.6-10.3) mg/dL Consult Discharge Plan - Plan Referrals: [facility] [Primary Care Provider] -
--- NOTE | 2017-11-04 10:46 | Nephrology Progress Note ---
Date of Encounter: 11/04/17 Time of Encounter: 10:45 - Assessment and Plan (1) ESRD (end stage renal disease) on dialysis Status: Chronic s/p HD yesterday, next HD for monday whether inpatient or outpatient Lytes stable except low potassium, can gently replete per primary team (2) Anemia Status: Chronic Hgb low but stable at 8.8 Iron sat WNL and continue EPO Qualifiers: Anemia type: unspecified type Qualified Code(s): D64.9 - Anemia, unspecified Subjective Interval history: Pt seen and examined with no new complaints. Off bladder irrigation with no further gross hematuria Objective - Vital Signs Vital signs: Vital Signs Temp Pulse Resp BP Pulse Ox 11/04/17 07:50 97.9 F 59 15 177/72 98 11/04/17 04:32 98.2 F 76 14 166/70 96 11/04/17 03:30 16 96 11/04/17 00:57 98.5 F 67 14 160/64 96 11/03/17 21:15 99.8 F H 74 16 151/67 96 11/03/17 20:41 16 99 11/03/17 17:04 97.5 F L 17 105/53 11/03/17 16:30 97/50 11/03/17 16:15 113/60 11/03/17 16:00 132/66 11/03/17 15:45 142/73 11/03/17 15:30 135/74 11/03/17 15:15 143/72 11/03/17 15:00 157/82 11/03/17 14:45 143/77 11/03/17 14:30 121/67 11/03/17 14:15 116/60 11/03/17 14:00 114/64 11/03/17 13:45 105/57 11/03/17 13:30 116/61 Intake and Output 11/03/17 11/04/17 11/04/17 23:59 07:59 15:59 Output Total 4100 / 4100 250 / 250 Balance -4100 / -4100 -250 / -250 Output: Urine 0 / 0 Total Dialysis (HD) Output 4100 / 4100 Catheter 250 / 250 Other: Weight 67 kg Blood Glucose* 287 198 Hemodialysis Net Fluid Removed 3500 (mL) Patient Weight 11/04/17 23:59 Weight 67 kg - General Appearance General appearance: Present: chronically ill, frail EENT: Present: ATNC, mucous membranes moist Neck: Present: no JVD, supple Respiratory: Present: clear Cardiology: Present: no edema, normal S1, normal S2 Dialysis Vascular Access: Venous Catheter (permcath) Gastrointestinal: Present: no tenderness, no guarding Integumentary: Present: warm and dry Neurologic: Present: no focal deficit Musculoskeletal: Present: no deformities Psychiatric: Present: mood/affect appropriate - Lab 11/06/17 04:08 11/06/17 04:08 Most recent lab results Calcium 8.2 mg/dL (8.6-10.3) L 11/04/17 05:27 Consult Discharge Plan - Plan [facility]errals: [facility] [Primary Care Provider[facility] - (ECF) Prescriptions: Fluconazole [Diflucan] 200 mg PO Q24H #2 tablet
[2017-11-04] MEDS: Fluconazole 100 MG TABLET PO SCH (20:50)
[2017-11-05] MEDS: Ipratropium/Albuterol Neb 3 ML IH SCH ×4 (03:40→21:31)
[2017-11-05] MEDS: Acetylcysteine 10% 2 ML INHSOL IH SCH ×4 (03:40→21:31)
[2017-11-05 05:56] LABS: Hematocrit 28.2 % (37.5-50.1); Hemoglobin 8.6 g/dL (12.9-16.9); Mean Corpuscular HGB Conc 30.5 g/dL (31.6-35.5); Mean Corpuscular Hemoglobin 25.9 pg (28.0-33.3); Mean Corpuscular Volume 84.9 fL (83.0-100.0); Mean Platelet Volume 10.1 fL (9.4-12.4); Platelet Count 229 K/mcL (140-400); Red Blood Count 3.32 M/mcL (4.19-5.50); Red Cell Distribution Width 17.2 % (11.5-14.5)
[2017-11-05 06:16] LABS: Calcium 8.2 mg/dL (8.6-10.3); Potassium 3.5 mEq/L (3.5-5.1)
[2017-11-05] MEDS: hydrALAZINE 25 MG TABLET PO SCH ×3 (08:31→21:46)
[2017-11-05] MEDS: Isosorbide MONOnitrate (24 HR) 30 MG TAB.ER.24H PO SCH (08:31)
[2017-11-05] MEDS: amLODIPine 5 MG TABLET PO SCH (08:31)
[2017-11-05] MEDS: Artificial Tears SOLN 15 ML BOTTLE BOTH EYES SCH ×4 (08:32→21:55)
[2017-11-05] MEDS: cloNIDine HCl 0.1 MG TABLET PO SCH ×3 (08:32→21:46)
[2017-11-05] MEDS: Insulin LISPRO 300 UNITS/3 ML VIAL SQ SCH ×4 (08:32→21:40)
--- NOTE | 2017-11-05 10:58 | Nephrology Progress Note ---
Date of Encounter: 11/05/17 Time of Encounter: 11:05 - Assessment and Plan (1) ESRD (end stage renal disease) on dialysis Status: Chronic s/p HD monday, next HD planned for monday Lytes stable, WNL (2) Anemia Status: Chronic Hgb low but fairly stable at 8.6 Iron sat WNL and continue EPO Qualifiers: Anemia type: unspecified type Qualified Code(s): D64.9 - Anemia, unspecified Subjective Interval history: Pt seen and examined with no new complaints. Objective - Vital Signs Vital signs: Vital Signs Temp Pulse Resp BP Pulse Ox 11/05/17 07:55 97 11/05/17 07:45 98.7 F 71 17 144/63 97 11/05/17 04:03 98.8 F 70 17 120/93 95 11/05/17 03:40 16 93 11/05/17 00:18 98.7 F 68 16 115/87 93 11/04/17 21:50 16 96 11/04/17 21:01 96 11/04/17 19:31 97.9 F 68 16 118/59 96 11/04/17 15:52 97.9 F 59 169 129/68 100 11/04/17 15:47 16 95 11/04/17 11:45 98.2 F 67 20 113/61 95 11/04/17 11:07 15 95 Intake and Output 11/04/17 11/05/17 11/05/17 23:59 07:59 15:59 Intake Total 120 / 120 360 / 360 Output Total 300 / 300 Balance 120 / 120 -300 / -300 360 / 360 Intake: Oral 120 / 120 360 / 360 Output: Catheter 300 / 300 Other: Meal Dinner Breakfast Percent of Meal Consumed 100% 100% Weight 67 kg Blood Glucose* 217 196 Patient Weight 11/05/17 23:59 Weight 67 kg - General Appearance General appearance: Present: chronically ill, frail EENT: Present: ATNC, mucous membranes moist Neck: Present: no JVD, supple Respiratory: Present: clear (ant bilat) Cardiology: Present: no edema, normal S1, normal S2 Gastrointestinal: Present: no tenderness, no guarding Integumentary: Present: warm and dry Neurologic: Present: no focal deficit Musculoskeletal: Present: no deformities Psychiatric: Present: mood/affect appropriate - Lab 11/06/17 04:08 11/06/17 04:08 Most recent lab results Calcium 8.2 mg/dL (8.6-10.3) L 11/05/17 05:20 Consult Discharge Plan - Plan Referrals: [facility] [Primary Care Provider] - (ECF) Prescriptions: Fluconazole [Diflucan] 200 mg PO Q24H #2 tablet
--- NOTE | 2017-11-05 17:08 | Internal Med Progress Note ---
Date of Encounter: 11/04/17 Time of Encounter: 17:00 - Assessment and plan (1) Hematuria Current Visit: Yes Status: Acute Assessment and plan: Improved. Completed continuous bladder irrigation. Urology follow-up noted, to f/up in 1-2 weeks as outpatient and to discharge on current Syed catheter. CT abdomen shows prostatomegaly and bladder wall thickening; Hb stable; Qualifiers: Glomerular morphologic changes: unspecified whether glomerular morphologic changes present Qualified Code(s): N02.9 - Recurrent and persistent hematuria with unspecified morphologic changes (2) UTI (urinary tract infection) Current Visit: Yes Status: Acute Assessment and plan: recent urine culture from 10/29/17 grows Lexie; continue PO Fluconazole to complete a 5-day course; Qualifiers: Urinary tract infection type: acute cystitis Hematuria presence: with hematuria Qualified Code(s): N30.01 - Acute cystitis with hematuria (3) Indwelling catheter present on admission Current Visit: Yes Status: Chronic (4) Acute blood loss anemia Current Visit: Yes Status: Resolved Assessment and plan: continue to monitor Hb and transfuse if <8; (5) 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 transplanted heart: [place] heart Associated angina: without angina Qualified Code(s): I25.810 - Atherosclerosis of coronary artery bypass graft(s) without angina pectoris (8) Essential hypertension Current Visit: Yes Status: Chronic Assessment and plan: BP noted to be better controlled; continue home meds; (9) Diabetes mellitus Current Visit: Yes Status: Chronic Assessment and plan: continue Accucheck blood glucose monitoring with sliding scale insulin; diabetic diet; Qualifiers: Diabetes mellitus type: type 2 Diabetes mellitus complication status: with kidney complications Diabetes mellitus complication detail: with chronic kidney disease Diabetes mellitus terminal worker insulin use: with terminal worker use Chronic kidney disease stage: on chronic dialysis Qualified Code(s): E11.22 - Type 2 diabetes mellitus with diabetic chronic kidney disease; N18.6 - End stage renal disease; Z99.2 - Dependence on renal dialysis; Z99.2 - Dependence on renal dialysis; Z99.2 - Dependence on renal dialysis; N18.6 - End stage renal disease; N18.6 - End stage renal disease; N18.6 - End stage renal disease ; Z79.4 - extermination inspector (current) use of insulin; Z79.4 - snf (current) use of insulin; Z79.4 - extermination inspector (current) use of insulin; Z79.4 - extermination inspector ( current) use of insulin; Z99.2 - Dependence on renal dialysis (10) PAD (peripheral artery disease) Current Visit: Yes Status: Chronic (11) ESRD (end stage renal disease) on dialysis Current Visit: Yes Status: Chronic Assessment and plan: Nephrology on board, receiving regular HD sessions in the hospital; (12) CVA (cerebral vascular accident) Current Visit: Yes Status: Chronic Qualifiers: CVA mechanism: unspecified Qualified Code(s): I63.9 - Cerebral infarction, unspecified - Subjective Interval history: Denies new complaints; no chest pain, dyspnea, abdominal pain; hematuria improved; completed CBI; - Constitutional Vitals: Temp Pulse Resp BP Pulse Ox 98.3 F 68 18 137/55 96 11/05/17 16:17 11/05/17 16:17 11/05/17 16:17 11/05/17 16:17 11/05/17 16:17 General appearance: Present: A&O X 2, answers questions appropriately - Cardiovascular Cardiovascular exam: Present: RRR, +S1, +S2, systolic murmur. Absent: diastolic murmur, gallop, rubs - GI/Abdominal GI/Abdominal exam: Present: normal bowel sounds, soft, no peritoneal signs. Absent: distended, tenderness Additional comments: Syed with no hematuria, clear urine; - Extremities Exam Extremities exam: Present: pedal edema, warm, radial pulses palpable and symmetrical. Absent: calf tenderness, cyanotic Internal Medicine: Result - Labs CBC & Chem 7: 11/05/17 05:20 11/05/17 05:20 Labs: Short CBC 11/05/17 Range/Units 05:20 WBC 7.2 (4.3-11.1) K/mcL Hgb 8.6 L (12.9-16.9) g/dL Hct 28.2 L (37.5-50.1) % Plt Count 229 (140-400) K/mcL BMP 11/05/17 05:20 Sodium 138 Potassium 3.5 Chloride 97 L Carbon Dioxide 31 H BUN 34 H Creatinine 4.23 H Glucose 162 H Calcium 8.2 L - ABG Interpretation ABG results: PT/INR, D-dimer PT 12.7 Seconds (9.4-12.1) H 11/01/17 19:30 Consult Discharge Plan - Plan [facility]errals: [facility] [Primary Care Provider[facility] - ([facility]F)
--- NOTE | 2017-11-05 17:13 | Internal Med Progress Note ---
Date of Encounter: 11/05/17 Time of Encounter: 11:35 - Assessment and plan (1) Hematuria Current Visit: Yes Status: Acute Assessment and plan: Resolved. Completed continuous bladder irrigation. Urology follow-up noted, to f/up in 1-2 weeks as outpatient and to discharge on current Syed catheter. Hb stable; medically stable, awaiting transfer back to [place]. Qualifiers: Glomerular morphologic changes: unspecified whether glomerular morphologic changes present Qualified Code(s): N02.9 - Recurrent and persistent hematuria with unspecified morphologic changes (2) UTI (urinary tract infection) Current Visit: Yes Status: Acute Assessment and plan: recent urine culture from 10/29/17 grows Lexie; continue PO Fluconazole to complete a 5-day course; Qualifiers: Urinary tract infection type: acute cystitis Hematuria presence: with hematuria Qualified Code(s): N30.01 - Acute cystitis with hematuria (3) Indwelling catheter present on admission Current Visit: Yes Status: Chronic (4) Acute blood loss anemia Current Visit: Yes Status: Resolved (5) 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 transplanted heart: [place] heart Associated angina: without angina Qualified Code(s): I25.810 - Atherosclerosis of coronary artery bypass graft(s) without angina pectoris (8) Essential hypertension Current Visit: Yes Status: Chronic (9) Diabetes mellitus Current Visit: Yes Status: Chronic Qualifiers: Diabetes mellitus type: type 2 Diabetes mellitus complication status: with kidney complications Diabetes mellitus complication detail: with chronic kidney disease Diabetes mellitus superintendent terminal insulin use: with fci use Chronic kidney disease stage: on chronic dialysis Qualified Code(s): E11.22 - Type 2 diabetes mellitus with diabetic chronic kidney disease; N18.6 - End stage renal disease; Z99.2 - Dependence on renal dialysis; Z99.2 - Dependence on renal dialysis; Z99.2 - Dependence on renal dialysis; N18.6 - End stage renal disease; N18.6 - End stage renal disease; N18.6 - End stage renal disease ; Z79.4 - extermination inspector (current) use of insulin; Z79.4 - extermination inspector (current) use of insulin; Z79.4 - senior care (current) use of insulin; Z79.4 - extermination inspector ( current) use of insulin; Z99.2 - Dependence on renal dialysis (10) PAD (peripheral artery disease) Current Visit: Yes Status: Chronic (11) ESRD (end stage renal disease) on dialysis Current Visit: Yes Status: Chronic Assessment and plan: Nephrology on board, receiving regular HD sessions in the hospital; (12) CVA (cerebral vascular accident) Current Visit: Yes Status: Chronic Qualifiers: CVA mechanism: unspecified Qualified Code(s): I63.9 - Cerebral infarction, unspecified - Subjective Interval history: Denies new complaints; no chest pain, dyspnea, abdominal pain; hematuria improved; good appetite; - Constitutional Vitals: Temp Pulse Resp BP Pulse Ox 98.3 F 68 18 137/55 96 11/05/17 16:17 11/05/17 16:17 11/05/17 16:17 11/05/17 16:17 11/05/17 16:17 General appearance: Present: A&O X 2 (slurred speech at baseline), answers questions appropriately - Respiratory Respiratory exam: Present: CTAB. Absent: accessory muscle use, rales, rhonchi, wheezes - Cardiovascular Cardiovascular exam: Present: RRR, +S1, +S2, systolic murmur. Absent: diastolic murmur, gallop, rubs - GI/Abdominal GI/Abdominal exam: Present: normal bowel sounds, soft, no peritoneal signs. Absent: distended, tenderness Internal Medicine: Result - Labs CBC & Chem 7: 11/05/17 05:20 11/05/17 05:20 Labs: Short CBC 11/05/17 Range/Units 05:20 WBC 7.2 (4.3-11.1) K/mcL Hgb 8.6 L (12.9-16.9) g/dL Hct 28.2 L (37.5-50.1) % Plt Count 229 (140-400) K/mcL BMP 11/05/17 05:20 Sodium 138 Potassium 3.5 Chloride 97 L Carbon Dioxide 31 H BUN 34 H Creatinine 4.23 H Glucose 162 H Calcium 8.2 L - ABG Interpretation ABG results: PT/INR, D-dimer PT 12.7 Seconds (9.4-12.1) H 11/01/17 19:30 Consult Discharge Plan - Plan Referrals: [facility] [Primary Care Provider] - (ECF)
[2017-11-05] MEDS: Fluconazole 100 MG TABLET PO SCH (21:46)
[2017-11-06] MEDS: Ipratropium/Albuterol Neb 3 ML IH SCH ×2 (03:45→10:56)
[2017-11-06] MEDS: Acetylcysteine 10% 2 ML INHSOL IH SCH ×2 (03:45→10:56)
[2017-11-06 04:43] LABS: Hematocrit 27.2 % (37.5-50.1); Hemoglobin 8.5 g/dL (12.9-16.9); Immature Platelets 1.3 % (1.1-6.1); Mean Corpuscular HGB Conc 31.3 g/dL (31.6-35.5); Mean Corpuscular Hemoglobin 26.4 pg (28.0-33.3); Mean Corpuscular Volume 84.5 fL (83.0-100.0); Mean Platelet Volume 10.3 fL (9.4-12.4); Red Blood Count 3.22 M/mcL (4.19-5.50); Red Cell Distribution Width 17.5 % (11.5-14.5)
[2017-11-06 04:46] LABS: Basophils # 0.1 K/mcL (0.0-0.2); Basophils % 0.6 %; Eosinophils # 0.4 K/mcL (0.0-0.6); Eosinophils % 4.7 %; Hematocrit 28.1 % (37.5-50.1); Hemoglobin 8.5 g/dL (12.9-16.9); Immature Granulocytes % 0.6 % (0-4); Lymphocytes % 12.7 %; Mean Corpuscular HGB Conc 30.2 g/dL (31.6-35.5); Mean Corpuscular Hemoglobin 25.7 pg (28.0-33.3); Mean Corpuscular Volume 84.9 fL (83.0-100.0); Mean Platelet Volume 9.9 fL (9.4-12.4); Monocytes # 0.6 K/mcL (0.0-1.3); Monocytes % 7.9 %; Neutrophils # 5.8 K/mcL (1.6-8.9); Platelet Count 217 K/mcL (140-400); Red Blood Count 3.31 M/mcL (4.19-5.50); Red Cell Distribution Width 17.3 % (11.5-14.5); Segmented Neutrophils % 73.5 %
[2017-11-06] MEDS: Isosorbide MONOnitrate (24 HR) 30 MG TAB.ER.24H PO SCH (08:46)
[2017-11-06] MEDS: amLODIPine 5 MG TABLET PO SCH (08:46)
[2017-11-06] MEDS: hydrALAZINE 25 MG TABLET PO SCH (08:46)
[2017-11-06] MEDS: cloNIDine HCl 0.1 MG TABLET PO SCH (08:46)
[2017-11-06] MEDS: Insulin LISPRO 300 UNITS/3 ML VIAL SQ SCH (08:47)
[2017-11-06] MEDS: Artificial Tears SOLN 15 ML BOTTLE BOTH EYES SCH (08:48)
--- NOTE | 2017-11-06 10:22 | Discharge Summary ---
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 truck driver use Chronic kidney disease stage: on chronic dialysis Qualified Code(s): E11.22 - Type 2 diabetes mellitus with diabetic chronic kidney disease; N18.6 - End stage renal disease; N18.6 - End stage renal disease; N18.6 - End stage renal disease; N18.6 - End stage renal disease; Z79.4 - [facility] (current) use of insulin; Z79.4 - [facility] (current) use of insulin; Z79.4 - [facility] (current ) use of insulin; Z79.4 - [facility] (current) use of insulin; Z99.2 - Dependence on renal dialysis; Z99.2 - Dependence on renal dialysis; Z99.2 - Dependence on renal dialysis; Z99.2 - Dependence on renal dialysis (10) PAD (peripheral artery disease) Priority: Secondary Status: Chronic (11) ESRD (end stage renal disease) on dialysis Priority: Secondary Status: Chronic (12) CVA (cerebral vascular accident) Priority: Secondary Status: Chronic Qualifiers: CVA mechanism: unspecified Qualified Code(s): I63.9 - Cerebral infarction, unspecified - Discharge Medications Prescriptions: Fluconazole [Diflucan] 200 mg PO Q24H #2 tablet Home Medications: Acetaminophen [Tylenol] 650 mg PO Q6HR PRN 12/09/16 [History] Amlodipine Besylate 10 mg PO DAILY 12/09/16 [History] Brimonidine 0.2% [Alphagan] 1 drop LEFT EYE TID 12/09/16 [History] Carvedilol 25 mg PO BID 12/09/16 [History] Dorzolamide/Timolol/Pf [Cosopt Pf Eye Drops] 1 drop LEFT EYE BID 12/09/16 [ History] Doxazosin Mesylate [Cardura] 8 mg PO BID 12/09/16 [History] Finasteride [Proscar] 5 mg PO DAILY 12/09/16 [History] Hydralazine HCl 100 mg PO TID 12/09/16 [History] Insulin ASPART [NovoLOG] 4 unit SQ TIDAC 12/09/16 [History] Insulin Glargine [Lantus] 9 unit SQ DAILY 12/09/16 [History] Ipratropium/Albuterol Neb [Duoneb] 3 ml IH Q4HR PRN 12/09/16 [History] Latanoprost [Xalatan] 1 drop LEFT EYE HS 12/09/16 [History] Sertraline [Zoloft] 100 mg PO DAILY 12/09/16 [History] Atorvastatin Calcium [Lipitor] 40 mg PO HS 04/21/17 [History] Omeprazole [PriLOSEC] 20 mg PO DAILY 04/21/17 [History] PrednisoLONE Acetate 1% Opth [PredFORTE 1%] 1 drop RIGHT EYE QID 04/21/17 [ History] Sevelamer [Renvela] 800 mg PO TIDWM 04/21/17 [History] cloNIDine HCl [Clonidine HCl] 0.1 mg PO TID 04/21/17 [History] Calcitriol [Rocaltrol] 0.25 mcg PO DAILY 11/01/17 [History] Carboxymethylcellulose Sodium [Refresh Liquigel] 1 drop BOTH EYES AD PRN [History] Ergocalciferol (VITAMIN D2) [Vitamin D2] 50,000 unit PO MO 11/01/17 [History] Erythromycin OPTH Oint 1 appl RIGHT EYE QID 11/01/17 [History] Hydrocortisone 1% CREAM [Cortaid] 1 appl TP BID PRN 11/01/17 [History] Isosorbide MONOnitrate (24 HR) [Imdur] 30 mg PO DAILY 11/01/17 [History] Mineral Oil/Petrolatum,White [Eucerin Creme] 1 appl TP DAILY 11/01/17 [History] Nitroglycerin [Nitrostat] 0.4 mg SL Q5M PRN 11/01/17 [History] Ondansetron HCl [Zofran] 4 mg PO TID PRN 11/01/17 [History] Polyethylene Glycol 3350 [MiraLAX] 17 gm PO DAILY PRN 11/01/17 [History] Polyvinyl Alcohol [Artificial Tears] 2 drop BOTH EYES QID 11/01/17 [History] Renal Vitamin [Renal Caps Softgel] 1 mg PO DAILY 11/01/17 [History] Fluconazole [Diflucan] 200 mg PO Q24H #2 tablet 11/06/17 [Rx] Allergies/Adverse Reactions: 3 Allergy/AdvReac Type Severity Reaction Status Date / Time lisinopril AdvReac unknown Verified 05/10/17 15:37 Date of admission: 11/03/17 13:18 Primary care physician: PCP [facility] Discharging clinician: Gabriella De Luna Anticipated date of discharge: 11/06/17 - Patient Status Disposition: Transfer SNF Condition: Good Functional capacity at discharge: bed bound Overall status at discharge: patient is progressing back to baseline - Discharge Instructions [facility] - ([facility]) - Diet and Activity Activity: as per physical therapy, other (discharge with current Syed catheter) Diet: diabetic diet, low fat, low cholesterol, low salt diet, other (renal diet) Hospital course: Mr. Webb is a 82 year old male with the above medical problems, with dysphasia due to previous CVA, was sent from [facility] due to hematuria. He was noted to have a minimal drop in Hb from his baseline but remained stable , around 8.5 and did not require PRBC transfusion during this admission. CT abdomen/pelvis showed diffuse bladder wall thickening and moderate prostatomegaly. Previous urine culture from 10/29/17 grew Lexie albicans and he is receiving 5 days of Fluconazole. He was noted to have luzmaria hematuria with clots. Urology was consulted and he received CBI with subsequent resolution in hematuria. He is recommended to be discharged on current Syed catheter and to f/up in Urology office in 1-2 weeks. - Time Spent with Patient Total time spent providing and/or coordinating discharge services: Greater than 30 minutes (45 min) - Constitutional Vitals: Temp Pulse Resp BP Pulse Ox 98.7 F 85 17 146/72 96 11/06/17 07:35 11/06/17 07:35 11/06/17 07:35 11/06/17 07:35 11/06/17 07:35 General appearance: Present: A&O X 3 (dysphasia ), answers questions appropriately - Cardiovascular Cardiovascular exam: Present: RRR, +S1, +S2, systolic murmur. Absent: diastolic murmur, gallop, rubs
--- NOTE | 2017-11-06 10:30 | Physician Discharge Referral ---
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 Priority: Secondary Status: Chronic (6) Congestive heart failure Priority: Secondary Status: Chronic (7) CAD (coronary artery disease) Priority: Secondary Status: Chronic (8) Essential hypertension Priority: Secondary Status: Chronic (9) Diabetes mellitus Priority: Secondary Status: Chronic (10) PAD (peripheral artery disease) Priority: Secondary Status: Chronic (11) ESRD (end stage renal disease) on dialysis Priority: Secondary Status: Chronic (12) CVA (cerebral vascular accident) Priority: Secondary Status: Chronic Expected Duration of Placement: senior care Prognosis: Fair Aware of Diagnosis: Patient Aware of Prognosis: Patient - Transfer Medications Prescriptions: Fluconazole [Diflucan] 200 mg PO Q24H #2 tablet Home Medications: Acetaminophen [Tylenol] 650 mg PO Q6HR PRN 12/09/16 [History] Amlodipine Besylate 10 mg PO DAILY 12/09/16 [History] Brimonidine 0.2% [Alphagan] 1 drop LEFT EYE TID 12/09/16 [History] Carvedilol 25 mg PO BID 12/09/16 [History] Dorzolamide/Timolol/Pf [Cosopt Pf Eye Drops] 1 drop LEFT EYE BID 12/09/16 [ History] Doxazosin Mesylate [Cardura] 8 mg PO BID 12/09/16 [History] Finasteride [Proscar] 5 mg PO DAILY 12/09/16 [History] Hydralazine HCl 100 mg PO TID 12/09/16 [History] Insulin ASPART [NovoLOG] 4 unit SQ TIDAC 12/09/16 [History] Insulin Glargine [Lantus] 9 unit SQ DAILY 12/09/16 [History] Ipratropium/Albuterol Neb [Duoneb] 3 ml IH Q4HR PRN 12/09/16 [History] Latanoprost [Xalatan] 1 drop LEFT EYE HS 12/09/16 [History] Sertraline [Zoloft] 100 mg PO DAILY 12/09/16 [History] Atorvastatin Calcium [Lipitor] 40 mg PO HS 04/21/17 [History] Omeprazole [PriLOSEC] 20 mg PO DAILY 04/21/17 [History] PrednisoLONE Acetate 1% Opth [PredFORTE 1%] 1 drop RIGHT EYE QID 04/21/17 [ History] Sevelamer [Renvela] 800 mg PO TIDWM 04/21/17 [History] cloNIDine HCl [Clonidine HCl] 0.1 mg PO TID 04/21/17 [History] Calcitriol [Rocaltrol] 0.25 mcg PO DAILY 11/01/17 [History] Carboxymethylcellulose Sodium [Refresh Liquigel] 1 drop BOTH EYES AD PRN [History] Ergocalciferol (VITAMIN D2) [Vitamin D2] 50,000 unit PO MO 11/01/17 [History] Erythromycin OPTH Oint 1 appl RIGHT EYE QID 11/01/17 [History] Hydrocortisone 1% CREAM [Cortaid] 1 appl TP BID PRN 11/01/17 [History] Isosorbide MONOnitrate (24 HR) [Imdur] 30 mg PO DAILY 11/01/17 [History] Mineral Oil/Petrolatum,White [Eucerin Creme] 1 appl TP DAILY 11/01/17 [History] Nitroglycerin [Nitrostat] 0.4 mg SL Q5M PRN 11/01/17 [History] Ondansetron HCl [Zofran] 4 mg PO TID PRN 11/01/17 [History] Polyethylene Glycol 3350 [MiraLAX] 17 gm PO DAILY PRN 11/01/17 [History] Polyvinyl Alcohol [Artificial Tears] 2 drop BOTH EYES QID 11/01/17 [History] Renal Vitamin [Renal Caps Softgel] 1 mg PO DAILY 11/01/17 [History] Fluconazole [Diflucan] 200 mg PO Q24H #2 tablet 11/06/17 [Rx] Allergies/Adverse Reactions: 3 Allergy/AdvReac Type Severity Reaction Status Date / Time lisinopril AdvReac unknown Verified 05/10/17 15:37 - Respiratory Orders Smoking Cessation: Smoking cessation has been advised. For more information, call the [place] Tobacco Quit Line at 3-490-BQJA-NOW. - Advance Directives Code Status: Full Code - Mobility Orders Bedrest - Rehabiliation Orders Rehab Potential: Fair Rehab Orders: ROM Exercises, Evaluation for Physical Therapy, Evaluation for Occupational Therapy - Diet Orders No Concentrated Sweets (diabetic), Renal, Cardiac CERTIFICATION: I certify that the transfer of the above named patient to an Extended Care Facility is necessary for the continuing treatment of the diagnosis listed. The above information is true and accurate reflection of patient's current condition. Confidential - Redisclosure prohibited without a patient's written consent.
[2017-11-06 10:53] LABS: Calcium 8.2 mg/dL (8.6-10.3); Potassium 3.9 mEq/L (3.5-5.1)
[2017-11-06 11:39] VITALS: BP 155/69
== END 2017-11-06 11:37 | DRG 689 ==
LOC: EMEROO 19:16 → 2ANU 19:16 → SUATTDRO 21:22 → 2ANU 22:20
PROVIDERS: ADMIT Internal Medicine; ATTEND Internal Medicine

== ENCOUNTER 2018-05-10 08:23 | Inpatient (IN) ==
[2018-05-10] MEDS ORDERED: Ipratropium/Albuterol Neb 3 ML IH ONE (08:31)
--- NOTE | 2018-05-10 08:31 | Emergency Department Note ---
Disposition Clinical Impression: CHF exacerbation Qualifiers: Heart failure type: unspecified Qualified Code(s): I50.9 - Heart failure, unspecified UTI (urinary tract infection) Qualifiers: Urinary tract infection type: site unspecified Hematuria presence: without hematuria Qualified Code(s): N39.0 - Urinary tract infection, site not specified Altered mental status Qualifiers: Altered mental status type: unspecified Qualified Code(s): R41.82 - Altered mental status, unspecified Disposition: Admitted As Inpatient Condition: Fair Forms: ED Satisfaction Letter Altered Mental Status HPI - General Chief Complaint: ED Altered Mental Status Stated Complaint: lethargic Time Seen by Provider: 05/10/18 08:29 Source: patient, EMS Mode of arrival: ambulatory Limitations: altered mental status Nursing Notes Reviewed: Yes Vital Signs Reviewed: Yes - History of Present Illness HPI Narrative: Patient brought from dialysis for evaluation of difficulty breathing. Patient is inpatient at the NH. He had recent admission here for pulmonary problems. Family unsure exactly what. His oxygen as needed at night. Currently require 2 L nasal cannula. Patient opens his eyes to verbal stimuli and follows commands but is not oriented to place or time. Wheezing on exam. Mild fluid overload. Left shunt with bulging of the biceps but continued thrill and bruit. Lungs have mild wheezing throughout. PMH arthritis, CHF, coronary artery disease, CVA, diabetes, GI bleed, hyperlipidemia, hypertension, myocardial infarction, osteoporosis, peripheral artery disease, renal disease, TIA, valvular heart disease, other EKG shows atrial fibrillation with a ventricular rate of 74. QRS 82. QTC 450. Patient has T-wave inversions throughout the lateral leads. These changes are worsened from previous of 04/20/18. [ Previous DC summary BELOW 04/26/18 ] Mr. Webb is a 82 year old male who presented to the ED on 04/19 with a right- sided pleural effusion. He also complained of left-sided chest pain associated with nausea. During initial workup, he was found to have an elevated troponin, but no EKG changes. Repeat troponin was increased further, and cardiology was consulted for NSTEMI. Pulmonology and nephrology services were also consulted. Due to unknown etiology of pleural effusion, patient was started on empiric antibiotic therapy. He underwent ultrafiltration and thoracentesis on day of admission due to SOB and inability to tolerate removal of BiPAP. He had a total of 1L fluid removed via thoracentesis, and laboratory studies showed the following: pH 8.00, RBC 0.002, total nuc cell 90, 10% neutrophils, 36% lymphocytes, 3% monocytes, 52% other cells, <3.0g total protein, LDH 50, glucose 175, and triglycerides <10. He had significant improvement in symptoms ultrafiltration and thoracentesis, and was maintained on heparin and nitroglycerin drips per protocol through the weekend. He was also found to have a positive Strep pneumoniae urine antigen. He developed a hematoma under his AV fistula, and heparin drip was discontinued. Patient was transitioned to long- acting PO nitrate. He continued to improve symptomatically, with resolution of chest pain and shortness of breath prior to discharge. - Related Data Home Medications Medication Instructions Recorded Confirmed Acetaminophen [Tylenol] 650 mg PO Q6HR PRN 12/09/16 04/19/18 Amlodipine Besylate 10 mg PO DAILY 12/09/16 04/19/18 Brimonidine 0.2% [Alphagan] 1 drop LEFT EYE TID 12/09/16 04/19/18 Carvedilol 25 mg PO BID 12/09/16 04/19/18 Doxazosin Mesylate [Cardura] 8 mg PO BID 12/09/16 04/19/18 Finasteride [Proscar] 5 mg PO DAILY 12/09/16 04/19/18 Hydralazine HCl 100 mg PO TID 12/09/16 04/19/18 Insulin ASPART [NovoLOG] 2 unit SQ TIDAC 12/09/16 04/19/18 Insulin Glargine [Lantus] 2 unit SQ HS 12/09/16 04/19/18 Ipratropium/Albuterol Neb [Duoneb] 3 ml IH Q4HR PRN 12/09/16 04/19/18 Latanoprost [Xalatan] 1 drop LEFT EYE HS 12/09/16 04/19/18 Sertraline [Zoloft] 100 mg PO DAILY 12/09/16 04/19/18 Atorvastatin Calcium [Lipitor] 20 mg PO HS 04/21/17 04/19/18 Omeprazole [PriLOSEC] 20 mg PO DAILY 04/21/17 04/19/18 Sevelamer [Renvela] 800 mg PO TIDWM 04/21/17 04/19/18 cloNIDine HCl [Clonidine HCl] 0.2 mg PO BID 04/21/17 04/19/18 Erythromycin OPTH Oint 1 appl RIGHT EYE QID 11/01/17 04/19/18 Polyvinyl Alcohol [Artificial 2 drop BOTH EYES QID 11/01/17 04/19/18 Tears] Renal Vitamin [Renal Caps Softgel] 1 mg PO DAILY 11/01/17 04/19/18 Dorzolamide [Trusopt] 10 ml OP BID 04/19/18 04/19/18 Furosemide [Lasix] 40 mg PO DAILY 04/19/18 04/19/18 Isosorbide MONOnitrate (24 HR) 60 mg PO DAILY 04/19/18 04/19/18 [Imdur] Lidocaine/Prilocaine [Emla] 1 appl TP AD 04/19/18 04/19/18 Sennosides/Docusate Sodium 1 tab PO BID 04/19/18 04/19/18 [Senna-Docusate Sodium Tablet] Allergies Allergy/AdvReac Type Severity Reaction Status Date / Time lisinopril AdvReac unknown Verified 05/10/17 15:37 Review of Systems: Review of systems Limited secondary to patient's mental status. Positive from dialysis Center for shortness of breath as well as mental status changes. Limitations: ROS unobtainable due to patients medical condition Past Medical History - Past Medical History Medical history: Reports: arthritis, CHF, coronary artery disease, CVA, diabetes , GI bleed, hyperlipidemia, hypertension, myocardial infarction, osteoporosis, peripheral artery disease, renal disease, TIA, valvular heart disease, other Surgical history: Reports: coronary bypass (CABG), other Psychiatric history: Reports: no psych history, other - Social History Smoking Status: Former smoker Smokeless Tobacco Status: No Alcohol use: Reports: none Drug use: Reports: none Physical Exam General: Well appearing, nontoxic, no acute distress Head: Normocephalic Atraumatic Eyes: PERRL, EOMI ENT: Airway patent, no stridor Neck: supple, Chest: Decreased breath sounds bilaterally Cardiac: Regular rhythm Abdomen: soft, nontender, nondistended; no guarding, rebound, or tenderness to percussion Musculoskeletal: Mild edema of the lower extremities Skin: No rash, normal skin tone Extremity: Fistula has bruit and thrill present. He has significant swelling to the bicep muscle which on previous records has been shown to be a bicep hematoma from previous heparin drip. Neurovascularly intact distal to the fistula site. Neuro: Patient is awake and opens his eyes to voice. Follows basic commands. Not oriented to place or time. Course - Reevaluation(s) Reevaluation #1: Concern for CHF on chest x-ray. I will start the patient on BiPAP. Patient's urine also is concern for a dirty sample however he has had urinary tract infections in the past and given his mental status we will place him on empiric antibiotics. On reevaluation of the patient during his stay his mental status has improved. Family was at bedside. Patient has a mildly elevated troponin however given his recent cardiac history this is likely related to that and his renal disease. Patient was not started on heparin at this time. - Consultations Consultation #1: Discussed with hospitalist. Recommended getting a BNP as well as starting Lasix. Urine culture ordered. Patient accepted for admission. Vital Signs Temperature 99.0 F 05/10/18 08:26 Pulse Rate 85 05/10/18 08:26 Respiratory Rate 22 05/10/18 08:26 Blood Pressure 150/69 05/10/18 08:26 O2 Sat by Pulse Oximetry 97 05/10/18 08:26 Temperature 99.0 F 05/10/18 08:26 Pulse Rate 73 05/10/18 10:10 Respiratory Rate 17 05/10/18 10:27 Blood Pressure 139/53 05/10/18 10:27 O2 Sat by Pulse Oximetry 97 05/10/18 10:27 Oxygen Delivery Oxygen Delivery Nasal Cannula Altered Mental Status - Lab Data Result diagrams: 05/10/18 08:43 05/10/18 08:43 Lab Results 05/10/18 05/10/18 05/10/18 Range/Units 08:43 08:43 08:43 WBC 7.6 (4.3-11.1) K/mcL RBC 2.81 L (4.19-5.50) M/mcL Hgb 8.1 L (12.9-16.9) g/dL Hct 25.5 L (37.5-50.1) % MCV 90.7 (83.0-100.0) fL MCH 28.8 (28.0-33.3) pg MCHC 31.8 (31.6-35.5) g/dL RDW 16.3 H (11.5-14.5) % Plt Count 120 L (140-400) K/mcL MPV 9.9 (9.4-12.4) fL Immature Gran % 0.3 (0-4) % Seg Neutrophils % 83.2 % Lymphocytes % 6.7 % Monocytes % 6.9 % Eosinophils % 2.6 % Basophils % 0.3 % Neutrophils # 6.3 (1.6-8.9) K/mcL Lymphocytes # 0.5 L (0.6-4.6) K/mcL Monocytes # 0.5 (0.0-1.3) K/mcL Eosinophils # 0.2 (0.0-0.6) K/mcL Basophils # 0.0 (0.0-0.2) K/mcL Immature Plt Fraction 1.3 (1.1-6.1) % PT 14.9 H (9.4-12.1) Seconds INR 1.3 VBG pH (7.32-7.42) pH Units VBG pCO2 (41-51) mmHg VBG pO2 (25-50) mmHg VBG HCO3 (21-27) mEq/L Sodium 134 L (136-145) mEq/L Potassium 4.0 (3.5-5.1) mEq/L Chloride 101 (98-107) mEq/L Carbon Dioxide 27 (23-29) mEq/L BUN 30 H (8-23) mg/dL Creatinine 2.73 H (0.70-1.30) mg/dL Est GFR ( Amer) 27 L (> 60) Est GFR (Non-Af Amer) 22 L (> 60) BUN/Creatinine Ratio 11 (6-26) Glucose 108 H (70-105) mg/dL Calculated Osmolality 285 (280-300) Calcium 7.7 L (8.6-10.3) mg/dL Total Bilirubin 0.6 (0.3-1.0) mg/dL Direct Bilirubin 0.1 (0.0-0.2) mg/dL Indirect Bilirubin 0.5 (0.0-1.2) mg/dL AST 12 L (13-39) Units/L ALT 14 (7-52) Units/L Alkaline Phosphatase 77 (34-104) Units/L Troponin I 0.10 H* (< 0.04) ng/mL Serum Total Protein 6.2 L (6.4-8.9) g/dL Albumin 3.3 L (3.5-5.7) g/dL Globulin 2.9 (2.4-3.5) g/dL Albumin/Globulin Ratio 1.1 (1.1-2.2) Urine Color (Yellow) Urine Clarity (Clear) Urine pH (5.0-8.0) pH Units Ur Specific [place] (1.010-1.025) Urine Protein (Neg-Trace) mg/dL Urine Glucose (UA) (Normal) mg/dL Urine Ketones (Negative) mg/dL Urine Blood (Negative) Urine Nitrite (Negative) Urine Bilirubin (Negative) Urine Urobilinogen (Normal) mg/dL Ur Leukocyte Esterase (Negative) Urine Microscopic RBC (0-3) per hpf Urine Microscopic WBC (0-3) per hpf Ur Squamous Epith Cells (None-Few) per lpf Urine Bacteria (None-Few) per hpf Hyaline Casts Urine Yeast (None Seen) per hpf Ur Culture Indicated? (NO) 05/10/18 05/10/18 Range/Units 08:53 09:24 WBC (4.3-11.1) K/mcL RBC (4.19-5.50) M/mcL Hgb (12.9-16.9) g/dL Hct (37.5-50.1) % MCV (83.0-100.0) fL MCH (28.0-33.3) pg MCHC (31.6-35.5) g/dL RDW (11.5-14.5) % Plt Count (140-400) K/mcL MPV (9.4-12.4) fL Immature Gran % (0-4) % Seg Neutrophils % % Lymphocytes % % Monocytes % % Eosinophils % % Basophils % % Neutrophils # (1.6-8.9) K/mcL Lymphocytes # (0.6-4.6) K/mcL Monocytes # (0.0-1.3) K/mcL Eosinophils # (0.0-0.6) K/mcL Basophils # (0.0-0.2) K/mcL Immature Plt Fraction (1.1-6.1) % PT (9.4-12.1) Seconds INR VBG pH 7.39 (7.32-7.42) pH Units VBG pCO2 48 (41-51) mmHg VBG pO2 113 H (25-50) mmHg VBG HCO3 29 H (21-27) mEq/L Sodium (136-145) mEq/L Potassium (3.5-5.1) mEq/L Chloride (98-107) mEq/L Carbon Dioxide (23-29) mEq/L BUN (8-23) mg/dL Creatinine (0.70-1.30) mg/dL Est GFR ( Amer) (> 60) Est GFR (Non-Af Amer) (> 60) BUN/Creatinine Ratio (6-26) Glucose (70-105) mg/dL Calculated Osmolality (280-300) Calcium (8.6-10.3) mg/dL Total Bilirubin (0.3-1.0) mg/dL Direct Bilirubin (0.0-0.2) mg/dL Indirect Bilirubin (0.0-1.2) mg/dL AST (13-39) Units/L ALT (7-52) Units/L Alkaline Phosphatase (34-104) Units/L Troponin I (< 0.04) ng/mL Serum Total Protein (6.4-8.9) g/dL Albumin (3.5-5.7) g/dL Globulin (2.4-3.5) g/dL Albumin/Globulin Ratio (1.1-2.2) Urine Color Yellow (Yellow) Urine Clarity Turbid A (Clear) Urine pH 6.5 (5.0-8.0) pH Units Ur Specific [place] 1.018 (1.010-1.025) Urine Protein >=300 H (Neg-Trace) mg/dL Urine Glucose (UA) Normal (Normal) mg/dL Urine Ketones Trace H (Negative) mg/dL Urine Blood Large H (Negative) Urine Nitrite Negative (Negative) Urine Bilirubin Negative (Negative) Urine Urobilinogen Normal (Normal) mg/dL Ur Leukocyte Esterase Large H (Negative) Urine Microscopic RBC Present (0-3) per hpf Urine Microscopic WBC TNTC H (0-3) per hpf Ur Squamous Epith Cells Many H (None-Few) per lpf Urine Bacteria Present (None-Few) per hpf Hyaline Casts Test Not Performed Urine Yeast Present H (None Seen) per hpf Ur Culture Indicated? NO. A (NO) TPA Checklist - LKW: 3-4.5 hrs Add. Warnings/Precautions Patient/family understanding: The patient/family members have been counseled and understood the risk, benefit , and alternatives of treatment.
[2018-05-10 08:57] LABS: VBG HCO3 29 mEq/L (21-27); VBG PCO2 48 mmHg (41-51); VBG PH 7.39 pH Units (7.32-7.42); VBG PO2 113 mmHg (25-50)
[2018-05-10 08:58] LABS: Basophils % 0.3 %; Eosinophils # 0.2 K/mcL (0.0-0.6); Eosinophils % 2.6 %; Hematocrit 25.5 % (37.5-50.1); Hemoglobin 8.1 g/dL (12.9-16.9); Immature Granulocytes % 0.3 % (0-4); Immature Platelets 1.3 % (1.1-6.1); Lymphocytes # 0.5 K/mcL (0.6-4.6); Lymphocytes % 6.7 %; Mean Corpuscular HGB Conc 31.8 g/dL (31.6-35.5); Mean Corpuscular Hemoglobin 28.8 pg (28.0-33.3); Mean Corpuscular Volume 90.7 fL (83.0-100.0); Mean Platelet Volume 9.9 fL (9.4-12.4); Monocytes # 0.5 K/mcL (0.0-1.3); Monocytes % 6.9 %; Neutrophils # 6.3 K/mcL (1.6-8.9); Platelet Count 120 K/mcL (140-400); Red Blood Count 2.81 M/mcL (4.19-5.50); Red Cell Distribution Width 16.3 % (11.5-14.5); Segmented Neutrophils % 83.2 %
[2018-05-10 09:04] LABS: INR 1.3; Prothrombin Time 14.9 Seconds (9.4-12.1)
[2018-05-10 09:18] LABS: Albumin 3.3 g/dL (3.5-5.7); Albumin/Globulin Ratio 1.1 (1.1-2.2); Bilirubin,Direct 0.1 mg/dL (0.0-0.2); Bilirubin,Indirect 0.5 mg/dL (0.0-1.2); Bilirubin,Total 0.6 mg/dL (0.3-1.0); Calcium 7.7 mg/dL (8.6-10.3); Globulin 2.9 g/dL (2.4-3.5); Total Protein 6.2 g/dL (6.4-8.9)
[2018-05-10 09:22] LABS: Troponin I 0.1 ng/mL (< 0.04)
[2018-05-10 09:29] LABS: Bilirubin,Urine Negative (Negative); Blood,Urine Large (Negative); Clarity,Urine Turbid (Clear); Color,Urine Yellow (Yellow); Glucose,Urine (UA) Normal (Normal); Ketones,Urine Trace mg/dL (Negative); Leukocyte Esterase,Urine Large (Negative); Nitrite,Urine Negative (Negative); PH,Urine 6.5 pH Units (5.0-8.0); Protein,Urine >=300 mg/dL (Neg-Trace); Specific Gravity,Urine 1.018 (1.010-1.025); Urobilinogen,Urine Normal (Normal)
[2018-05-10 09:33] LABS: Squamous Epithelial Cell,Urine Many per lpf (None-Few); WBC,Urine TNTC per hpf (0-3)
[2018-05-10 09:47] LABS: RBC,Urine Present per hpf (0-3)
[2018-05-10 09:48] LABS: Bacteria,Urine Present per hpf (None-Few); Yeast,Urine Present per hpf (None Seen)
[2018-05-10] MEDS ORDERED: Piperacillin/Tazobactam 3.375 GM in 0.9 % Sodium Chloride Mini Bag 100 ML IVPB ONE (10:11)
[2018-05-10] MEDS ORDERED: cefTRIAXone 1,000 MG in Water for inj. (sterile) 20 ML 10 ML IVP ONE (10:15)
[2018-05-10] MEDS ORDERED: Furosemide 40 MG/4 ML VIAL IVP STA (10:28)
--- NOTE | 2018-05-10 17:49 | Internal Med History&Physical ---
Date of Encounter: 05/10/18 Time of Encounter: 11:00 Internal Medicine - H&P: HPI Chief complaint: Shortness of breath Plans for Post Hospital Care: Transfer Other History of present illness: Patient is an 82-year-old male with past medical history significant for ischemic cardiomyopathy, hypertension, hyperlipidemia, CKD and CVA who presents from the [facility] after having difficulty breathing status post dialysis. Patient not able to give history but discussed with ER physician who states that [facility]ness of breath. In the ER, patient was found to have volume overload on exam and chest x-rays consistent with congestive heart failure with bilateral effusions. Patient also found to have a BNP of 1431 with a troponin of 0.10. Patient was given a one-time dose of IV Lasix in addition to IV antibiotics for suspected UTI; cultures pending Patient will be admitted to medical surgical floor for CHF exacerbation. Past Med Surg Social Fam HX - Past Medical History Medical history: arthritis, CHF, coronary artery disease, CVA, diabetes, GI bleed, hyperlipidemia, hypertension, myocardial infarction, osteoporosis, peripheral artery disease, renal disease, TIA, valvular heart disease, other Additional medical history: MS Psychiatric history: no psych history, other - Past Surgical History Surgical History: coronary bypass (CABG), other Additional surgical history: Pt. has a dialysis shunt in the left wrist in case the pt. needs dialysis. - Social History Smoking Status: Former smoker Smokeless Tobacco Status: No Alcohol use: none Drug use: none Internal Medicine - H&P: Meds Acetaminophen [Tylenol] 650 mg PO Q6HR PRN 12/09/16 [History] Amlodipine Besylate 10 mg PO DAILY 12/09/16 [History] Brimonidine 0.2% [Alphagan] 1 drop LEFT EYE TID 12/09/16 [History] Carvedilol 25 mg PO BID 12/09/16 [History] Doxazosin Mesylate [Cardura] 8 mg PO BID 12/09/16 [History] Finasteride [Proscar] 5 mg PO DAILY 12/09/16 [History] Hydralazine HCl 100 mg PO TID 12/09/16 [History] Insulin ASPART [NovoLOG] 2 unit SQ TIDAC 12/09/16 [History] Insulin Glargine [Lantus] 2 unit SQ HS 12/09/16 [History] Ipratropium/Albuterol Neb [Duoneb] 3 ml IH Q4HR PRN 12/09/16 [History] Latanoprost [Xalatan] 1 drop LEFT EYE HS 12/09/16 [History] Sertraline [Zoloft] 100 mg PO DAILY 12/09/16 [History] Atorvastatin Calcium [Lipitor] 20 mg PO HS 04/21/17 [History] Omeprazole [PriLOSEC] 20 mg PO DAILY 04/21/17 [History] Sevelamer [Renvela] 800 mg PO TIDWM 04/21/17 [History] cloNIDine HCl [Clonidine HCl] 0.2 mg PO BID 04/21/17 [History] Erythromycin OPTH Oint 1 appl RIGHT EYE QID 11/01/17 [History] Polyvinyl Alcohol [Artificial Tears] 2 drop BOTH EYES QID 11/01/17 [History] Renal Vitamin [Renal Caps Softgel] 1 mg PO DAILY 11/01/17 [History] Dorzolamide [Trusopt] 10 ml OP BID 04/19/18 [History] Furosemide [Lasix] 40 mg PO DAILY 04/19/18 [History] Isosorbide MONOnitrate (24 HR) [Imdur] 60 mg PO DAILY 04/19/18 [History] Lidocaine/Prilocaine [Emla] 1 appl TP AD 04/19/18 [History] Sennosides/Docusate Sodium [Senna-Docusate Sodium Tablet] 1 tab PO BID 04/19/18 [History] 3 Allergy/AdvReac Type Severity Reaction Status Date / Time lisinopril AdvReac unknown Verified 05/10/17 15:37 ROS unobtainable: due to mental status All Systems PM: A 10-system review of systems was performed and is negative for pertinent findings except as documented above in the HPI. - Constitutional Vitals: Temp Pulse Resp BP Pulse Ox 98.1 F 72 23 116/64 97 05/10/18 15:21 05/10/18 15:21 05/10/18 15:21 05/10/18 15:21 05/10/18 15:21 General appearance: Present: no acute distress - Eye Eye exam: Present: normal appearance - ENT ENT exam: Present: mucous membranes moist - Respiratory Respiratory exam: Present: CTAB. Absent: accessory muscle use, rales, rhonchi, wheezes - Cardiovascular Cardiovascular exam: Present: RRR, +S1, +S2. Absent: diastolic murmur, gallop, rubs, systolic murmur - GI/Abdominal GI/Abdominal exam: Present: normal bowel sounds, soft, no peritoneal signs. Absent: distended, tenderness - Extremities Exam Extremities exam: Absent: pedal edema - Neurological Exam Neurological exam: Present: oriented X3 - Skin Skin exam: Present: normal color Internal Med - H&P Results - Labs CBC & Chem 7: 05/10/18 08:43 05/10/18 08:43 - Assessment and plan (1) Altered mental status Current Visit: Yes Status: Acute Assessment and plan: CT of the head showed no acute intracranial abnormalities with advanced chronic findings Suspect secondary to UTI Continue to monitor Qualifiers: Altered mental status type: unspecified Qualified Code(s): R41.82 - Altered mental status, unspecified (2) UTI (urinary tract infection) Current Visit: Yes Status: Acute Assessment and plan: UA shows pyuria; cultures pending Continue ceftriaxone until culture results known Qualifiers: Urinary tract infection type: site unspecified Hematuria presence: without hematuria Qualified Code(s): N39.0 - Urinary tract infection, site not specified (3) Acute on chronic diastolic (congestive) heart failure Current Visit: No Status: Resolved Assessment and plan: In the ER, patient was found to have volume overload on exam and chest x-rays consistent with congestive heart failure with bilateral effusions. Patient also found to have a BNP of 1431 with a troponin of 0.10. Echocardiogram on 04/20/18 showed LVEF of 55% with mild segmental left ventricular systolic dysfunction Will give IV Lasix 40 mg twice daily (4) Elevated troponin Current Visit: No Status: Acute Assessment and plan: Suspected to demand ischemia due to the above Monitor on telemetry and trend serial cardiac biomarkers (5) Type 2 diabetes mellitus with diabetic chronic kidney disease Current Visit: No Status: Acute Assessment and plan: Continue home medications Qualifiers: Diabetes mellitus correction insulin use: with correction use Chronic kidney disease stage: stage 5, not on chronic dialysis Qualified Code(s): E11.22 - Type 2 diabetes mellitus with diabetic chronic kidney disease; N18.5 - Chronic kidney disease, stage 5; 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 (6) CKD (chronic kidney disease) stage 5, GFR less than 15 ml/min Current Visit: No Status: Chronic Assessment and plan: Creatinine close to baseline; continue to monitor (7) Anemia in chronic renal disease Current Visit: No Status: Chronic Assessment and plan: Hemoglobin close to baseline; continue to monitor Qualifiers: Chronic kidney disease stage: on chronic dialysis Qualified Code(s): N18.6 - End stage renal disease; D63.1 - Anemia in chronic kidney disease; Z99.2 - Dependence on renal dialysis (8) DVT prophylaxis Current Visit: No Status: Acute Assessment and plan: Subcutaneous heparin - Time Spent With Patient Total time spent is greater than 50% in coordination of care (as documented) at patient's floor/unit and/or counseling patient:
[2018-05-10] MEDS ORDERED: Naloxone 0.4 MG/ML INJ IVP PRN (18:02)
[2018-05-10] MEDS: Furosemide 40 MG/4 ML VIAL IVP SCH (21:57)
[2018-05-11] MEDS ORDERED: Acetaminophen 325 MG TABLET PO PRN (00:43)
[2018-05-11 01:46] LABS: Basophils # 0.1 K/mcL (0.0-0.2); Eosinophils # 0.2 K/mcL (0.0-0.6); Eosinophils % 2.6 %; Hematocrit 27.4 % (37.5-50.1); Hemoglobin 8.3 g/dL (12.9-16.9); Immature Granulocytes % 0.5 % (0-4); Lymphocytes # 0.5 K/mcL (0.6-4.6); Lymphocytes % 8.2 %; Mean Corpuscular HGB Conc 30.3 g/dL (31.6-35.5); Mean Corpuscular Hemoglobin 27.6 pg (28.0-33.3); Mean Platelet Volume 10.7 fL (9.4-12.4); Monocytes # 0.5 K/mcL (0.0-1.3); Monocytes % 7.4 %; Platelet Count 140 K/mcL (140-400); Red Blood Count 3.01 M/mcL (4.19-5.50); Red Cell Distribution Width 16.5 % (11.5-14.5); Segmented Neutrophils % 80.3 %
[2018-05-11 02:07] LABS: Calcium 7.9 mg/dL (8.6-10.3); Potassium 4.5 mEq/L (3.5-5.1)
--- NOTE | 2018-05-11 02:16 | Electrocardiograph Report ---
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
[2018-05-11] MEDS ORDERED: Albuterol 2.5 MG/3 ML NEBULIZER IH PRN (04:01)
[2018-05-11] MEDS: *HR* Heparin 5,000 UNIT/ML VIAL SQ SCH ×2 (06:25→17:17)
[2018-05-11] MEDS: Furosemide 40 MG/4 ML VIAL IVP SCH ×2 (10:01→16:08)
[2018-05-11] MEDS: cefTRIAXone 1,000 MG in Water for inj. (sterile) 20 ML 10 ML IVP SCH (10:01)
[2018-05-11] MEDS ORDERED: Sennosides/Docusate Sodium TABLET PO PRN (10:03)
[2018-05-11 10:28] LABS: Bilirubin,Urine Negative (Negative); Blood,Urine Large (Negative); Clarity,Urine Turbid (Clear); Color,Urine Yellow (Yellow); Glucose,Urine (UA) Normal (Normal); Ketones,Urine Trace mg/dL (Negative); Leukocyte Esterase,Urine Large (Negative); Nitrite,Urine Negative (Negative); Protein,Urine >=300 mg/dL (Neg-Trace); Specific Gravity,Urine 1.013 (1.010-1.025); Urobilinogen,Urine Normal (Normal)
[2018-05-11 10:30] LABS: Squamous Epithelial Cell,Urine Many per lpf (None-Few); WBC,Urine TNTC per hpf (0-3)
[2018-05-11 10:40] LABS: RBC,Urine Present per hpf (0-3); Yeast,Urine Present per hpf (None Seen)
[2018-05-11 10:41] LABS: Bacteria,Urine Present per hpf (None-Few)
[2018-05-11] MEDS ORDERED: Ipratropium/Albuterol Neb 3 ML IH PRN (12:00)
--- NOTE | 2018-05-11 13:14 | Event Note ---
<Lee Ann He A - Last Filed: 05/11/18 14:46> Date of Encounter: 05/11/18 Time of Encounter: 09:45 Medical Student Note-Lee Ann He OMS-IV Subjective: Mr. Webb was sitting up upon my arrival and moaning. Family is at the bedside during my visit. The patient has great difficulty speaking and I am unable to understand the majority of what he states but he is able to understand and follow commands. Patient denies any chest pain, palpitations, shortness of breath, abdominal pain, and nausea or vomiting. Objective: Vitals: Temperature-98.4, HR-75, RR-16, RP-164/74, O2-100 on 5L General Appearance: Patient appears to be in distress Head exam: Atraumatic, normocephalic Eye exam: PERRL, conjuntiva pink, sclera anicteric Neck exam: Trachea midline Respiratory exam: No wheezing, rales, or rhonci Cardiology exam: RRR, +S1, +S2 Gastrointestinal exam: Normal bowel sounds, soft Extremities exam: warm without tenderness or peripheral edema Neurological exam: CN II-XII intact, weakness of the right upper and bilateral lower extremities (muscle strength 2/5, previous history of strokes and MS). Skin exam: Dry and intact Assessment: 1.Congestive Heart Failure 2. UTI 3. Elevated Troponin 4. Hypertension 5. Diabetes 6. CKD 7. Anemia in CKD 8. AMS 9. DVT Prophylaxis Plan: 1. Upon admission to the ER, the patient was found to have volume overload on exam and chest x-rays consistent with congestive heart failure with bilateral effusions. Additionally, lab results showed showed a BNP of 1431 and a torponin of 0.10 (has since trended down to 0.09). Echocardiogram on 04/20/18 showed LVEF of 55% with mild segmental left ventricular systolic dysfunction. Patient is not currently complaining of shortness of breath and does not appear to be volume overloaded on physical exam. Receiving treatment with Albuterol, Musinex , and Lasix 40 mg IV. Consider discontinuing Lasix 40 mg IV. 2. Patient received a UA upon admission that was positive for Leukocyte esterase. Mr. Webb initially presented with AMS and this was believed to be secondary to his UTI. Treatment was begun with Ceftriaxone 10 mls @ 600 mls/hr IV. Patient is currently afebrile and most recent WBC was 6.2. Continue to monitor the patient. 3. Patient intiitally presented with an elevated Troponin of 0.10 which has slightly trended down to 0.09. Patient is not currently complaining of any chest pain. Continue to monitor the patient and trend serial Troponin 4. Patient has a previous diagnosis of hypertension. Currently being treated with Carvedilol, Clonidine, and Hydralazine. Latest blood pressure was 160/77. Continue to monitor Q4 hours. 5. Mr. Webb has a previous diagnosis of Diabetes Mellitus type 2. Latest blood glucose level was 195. Receiving treatment with sliding scale insulin, continue to monitor. 6. Patient has a history of CKD, based on his GFR (16) the patient is almost in stage 5 CKD. Patient is receiving dialysis and his latest Creatinine was 3.71, which appears to be near his baseline. Nephrology was consulted with plans to perform dialysis tomorrow (05/12/18) 7. Hemoglobin/Hematocrit levels were 8.3/27.4 values are similar to the patient' s baseline and likely secondary to history of CKD. 8. Patient initially presented with AMS and this was believed to be secondary to his UTI. At the time of examination the patient appears to be oriented and is able to follow commands. 9. Currently receiving DVT prophylaxis with subcutaneous Heparin. <Jason Bradley - Last Filed: 05/22/18 17:44> Date of Encounter: 05/22/18 I have independently examined the patient. Medical decision making and assessment and plan available in chart.
[2018-05-11] MEDS: Artificial Tears SOLN 15 ML BOTTLE BOTH EYES SCH ×3 (13:25→21:43)
[2018-05-11] MEDS: hydrALAZINE 25 MG TABLET PO SCH ×2 (13:25→21:43)
[2018-05-11] MEDS: Erythromycin OPTH Oint RIGHT EYE SCH ×3 (13:26→21:54)
[2018-05-11] MEDS: Insulin LISPRO 300 UNITS/3 ML VIAL SQ SCH ×4 (13:27→21:49)
--- NOTE | 2018-05-11 13:51 | Nephrology Consult Note ---
Date of Encounter: 05/11/18 Time of Encounter: 13:48 Assessment and Plan (1) ESRD (end stage renal disease) on dialysis Current Visit: No Status: Chronic HD MWF. Renal vitamins. Renal dose medications. Renal diet. Additional dialysis and ultrafiltration as needed. Patient had partial dialysis yesterday. There is no acute need for dialysis today. Plan for dialysis on Monday. Patient with left upper arm fistula with good thrill and bruit. He has a hematoma over the proximal portion of the fistula. (2) Constipation Current Visit: Yes Status: Acute Patient will benefit from bowel regimen. Qualifiers: Qualified Code(s): K59.00 - Constipation, unspecified (3) Altered mental status Current Visit: Yes Status: Acute Patient seems more lethargic than usual. Defer to primary team. Qualifiers: Altered mental status type: unspecified Qualified Code(s): R41.82 - Altered mental status, unspecified (4) Anemia Current Visit: No Status: Chronic Monitor hemoglobin. Transfuse as needed. Qualifiers: Anemia type: unspecified type Qualified Code(s): D64.9 - Anemia, unspecified History of Present Illness - Reason for Consult Consult date: 05/11/18 end stage renal disease - Chief Complaint ESRD - History of Present Illness Mr. Webb is an 82 yo man with a history of ESRD who presents for the evaluation of ___. [facility] was consulted for ongoing dialysis needs. He is less verbal than normal. He is complaining of constipation. Past Med Surg Social Fam HX - Past Medical History Medical history: arthritis, CHF, coronary artery disease, CVA, diabetes, GI bleed, hyperlipidemia, hypertension, myocardial infarction, osteoporosis, peripheral artery disease, renal disease, TIA, valvular heart disease, other Additional medical history: MS Psychiatric history: no psych history, other - Past Surgical History Surgical History: coronary bypass (CABG), other Additional surgical history: Pt. has a dialysis shunt in the left wrist in case the pt. needs dialysis. - Social History Smoking Status: Former smoker Smokeless Tobacco Status: No Alcohol use: none Drug use: none Medications and Allergies Acetaminophen [Tylenol] 650 mg PO Q6HR PRN 12/09/16 [History] Amlodipine Besylate 10 mg PO DAILY 12/09/16 [History] Brimonidine 0.2% [Alphagan] 1 drop LEFT EYE TID 12/09/16 [History] Carvedilol 25 mg PO BID 12/09/16 [History] Doxazosin Mesylate [Cardura] 8 mg PO BID 12/09/16 [History] Finasteride [Proscar] 5 mg PO DAILY 12/09/16 [History] Hydralazine HCl 100 mg PO TID 12/09/16 [History] Insulin ASPART [NovoLOG] 2 unit SQ TID 12/09/16 [History] Insulin Glargine [Lantus] 2 unit SQ HS 12/09/16 [History] Ipratropium/Albuterol Neb [Duoneb] 3 ml IH Q4HR PRN 12/09/16 [History] Latanoprost [Xalatan] 1 drop LEFT EYE HS 12/09/16 [History] Sertraline [Zoloft] 100 mg PO DAILY 12/09/16 [History] Atorvastatin Calcium [Lipitor] 20 mg PO HS 04/21/17 [History] Omeprazole [PriLOSEC] 20 mg PO DAILY 04/21/17 [History] Sevelamer [Renvela] 800 mg PO TIDWM 04/21/17 [History] cloNIDine HCl [Clonidine HCl] 0.2 mg PO BID 04/21/17 [History] Erythromycin OPTH Oint 1 appl RIGHT EYE QID 11/01/17 [History] Polyvinyl Alcohol [Artificial Tears] 2 drop BOTH EYES QID 11/01/17 [History] Renal Vitamin [Renal Caps Softgel] 1 mg PO DAILY 11/01/17 [History] Dorzolamide [Trusopt] 1 drop BOTH EYES BID 04/19/18 [History] Furosemide [Lasix] 80 mg PO DAILY 04/19/18 [History] Isosorbide MONOnitrate (24 HR) [Imdur] 60 mg PO DAILY 04/19/18 [History] Lidocaine/Prilocaine [Emla] 1 appl TP AD 04/19/18 [History] Sennosides/Docusate Sodium [Senna-Docusate Sodium Tablet] 1 tab PO BID PRN 04/19 [History] Aspirin [Lo-Dose Aspirin EC] 81 mg PO DAILY 05/11/18 [History] 3 Allergy/AdvReac Type Severity Reaction Status Date / Time lisinopril AdvReac unknown Verified 05/10/17 15:37 Review of Systems All Systems: reviewed and no additional remarkable complaints except as stated ( as documented in HPI.) Exam - Vital Signs Vital signs: Initial Vital Signs Temp Pulse Resp BP Pulse Ox 99.0 F 85 22 150/69 97 05/10/18 08:26 05/10/18 08:26 05/10/18 08:26 05/10/18 08:26 05/10/18 08:26 Vital Signs - Last 8 Hours Temp Pulse Resp BP Pulse Ox 05/11/18 12:49 16 99 05/11/18 10:58 98.8 F 88 16 160/77 99 05/11/18 07:24 98.4 F 75 167/74 100 Intake and Output 05/10/18 05/11/18 05/11/18 23:59 07:59 15:59 Intake Total 360 / 360 Output Total 200 / 200 100 / 100 100 / 100 Balance -200 / -200 -100 / -100 260 / 260 Intake: Oral 360 / 360 Output: Urine 100 / 100 Catheter 200 / 200 100 / 100 Other: Meal Lunch Percent of Meal Consumed 50% Weight 70.4 kg Blood Glucose* 187 311 - General Appearance General appearance: well-developed, well-nourished EENT: ATNC Neck: supple Respiratory: course breath sounds Cardiology: no edema, regular rate - Dialysis Access Dialysis Vascular Access: Arteriovenous Fistula (left upper arm. There is a hematoma over the proximal portion of the fistula.) thrill: Yes bruit: Yes Gastrointestinal: no tenderness Integumentary: warm and dry Neurologic: alert and oriented x3 Musculoskeletal: no cyanosis Psychiatric: mood/affect appropriate Results - Lab Results 05/11/18 00:42 05/11/18 00:42 Most recent lab results Calcium 7.9 mg/dL (8.6-10.3) L 05/11/18 00:42 Consult Discharge Plan - Plan [facility]errals: [facility] [Primary Care Provider] -
[2018-05-11] MEDS: Lactulose Oral Soln 20 GM/30 ML UDC PO SCH ×2 (14:25→21:50)
--- NOTE | 2018-05-11 15:20 | Internal Med Progress Note ---
Hospitalist Progress Note - Encounter Date of Encounter: 05/11/18 Time of Encounter: 09:18 - Subjective Interval History: Patient moans but in no acute distress. He answers questions appropriately. - Exam Vitals: Temp Pulse Resp BP Pulse Ox 98.8 F 88 16 160/77 99 05/11/18 10:58 05/11/18 10:58 05/11/18 12:49 05/11/18 10:58 05/11/18 12:49 Exam: Gen: moans but answers questions appropriately, NAD CVS: RRR Lungs: fine rales at bases Abd: Soft nt/nd Ext: left arm fistula with hematoma, no other areas of edema No cyanosis, no edema. - Assessment and Plan (1) Acute on chronic diastolic (congestive) heart failure Current Visit: No Status: Resolved Assessment and Plan: In the ER, patient was found to have volume overload on exam and chest x-rays consistent with congestive heart failure with bilateral effusions. Patient also found to have a BNP of 1431 with a troponin of 0.10. Echocardiogram on 04/20/18 showed LVEF of 55% with mild segmental left ventricular systolic dysfunction Continue IV Lasix 40 mg twice daily EKG showed T wave inversions new from 04/20/18, but patient did see Cardiology on recent admission for NSTEMI in that time. He denies chest pain, n/v, diaphoresis. Nephrology following, plan for dialysis (2) UTI (urinary tract infection) Current Visit: Yes Status: Acute Assessment and Plan: UA shows pyuria; cultures pending A repeat UA fairly similar: + leukocyte esterace large amounts; but many squamous epithelial cells. Unsure if this is contaminate. Continue ceftriaxone (3) Anemia in chronic renal disease Current Visit: No Status: Chronic Assessment and Plan: Hemoglobin close to baseline; continue to monitor (4) CKD (chronic kidney disease) stage 5, GFR less than 15 ml/min Current Visit: No Status: Chronic Assessment and Plan: Patient is on dialysis, plan for dialysis tomorrow. (5) Type 2 diabetes mellitus with diabetic chronic kidney disease Current Visit: No Status: Acute Assessment and Plan: Continue home medications (6) DVT prophylaxis Current Visit: No Status: Acute Assessment and Plan: Subcutaneous heparin (7) Elevated troponin Current Visit: No Status: Acute Assessment and Plan: Suspected to demand ischemia due to the above On admission, 0.10, 0.08, 0.10, 0.09 respectively. This is patient's known baseline. EKG did show T wave inversions but patient had known NSTEMI on last admission. He denies chest pain, numbness/tingling/n/v, diaphoresis. (8) Altered mental status Current Visit: Yes Status: Acute Assessment and Plan: CT of the head showed no acute intracranial abnormalities with advanced chronic findings Suspect secondary to UTI Continue to monitor - Time Spent with Patient Total time spent is greater than 50% in coordination of care (as documented) at patient's floor/unit and/or counseling patient: Internal Medicine: Result - Labs CBC & Chem 7: 05/11/18 00:42 05/11/18 00:42 Labs: Short CBC 05/11/18 Range/Units 00:42 WBC 6.2 (4.3-11.1) K/mcL Hgb 8.3 L (12.9-16.9) g/dL Hct 27.4 L (37.5-50.1) % Plt Count 140 (140-400) K/mcL Neutrophils # 5.0 (1.6-8.9) K/mcL BMP 05/11/18 00:42 Sodium 136 Potassium 4.5 Chloride 101 Carbon Dioxide 26 BUN 41 H Creatinine 3.71 H Glucose 195 H Calcium 7.9 L Cardiac Enzymes 05/10/18 05/11/18 05/11/18 Range/Units 18:38 00:42 06:30 Troponin I 0.08 H* 0.10 H* 0.09 H* (< 0.04) ng/mL Urine 05/11/18 Range/Units 10:15 Urine Color Yellow (Yellow) Urine Clarity Turbid A (Clear) Urine pH 6.0 (5.0-8.0) pH Units Ur Specific [place] 1.013 (1.010-1.025) Urine Protein >=300 H (Neg-Trace) mg/dL Urine Glucose (UA) Normal (Normal) mg/dL - ABG Interpretation ABG results: PT/INR, D-dimer PT 14.9 Seconds (9.4-12.1) H 05/10/18 08:43 Consult Discharge Plan - Plan [facility]errals: [facility] [Primary Care Provider] - (2) UTI (urinary tract infection) Qualifiers: Urinary tract infection type: site unspecified Hematuria presence: without hematuria Qualified Code(s): N39.0 - Urinary tract infection, site not specified (3) Anemia in chronic renal disease Qualifiers: Chronic kidney disease stage: on chronic dialysis Qualified Code(s): N18.6 - End stage renal disease; D63.1 - Anemia in chronic kidney disease; Z99.2 - Dependence on renal dialysis (5) Type 2 diabetes mellitus with diabetic chronic kidney disease Qualifiers: Diabetes mellitus group home insulin use: with group home use Chronic kidney disease stage: stage 5, not on chronic dialysis Qualified Code(s): E11.22 - Type 2 diabetes mellitus with diabetic chronic kidney disease; N18.5 - Chronic kidney disease, stage 5; Z79.4 - custodial (current) use of insulin (8) Altered mental status Qualifiers: Altered mental status type: unspecified Qualified Code(s): R41.82 - Altered mental status, unspecified
[2018-05-11] MEDS: Acetaminophen 325 MG TABLET PO PRN (16:07)
[2018-05-11] MEDS: cloNIDine HCl 0.1 MG TABLET PO SCH (21:43)
[2018-05-11] MEDS: Latanoprost 2.5 ML BOTTLE LEFT EYE SCH (21:44)
[2018-05-11] MEDS: Dorzolamide OPTH 10 ML BOTTLE BOTH EYES SCH (21:45)
[2018-05-11] MEDS: Insulin DETEMIR 100 UNIT/ML X5UNITS SQ SCH (21:49)
[2018-05-12 05:12] LABS: Basophils % 0.5 %; Eosinophils # 0.1 K/mcL (0.0-0.6); Eosinophils % 2.2 %; Hematocrit 27.9 % (37.5-50.1); Hemoglobin 8.6 g/dL (12.9-16.9); Immature Granulocytes % 0.3 % (0-4); Lymphocytes # 0.6 K/mcL (0.6-4.6); Lymphocytes % 10.2 %; Mean Corpuscular HGB Conc 30.8 g/dL (31.6-35.5); Mean Corpuscular Hemoglobin 28.2 pg (28.0-33.3); Mean Corpuscular Volume 91.5 fL (83.0-100.0); Mean Platelet Volume 10.4 fL (9.4-12.4); Monocytes # 0.5 K/mcL (0.0-1.3); Monocytes % 8.5 %; Neutrophils # 4.6 K/mcL (1.6-8.9); Platelet Count 147 K/mcL (140-400); Red Blood Count 3.05 M/mcL (4.19-5.50); Red Cell Distribution Width 16.2 % (11.5-14.5); Segmented Neutrophils % 78.3 %
[2018-05-12 05:28] LABS: Calcium 8.2 mg/dL (8.6-10.3); Potassium 4.5 mEq/L (3.5-5.1)
[2018-05-12] MEDS: *HR* Heparin 5,000 UNIT/ML VIAL SQ SCH ×2 (05:38→18:54)
--- NOTE | 2018-05-12 08:19 | Internal Med Progress Note ---
<Lucas Hutchinson - Last Filed: 05/12/18 12:02> Hospitalist Progress Note - Encounter Date of Encounter: 05/12/18 Time of Encounter: 08:17 - Subjective Interval History: Patient seen and examined at bedside; patient repeatedly moans, but otherwise does not appear in any distress. Not very conversant. He reports mild shortness of breath. Denies having any nausea, vomiting, diarrhea, or abdominal pain. Plan is for dialysis today. No further complaints. - Exam Vitals: Temp Pulse Resp BP Pulse Ox 98.7 F 79 18 166/74 98 05/12/18 06:52 05/12/18 06:52 05/12/18 06:52 05/12/18 06:52 05/12/18 06:52 Exam: General: Repeatedly moans, answers questions appropriately, no acute distress Cardiovascular: Regular rate and rhythm, S1-S2, no murmurs rubs or gallops Lungs: Bibasilar crackles Abdomen: Soft, nontender, nondistended Extremities: left arm fistula with hematoma - Assessment and Plan (1) Acute on chronic diastolic (congestive) heart failure Current Visit: No Status: Resolved Assessment and Plan: Known history of CHF; presented w/ findings suggestive of volume overload - CXR consistent w/ CHF with b/l effusions - ECHO 04/20/18: LVEF of 55% with mild segmental LV systolic dysfunction - BNP of 1431 Plan: - IV Lasix 40 mg BID is currently being held - Nephrology following, plan for dialysis - Strict I/O, daily weights, fluid restriction, low sodium diet (2) UTI (urinary tract infection) Current Visit: Yes Status: Acute Assessment and Plan: UA demonstrates findings consistent with UTI - Repeat UA demonstrates similar findings - Preliminary urine CX from 05/10 grew the following: GNR, yeast Plan: - Day 3 of Rocephin (3) ESRD (end stage renal disease) on dialysis Current Visit: No Status: Chronic Assessment and Plan: Known history of ESRD; HD MWF - Nephrology following Plan: - Plan for dialysis today - Renal diet, renally dose medications (4) Altered mental status Current Visit: Yes Status: Acute Assessment and Plan: Cause unknown at this time; possibly secondary to UTI - CT of the head showed no acute intracranial abnormalities with advanced chronic findings - Continue to monitor (5) Anemia in chronic renal disease Current Visit: No Status: Chronic Assessment and Plan: Hb close to baseline; continue to monitor (6) Diabetes mellitus Current Visit: No Status: Chronic Assessment and Plan: Continue insulin (7) DVT prophylaxis Current Visit: No Status: Acute Assessment and Plan: Subcutaneous heparin (8) Hypertension Current Visit: Yes Status: Acute Assessment and Plan: Known history of hypertension - Last blood pressure was 166/74 Plan: - Continue Imdur, Hydralazine, Norvasc, clonidine - Time Spent with Patient Total time spent is greater than 50% in coordination of care (as documented) at patient's floor/unit and/or counseling patient: Internal Medicine: Result - Labs CBC & Chem 7: 05/12/18 00:48 05/12/18 00:48 Labs: Short CBC 05/12/18 Range/Units 00:48 WBC 5.9 (4.3-11.1) K/mcL Hgb 8.6 L (12.9-16.9) g/dL Hct 27.9 L (37.5-50.1) % Plt Count 147 (140-400) K/mcL Neutrophils # 4.6 (1.6-8.9) K/mcL BMP 05/12/18 00:48 Sodium 137 Potassium 4.5 Chloride 99 Carbon Dioxide 26 BUN 48 H Creatinine 4.53 H Glucose 133 H Calcium 8.2 L Urine 05/11/18 Range/Units 10:15 Urine Color Yellow (Yellow) Urine Clarity Turbid A (Clear) Urine pH 6.0 (5.0-8.0) pH Units Ur Specific Hollis 1.013 (1.010-1.025) Urine Protein >=300 H (Neg-Trace) mg/dL Urine Glucose (UA) Normal (Normal) mg/dL - ABG Interpretation ABG results: PT/INR, D-dimer PT 14.9 Seconds (9.4-12.1) H 05/10/18 08:43 Consult Discharge Plan - Plan [facility]: [facility]Primary Care Provider[facility] - <Jason Bradley - Last Filed: 05/12/18 17:17> Hospitalist Progress Note - Encounter Date of Encounter: 05/12/18 - Exam Vitals: Temp Pulse Resp BP Pulse Ox 99.1 F 82 18 155/64 94 05/12/18 15:40 05/12/18 15:35 05/12/18 15:40 05/12/18 15:40 05/12/18 15:35 - Assessment and Plan (1) UTI (urinary tract infection) Current Visit: Yes Status: Acute (2) Anemia in chronic renal disease Current Visit: No Status: Chronic (3) Diabetes mellitus Current Visit: No Status: Chronic (4) ESRD (end stage renal disease) on dialysis Current Visit: No Status: Chronic (5) DVT prophylaxis Current Visit: No Status: Acute (6) Acute on chronic diastolic (congestive) heart failure Current Visit: No Status: Resolved (7) Altered mental status Current Visit: Yes Status: Acute (8) Hypertension Current Visit: Yes Status: Acute - Summary of Assessment and Plan Summary of Assessment and Plan: I examined this patient and my medical decision-making was reviewed with the Resident Physician. I agree with the documented findings, disposition and treatment plan as described except to the extent set forth below. Much less distress today. Lung sounds course. Urine cultures coming back Pseudomonas aeruginosa. No antibiotic resistance is noted on sensitivities. Currently on Rocephin, should switch to antibiotic more appropriate to cover Pseudomonas but not nephrotoxic. Continue management of fluid overload. with dialysis. Hold Lasix for now. - Time Spent with Patient Total time spent is greater than 50% in coordination of care (as documented) at patient's floor/unit and/or counseling patient: Internal Medicine: Result - Labs CBC & Chem 7: 05/12/18 00:48 05/12/18 00:48 Labs: Short CBC 05/12/18 Range/Units 00:48 WBC 5.9 (4.3-11.1) K/mcL Hgb 8.6 L (12.9-16.9) g/dL Hct 27.9 L (37.5-50.1) % Plt Count 147 (140-400) K/mcL Neutrophils # 4.6 (1.6-8.9) K/mcL BMP 05/12/18 00:48 Sodium 137 Potassium 4.5 Chloride 99 Carbon Dioxide 26 BUN 48 H Creatinine 4.53 H Glucose 133 H Calcium 8.2 L - ABG Interpretation ABG results: PT/INR, D-dimer PT 14.9 Seconds (9.4-12.1) H 05/10/18 08:43 <Lucas Hutchinson - Last Filed: 05/12/18 12:02> (2) UTI (urinary tract infection) Qualifiers: Urinary tract infection type: site unspecified Hematuria presence: without hematuria Qualified Code(s): N39.0 - Urinary tract infection, site not specified (4) Altered mental status Qualifiers: Altered mental status type: unspecified Qualified Code(s): R41.82 - Altered mental status, unspecified (5) Anemia in chronic renal disease Qualifiers: Chronic kidney disease stage: on chronic dialysis Qualified Code(s): N18.6 - End stage renal disease; D63.1 - Anemia in chronic kidney disease; Z99.2 - Dependence on renal dialysis (6) Diabetes mellitus Qualifiers: Diabetes mellitus type: type 2 Diabetes mellitus chcf insulin use: with chcf use Diabetes mellitus complication status: with kidney complications Diabetes mellitus complication detail: with chronic kidney disease Chronic kidney disease stage: on chronic dialysis Qualified Code(s): E11.22 - Type 2 diabetes mellitus with diabetic chronic kidney disease; N18.6 - End stage renal disease; Z79.4 - FPC (current) use of insulin; Z99.2 - Dependence on renal dialysis <Jason Bradley - Last Filed: 05/12/18 17:17> (1) UTI (urinary tract infection) Qualifiers: Urinary tract infection type: site unspecified Hematuria presence: without hematuria Qualified Code(s): N39.0 - Urinary tract infection, site not specified (2) Anemia in chronic renal disease Qualifiers: Chronic kidney disease stage: on chronic dialysis Qualified Code(s): N18.6 - End stage renal disease; D63.1 - Anemia in chronic kidney disease; Z99.2 - Dependence on renal dialysis (3) Diabetes mellitus Qualifiers: Diabetes mellitus type: type 2 Diabetes mellitus medical terminologist insulin use: with chcf use Diabetes mellitus complication status: with kidney complications Diabetes mellitus complication detail: with chronic kidney disease Chronic kidney disease stage: on chronic dialysis Qualified Code(s): E11.22 - Type 2 diabetes mellitus with diabetic chronic kidney disease; N18.6 - End stage renal disease; Z79.4 - bed bug exterminator (current) use of insulin; Z99.2 - Dependence on renal dialysis (7) Altered mental status Qualifiers: Altered mental status type: unspecified Qualified Code(s): R41.82 - Altered mental status, unspecified
[2018-05-12] MEDS ORDERED: 0.9 % Sodium Chloride 250 ML IVC PRN (08:23)
[2018-05-12] MEDS ORDERED: 0.9 % Sodium Chloride 1,000 ML PRIME SCH (08:30)
[2018-05-12] MEDS: Finasteride 5 MG TABLET PO SCH (08:45)
[2018-05-12] MEDS: Aspirin Enteric Coated 81 MG Tablet PO SCH (08:45)
[2018-05-12] MEDS: Isosorbide MONOnitrate (24 HR) 60 MG TAB.ER.24H PO SCH (08:46)
[2018-05-12] MEDS: cefTRIAXone 1,000 MG in Water for inj. (sterile) 20 ML 10 ML IVP SCH (08:46)
[2018-05-12] MEDS: Renal Vitamin 1 CAP CAPSULE PO SCH (08:46)
[2018-05-12] MEDS: Erythromycin OPTH Oint RIGHT EYE SCH ×4 (08:46→23:06)
[2018-05-12] MEDS: Artificial Tears SOLN 15 ML BOTTLE BOTH EYES SCH ×4 (08:47→22:55)
[2018-05-12] MEDS: Dorzolamide OPTH 10 ML BOTTLE BOTH EYES SCH ×2 (08:48→22:55)
[2018-05-12] MEDS: Acetaminophen 325 MG TABLET PO PRN (08:57)
[2018-05-12] MEDS ORDERED: Furosemide 40 MG TABLET PO SCH (09:00)
[2018-05-12] MEDS: Insulin LISPRO 300 UNITS/3 ML VIAL SQ SCH ×7 (09:05→23:05)
[2018-05-12] MEDS: hydrALAZINE 25 MG TABLET PO SCH ×3 (09:06→23:06)
[2018-05-12] MEDS: cloNIDine HCl 0.1 MG TABLET PO SCH ×2 (09:06→23:06)
[2018-05-12] MEDS: Lactulose Oral Soln 20 GM/30 ML UDC PO SCH ×2 (09:06→23:07)
[2018-05-12] MEDS: amLODIPine 5 MG TABLET PO SCH (09:07)
--- NOTE | 2018-05-12 13:49 | Nephrology Progress Note ---
Date of Encounter: 05/12/18 Time of Encounter: 13:47 - Assessment and Plan (1) ESRD (end stage renal disease) on dialysis Current Visit: No Status: Chronic HD MWF. Renal vitamins. Renal dose medications. Renal diet. Additional dialysis and ultrafiltration as needed. Patient was seen on dialysis. (2) Constipation Current Visit: Yes Status: Acute Relieved. Continue stool softeners. Qualifiers: Qualified Code(s): K59.00 - Constipation, unspecified (3) Altered mental status Current Visit: Yes Status: Acute Slightly improved. Qualifiers: Altered mental status type: unspecified Qualified Code(s): R41.82 - Altered mental status, unspecified (4) Anemia Current Visit: No Status: Chronic Qualifiers: Anemia type: unspecified type Qualified Code(s): D64.9 - Anemia, unspecified Subjective Principal diagnosis: ESRD Interval history: Patient seen and evaluated. His daughter was at the bedside this morning. He states he is feeling a little bit better. His daughter was wondering if the patient could transition to peritoneal dialysis. Objective - Vital Signs Vital signs: Vital Signs Temp Pulse Resp BP Pulse Ox 05/12/18 13:40 182/72 05/12/18 13:25 125/67 05/12/18 13:10 139/55 05/12/18 12:55 153/52 05/12/18 12:40 150/53 05/12/18 12:25 173/64 05/12/18 12:10 159/59 05/12/18 11:55 153/57 05/12/18 11:40 155/50 05/12/18 11:25 153/51 05/12/18 11:10 97.9 F 18 167/59 05/12/18 06:52 98.7 F 79 18 166/74 98 05/12/18 03:39 98.1 F 67 15 157/70 99 05/11/18 23:54 98.2 F 67 15 156/69 99 05/11/18 21:44 99 05/11/18 19:11 99.3 F 84 15 165/76 98 05/11/18 15:53 98.8 F 92 16 161/55 93 Intake and Output 05/11/18 05/12/18 05/12/18 23:59 07:59 15:59 Intake Total 0 / 0 0 / 0 600 / 600 Output Total 150 / 150 50 / 50 Balance -150 / -150 -50 / -50 600 / 600 Intake: Oral 0 / 0 0 / 0 0 / 0 Intake, Rinseback and Flushes 600 / 600 Output: Catheter 150 / 150 50 / 50 Other: Meal Dinner Percent of Meal Consumed 25% Stool Size Small Stool Consistency loose # Bowel Movements 1 Weight 66.1 kg Blood Glucose* 163 105 Hemodialysis Net Fluid Removed 2562 (mL) - General Appearance General appearance: Present: well-developed, chronically ill, frail EENT: Present: ATNC Respiratory: Present: course breath sounds Cardiology: Present: regular rate Dialysis Vascular Access: Arteriovenous Fistula Integumentary: Present: warm and dry Psychiatric: Present: mood/affect appropriate - Lab 05/12/18 00:48 05/12/18 00:48 Most recent lab results Calcium 8.2 mg/dL (8.6-10.3) L 05/12/18 00:48 Consult Discharge Plan - Plan [facility]errals: [facility] [Primary Care Provider] -
[2018-05-12] MEDS: Cefepime HCl 2,000 MG in Water for inj. (sterile) 20 ML 20 ML IVP SCH (18:55)
[2018-05-12] MEDS: Latanoprost 2.5 ML BOTTLE LEFT EYE SCH (22:54)
[2018-05-12] MEDS: Insulin DETEMIR 100 UNIT/ML X5UNITS SQ SCH (23:07)
[2018-05-13 05:02] LABS: Basophils % 0.6 %; Eosinophils # 0.2 K/mcL (0.0-0.6); Eosinophils % 4.9 %; Hematocrit 25.9 % (37.5-50.1); Hemoglobin 7.9 g/dL (12.9-16.9); Immature Granulocytes % 0.4 % (0-4); Lymphocytes # 0.6 K/mcL (0.6-4.6); Lymphocytes % 12.4 %; Mean Corpuscular HGB Conc 30.5 g/dL (31.6-35.5); Mean Corpuscular Hemoglobin 27.6 pg (28.0-33.3); Mean Corpuscular Volume 90.6 fL (83.0-100.0); Mean Platelet Volume 10.1 fL (9.4-12.4); Monocytes # 0.5 K/mcL (0.0-1.3); Monocytes % 10.9 %; Neutrophils # 3.3 K/mcL (1.6-8.9); Platelet Count 174 K/mcL (140-400); Red Blood Count 2.86 M/mcL (4.19-5.50); Red Cell Distribution Width 16.2 % (11.5-14.5); Segmented Neutrophils % 70.8 %
[2018-05-13 05:21] LABS: Calcium 8.2 mg/dL (8.6-10.3); Potassium 4.2 mEq/L (3.5-5.1)
[2018-05-13] MEDS: *HR* Heparin 5,000 UNIT/ML VIAL SQ SCH ×2 (06:12→17:01)
[2018-05-13] MEDS: Insulin LISPRO 300 UNITS/3 ML VIAL SQ SCH ×7 (07:24→22:54)
--- NOTE | 2018-05-13 07:50 | Internal Med Progress Note ---
<Lucas Hutchinson - Last Filed: 05/13/18 11:21> Hospitalist Progress Note - Encounter Date of Encounter: 05/13/18 Time of Encounter: 09:00 - Subjective Interval History: Patient seen and examined at bedside; denies shortness of breath. Denies having any nausea, vomiting, diarrhea, or abdominal pain. Patient had dialysis yesterday. No further complaints. - Exam Vitals: Temp Pulse Resp BP Pulse Ox 98.3 F 66 16 135/42 100 05/13/18 07:05 05/13/18 07:05 05/13/18 07:05 05/13/18 07:05 05/13/18 07:05 Exam: General: answers questions appropriately, no acute distress Cardiovascular: Regular rate and rhythm, S1-S2, no murmurs rubs or gallops Lungs: Bibasilar crackles Abdomen: Soft, nontender, nondistended Extremities: left arm fistula with hematoma - Assessment and Plan (1) Acute on chronic diastolic (congestive) heart failure Current Visit: No Status: Resolved Assessment and Plan: Known history of CHF; presented w/ findings suggestive of volume overload - CXR consistent w/ CHF with b/l effusions - ECHO 04/20/18: LVEF of 55% with mild segmental LV systolic dysfunction - BNP of 1431 Plan: - IV Lasix 40 mg BID is currently being held - Nephrology following - Strict I/O, daily weights, fluid restriction, low sodium diet (2) UTI (urinary tract infection) Current Visit: Yes Status: Acute Assessment and Plan: UA demonstrates findings consistent with UTI - Repeat UA demonstrates similar findings - Urine CX from 05/10 grew pansensitive Pseudomonas Plan: - Cefepime 2 g every 24 hours (3) ESRD (end stage renal disease) on dialysis Current Visit: No Status: Chronic Assessment and Plan: Known history of ESRD; HD MWF - Nephrology following Plan: - Renal diet, renally dose medications (4) Altered mental status Current Visit: Yes Status: Acute Assessment and Plan: Cause unknown at this time; possibly secondary to UTI - CT of the head showed no acute intracranial abnormalities with advanced chronic findings - Continue to monitor (5) Anemia in chronic renal disease Current Visit: No Status: Chronic Assessment and Plan: Hb close to baseline; continue to monitor (6) Diabetes mellitus Current Visit: No Status: Chronic Assessment and Plan: Continue insulin (7) DVT prophylaxis Current Visit: No Status: Acute Assessment and Plan: Subcutaneous heparin (8) Hypertension Current Visit: Yes Status: Acute Assessment and Plan: Known history of hypertension Plan: - Continue Imdur, Hydralazine, Norvasc, clonidine - Time Spent with Patient Total time spent is greater than 50% in coordination of care (as documented) at patient's floor/unit and/or counseling patient: Internal Medicine: Result - Labs CBC & Chem 7: 05/13/18 04:24 05/13/18 04:24 Labs: Short CBC 05/13/18 Range/Units 04:24 WBC 4.7 (4.3-11.1) K/mcL Hgb 7.9 L (12.9-16.9) g/dL Hct 25.9 L (37.5-50.1) % Plt Count 174 (140-400) K/mcL Neutrophils # 3.3 (1.6-8.9) K/mcL BMP 05/13/18 04:24 Sodium 140 Potassium 4.2 Chloride 101 Carbon Dioxide 32 H BUN 23 Creatinine 2.97 H Glucose 94 Calcium 8.2 L - ABG Interpretation ABG results: PT/INR, D-dimer PT 14.9 Seconds (9.4-12.1) H 05/10/18 08:43 Consult Discharge Plan - Plan Referrals: [facility] [Primary Care Provider] - <Jason Bradley - Last Filed: 05/13/18 16:04> Hospitalist Progress Note - Encounter Date of Encounter: 05/13/18 - Exam Vitals: Temp Pulse Resp BP Pulse Ox 97.9 F 71 18 123/57 98 05/13/18 15:21 05/13/18 15:21 05/13/18 15:21 05/13/18 15:21 05/13/18 15:21 - Assessment and Plan (1) UTI (urinary tract infection) Current Visit: Yes Status: Acute (2) Anemia in chronic renal disease Current Visit: No Status: Chronic (3) Diabetes mellitus Current Visit: No Status: Chronic (4) ESRD (end stage renal disease) on dialysis Current Visit: No Status: Chronic (5) DVT prophylaxis Current Visit: No Status: Acute (6) Acute on chronic diastolic (congestive) heart failure Current Visit: No Status: Resolved (7) Altered mental status Current Visit: Yes Status: Acute (8) Hypertension Current Visit: Yes Status: Acute - Summary of Assessment and Plan Summary of Assessment and Plan: I examined this patient and my medical decision-making was reviewed with the Resident Physician. I agree with the documented findings, disposition and treatment plan as described except to the extent set forth below. He has no complaints today. Denies SOB. On exam he does have new wheezing not present yesterday. Vitals significant for fever overnight Tmax 101.3. HR/BP unremarkable. Labs show no leukocytosis, hemoglobin near baseline. and creatinine improved. Will resume Lasix 40 mg IV daily (takes 80 mg PO daily per chart), and increase diuresis if needed. Also will schedule Duo Nebs instead of giving prn, and start Prednisone. Continue cefepime (renally dosed for Pseudomonal infections), blood cultures negative. - Time Spent with Patient Total time spent is greater than 50% in coordination of care (as documented) at patient's floor/unit and/or counseling patient: Internal Medicine: Result - Labs CBC & Chem 7: 05/13/18 04:24 05/13/18 04:24 Labs: Short CBC 05/13/18 Range/Units 04:24 WBC 4.7 (4.3-11.1) K/mcL Hgb 7.9 L (12.9-16.9) g/dL Hct 25.9 L (37.5-50.1) % Plt Count 174 (140-400) K/mcL Neutrophils # 3.3 (1.6-8.9) K/mcL BMP 05/13/18 04:24 Sodium 140 Potassium 4.2 Chloride 101 Carbon Dioxide 32 H BUN 23 Creatinine 2.97 H Glucose 94 Calcium 8.2 L - ABG Interpretation ABG results: PT/INR, D-dimer PT 14.9 Seconds (9.4-12.1) H 05/10/18 08:43 <Lucas Hutchinson - Last Filed: 05/13/18 11:21> (2) UTI (urinary tract infection) Qualifiers: Urinary tract infection type: site unspecified Hematuria presence: without hematuria Qualified Code(s): N39.0 - Urinary tract infection, site not specified (4) Altered mental status Qualifiers: Altered mental status type: unspecified Qualified Code(s): R41.82 - Altered mental status, unspecified (5) Anemia in chronic renal disease Qualifiers: Chronic kidney disease stage: on chronic dialysis Qualified Code(s): N18.6 - End stage renal disease; D63.1 - Anemia in chronic kidney disease; Z99.2 - Dependence on renal dialysis (6) Diabetes mellitus Qualifiers: Diabetes mellitus type: type 2 Diabetes mellitus detention insulin use: with lag screwer use Diabetes mellitus complication status: with kidney complications Diabetes mellitus complication detail: with chronic kidney disease Chronic kidney disease stage: on chronic dialysis Qualified Code(s): E11.22 - Type 2 diabetes mellitus with diabetic chronic kidney disease; N18.6 - End stage renal disease; Z79.4 - FDC (current) use of insulin; Z99.2 - Dependence on renal dialysis <Jason Bradley - Last Filed: 05/13/18 16:04> (1) UTI (urinary tract infection) Qualifiers: Urinary tract infection type: site unspecified Hematuria presence: without hematuria Qualified Code(s): N39.0 - Urinary tract infection, site not specified (2) Anemia in chronic renal disease Qualifiers: Chronic kidney disease stage: on chronic dialysis Qualified Code(s): N18.6 - End stage renal disease; D63.1 - Anemia in chronic kidney disease; Z99.2 - Dependence on renal dialysis (3) Diabetes mellitus Qualifiers: Diabetes mellitus type: type 2 Diabetes mellitus lag screwer insulin use: with detention use Diabetes mellitus complication status: with kidney complications Diabetes mellitus complication detail: with chronic kidney disease Chronic kidney disease stage: on chronic dialysis Qualified Code(s): E11.22 - Type 2 diabetes mellitus with diabetic chronic kidney disease; N18.6 - End stage renal disease; Z79.4 - map compiler (current) use of insulin; Z99.2 - Dependence on renal dialysis (7) Altered mental status Qualifiers: Altered mental status type: unspecified Qualified Code(s): R41.82 - Altered mental status, unspecified
[2018-05-13] MEDS: cloNIDine HCl 0.1 MG TABLET PO SCH ×2 (09:29→22:54)
[2018-05-13] MEDS: Aspirin Enteric Coated 81 MG Tablet PO SCH (09:29)
[2018-05-13] MEDS: Renal Vitamin 1 CAP CAPSULE PO SCH (09:29)
[2018-05-13] MEDS: hydrALAZINE 25 MG TABLET PO SCH ×3 (09:31→22:54)
[2018-05-13] MEDS: amLODIPine 5 MG TABLET PO SCH (09:32)
[2018-05-13] MEDS: Isosorbide MONOnitrate (24 HR) 60 MG TAB.ER.24H PO SCH (09:32)
[2018-05-13] MEDS: Lactulose Oral Soln 20 GM/30 ML UDC PO SCH ×2 (09:32→22:55)
[2018-05-13] MEDS: Finasteride 5 MG TABLET PO SCH (09:32)
[2018-05-13] MEDS: Artificial Tears SOLN 15 ML BOTTLE BOTH EYES SCH ×4 (09:39→22:53)
[2018-05-13] MEDS: Erythromycin OPTH Oint RIGHT EYE SCH ×4 (09:40→22:54)
[2018-05-13] MEDS: Dorzolamide OPTH 10 ML BOTTLE BOTH EYES SCH ×2 (09:41→22:53)
[2018-05-13] MEDS: Ipratropium/Albuterol Neb 3 ML IH SCH ×3 (16:07→23:50)
[2018-05-13] MEDS: Furosemide 40 MG/4 ML VIAL IVP SCH (16:51)
[2018-05-13] MEDS: predniSONE 20 MG TABLET PO SCH (16:55)
[2018-05-13] MEDS: Cefepime HCl 2,000 MG in Water for inj. (sterile) 20 ML 20 ML IVP SCH (17:01)
[2018-05-13] MEDS: Latanoprost 2.5 ML BOTTLE LEFT EYE SCH (22:53)
[2018-05-13] MEDS: Insulin DETEMIR 100 UNIT/ML X5UNITS SQ SCH (22:58)
[2018-05-14] MEDS: Ipratropium/Albuterol Neb 3 ML IH SCH ×6 (04:23→23:37)
[2018-05-14] MEDS: *HR* Heparin 5,000 UNIT/ML VIAL SQ SCH ×2 (04:35→18:11)
[2018-05-14 06:49] LABS: Basophils % 0.2 %; Eosinophils % 0.2 %; Hematocrit 26.7 % (37.5-50.1); Hemoglobin 8.1 g/dL (12.9-16.9); Immature Granulocytes % 1.4 % (0-4); Lymphocytes # 0.4 K/mcL (0.6-4.6); Lymphocytes % 8.9 %; Mean Corpuscular HGB Conc 30.3 g/dL (31.6-35.5); Mean Corpuscular Hemoglobin 27.6 pg (28.0-33.3); Mean Corpuscular Volume 90.8 fL (83.0-100.0); Monocytes # 0.3 K/mcL (0.0-1.3); Monocytes % 7.7 %; Neutrophils # 3.5 K/mcL (1.6-8.9); Platelet Count 184 K/mcL (140-400); Red Blood Count 2.94 M/mcL (4.19-5.50); Red Cell Distribution Width 15.9 % (11.5-14.5); Segmented Neutrophils % 81.6 %
[2018-05-14 07:01] LABS: Calcium 7.8 mg/dL (8.6-10.3); Potassium 5.8 mEq/L (3.5-5.1)
[2018-05-14] MEDS ORDERED: 0.9 % Sodium Chloride 1,000 ML ONE (07:46)
[2018-05-14] MEDS: Insulin LISPRO 300 UNITS/3 ML VIAL SQ SCH ×7 (08:03→20:08)
[2018-05-14] MEDS: Renal Vitamin 1 CAP CAPSULE PO SCH (08:04)
[2018-05-14] MEDS: Finasteride 5 MG TABLET PO SCH (08:04)
[2018-05-14] MEDS: predniSONE 20 MG TABLET PO SCH (08:04)
[2018-05-14] MEDS: Aspirin Enteric Coated 81 MG Tablet PO SCH (08:04)
[2018-05-14] MEDS: Artificial Tears SOLN 15 ML BOTTLE BOTH EYES SCH ×4 (08:06→20:10)
[2018-05-14] MEDS: Erythromycin OPTH Oint RIGHT EYE SCH ×4 (08:07→20:11)
[2018-05-14] MEDS: Dorzolamide OPTH 10 ML BOTTLE BOTH EYES SCH ×2 (08:08→20:10)
[2018-05-14] MEDS ORDERED: 0.9 % Sodium Chloride 250 ML IVC PRN (08:30)
--- NOTE | 2018-05-14 09:12 | Event Note ---
Date of Encounter: 05/14/18 Time of Encounter: 08:45 Medical Student Note-Lee Ann He, OMS-IV Subjective: Mr. Webb was sitting up upon my arrival and eating breakfast upon my arrival. His daughter is at the bedside and is feeding him. The patient has great difficulty speaking and I am unable to understand the majority of what he states but he is able to understand and follow commands. Patient denies any chest pain, palpitations, shortness of breath, abdominal pain, and nausea or vomiting. Patient is urinating but is unsure when his last bowel movement was. Objective: Vitals: Temperature-98.2, HR-69, RR-17, RP-136/46, O2-97 on 3L General Appearance: Patient appears to be in distress Head exam: Atraumatic, normocephalic Eye exam: PERRL, conjuntiva pink, sclera anicteric Neck exam: Trachea midline Respiratory exam: No wheezing, rales, or rhonci Cardiology exam: RRR, +S1, +S2 Gastrointestinal exam: Normal bowel sounds, soft Extremities exam: warm without tenderness or peripheral edema Neurological exam: CN II-XII intact, weakness of the right upper and bilateral lower extremities (muscle strength 2/5) previous history of strokes and MS ( according to daughter). Skin exam: Dry and intact Assessment: 1.Congestive Heart Failure 2. UTI 3. Elevated Troponin 4. Hypertension 5. Diabetes 6. CKD 7. Anemia in CKD 8. AMS 9. Hyperkalemia 10. DVT Prophylaxis Plan: 1. Upon admission to the ER, the patient was found to have volume overload on exam and chest x-rays consistent with congestive heart failure with bilateral effusions. Additionally, lab results showed showed a BNP of 1431 and a torponin of 0.10 (has since trended down to 0.09 on 05/11/18). Echocardiogram on 04/20/18 showed LVEF of 55% with mild segmental left ventricular systolic dysfunction. Patient is not currently complaining of shortness of breath and does not appear to be volume overloaded on physical exam. Receiving treatment with Albuterol, Musinex, and Lasix 40 mg IV. Nephrology was consulted and they recommend strict I/O, daily weights, fluid restriction, and renal diet. 2. Patient received a UA upon admission that was positive for Leukocyte esterase. Urine culture on 05/10/18 grew Pseudomonas that was pansensitive to antibiotics. Mr. Webb initially presented with AMS and this was believed to be secondary to his UTI. Treatment was begun with Ceftriaxone (05/10-05/11) prior to urine culture results. Currently being treated with Cefepime 1,000 mg. Patient is currently afebrile and most recent WBC was 4.3. Continue to monitor the patient. Urine culture also revealed Lexie, given the patient's history of CKD he should be started on Fluconazole for treatment. 3. Patient initially presented with an elevated Troponin of 0.10 which has slightly trended down to 0.09 (05/11/18). Patient is not currently complaining of any chest pain. Continue to monitor for any changes. 4. Patient has a previous diagnosis of hypertension. Currently being treated with Carvedilol, Clonidine, and Hydralazine. Latest blood pressure was 136/46. Continue to monitor Q4 hours. 5. Mr. Webb has a previous diagnosis of Diabetes Mellitus type 2. Latest blood glucose level was 450. Receiving treatment with sliding scale insulin, should consider increasing dose. 6. Patient has a history of CKD, based on his GFR (15) the patient is almost in stage 5 CKD. Patient is receiving dialysis and his latest Creatinine was 3.83, which appears to be near his baseline. Nephrology was consulted and performed dialysis on 05/12/18. They also recommend strict I/O, daily weights, fluid restriction, renal vitamins, and renal diet. Additional dialysis and ultrafiltration as needed. 7. Hemoglobin/Hematocrit levels were 8.1/26.7 values are similar to the patient' s baseline and likely secondary to history of CKD. 8. Patient initially presented with AMS and this was believed to be secondary to his UTI. At the time of examination the patient appears to be oriented and is able to follow commands. 9. Patient's laboratory results today revealed an elevated potassium level at 5.8. Patient will be receiving dialysis today and hyperkalemia should correct itself. Continue to monitor and recheck laboratory findings. 10. Currently receiving DVT prophylaxis with subcutaneous Heparin 5,000 units.
--- NOTE | 2018-05-14 09:26 | Nephrology Progress Note ---
Date of Encounter: 05/14/18 Time of Encounter: 09:25 - Assessment and Plan (1) ESRD (end stage renal disease) on dialysis Current Visit: No Status: Chronic HD MWF. Renal vitamins. Renal dose medications. Renal diet. Additional dialysis and ultrafiltration as needed. (2) Anemia Current Visit: No Status: Chronic Goal hgb is 10-11. Hgb is 8.1 today. Will trend. Qualifiers: Anemia type: unspecified type Qualified Code(s): D64.9 - Anemia, unspecified (3) Altered mental status Current Visit: Yes Status: Acute Slightly improved. Qualifiers: Altered mental status type: unspecified Qualified Code(s): R41.82 - Altered mental status, unspecified (4) Constipation Current Visit: Yes Status: Acute Relieved. Continue stool softeners. Last BM 05/13/18. Qualifiers: Qualified Code(s): K59.00 - Constipation, unspecified Subjective Principal diagnosis: ESRD Interval history: Pt seen and examined. Daughter was not at bedside. EUGENIO Santizo placing Emla cream for dialysis later. Objective - Vital Signs Vital signs: Vital Signs Temp Pulse Resp BP Pulse Ox 05/14/18 06:51 69 17 136/46 97 05/14/18 04:25 20 97 05/14/18 03:30 98.2 F 69 17 128/64 98 05/13/18 23:50 16 98 05/13/18 22:50 98 05/13/18 20:15 16 92 05/13/18 19:00 99 F 74 19 127/42 94 05/13/18 16:09 16 98 05/13/18 15:21 97.9 F 71 18 123/57 98 05/13/18 11:09 98.3 F 66 16 148/66 99 05/13/18 09:30 100 Intake and Output 05/13/18 05/14/18 05/14/18 23:59 07:59 15:59 Intake Total 0 / 0 0 / 0 260 / 260 Output Total 250 / 250 100 / 100 Balance -250 / -250 -100 / -100 260 / 260 Intake: IV Fluids 20 / 20 Maxipime 2,000 MG In Water for 20 / 20 inj. (sterile) 20 ML @ 300 mls/ hr IVP Q24H [facility] Rx#:[id number] Oral 0 / 0 0 / 0 240 / 240 Output: Catheter 250 / 250 100 / 100 Other: Meal Breakfast Percent of Meal Consumed 70% Stool Size Smear Stool Consistency soft Stool Color Brown Yellow # Voids 0 Weight 61.7 kg Blood Glucose* 278 399 Patient Weight 05/14/18 23:59 Weight 61.7 kg - General Appearance General appearance: Present: well-developed, well-nourished, frail EENT: Present: ATNC, hearing intact, vision intact Neck: Present: supple Respiratory: Present: clear Cardiology: Present: no edema Dialysis Vascular Access: Arteriovenous Fistula thrill: Yes bruit: Yes Gastrointestinal: Present: normoactive bowel sounds, no tenderness, no guarding Integumentary: Present: no rash, warm and dry Neurologic: Present: alert and oriented x3 Additional Comments: Pt is not able to speak coherently, but is able to follow and understand commands. Psychiatric: Present: mood/affect appropriate, cooperative - Lab 05/14/18 06:03 05/14/18 06:03 Most recent lab results Calcium 7.8 mg/dL (8.6-10.3) L 05/14/18 06:03 Consult Discharge Plan - Plan [facility] Care Provider[facility] -
[2018-05-14] MEDS: Lactulose Oral Soln 20 GM/30 ML UDC PO SCH (11:43)
[2018-05-14] MEDS: hydrALAZINE 25 MG TABLET PO SCH ×3 (11:43→20:06)
[2018-05-14] MEDS: cloNIDine HCl 0.1 MG TABLET PO SCH ×2 (11:43→20:07)
--- NOTE | 2018-05-14 14:33 | Discharge Summary ---
<Lucas Hutchinson - Last Filed: 05/14/18 14:57> Orders not resulted at time of discharge: Pending orders 05/13/18 08:49 Culture,Blood [BC] Routine Date of Encounter: 05/14/18 Time of Encounter: 08:30 - Discharge Diagnosis (1) Acute on chronic diastolic (congestive) heart failure Priority: Primary Status: Resolved (2) UTI (urinary tract infection) Priority: Secondary Status: Acute Assessment and Plan: Patient will be discharged on Cipro once per day for 14 days, and fluconazole for 14 days. Comments: Patient will be discharged on Cipro XR 1g daily for 14 days andFluconazole 200 mg daily for 14 days. Qualifiers: Urinary tract infection type: site unspecified Hematuria presence: without hematuria Qualified Code(s): N39.0 - Urinary tract infection, site not specified (3) ESRD (end stage renal disease) on dialysis Priority: Secondary Status: Chronic (4) Hypertension Priority: Secondary Status: Acute Qualifiers: Qualified Code(s): I10 - Essential (primary) hypertension (5) Altered mental status Priority: Secondary Status: Acute Qualifiers: Altered mental status type: unspecified Qualified Code(s): R41.82 - Altered mental status, unspecified (6) Anemia in chronic renal disease Priority: Secondary Status: Chronic Qualifiers: Chronic kidney disease stage: on chronic dialysis Qualified Code(s): N18.6 - End stage renal disease; D63.1 - Anemia in chronic kidney disease; Z99.2 - Dependence on renal dialysis (7) Diabetes mellitus Priority: Secondary Status: Chronic Qualifiers: Diabetes mellitus type: type 2 Diabetes mellitus shelter insulin use: with shelter use Diabetes mellitus complication status: with kidney complications Diabetes mellitus complication detail: with chronic kidney disease Chronic kidney disease stage: on chronic dialysis Qualified Code(s) : E11.22 - Type 2 diabetes mellitus with diabetic chronic kidney disease; N18.6 - End stage renal disease; 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 Patient appeared slightly altered; was not able to give history. In the ER, he was determined to have volume overload on exam and chest x-rays. Patient has a known history of congestive heart failure; was admitted for CHF exacerbation. Imaging demonstrated bilateral pleural effusions. BNP was elevated at 1431 with a troponin of 0.1. At this time, he was given a one-time dose of IV Lasix. UTI was found on urinalysis, and he was started on IV Rocephin. Urine culture later grew Pseudomonas and Lexie. Antibiotics were later switched to cefepime. Due to patients end-stage renal disease on dialysis, nephrology was consulted. Patient underwent dialysis. His mental status and fluid overload both improved. Patient was treated intermittently with IV Lasix. Respiratory status began to improve. On date of discharge, patient was seen and examined at bedside; he reports that he is feeling much better. He reports that his respiratory status is improved, and denies shortness of breath, confusion, chest pain, chest tightness, fever, chills, or swelling. For his UTI, patient will be treated with Cipro once per day for 14 days, as well as fluconazole for 14 days. Patient should be fluid restricted, 1.5 L per day to prevent further exacerbation. Patient will also need to be on a renal diet with strict intake and output. - Time Spent with Patient Total time spent providing and/or coordinating discharge services: Greater than 30 minutes (41 minutes) - Discharge Medications Prescriptions: Ciprofloxacin [Cipro] 500 mg PO DAILY 14 Days #14 tablet Fluconazole [Diflucan] 200 mg PO Q48H #14 tab Home Medications: Acetaminophen [Tylenol] 650 mg PO Q6HR PRN 12/09/16 [History] Amlodipine Besylate 10 mg PO DAILY 12/09/16 [History] Brimonidine 0.2% [Alphagan] 1 drop LEFT EYE TID 12/09/16 [History] Carvedilol 25 mg PO BID 12/09/16 [History] Doxazosin Mesylate [Cardura] 8 mg PO BID 12/09/16 [History] Finasteride [Proscar] 5 mg PO DAILY 12/09/16 [History] Hydralazine HCl 100 mg PO TID 12/09/16 [History] Insulin ASPART [NovoLOG] 2 unit SQ TID 12/09/16 [History] Insulin Glargine [Lantus] 2 unit SQ HS 12/09/16 [History] Ipratropium/Albuterol Neb [Duoneb] 3 ml IH Q4HR PRN 12/09/16 [History] Latanoprost [Xalatan] 1 drop LEFT EYE HS 12/09/16 [History] Sertraline [Zoloft] 100 mg PO DAILY 12/09/16 [History] Atorvastatin Calcium [Lipitor] 20 mg PO HS 04/21/17 [History] Omeprazole [PriLOSEC] 20 mg PO DAILY 04/21/17 [History] Sevelamer [Renvela] 800 mg PO TIDWM 04/21/17 [History] cloNIDine HCl [Clonidine HCl] 0.2 mg PO BID 04/21/17 [History] Erythromycin OPTH Oint 1 appl RIGHT EYE QID 11/01/17 [History] Polyvinyl Alcohol [Artificial Tears] 2 drop BOTH EYES QID 11/01/17 [History] Renal Vitamin [Renal Caps Softgel] 1 mg PO DAILY 11/01/17 [History] Dorzolamide [Trusopt] 1 drop BOTH EYES BID 04/19/18 [History] Furosemide [Lasix] 80 mg PO DAILY 04/19/18 [History] Isosorbide MONOnitrate (24 HR) [Imdur] 60 mg PO DAILY 04/19/18 [History] Lidocaine/Prilocaine [Emla] 1 appl TP AD 04/19/18 [History] Sennosides/Docusate Sodium [Senna-Docusate Sodium Tablet] 1 tab PO BID PRN 04/19 [History] Aspirin [Lo-Dose Aspirin EC] 81 mg PO DAILY 05/11/18 [History] Ciprofloxacin [Cipro] 500 mg PO DAILY 14 Days #14 tablet 05/14/18 [Rx] Fluconazole [Diflucan] 200 mg PO Q48H #14 tab 05/14/18 [Rx] Allergies/Adverse Reactions: 3 Allergy/AdvReac Type Severity Reaction Status Date / Time lisinopril AdvReac unknown Verified 05/10/17 15:37 Date of admission: 05/10/18 18:02 [facility] care physician: [facility] Consults: 05/11/18 08:19 Consult to Dynamics Ax Technical Architect [CONS] Routine Reason for Consult: Patient from [facility] 05/12/18 08:30 Consult to Dialysis [CONS] ONCE 05/14/18 08:30 Consult to Dialysis [CONS] ONCE 05/15/18 08:30 Consult to Dialysis [CONS] ONCE Discharging clinician: Lucas Hutchinson Anticipated date of discharge: 05/14/18 - Constitutional Vitals: Temp Pulse Resp BP Pulse Ox 97.9 F 69 18 161/70 97 05/14/18 13:55 05/14/18 06:51 05/14/18 13:55 05/14/18 13:55 05/14/18 08:10 - Other Additional findings: General Appearance: No acute distress Head exam: Atraumatic, normocephalic Eye exam: PERRL, conjuntiva pink, sclera anicteric Respiratory exam: Clear to auscultation bilaterally, No wheezing, rales, or rhonci Cardiology exam: RRR, +S1, +S2, no murmurs, rubs, gallops Abdominal: Normal bowel sounds, soft Extremities: warm, dry, intact. No tenderness or peripheral edema Skin: Dry and intact - Patient Status Disposition: Transfer [facility] Condition: Fair Overall status at discharge: patient is progressing back to baseline - Discharge Instructions Follow [facility] With: [facility] [Primary Care Provider] - (in 1-2 weeks) - Diet and Activity Activity: increase activity as tolerated Diet: other (Renal diet) <Aracely Lopez - Last Filed: 05/14/18 16:13> - NOTES TO OUTPATIENT PROVIDER Notes to Outpatient Provider: Patient was hospitalized here for shortness of breath. He has a history of ESRD and is on hemodialysis. He was diagnosed with congestive heart failure with bilateral pleural effusions. She was placed on fluid restriction and treated with Lasix and also underwent hemodialysis for volume management. His symptoms slowly improved. He also had altered mental status and he was suspected of having UTI. His urine culture is positive for Pseudomonas which is pansensitive. Patient will be discharged on ciprofloxacin to complete 14 day treatment course. He also had lexie in his urine for which he will be treated with fluconazole given his underlying comorbidities. Orders not resulted at time of discharge: Pending orders 05/13/18 08:49 Culture,Blood [BC] Routine Date of Encounter: 05/14/18 Time of Encounter: 08:20 - Discharge Diagnosis (1) Acute on chronic diastolic (congestive) heart failure Priority: Primary Status: Resolved (2) UTI (urinary tract infection) Priority: Secondary Status: Acute Comments: Dose has been changed based on his renal function to ciprofloxacin 500 mg daily and fluconazole 200 mg every 48 hours to complete a total course of 14 day treatment Qualifiers: Urinary tract infection type: site unspecified Hematuria presence: without hematuria Qualified Code(s): N39.0 - Urinary tract infection, site not specified (3) Anemia in chronic renal disease Priority: Secondary Status: Chronic Qualifiers: Chronic kidney disease stage: on chronic dialysis Qualified Code(s): N18.6 - End stage renal disease; D63.1 - Anemia in chronic kidney disease; Z99.2 - Dependence on renal dialysis (4) Diabetes mellitus Priority: Secondary Status: Chronic Qualifiers: Diabetes mellitus type: type 2 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 Diabetes mellitus complication status: with kidney complications Diabetes mellitus complication detail: with chronic kidney disease Chronic kidney disease stage: on chronic dialysis Qualified Code(s) : E11.22 - Type 2 diabetes mellitus with diabetic chronic kidney disease; N18.6 - End stage renal disease; Z79.4 - senior living (current) use of insulin; Z99.2 - Dependence on renal dialysis (5) ESRD (end stage renal disease) on dialysis Priority: Secondary Status: Chronic (6) DVT prophylaxis Priority: Secondary Status: Acute (7) Altered mental status Status: Acute Qualifiers: Altered mental status type: unspecified Qualified Code(s): R41.82 - Altered mental status, unspecified (8) Hypertension Status: Acute - Time Spent with Patient Total time spent providing and/or coordinating discharge services: Greater than 30 minutes Date of admission: 05/10/18 18:02 Primary care physician: PCP [place] Consults: 05/11/18 08:19 Consult to Dynamics Ax Technical Architect [CONS] Routine Reason for SW Consult: Patient from [facility] 05/12/18 08:30 Consult to Dialysis [CONS] ONCE 05/14/18 08:30 Consult to Dialysis [CONS] ONCE 05/15/18 08:30 Consult to Dialysis [CONS] ONCE - Constitutional Vitals: Temp Pulse Resp BP Pulse Ox 97.9 F 68 18 137/52 98 05/14/18 14:46 05/14/18 14:46 05/14/18 14:46 05/14/18 14:46 05/14/18 14:46 General appearance: Present: cooperative, pleasant, answers questions appropriately - Respiratory Respiratory exam: Present: decreased breath sounds (at bases), prolonged expiratory phase. Absent: accessory muscle use, rales, rhonchi, wheezes - Cardiovascular Cardiovascular exam: Present: RRR, +S1, +S2, systolic murmur. Absent: diastolic murmur, gallop, rubs - GI/Abdominal GI/Abdominal exam: Present: normal bowel sounds, soft, no peritoneal signs. Absent: distended, tenderness - Extremities Exam Extremities exam: Present: warm, radial pulses palpable and symmetrical. Absent : calf tenderness, cyanotic, pedal edema - Patient Status Functional capacity at discharge: bed bound Overall status at discharge: patient is progressing back to baseline - Diet and Activity Diet: other (Renal diet; Fluid restriction to 1.5 L/day) - Attending Attestation I examined this patient and my medical decision-making was reviewed with the Resident Physician. I agree with the documented findings, disposition and treatment plan as described with any changes as documented below. Addendum entered and electronically signed by Lucas Hutchinson DO 05/14/18 16:06: Discharge medication dosages have been adjusted: Cipro 500 mg Daily for 14 days , and Fluconazole 200 mg Q48 hours.
[2018-05-14] MEDS ORDERED: Fluconazole 100 MG TABLET PO ONE (14:54)
--- NOTE | 2018-05-14 15:01 | Physician Discharge Referral ---
<Lucas Hutchinson - Last Filed: 05/14/18 15:00> [facility] Referral Info [facility] To[facility] Provider in Charge after Transfer: PCP Institutional Level of Care: Intermediate - Diagnosis (1) Acute on chronic diastolic (congestive) heart failure Priority: Primary Status: Resolved (2) UTI (urinary tract infection) Priority: Secondary Status: Acute (3) ESRD (end stage renal disease) on dialysis Priority: Secondary Status: Chronic (4) Hypertension Status: Acute (5) Altered mental status Priority: Secondary Status: Acute (6) Anemia in chronic renal disease Priority: Secondary Status: Chronic (7) Diabetes mellitus Priority: Secondary Status: Chronic (8) DVT prophylaxis Priority: Secondary Status: Acute - Transfer Medications Prescriptions: Ciprofloxacin [Cipro] 500 mg PO DAILY 14 Days #14 tablet Fluconazole [Diflucan] 200 mg PO Q48H #14 tab Home Medications: Acetaminophen [Tylenol] 650 mg PO Q6HR PRN 12/09/16 [History] Amlodipine Besylate 10 mg PO DAILY 12/09/16 [History] Brimonidine 0.2% [Alphagan] 1 drop LEFT EYE TID 12/09/16 [History] Carvedilol 25 mg PO BID 12/09/16 [History] Doxazosin Mesylate [Cardura] 8 mg PO BID 12/09/16 [History] Finasteride [Proscar] 5 mg PO DAILY 12/09/16 [History] Hydralazine HCl 100 mg PO TID 12/09/16 [History] Insulin ASPART [NovoLOG] 2 unit SQ TID 12/09/16 [History] Insulin Glargine [Lantus] 2 unit SQ HS 12/09/16 [History] Ipratropium/Albuterol Neb [Duoneb] 3 ml IH Q4HR PRN 12/09/16 [History] Latanoprost [Xalatan] 1 drop LEFT EYE HS 12/09/16 [History] Sertraline [Zoloft] 100 mg PO DAILY 12/09/16 [History] Atorvastatin Calcium [Lipitor] 20 mg PO HS 04/21/17 [History] Omeprazole [PriLOSEC] 20 mg PO DAILY 04/21/17 [History] Sevelamer [Renvela] 800 mg PO TIDWM 04/21/17 [History] cloNIDine HCl [Clonidine HCl] 0.2 mg PO BID 04/21/17 [History] Erythromycin OPTH Oint 1 appl RIGHT EYE QID 11/01/17 [History] Polyvinyl Alcohol [Artificial Tears] 2 drop BOTH EYES QID 11/01/17 [History] Renal Vitamin [Renal Caps Softgel] 1 mg PO DAILY 11/01/17 [History] Dorzolamide [Trusopt] 1 drop BOTH EYES BID 04/19/18 [History] Furosemide [Lasix] 80 mg PO DAILY 04/19/18 [History] Isosorbide MONOnitrate (24 HR) [Imdur] 60 mg PO DAILY 04/19/18 [History] Lidocaine/Prilocaine [Emla] 1 appl TP AD 04/19/18 [History] Sennosides/Docusate Sodium [Senna-Docusate Sodium Tablet] 1 tab PO BID PRN 04/19 [History] Aspirin [Lo-Dose Aspirin EC] 81 mg PO DAILY 05/11/18 [History] Ciprofloxacin [Cipro] 500 mg PO DAILY 14 Days #14 tablet 05/14/18 [Rx] Fluconazole [Diflucan] 200 mg PO Q48H #14 tab 05/14/18 [Rx] Allergies/Adverse Reactions: 3 Allergy/AdvReac Type Severity Reaction Status Date / Time lisinopril AdvReac unknown Verified 05/10/17 15:37 - Respiratory Orders Smoking Cessation: Smoking cessation has been advised. For more information, call the [place] Tobacco Quit Line at 7-615-VMGA-NOW. - Diet Orders Renal CERTIFICATION: I certify that the transfer of the above named patient to an Extended Care Facility is necessary for the continuing treatment of the diagnosis listed. The above information is true and accurate reflection of patient's current condition. Confidential - Redisclosure prohibited without a patient's written consent. <Aracely Lopez - Last Filed: 05/14/18 16:12> - Diagnosis (1) Acute on chronic diastolic (congestive) heart failure Status: Resolved (2) UTI (urinary tract infection) Status: Acute (3) Anemia in chronic renal disease Status: Chronic (4) Diabetes mellitus Status: Chronic (5) ESRD (end stage renal disease) on dialysis Status: Chronic (6) DVT prophylaxis Status: Acute (7) Altered mental status Status: Acute (8) Hypertension Status: Acute - Respiratory Orders Oxygen / L per min (keep sats >90%) Smoking Cessation: Smoking cessation has been advised. For more information, call the [place] Tobacco Quit Line at 1-352-RVZM-NOW. - Ancillary Orders May consult with Dentist, Roller Cleaner, Flexo Press Operator PRN - Advance Directives Code Status: Full Code - Mobility Orders Other (per PT) - Rehabiliation Orders Rehab Potential: Fair Rehab Orders: Evaluation for Physical Therapy, Evaluation for Occupational Therapy - Diet Orders Renal (Fluid restriction to 1.5 L per day) CERTIFICATION: I certify that the transfer of the above named patient to an Extended Care Facility is necessary for the continuing treatment of the diagnosis listed. The above information is true and accurate reflection of patient's current condition. Confidential - Redisclosure prohibited without a patient's written consent.
[2018-05-14] MEDS: amLODIPine 5 MG TABLET PO SCH (15:04)
[2018-05-14] MEDS: Isosorbide MONOnitrate (24 HR) 60 MG TAB.ER.24H PO SCH (15:04)
[2018-05-14] MEDS: Furosemide 40 MG/4 ML VIAL IVP SCH (15:05)
[2018-05-14] MEDS ORDERED: Cefepime HCl 1,000 MG in Water for inj. (sterile) 20 ML 20 ML IVP SCH (18:00)
[2018-05-14] MEDS: Insulin DETEMIR 100 UNIT/ML X5UNITS SQ SCH (20:08)
[2018-05-14] MEDS: Latanoprost 2.5 ML BOTTLE LEFT EYE SCH (20:10)
[2018-05-15] MEDS: Lactulose Oral Soln 20 GM/30 ML UDC PO SCH (00:45)
[2018-05-15] MEDS: Ipratropium/Albuterol Neb 3 ML IH SCH ×2 (03:44→07:30)
[2018-05-15] MEDS: *HR* Heparin 5,000 UNIT/ML VIAL SQ SCH (06:07)
[2018-05-15 06:47] VITALS: BP 112/85
--- NOTE | 2018-05-15 08:49 | Nephrology Progress Note ---
Date of Encounter: 05/15/18 Time of Encounter: 08:45 - Assessment and Plan (1) ESRD (end stage renal disease) on dialysis Current Visit: No Status: Chronic Plan for HD tomorrow or if discharged today Patient is now on the TTS dialysis schedule at [facility]-will get him switched over to his regular schedule when needed Avoid nephrotoxins if possible (2) Anemia Current Visit: No Status: Chronic No current labs today-will order CBC and BMP Goal hgb 10-11 Transfuse per parameters Qualifiers: Anemia type: unspecified type Qualified Code(s): D64.9 - Anemia, unspecified (3) Urinary tract infection associated with indwelling urethral catheter Current Visit: No Status: Acute per primary team Qualifiers: Encounter type: initial encounter Qualified Code(s): T83.511A - Infection and inflammatory reaction due to indwelling urethral catheter, initial encounter ; N39.0 - Urinary tract infection, site not specified Subjective Principal diagnosis: ESRD Interval history: Patient seen and examined. Sitting up being fed breakfast. States he is doing ok but has limited speech (chronic), very difficult to understand Objective - Vital Signs Vital signs: Vital Signs Temp Pulse Resp BP Pulse Ox 05/15/18 07:30 16 99 05/15/18 06:42 98.2 F 73 16 112/85 99 05/15/18 04:00 98.1 F 70 17 126/46 98 05/15/18 03:44 16 97 05/14/18 23:37 16 96 05/14/18 20:00 98 F 74 16 141/49 96 05/14/18 19:38 16 99 05/14/18 18:01 75 147/68 05/14/18 15:25 20 100 05/14/18 14:46 97.9 F 68 18 137/52 98 05/14/18 13:55 97.9 F 18 161/70 05/14/18 13:45 156/60 05/14/18 13:30 147/39 05/14/18 13:15 127/57 05/14/18 13:00 134/48 05/14/18 12:45 146/41 05/14/18 12:30 134/77 05/14/18 12:15 154/47 05/14/18 12:00 156/43 05/14/18 11:45 147/43 05/14/18 11:30 152/43 05/14/18 11:15 153/40 05/14/18 11:00 149/43 05/14/18 10:45 144/37 05/14/18 10:30 144/73 05/14/18 10:15 97.7 F 18 138/45 Intake and Output 05/14/18 05/15/18 05/15/18 23:59 07:59 15:59 Intake Total 0 / 0 0 / 0 Output Total 0 / 0 100 / 100 Balance 0 / 0 -100 / -100 Intake: Oral 0 / 0 0 / 0 Output: Catheter 0 / 0 100 / 100 Other: Weight 61.7 kg Blood Glucose* 291 144 Patient Weight 05/15/18 23:59 Weight 61.7 kg - General Appearance General appearance: Present: cachectic EENT: Present: ATNC, hearing intact Neck: Present: supple Respiratory: Present: wheezing, rhonchi Cardiology: Present: no edema, normal S1, normal S2 Dialysis Vascular Access: Arteriovenous Fistula Gastrointestinal: Present: no tenderness, no guarding Psychiatric: Present: cooperative - Lab 05/14/18 06:03 05/14/18 06:03 Most recent lab results Calcium 7.8 mg/dL (8.6-10.3) L 05/14/18 06:03 Consult Discharge Plan - Plan [facility]errals: [facility] [Primary Care Provider] - (in 1-2 weeks) Prescriptions: Ciprofloxacin [Cipro] 500 mg PO DAILY 14 Days #14 tablet Fluconazole [Diflucan] 200 mg PO Q48H #14 tab
[2018-05-15 09:18] LABS: Basophils % 0.7 %; Eosinophils # 0.2 K/mcL (0.0-0.6); Eosinophils % 3.4 %; Hematocrit 27.6 % (37.5-50.1); Hemoglobin 8.4 g/dL (12.9-16.9); Immature Granulocytes % 0.5 % (0-4); Lymphocytes % 16.6 %; Mean Corpuscular HGB Conc 30.4 g/dL (31.6-35.5); Mean Corpuscular Hemoglobin 28.3 pg (28.0-33.3); Mean Corpuscular Volume 92.9 fL (83.0-100.0); Mean Platelet Volume 9.7 fL (9.4-12.4); Monocytes # 0.5 K/mcL (0.0-1.3); Monocytes % 8.6 %; Neutrophils # 4.2 K/mcL (1.6-8.9); Platelet Count 206 K/mcL (140-400); Red Blood Count 2.97 M/mcL (4.19-5.50); Red Cell Distribution Width 15.9 % (11.5-14.5); Segmented Neutrophils % 70.2 %
[2018-05-15 09:40] LABS: Calcium 8.2 mg/dL (8.6-10.3); Potassium 4.5 mEq/L (3.5-5.1)
--- NOTE | 2018-05-15 09:44 | Internal Med Progress Note ---
<Lee Ann He - Last Filed: 05/15/18 14:03> Hospitalist Progress Note - Encounter Date of Encounter: 05/15/18 Time of Encounter: 08:30 - Subjective Interval History: Mr. Webb was asleep upon my arrival but was easily awoken by my voice. His daughter is not present at bedside this morning. The patient has great difficulty speaking and I am unable to understand the majority of what he states but he is able to understand and follow commands. Patient denies any chest pain, palpitations, shortness of breath, abdominal pain, and nausea or vomiting. Patient is urinating but is unsure when his last bowel movement was. - Exam Vitals: Temp Pulse Resp BP Pulse Ox 98.2 F 73 16 112/85 99 05/15/18 06:42 05/15/18 06:42 05/15/18 07:30 05/15/18 06:42 05/15/18 07:30 Exam: General Appearance: Patient does not appears to be in distress Head exam: Atraumatic, normocephalic Eye exam: PERRL, conjuntiva pink, sclera anicteric Neck exam: Trachea midline Respiratory exam: No wheezing, rales, or rhonci Cardiology exam: RRR, +S1, +S2 Gastrointestinal exam: Normal bowel sounds, soft Extremities exam: warm without tenderness or peripheral edema Neurological exam: CN II-XII intact, weakness of the right upper and bilateral lower extremities (muscle strength 2/5) previous history of strokes and MS ( according to daughter). Skin exam: Dry and intact - Assessment and Plan (1) CHF exacerbation Status: Acute Assessment and Plan: -Upon admission to the ER, the patient was found to have volume overload on exam and chest x-rays consistent with congestive heart failure with bilateral effusions. -Additionally, lab results showed showed a BNP of 1431 and a torponin of 0.10 ( has since trended down to 0.09 on 05/11/18). Echocardiogram on 04/20/18 showed LVEF of 55% with mild segmental left ventricular systolic dysfunction. -Patient is not currently complaining of shortness of breath and does not appear to be volume overloaded on physical exam. -Receiving treatment with Albuterol, Musinex, and Lasix 40 mg IV. -Nephrology was consulted and they recommend strict I/O, daily weights, fluid restriction, and renal diet. (2) UTI (urinary tract infection) Status: Acute Assessment and Plan: -Patient received a UA upon admission that was positive for Leukocyte esterase. -Urine culture on 05/10/18 grew Pseudomonas that was pansensitive to antibiotics. -Mr. Webb initially presented with AMS and this was believed to be secondary to his UTI. -Treatment was begun with Ceftriaxone (05/10-05/11) prior to urine culture results. -Currently being treated with Cefepime 1,000 mg. Patient is currently afebrile and most recent WBC was 6.0. -Urine culture also revealed Lexie, given the patient's history of CKD he was given Fluconazole 150 mg PO. -Plans are to discharge the patient on Ciprofloxacin and Fluconazole for 14 days. (3) Elevated troponin Status: Acute Assessment and Plan: -Patient initially presented with an elevated Troponin of 0.10 which has slightly trended down to 0.09 (05/11/18). -Patient is not currently complaining of any chest pain. Continue to monitor for any changes. (4) Hypertension Status: Acute Assessment and Plan: -Patient has a previous diagnosis of hypertension. -Currently being treated with Carvedilol, Clonidine, and Hydralazine. -Latest blood pressure was 112/85. -Continue to monitor Q4 hours. (5) Diabetes mellitus Status: Chronic Assessment and Plan: -Mr. Webb has a previous diagnosis of Diabetes Mellitus type 2. -Latest blood glucose level was 210. Receiving treatment with sliding scale insulin. (6) Altered mental status Status: Acute Assessment and Plan: -Patient initially presented with AMS and this was believed to be secondary to his UTI. -At the time of examination the patient appears to be oriented and is able to follow commands. (7) CKD (chronic kidney disease) stage 5, GFR less than 15 ml/min Status: Chronic Assessment and Plan: -Patient has a history of CKD, based on his GFR (20) the patient is almost in stage 5 CKD. -Patient is receiving dialysis and his latest Creatinine was 3.0, which appears to be near his baseline. -Nephrology was consulted and performed dialysis on 05/12/18 and 05/14/18. -They also recommend strict I/O, daily weights, fluid restriction, renal vitamins, and renal diet. (8) Anemia in CKD (chronic kidney disease) Status: Acute Assessment and Plan: -Hemoglobin/Hematocrit levels were 8.4/27.6 values are similar to the patient's baseline and likely secondary to history of CKD. -Have slightly trended up from yesterday. (9) DVT prophylaxis Status: Acute Assessment and Plan: Currently receiving DVT prophylaxis with subcutaneous Heparin 5,000 units - Time Spent with Patient Total time spent is greater than 50% in coordination of care (as documented) at patient's floor/unit and/or counseling patient: Internal Medicine: Result - Labs CBC & Chem 7: 05/15/18 08:59 05/15/18 08:59 Labs: Short CBC 05/15/18 Range/Units 08:59 WBC 6.0 (4.3-11.1) K/mcL Hgb 8.4 L (12.9-16.9) g/dL Hct 27.6 L (37.5-50.1) % Plt Count 206 (140-400) K/mcL Neutrophils # 4.2 (1.6-8.9) K/mcL BMP 05/15/18 08:59 Sodium 138 Potassium 4.5 Chloride 101 Carbon Dioxide 29 BUN 26 H Creatinine 3.03 H Glucose 210 H Calcium 8.2 L - ABG Interpretation ABG results: PT/INR, D-dimer PT 14.9 Seconds (9.4-12.1) H 05/10/18 08:43 Consult Discharge Plan - Plan [facility] Provider[facility] - (in 1-2 weeks) Prescriptions: Ciprofloxacin [Cipro] 500 mg PO DAILY 14 Days #14 tablet Fluconazole [Diflucan] 200 mg PO Q48H #14 tab <Jarad Chris - Last Filed: 05/15/18 19:44> Hospitalist Progress Note - Encounter Date of Encounter: 05/15/18 - Exam Vitals: Temp Pulse Resp BP Pulse Ox 98.2 F 73 16 112/85 99 05/15/18 06:42 05/15/18 06:42 05/15/18 07:30 05/15/18 06:42 05/15/18 07:30 - Assessment and Plan (1) UTI (urinary tract infection) Status: Acute (2) Anemia in chronic renal disease Status: Chronic (3) Diabetes mellitus Status: Chronic (4) ESRD (end stage renal disease) on dialysis Status: Chronic (5) DVT prophylaxis Status: Acute (6) Acute on chronic diastolic (congestive) heart failure Status: Resolved (7) Altered mental status Status: Acute (8) Hypertension Status: Acute - Time Spent with Patient Total time spent is greater than 50% in coordination of care (as documented) at patient's floor/unit and/or counseling patient: Internal Medicine: Result - Labs CBC & Chem 7: 05/15/18 08:59 05/15/18 08:59 Labs: Short CBC 05/15/18 Range/Units 08:59 WBC 6.0 (4.3-11.1) K/mcL Hgb 8.4 L (12.9-16.9) g/dL Hct 27.6 L (37.5-50.1) % Plt Count 206 (140-400) K/mcL Neutrophils # 4.2 (1.6-8.9) K/mcL BMP 05/15/18 08:59 Sodium 138 Potassium 4.5 Chloride 101 Carbon Dioxide 29 BUN 26 H Creatinine 3.03 H Glucose 210 H Calcium 8.2 L - ABG Interpretation ABG results: PT/INR, D-dimer PT 14.9 Seconds (9.4-12.1) H 05/10/18 08:43 - Attending Attestation The history, physical exam, and medical decision making was performed by the medical student either while I was physically present and actively involved or I personally re-performed the exam and medical decision making. I have verified the accuracy of the medical student's documentation with regards to the history, physical exam findings, and medical decision making.on 05/15/18. Mr Webb has been admitted for exac CHF. He is awaiting return to [place]. He remains low to moderate risk. Mr Webb feels OK. He is eating breakfast. No fever or chills. No CP or SOB. Exam alert. Comfortable Mucus membranes dry Heart reg and distant Lungs diminished Abd soft Edema present I/P 1. CHF exac 2. ESRD Further diagnoses and plan as above [facility]. 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 insulin use: with termite control service representative use Diabetes mellitus complication status: with kidney complications Diabetes mellitus complication detail: with chronic kidney disease Chronic kidney disease stage: on chronic dialysis Qualified Code(s): E11.22 - Type 2 diabetes mellitus with diabetic chronic kidney disease; N18.6 - End stage renal disease; Z79.4 - rat exterminator (current) use of insulin; Z99.2 - Dependence on renal dialysis (6) Altered mental status Qualifiers: Altered mental status type: unspecified Qualified Code(s): R41.82 - Altered mental status, unspecified <Jarad Chris A - Last Filed: 05/15/18 19:44> (1) UTI (urinary tract infection) Qualifiers: Urinary tract infection type: acute cystitis Hematuria presence: without hematuria Qualified Code(s): N30.00 - Acute cystitis without hematuria (2) Anemia in chronic renal disease Qualifiers: Chronic kidney disease stage: on chronic dialysis Qualified Code(s): N18.6 - End stage renal disease; D63.1 - Anemia in chronic kidney disease; Z99.2 - Dependence on renal dialysis (3) Diabetes mellitus Qualifiers: Diabetes mellitus type: type 2 Diabetes mellitus termite control service representative insulin use: with care home use Diabetes mellitus complication status: with kidney complications Diabetes mellitus complication detail: with chronic kidney disease Chronic kidney disease stage: on chronic dialysis Qualified Code(s): E11.22 - Type 2 diabetes mellitus with diabetic chronic kidney disease; N18.6 - End stage renal disease; Z79.4 - USP (current) use of insulin; Z99.2 - Dependence on renal dialysis (7) Altered mental status Qualifiers: Altered mental status type: unspecified Qualified Code(s): R41.82 - Altered mental status, unspecified
[2018-05-15] MEDS: Isosorbide MONOnitrate (24 HR) 60 MG TAB.ER.24H PO SCH (10:04)
[2018-05-15] MEDS: Renal Vitamin 1 CAP CAPSULE PO SCH (10:04)
[2018-05-15] MEDS: amLODIPine 5 MG TABLET PO SCH (10:04)
[2018-05-15] MEDS: predniSONE 20 MG TABLET PO SCH (10:05)
[2018-05-15] MEDS: cloNIDine HCl 0.1 MG TABLET PO SCH (10:05)
[2018-05-15] MEDS: Aspirin Enteric Coated 81 MG Tablet PO SCH (10:05)
[2018-05-15] MEDS: Finasteride 5 MG TABLET PO SCH (10:06)
[2018-05-15] MEDS: hydrALAZINE 25 MG TABLET PO SCH (10:06)
[2018-05-15] MEDS: Furosemide 40 MG/4 ML VIAL IVP SCH (10:07)
[2018-05-15] MEDS: Insulin LISPRO 300 UNITS/3 ML VIAL SQ SCH ×2 (10:08→10:09)
[2018-05-15] MEDS: Artificial Tears SOLN 15 ML BOTTLE BOTH EYES SCH (10:10)
[2018-05-15] MEDS: Erythromycin OPTH Oint RIGHT EYE SCH (10:11)
[2018-05-15] MEDS: Dorzolamide OPTH 10 ML BOTTLE BOTH EYES SCH (10:13)
== END 2018-05-15 11:33 | DRG 291 ==
LOC: EMEROO 08:23 → 2NENU 08:23 → SUATTDRO 18:02
PROVIDERS: ADMIT Hospitalist; ATTEND Internal Medicine

== ENCOUNTER 2018-05-28 21:33 | Observation (INO) ==
--- NOTE | 2018-05-28 21:46 | Emergency Department Note ---
Disposition Clinical Impression: Iron deficiency anemia due to chronic blood loss, Gross hematuria Urinary tract infection associated with indwelling urethral catheter Qualifiers: Encounter type: sequela Qualified Code(s): T83.511S - Infection and inflammatory reaction due to indwelling urethral catheter, sequela; N39.0 - Urinary tract infection, site not specified UTI (urinary tract infection) Qualifiers: Urinary tract infection type: acute cystitis Hematuria presence: with hematuria Qualified Code(s): N30.01 - Acute cystitis with hematuria Disposition: Admitted As Inpatient Condition: Fair Time of Disposition: 00:30 General Adult HPI - General Stated complaint: blood in catheter Time Seen by Provider: 05/28/18 21:34 Source: patient, family, EMS Mode of arrival: EMS Limitations: age Nursing Notes Reviewed: Yes Vital Signs Reviewed: Yes - History of Present Illness HPI Narrative: Patient presents to the ED with the chief complaint of blood in his [place] catheter. Patient is an inpatient at [facility] and is on hemodialysis Monday, , Monday. Has not missed any recent dialysis sessions. Had a three- way Cord[place] catheter replaced yesterday with a normal [place] and has been having bleeding around it. Patient is complaining of abdominal pain. Denies any fever , chest pain or shortness of breath. Family states he has had a stroke in the past and then has trouble speaking and is generally weak with no change from baseline. - Related Data Home Medications Medication Instructions Recorded Confirmed Acetaminophen [Tylenol] 650 mg PO Q6HR PRN 12/09/16 05/11/18 Amlodipine Besylate 10 mg PO DAILY 12/09/16 05/11/18 Brimonidine 0.2% [Alphagan] 1 drop LEFT EYE TID 12/09/16 05/11/18 Carvedilol 25 mg PO BID 12/09/16 05/11/18 Doxazosin Mesylate [Cardura] 8 mg PO BID 12/09/16 05/11/18 Finasteride [Proscar] 5 mg PO DAILY 12/09/16 05/11/18 Hydralazine HCl 100 mg PO TID 12/09/16 05/11/18 Insulin ASPART [NovoLOG] 2 unit SQ TID 12/09/16 05/11/18 Insulin Glargine [Lantus] 2 unit SQ HS 12/09/16 05/11/18 Ipratropium/Albuterol Neb [Duoneb] 3 ml IH Q4HR PRN 12/09/16 05/11/18 Latanoprost [Xalatan] 1 drop LEFT EYE HS 12/09/16 05/11/18 Sertraline [Zoloft] 100 mg PO DAILY 12/09/16 05/11/18 Atorvastatin Calcium [Lipitor] 20 mg PO HS 04/21/17 05/11/18 Omeprazole [PriLOSEC] 20 mg PO DAILY 04/21/17 05/11/18 Sevelamer [Renvela] 800 mg PO TIDWM 04/21/17 05/11/18 cloNIDine HCl [Clonidine HCl] 0.2 mg PO BID 04/21/17 05/11/18 Erythromycin OPTH Oint 1 appl RIGHT EYE QID 11/01/17 05/11/18 Polyvinyl Alcohol [Artificial 2 drop BOTH EYES QID 11/01/17 05/11/18 Tears] Renal Vitamin [Renal Caps Softgel] 1 mg PO DAILY 11/01/17 05/11/18 Dorzolamide [Trusopt] 1 drop BOTH EYES BID 04/19/18 05/11/18 Furosemide [Lasix] 80 mg PO DAILY 04/19/18 05/11/18 Isosorbide MONOnitrate (24 HR) 60 mg PO DAILY 04/19/18 05/11/18 [Imdur] Lidocaine/Prilocaine [Emla] 1 appl TP AD 04/19/18 05/11/18 Sennosides/Docusate Sodium 1 tab PO BID PRN 04/19/18 05/11/18 [Senna-Docusate Sodium Tablet] Aspirin [Lo-Dose Aspirin EC] 81 mg PO DAILY 05/11/18 05/11/18 Previous Rx's Medication Instructions Recorded Ciprofloxacin [Cipro] 500 mg PO DAILY 14 Days #14 tablet 05/14/18 Fluconazole [Diflucan] 200 mg PO Q48H #14 tab 05/14/18 Allergies Allergy/AdvReac Type Severity Reaction Status Date / Time lisinopril AdvReac unknown Verified 05/10/17 15:37 Review of Systems: As reviewed in the HPI. All other systems reviewed are negative or normal. Past Medical History - Past Medical History Attestation: Yes The following information was validated with the patient. Source: old records reviewed, obtained from family Medical history: Reports: arthritis, CHF, coronary artery disease, CVA, diabetes , GI bleed, hyperlipidemia, hypertension, myocardial infarction, osteoporosis, peripheral artery disease, renal disease, TIA, valvular heart disease, other Surgical history: Reports: coronary bypass (CABG), other Psychiatric history: Reports: no psych history, other - Social History Smoking Status: Former smoker Smokeless Tobacco Status: No Alcohol use: Reports: none Drug use: Reports: none Physical Exam - General Limitations: age General appearance: alert, in no apparent distress - Head Head exam: atraumatic, normocephalic, normal inspection - Eye Eye exam: Present: normal appearance, PERRL, EOMI - ENT ENT exam: normal exam, normal oropharynx, mucous membranes moist - Chest Chest inspection: Present: normal inspection, symmetric chest wall rise - Respiratory Respiratory exam: Present: normal lung sounds bilaterally - Cardiovascular Cardiovascular exam: Present: regular rate, normal rhythm, normal heart sounds - Abdominal Exam Abdominal exam: Present: soft, tenderness, distention. Absent: guarding, rebound Abdominal tenderness: Present: suprapubic, mild, moderate - Male exam: Present: normal inspection, normal testicular lie, other (bloody drainage from urethra and blood in cordoba catheter ) - Extremities Exam Extremities exam: Absent: tenderness, pedal edema - Neurological Exam Neurological exam: Present: alert, oriented X3 - Psychiatric Psychiatric exam: Present: normal affect, normal mood - Skin Skin exam: Present: warm, dry, intact, normal color Course Course Narrative: patient presenting with hematuria and abdominal pain. had 3-way taken out today and replaced with cordoba and is now having pain/bleeding around cordoba and into bag. will check labs since he is more weak than usual to eval for anemia and to check with renal function/lytes as well as CT to eval for bladder dist/ possible trauma/etc. CT shows bladder full of blood but no perf. He is also more anemic than usual and renal function/lytes about baseline for needing dialysis in the AM. Will remove cordoba, place 3-way and start CBI. Will admit Accepted for admission to the hospitalist service. Daughter presents states was admitted about 3 weeks ago for ssx. Also has a UTI, given rocephin. Vital Signs Temperature 98.8 F 08/20/18 21:39 Pulse Rate 71 05/28/18 21:39 Respiratory Rate 20 05/28/18 21:39 Blood Pressure 132/61 05/28/18 21:39 O2 Sat by Pulse Oximetry 96 05/28/18 21:39 Temperature 98.6 F 05/28/18 22:48 Pulse Rate 68 05/28/18 22:48 Respiratory Rate 16 05/28/18 22:48 Blood Pressure 122/59 05/28/18 22:48 O2 Sat by Pulse Oximetry 97 05/28/18 22:48 Oxygen Delivery Oxygen Delivery Room Air Medical Decision Making - Lab Data Result diagrams: 05/28/18 21:52 05/28/18 21:52 Lab Results 05/28/18 05/28/18 05/28/18 Range/Units 21:52 21:52 21:52 WBC 7.6 (4.3-11.1) K/mcL RBC 2.65 L (4.19-5.50) M/mcL Hgb 7.5 L (12.9-16.9) g/dL Hct 23.9 L (37.5-50.1) % MCV 90.2 (83.0-100.0) fL MCH 28.3 (28.0-33.3) pg MCHC 31.4 L (31.6-35.5) g/dL RDW 16.2 H (11.5-14.5) % Plt Count 180 (140-400) K/mcL MPV 10.1 (9.4-12.4) fL Immature Gran % 0.7 (0-4) % Seg Neutrophils % 84.7 % Lymphocytes % 8.0 % Monocytes % 6.5 % Eosinophils % 0.1 % Basophils % 0.0 % Neutrophils # 6.4 (1.6-8.9) K/mcL Lymphocytes # 0.6 (0.6-4.6) K/mcL Monocytes # 0.5 (0.0-1.3) K/mcL Eosinophils # 0.0 (0.0-0.6) K/mcL Basophils # 0.0 (0.0-0.2) K/mcL PT 13.6 H (9.4-12.1) Seconds INR 1.2 APTT 34.5 (26.0-36.0) Seconds Sodium 132 L (136-145) mEq/L Potassium 5.1 (3.5-5.1) mEq/L Chloride 96 L (98-107) mEq/L Carbon Dioxide 25 (23-29) mEq/L BUN 61 H (8-23) mg/dL Creatinine 5.11 H (0.70-1.30) mg/dL Est GFR ( Amer) 13 L (> 60) Est GFR (Non-Af Amer) 11 L (> 60) BUN/Creatinine Ratio 12 (6-26) Glucose 309 H (70-105) mg/dL Calculated Osmolality 303 H (280-300) Lactic Acid (0.5-2.2) mmol/L Calcium 8.0 L (8.6-10.3) mg/dL Total Bilirubin 0.4 (0.3-1.0) mg/dL Direct Bilirubin 0.1 (0.0-0.2) mg/dL Indirect Bilirubin 0.3 (0.0-1.2) mg/dL AST 15 (13-39) Units/L ALT 18 (7-52) Units/L Alkaline Phosphatase 84 (34-104) Units/L Serum Total Protein 6.2 L (6.4-8.9) g/dL Albumin 3.1 L (3.5-5.7) g/dL Globulin 3.1 (2.4-3.5) g/dL Albumin/Globulin Ratio 1.0 L (1.1-2.2) Lipase 18 (11-82) Units/L Ur Specimen Adequacy Urine Color (Yellow) Urine Clarity (Clear) Urine pH (5.0-8.0) pH Units Ur Specific [place] (1.010-1.025) Urine Protein (Neg-Trace) mg/dL Urine Glucose (UA) (Normal) mg/dL Urine Ketones (Negative) mg/dL Urine Blood (Negative) Urine Nitrite (Negative) Urine Bilirubin (Negative) Urine Urobilinogen (Normal) mg/dL Ur Leukocyte Esterase (Negative) Ur Culture Indicated? (NO) 05/28/18 05/28/18 Range/Units 21:52 23:05 WBC (4.3-11.1) K/mcL RBC (4.19-5.50) M/mcL Hgb (12.9-16.9) g/dL Hct (37.5-50.1) % MCV (83.0-100.0) fL MCH (28.0-33.3) pg MCHC (31.6-35.5) g/dL RDW (11.5-14.5) % Plt Count (140-400) K/mcL MPV (9.4-12.4) fL Immature Gran % (0-4) % Seg Neutrophils % % Lymphocytes % % Monocytes % % Eosinophils % % Basophils % % Neutrophils # (1.6-8.9) K/mcL Lymphocytes # (0.6-4.6) K/mcL Monocytes # (0.0-1.3) K/mcL Eosinophils # (0.0-0.6) K/mcL Basophils # (0.0-0.2) K/mcL PT (9.4-12.1) Seconds INR APTT (26.0-36.0) Seconds Sodium (136-145) mEq/L Potassium (3.5-5.1) mEq/L Chloride (98-107) mEq/L Carbon Dioxide (23-29) mEq/L BUN (8-23) mg/dL Creatinine (0.70-1.30) mg/dL Est GFR ( Amer) (> 60) Est GFR (Non-Af Amer) (> 60) BUN/Creatinine Ratio (6-26) Glucose (70-105) mg/dL Calculated Osmolality (280-300) Lactic Acid 1.1 (0.5-2.2) mmol/L Calcium (8.6-10.3) mg/dL Total Bilirubin (0.3-1.0) mg/dL Direct Bilirubin (0.0-0.2) mg/dL Indirect Bilirubin (0.0-1.2) mg/dL AST (13-39) Units/L ALT (7-52) Units/L Alkaline Phosphatase (34-104) Units/L Serum Total Protein (6.4-8.9) g/dL Albumin (3.5-5.7) g/dL Globulin (2.4-3.5) g/dL Albumin/Globulin Ratio (1.1-2.2) Lipase (11-82) Units/L Ur Specimen Adequacy See below A Urine Color Red A (Yellow) Urine Clarity Turbid A (Clear) Urine pH 6.5 (5.0-8.0) pH Units Ur Specific [place] 1.023 (1.010-1.025) Urine Protein >=1000 H (Neg-Trace) mg/dL Urine Glucose (UA) Normal (Normal) mg/dL Urine Ketones 15 H (Negative) mg/dL Urine Blood Large H (Negative) Urine Nitrite Positive A (Negative) Urine Bilirubin Large H (Negative) Urine Urobilinogen Normal (Normal) mg/dL Ur Leukocyte Esterase Large H (Negative) Ur Culture Indicated? YES A (NO)
[2018-05-28 22:09] LABS: Eosinophils % 0.1 %; Hematocrit 23.9 % (37.5-50.1); Hemoglobin 7.5 g/dL (12.9-16.9); Immature Granulocytes % 0.7 % (0-4); Lymphocytes # 0.6 K/mcL (0.6-4.6); Mean Corpuscular HGB Conc 31.4 g/dL (31.6-35.5); Mean Corpuscular Hemoglobin 28.3 pg (28.0-33.3); Mean Corpuscular Volume 90.2 fL (83.0-100.0); Mean Platelet Volume 10.1 fL (9.4-12.4); Monocytes # 0.5 K/mcL (0.0-1.3); Monocytes % 6.5 %; Neutrophils # 6.4 K/mcL (1.6-8.9); Platelet Count 180 K/mcL (140-400); Red Blood Count 2.65 M/mcL (4.19-5.50); Red Cell Distribution Width 16.2 % (11.5-14.5); Segmented Neutrophils % 84.7 %
[2018-05-28 22:16] LABS: INR 1.2; Prothrombin Time 13.6 Seconds (9.4-12.1)
[2018-05-28 22:18] LABS: Activated Partial Thrombo Time 34.5 Seconds (26.0-36.0)
[2018-05-28 22:32] LABS: Albumin 3.1 g/dL (3.5-5.7); Bilirubin,Direct 0.1 mg/dL (0.0-0.2); Bilirubin,Indirect 0.3 mg/dL (0.0-1.2); Bilirubin,Total 0.4 mg/dL (0.3-1.0); Globulin 3.1 g/dL (2.4-3.5); Potassium 5.1 mEq/L (3.5-5.1); Total Protein 6.2 g/dL (6.4-8.9)
[2018-05-28 23:23] LABS: Bilirubin,Urine Large (Negative); Blood,Urine Large (Negative); Clarity,Urine Turbid (Clear); Color,Urine Red (Yellow); Glucose,Urine (UA) Normal (Normal); Ketones,Urine 15 mg/dL (Negative); Leukocyte Esterase,Urine Large (Negative); Nitrite,Urine Positive (Negative); PH,Urine 6.5 pH Units (5.0-8.0); Protein,Urine >=1000 mg/dL (Neg-Trace); Specific Gravity,Urine 1.023 (1.010-1.025); Urobilinogen,Urine Normal (Normal)
[2018-05-28] MEDS ORDERED: cefTRIAXone 1,000 MG in Water for inj. (sterile) 20 ML 10 ML IVPB ONE (23:59)
--- NOTE | 2018-05-29 00:31 | Emergency Department Note ---
Disposition Clinical Impression: Iron deficiency anemia due to chronic blood loss, Gross hematuria Urinary tract infection associated with indwelling urethral catheter Qualifiers: Encounter type: sequela Qualified Code(s): T83.511S - Infection and inflammatory reaction due to indwelling urethral catheter, sequela UTI (urinary tract infection) Qualifiers: Urinary tract infection type: acute cystitis Hematuria presence: with hematuria Qualified Code(s): N30.01 - Acute cystitis with hematuria Disposition: Admitted As Inpatient Condition: Fair [facility]: [facility]Primary Care Provider[facility] - Forms: ED Satisfaction Letter General Adult HPI - General Chief complaint: ED Urogenital-Male Stated complaint: blood in catheter Time Seen by Provider: 05/28/18 21:34 Source: patient, family, EMS Mode of arrival: EMS Limitations: age Nursing Notes Reviewed: Yes Vital Signs Reviewed: Yes - History of Present Illness Pain Scale: 0 - Related Data Home Medications Medication Instructions Recorded Confirmed Acetaminophen [Tylenol] 650 mg PO Q6HR PRN 12/09/16 05/11/18 Amlodipine Besylate 10 mg PO DAILY 12/09/16 05/11/18 Brimonidine 0.2% [Alphagan] 1 drop LEFT EYE TID 12/09/16 05/11/18 Carvedilol 25 mg PO BID 12/09/16 05/11/18 Doxazosin Mesylate [Cardura] 8 mg PO BID 12/09/16 05/11/18 Finasteride [Proscar] 5 mg PO DAILY 12/09/16 05/11/18 Hydralazine HCl 100 mg PO TID 12/09/16 05/11/18 Insulin ASPART [NovoLOG] 2 unit SQ TID 12/09/16 05/11/18 Insulin Glargine [Lantus] 2 unit SQ HS 12/09/16 05/11/18 Ipratropium/Albuterol Neb [Duoneb] 3 ml IH Q4HR PRN 12/09/16 05/11/18 Latanoprost [Xalatan] 1 drop LEFT EYE HS 12/09/16 05/11/18 Sertraline [Zoloft] 100 mg PO DAILY 12/09/16 05/11/18 Atorvastatin Calcium [Lipitor] 20 mg PO HS 04/21/17 05/11/18 Omeprazole [PriLOSEC] 20 mg PO DAILY 04/21/17 05/11/18 Sevelamer [Renvela] 800 mg PO TIDWM 04/21/17 05/11/18 cloNIDine HCl [Clonidine HCl] 0.2 mg PO BID 04/21/17 05/11/18 Erythromycin OPTH Oint 1 appl RIGHT EYE QID 11/01/17 05/11/18 Polyvinyl Alcohol [Artificial 2 drop BOTH EYES QID 11/01/17 05/11/18 Tears] Renal Vitamin [Renal Caps Softgel] 1 mg PO DAILY 11/01/17 05/11/18 Dorzolamide [Trusopt] 1 drop BOTH EYES BID 04/19/18 05/11/18 Furosemide [Lasix] 80 mg PO DAILY 04/19/18 05/11/18 Isosorbide MONOnitrate (24 HR) 60 mg PO DAILY 04/19/18 05/11/18 [Imdur] Lidocaine/Prilocaine [Emla] 1 appl TP AD 04/19/18 05/11/18 Sennosides/Docusate Sodium 1 tab PO BID PRN 04/19/18 05/11/18 [Senna-Docusate Sodium Tablet] Aspirin [Lo-Dose Aspirin EC] 81 mg PO DAILY 05/11/18 05/11/18 Previous Rx's Medication Instructions Recorded Ciprofloxacin [Cipro] 500 mg PO DAILY 14 Days #14 tablet 05/14/18 Fluconazole [Diflucan] 200 mg PO Q48H #14 tab 05/14/18 Allergies Allergy/AdvReac Type Severity Reaction Status Date / Time lisinopril AdvReac unknown Verified 05/10/17 15:37 Past Medical History - Past Medical History Medical history: Reports: arthritis, CHF, coronary artery disease, CVA, diabetes , GI bleed, hyperlipidemia, hypertension, myocardial infarction, osteoporosis, peripheral artery disease, renal disease, TIA, valvular heart disease, other Surgical history: Reports: coronary bypass (CABG), other Psychiatric history: Reports: no psych history, other - Social History Smoking Status: Former smoker Smokeless Tobacco Status: No Alcohol use: Reports: none Drug use: Reports: none Physical Exam - General Limitations: age General appearance: alert, in no apparent distress Course Vital Signs Temperature 98.8 F 05/28/18 21:39 Pulse Rate 71 05/28/18 21:39 Respiratory Rate 20 05/28/18 21:39 Blood Pressure 132/61 05/28/18 21:39 O2 Sat by Pulse Oximetry 96 05/28/18 21:39 Temperature 98.6 F 05/28/18 22:48 Pulse Rate 68 05/28/18 22:48 Respiratory Rate 16 05/28/18 22:48 Blood Pressure 122/59 05/28/18 22:48 O2 Sat by Pulse Oximetry 97 05/28/18 22:48 Oxygen Delivery Oxygen Delivery Room Air Medical Decision Making - Medical Records Medical records reviewed: Yes I reviewed the patient's medical records. - Lab Data Lab results reviewed: Yes I reviewed the patient's lab results. Result diagrams: 05/28/18 21:52 05/28/18 21:52 Lab Results 05/28/18 05/28/18 05/28/18 Range/Units 21:52 21:52 21:52 WBC 7.6 (4.3-11.1) K/mcL RBC 2.65 L (4.19-5.50) M/mcL Hgb 7.5 L (12.9-16.9) g/dL Hct 23.9 L (37.5-50.1) % MCV 90.2 (83.0-100.0) fL MCH 28.3 (28.0-33.3) pg MCHC 31.4 L (31.6-35.5) g/dL RDW 16.2 H (11.5-14.5) % Plt Count 180 (140-400) K/mcL MPV 10.1 (9.4-12.4) fL Immature Gran % 0.7 (0-4) % Seg Neutrophils % 84.7 % Lymphocytes % 8.0 % Monocytes % 6.5 % Eosinophils % 0.1 % Basophils % 0.0 % Neutrophils # 6.4 (1.6-8.9) K/mcL Lymphocytes # 0.6 (0.6-4.6) K/mcL Monocytes # 0.5 (0.0-1.3) K/mcL Eosinophils # 0.0 (0.0-0.6) K/mcL Basophils # 0.0 (0.0-0.2) K/mcL PT 13.6 H (9.4-12.1) Seconds INR 1.2 APTT 34.5 (26.0-36.0) Seconds Sodium 132 L (136-145) mEq/L Potassium 5.1 (3.5-5.1) mEq/L Chloride 96 L (98-107) mEq/L Carbon Dioxide 25 (23-29) mEq/L BUN 61 H (8-23) mg/dL Creatinine 5.11 H (0.70-1.30) mg/dL Est GFR ( Amer) 13 L (> 60) Est GFR (Non-Af Amer) 11 L (> 60) BUN/Creatinine Ratio 12 (6-26) Glucose 309 H (70-105) mg/dL Calculated Osmolality 303 H (280-300) Lactic Acid (0.5-2.2) mmol/L Calcium 8.0 L (8.6-10.3) mg/dL Total Bilirubin 0.4 (0.3-1.0) mg/dL Direct Bilirubin 0.1 (0.0-0.2) mg/dL Indirect Bilirubin 0.3 (0.0-1.2) mg/dL AST 15 (13-39) Units/L ALT 18 (7-52) Units/L Alkaline Phosphatase 84 (34-104) Units/L Serum Total Protein 6.2 L (6.4-8.9) g/dL Albumin 3.1 L (3.5-5.7) g/dL Globulin 3.1 (2.4-3.5) g/dL Albumin/Globulin Ratio 1.0 L (1.1-2.2) Lipase 18 (11-82) Units/L Ur Specimen Adequacy Urine Color (Yellow) Urine Clarity (Clear) Urine pH (5.0-8.0) pH Units Ur Specific [place] (1.010-1.025) Urine Protein (Neg-Trace) mg/dL Urine Glucose (UA) (Normal) mg/dL Urine Ketones (Negative) mg/dL Urine Blood (Negative) Urine Nitrite (Negative) Urine Bilirubin (Negative) Urine Urobilinogen (Normal) mg/dL Ur Leukocyte Esterase (Negative) Ur Culture Indicated? (NO) 05/28/18 05/28/18 Range/Units 21:52 23:05 WBC (4.3-11.1) K/mcL RBC (4.19-5.50) M/mcL Hgb (12.9-16.9) g/dL Hct (37.5-50.1) % MCV (83.0-100.0) fL MCH (28.0-33.3) pg MCHC (31.6-35.5) g/dL RDW (11.5-14.5) % Plt Count (140-400) K/mcL MPV (9.4-12.4) fL Immature Gran % (0-4) % Seg Neutrophils % % Lymphocytes % % Monocytes % % Eosinophils % % Basophils % % Neutrophils # (1.6-8.9) K/mcL Lymphocytes # (0.6-4.6) K/mcL Monocytes # (0.0-1.3) K/mcL Eosinophils # (0.0-0.6) K/mcL Basophils # (0.0-0.2) K/mcL PT (9.4-12.1) Seconds INR APTT (26.0-36.0) Seconds Sodium (136-145) mEq/L Potassium (3.5-5.1) mEq/L Chloride (98-107) mEq/L Carbon Dioxide (23-29) mEq/L BUN (8-23) mg/dL Creatinine (0.70-1.30) mg/dL Est GFR ( Amer) (> 60) Est GFR (Non-Af Amer) (> 60) BUN/Creatinine Ratio (6-26) Glucose (70-105) mg/dL Calculated Osmolality (280-300) Lactic Acid 1.1 (0.5-2.2) mmol/L Calcium (8.6-10.3) mg/dL Total Bilirubin (0.3-1.0) mg/dL Direct Bilirubin (0.0-0.2) mg/dL Indirect Bilirubin (0.0-1.2) mg/dL AST (13-39) Units/L ALT (7-52) Units/L Alkaline Phosphatase (34-104) Units/L Serum Total Protein (6.4-8.9) g/dL Albumin (3.5-5.7) g/dL Globulin (2.4-3.5) g/dL Albumin/Globulin Ratio (1.1-2.2) Lipase (11-82) Units/L Ur Specimen Adequacy See below A Urine Color Red A (Yellow) Urine Clarity Turbid A (Clear) Urine pH 6.5 (5.0-8.0) pH Units Ur Specific [place] 1.023 (1.010-1.025) Urine Protein >=1000 H (Neg-Trace) mg/dL Urine Glucose (UA) Normal (Normal) mg/dL Urine Ketones 15 H (Negative) mg/dL Urine Blood Large H (Negative) Urine Nitrite Positive A (Negative) Urine Bilirubin Large H (Negative) Urine Urobilinogen Normal (Normal) mg/dL Ur Leukocyte Esterase Large H (Negative) Ur Culture Indicated? YES A (NO) - Radiology Data Radiology results reviewed: Yes I reviewed the patient's radiology results. Abdomen/Pelvis CT 05/28/18 21:43 IMPRESSION: Large amount of blood within the urinary bladder. Prostatomegaly. Bilateral pleural effusions, diverticulosis coli, and cholelithiasis. RECOMMENDATIONS: Urology consultation. D/ / Denys Jessica MD / Denys Jessica MD Interpreting Provider: Denys Jessica MD Attestation Statement - Attestation Attestation: I, Heber Whalen MD, personally evaluated this patient and discussed their management with the resident physician. I reviewed the resident's note and agree with the documented findings, medical decision making, and plan of care. 82-year-old male presents to the emergency department from the [facility] for complaint of blood in his Syed catheter. Patient just had a 3-way catheter removed earlier today and replaced with a Syed catheter. He now has gross blood in the Syed bag as well as some bleeding around the catheter from the urethra. residential was concerned about infection or possible trauma from exchanging the catheter. Patient has end-stage renal disease on hemodialysis and is due for his dialysis in the morning. Patient is alert but has dementia and really unable to provide any significant history or review of systems. He does answer some questions. Daughter arrived and reports that he was admitted here about 3 weeks ago for urinary infection. On examination patient is a well-developed elderly male in no acute distress. He is alert. No diaphoresis. Breath sounds are equal bilaterally with no rales or wheezes noted. Heart regular rate and rhythm. Abdomen is soft with present bowel sounds. There is moderate suprapubic tenderness. Gross blood in the Syed catheter bag. Labs reviewed. He does have a drop in his hemoglobin from 8.42 weeks ago down to 7.5 now. Findings consistent with UTI also. CT shows a large amount of blood in the bladder. The Syed catheter was removed and a 3-way catheter placed for CBI. The hospitalist, Dr. Thompson, was consulted and accepted admission of the patient.
[2018-05-29] MEDS ORDERED: Ondansetron 4 MG/2 ML VIAL IVP PRN (01:30)
[2018-05-29] MEDS ORDERED: Naloxone 0.4 MG/ML INJ IVP PRN (01:30)
[2018-05-29] MEDS ORDERED: D5% in Water 1,000 ML IVC PRN (01:33)
[2018-05-29] MEDS ORDERED: Dextrose Gel 15 GM/37.5 ML TUBE PO PRN ×2 (01:33)
[2018-05-29] MEDS ORDERED: *HR* Dextrose 50 % in Water (Syg) 50 ML SYRINGE IVP PRN (01:33)
[2018-05-29] MEDS ORDERED: Sennosides/Docusate Sodium TABLET PO PRN (01:34)
[2018-05-29] MEDS ORDERED: Ipratropium/Albuterol Neb 3 ML IH PRN (01:34)
--- NOTE | 2018-05-29 01:44 | Internal Med History&Physical ---
<Jose E Cunha - Last Filed: 05/29/18 01:39> Date of Encounter: 05/29/18 Time of Encounter: 01:40 Internal Medicine - H&P: HPI Chief complaint: hematuria Admitted From: Emergency Dept Plans for Post Hospital Care: Home History of present illness: Mr. Webb is a 82 year old male with past medical history of CHF, CAD, CVA, diabetes, hyperlipidemia, hypertension, peripheral arterial disease, end-stage renal disease on Monday dialysis, [place] who presents from the [place] due to concerns of hematuria. Patient notably is also somnolent on exam is a poor historian. Per chart review and from daughter who is present at bedside , patient had a Cordoba catheter exchange approximately 3 days ago and has had gross hematuria since. He does deny any pain to me today as well as any symptoms of fevers, chills, flank pain, dysuria. He he is on dialysis but still does make his own urine. He states this has never happened in the past although after reviewing his medication list he does seem to have an element of BPH. His daughter states that he did have some residual deficits including slurring of his speech and decreased mentation following his CVA, however she is reports that he is more somnolent last couple days. In the emergency room, vital signs were unremarkable. Lab results significant for a H/H is 7.5/23.9 which is mildly decreased from baseline with a hemoglobin around 8-9. BUNs/creatinine consistent with end-stage renal disease, lactic acid within normal onset 1.1. Urinalysis did show gross hematuria, proteinuria as well as leukocyte esterase and positive nitrates. CT scan of the abdomen was obtained which showed a large amount of blood in the bladder with no other acute pathology and prostatomegaly was also noted. Cordoba catheter was sucked up to continuous bladder irrigation. Past medical history as above Past surgical history: Per records includes CABG Past social history: Per chart review, former smoker and denies alcohol or drug use. Family history: Unobtainable due to mental status Past Med Surg Social Fam HX - Past Medical History Medical history: arthritis, CHF, coronary artery disease, CVA, diabetes, GI bleed, hyperlipidemia, hypertension, myocardial infarction, osteoporosis, peripheral artery disease, renal disease, TIA, valvular heart disease, other Additional medical history: MS Psychiatric history: no psych history, other - Past Surgical History Surgical History: coronary bypass (CABG), other Additional surgical history: Pt. has a dialysis shunt in the left wrist in case the pt. needs dialysis. - Social History Smoking Status: Former smoker Smokeless Tobacco Status: No Alcohol use: none Drug use: none Internal Medicine - H&P: Meds Acetaminophen [Tylenol] 650 mg PO Q6HR PRN 12/09/16 [History] Amlodipine Besylate 10 mg PO DAILY 12/09/16 [History] Brimonidine 0.2% [Alphagan] 1 drop LEFT EYE TID 12/09/16 [History] Carvedilol 25 mg PO BID 12/09/16 [History] Doxazosin Mesylate [Cardura] 8 mg PO BID 12/09/16 [History] Finasteride [Proscar] 5 mg PO DAILY 12/09/16 [History] Hydralazine HCl 100 mg PO TID 12/09/16 [History] Insulin ASPART [NovoLOG] 2 unit SQ TID 12/09/16 [History] Insulin Glargine [Lantus] 2 unit SQ HS 12/09/16 [History] Ipratropium/Albuterol Neb [Duoneb] 3 ml IH Q4HR PRN 12/09/16 [History] Latanoprost [Xalatan] 1 drop LEFT EYE HS 12/09/16 [History] Sertraline [Zoloft] 100 mg PO DAILY 12/09/16 [History] Atorvastatin Calcium [Lipitor] 20 mg PO HS 04/21/17 [History] Omeprazole [PriLOSEC] 20 mg PO DAILY 04/21/17 [History] Sevelamer [Renvela] 800 mg PO TIDWM 04/21/17 [History] cloNIDine HCl [Clonidine HCl] 0.2 mg PO BID 04/21/17 [History] Erythromycin OPTH Oint 1 appl RIGHT EYE QID 11/01/17 [History] Polyvinyl Alcohol [Artificial Tears] 2 drop BOTH EYES QID 11/01/17 [History] Renal Vitamin [Renal Caps Softgel] 1 mg PO DAILY 11/01/17 [History] Furosemide [Lasix] 80 mg PO DAILY 04/19/18 [History] Isosorbide MONOnitrate (24 HR) [Imdur] 60 mg PO DAILY 04/19/18 [History] Lidocaine/Prilocaine [Emla] 1 appl TP AD 04/19/18 [History] Sennosides/Docusate Sodium [Senna-Docusate Sodium Tablet] 1 tab PO BID PRN 04/19 [History] Aspirin [Lo-Dose Aspirin EC] 81 mg PO DAILY 05/11/18 [History] 3 Allergy/AdvReac Type Severity Reaction Status Date / Time lisinopril AdvReac unknown Verified 05/10/17 15:37 ROS unobtainable: due to mental status All Systems PM: A 10-system review of systems was performed and is negative for pertinent findings except as documented above in the HPI. - Constitutional Vitals: Temp Pulse Resp BP Pulse Ox 98.6 F 69 18 124/60 98 05/28/18 22:48 05/29/18 00:33 05/29/18 01:23 05/29/18 01:23 05/29/18 00:33 Exam: Gen.: Vitals noted. No acute distress. AAOx2. Lethargic and answers some questions. HEENT: PERRL/EOMI, oropharynx clear, Normocephalic, atraumatic, minimally dry mucous membranes Cardiac: RRR, systolic murmur, +S1/S2 Pulmonary: CTA bilaterally, no wheezes, rales or rhonchi, equal chest expansion Abdomen: soft, grimaces with palpation of suprapubic region, BS noted, no guarding, no rebound. Extremities: no BLE edema, nontender calf, no cyanosis or clubbing : Cordoba catheter in place with gross hematuria Neuro: A&Ox2, moves all extremities Psych: Lethargic, unable to assess further Internal Med - H&P Results - Labs CBC & Chem 7: 05/28/18 21:52 05/28/18 21:52 - Assessment and plan (1) Hematuria Current Visit: Yes Status: Acute Assessment and plan: - Gross hematuria most likely secondary to traumatic Cordoba insertion - Alternative etiology includes urinary tract infection, malignancy - Patient started on continuous bladder irrigation emergency room, will continue - Anemia near baseline as below. We will not transfuse at this time - Hemodynamically stable - CT scan in emergency department showed a large amount of blood in the bladder and prostatomegaly. - Patient is asymptomatic and denies previous hematuria events Plan - Continue monitor with daily labs - Consult to urology, appreciate recommendations - Continue CBI - We will transfuse as necessary however patient is asymptomatic near his baseline and we will hold off at this time. Qualifiers: Hematuria type: gross Qualified Code(s): R31.0 - Gross hematuria (2) UTI (urinary tract infection) Current Visit: Yes Status: Acute Assessment and plan: - Urinalysis emergency department positive for leukocyte esterase, nitrates - Previous cultures shows Klebsiella, Pseudomonas which are sensitive to cephalosporins - Started on Rocephin emergency room, will continue at 1 g per day - Afebrile, patient denies flank pain, nausea, vomiting. Nonseptic, lactic acid 1.1 -CT scan shows no evidence of pyelonephritis - Urine cultures collected in emergency room Plan - Continue Rocephin 1 g daily - Await urine culture sensitivities Qualifiers: Urinary tract infection type: acute cystitis Hematuria presence: with hematuria Qualified Code(s): N30.01 - Acute cystitis with hematuria (3) Anemia Current Visit: Yes Status: Chronic Assessment and plan: - H/H on admission of 7.5/23.9 - Baseline hemoglobin appears to be around 8-9 - He is experiencing gross hematuria at this time most likely secondary to traumatic Cordoba insertion - He is asymptomatic as far as he admits - We will continue to monitor with daily labs and if he continues to drop we will transfuse possibly during dialysis - SCDs for DVT prophylaxis Qualifiers: Anemia type: due to chronic kidney disease Chronic kidney disease stage: on chronic dialysis Qualified Code(s): N18.6 - End stage renal disease; D63.1 - Anemia in chronic kidney disease; Z99.2 - Dependence on renal dialysis (4) Indwelling catheter present on admission Current Visit: Yes Status: Chronic (5) CAD (coronary artery disease) Current Visit: Yes Status: Chronic Assessment and plan: - Status post CABG No complaints of chest pain Continue monitor and continue home medications Will not transfuse as above at this time as he is near his baseline and end- stage renal disease. Qualifiers: Coronary Disease-Associated Artery/Lesion type: bypass graft [place] vs. transplanted heart: [place] heart Associated angina: without angina Qualified Code(s): I25.810 - Atherosclerosis of coronary artery bypass graft(s) without angina pectoris (6) Essential hypertension Current Visit: Yes Status: Chronic Assessment and plan: - Well-controlled on admission at 122/58, continue home medications (7) Diabetes mellitus Current Visit: Yes Status: Chronic Assessment and plan: -type 2 diabetes blood sugar 309 upon presentation - Possibly elevated in the setting of infection - Complication of chronic kidney disease - We will begin sliding scale insulin coverage and check A1c with a.m. labs Qualifiers: Diabetes mellitus type: type 2 Diabetes mellitus care home insulin use: with care home use Diabetes mellitus complication status: with kidney complications Diabetes mellitus complication detail: with chronic kidney disease Chronic kidney disease stage: on chronic dialysis Qualified Code(s) : E11.22 - Type 2 diabetes mellitus with diabetic chronic kidney disease; N18.6 - End stage renal disease; Z79.4 - halfway (current) use of insulin; Z99.2 - Dependence on renal dialysis (8) ESRD (end stage renal disease) on dialysis Current Visit: Yes Status: Chronic Assessment and plan: End-stage renal disease on Monday dialysis We will consult nephrology, appreciate recommendations Renally dose medications (9) DVT prophylaxis Current Visit: Yes Status: Acute Assessment and plan: SCDs in the setting of gross hematuria - Time Spent With Patient Total time spent is greater than 50% in coordination of care (as documented) at patient's floor/unit and/or counseling patient: <KathleenCharli - Last Filed: 05/29/18 02:06> Date of Encounter: 05/29/18 Internal Medicine - H&P: HPI History of present illness: Mr. Webb is a 82 year old male All Systems PM: A 10-system review of systems was performed and is negative for pertinent findings except as documented above in the HPI. - Constitutional Vitals: Temp Pulse Resp BP Pulse Ox 98.6 F 69 18 124/60 98 05/28/18 22:48 05/29/18 00:33 05/29/18 01:23 05/29/18 01:23 05/29/18 00:33 Internal Med - H&P Results - Labs CBC & Chem 7: 05/28/18 21:52 05/28/18 21:52 - Assessment and plan (1) Hematuria Current Visit: Yes Status: Acute Qualifiers: Hematuria type: gross Qualified Code(s): R31.0 - Gross hematuria (2) UTI (urinary tract infection) Current Visit: Yes Status: Acute Qualifiers: Urinary tract infection type: acute cystitis Hematuria presence: with hematuria Qualified Code(s): N30.01 - Acute cystitis with hematuria (3) Anemia Current Visit: Yes Status: Chronic Qualifiers: Anemia type: due to chronic kidney disease Chronic kidney disease stage: on chronic dialysis Qualified Code(s): N18.6 - End stage renal disease; D63.1 - Anemia in chronic kidney disease; Z99.2 - Dependence on renal dialysis (4) Indwelling catheter present on admission Current Visit: Yes Status: Chronic (5) CAD (coronary artery disease) Current Visit: Yes Status: Chronic Qualifiers: Coronary Disease-Associated Artery/Lesion type: bypass graft [place] vs. transplanted heart: [place] heart Associated angina: without angina Qualified Code(s): I25.810 - Atherosclerosis of coronary artery bypass graft(s) without angina pectoris (6) Essential hypertension Current Visit: Yes Status: Chronic (7) Diabetes mellitus Current Visit: Yes Status: Chronic Qualifiers: Diabetes mellitus type: type 2 Diabetes mellitus care home insulin use: with joint terminal attack controller use Diabetes mellitus complication status: with kidney complications Diabetes mellitus complication detail: with chronic kidney disease Chronic kidney disease stage: on chronic dialysis Qualified Code(s) : E11.22 - Type 2 diabetes mellitus with diabetic chronic kidney disease; N18.6 - End stage renal disease; Z79.4 - halfway (current) use of insulin; Z99.2 - Dependence on renal dialysis (8) ESRD (end stage renal disease) on dialysis Current Visit: Yes Status: Chronic (9) DVT prophylaxis Current Visit: Yes Status: Acute - Time Spent With Patient Total time spent is greater than 50% in coordination of care (as documented) at patient's floor/unit and/or counseling patient: - Attending Attestation 82 year old male with a history of dementia, cva, esrd on HD, hld, htn and chf who was brought in from the [place] for evaluation of hematuria. It appears it was secondar to a traumatic exchange of his indwelling cordoba catheter done 3 days prior. In the ER the catheter was exchanged again for continuous bladder irrigation. On my assessment the patient was basically non-verbal but occasionally responded with head movements. Physical exam remarkable for a non-distended abdomen and no apparent tenderness but there was visible dried blood around the urethral meatus and groin. Afebrile and normal vital signs. Lab work depictive of Hgb of 7.5 down from a baseline of 8.5. UA remarkable for nitrites and esterase; to be sent for culture. CT scan showing large amount of blood in the urinary bladder. 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 Consult nephrology for dialysis scheduling; due today. Monitor H/H; may benefit from pRBC transfusion during dialysis. Ok to continue ceftriaxone 1gr daily empirically for now given the hematuria with risk of hematogenous spread taking into account the positive UA findings. IPC for dvt prophylaxis in the interim.
[2018-05-29 04:51] LABS: Basophils % 0.5 %; Eosinophils % 0.5 %; Hematocrit 24.2 % (37.5-50.1); Hemoglobin 7.3 g/dL (12.9-16.9); Immature Granulocytes % 0.6 % (0-4); Lymphocytes # 0.8 K/mcL (0.6-4.6); Lymphocytes % 11.7 %; Mean Corpuscular HGB Conc 30.2 g/dL (31.6-35.5); Mean Corpuscular Hemoglobin 27.8 pg (28.0-33.3); Mean Platelet Volume 9.5 fL (9.4-12.4); Monocytes # 0.6 K/mcL (0.0-1.3); Monocytes % 8.9 %; Neutrophils # 5.2 K/mcL (1.6-8.9); Platelet Count 161 K/mcL (140-400); Red Blood Count 2.63 M/mcL (4.19-5.50); Red Cell Distribution Width 16.2 % (11.5-14.5); Segmented Neutrophils % 77.8 %
[2018-05-29 05:06] LABS: Potassium 4.7 mEq/L (3.5-5.1)
[2018-05-29] MEDS: Insulin LISPRO 300 UNITS/3 ML VIAL SQ SCH ×3 (05:42→16:46)
[2018-05-29 07:23] LABS: Estimated Average Glucose 143 mg/dl; Hemoglobin A1C 6.6 %
--- NOTE | 2018-05-29 07:23 | Urology - Consult Note ---
Date of Encounter: 05/29/18 Time of Encounter: 07:20 - Assessment and Plan (1) Gross hematuria Current Visit: Yes Status: Acute Assessment and plan: 82-year-old gentleman with a history of gross hematuria. I reviewed his CT scan which shows a large clot within the bladder. He has been on CBI overnight and his urine seems more clear today. I will slow down the CBI. His urine becomes more bloody, then we will need to hand irrigate his catheter. Urology will follow along. He previously had a cystoscopy a little over a year ago which was otherwise normal. This is likely bleeding from the prostate/bladder in relation to infection versus occasional anticoagulant with dialysis. Urology CN:CRISTAL Consult date: 05/29/18 Reason for consult Urology: Gross Hematuria History of present illness: 82-year-old man who is well known by the urology service is seen in the hospital in consultation for hematuria. He has a history of a stroke. He is catheter dependent. He has a history of hematuria. He previously underwent cystoscopy on 01/10/2017 in the office and had a normal bladder. History is obtained from the chart today. He has end-stage renal disease and gets dialysis. He recently had a catheter change and has had hematuria since then. He currently has a 22-Bruneian straight catheter and has CBI running with clear urine returning. He had a CT scan on 05/28/2018 at 22:09. The catheter was in good position. There was a large clot in the bladder. Past Med Surg Social Fam HX - Past Medical History Medical history: arthritis, CHF, coronary artery disease, CVA, diabetes, GI bleed, hyperlipidemia, hypertension, myocardial infarction, osteoporosis, peripheral artery disease, renal disease, TIA, valvular heart disease, other Additional medical history: MS Psychiatric history: no psych history, other - Past Surgical History Surgical History: coronary bypass (CABG), other Additional surgical history: Pt. has a dialysis shunt in the left wrist in case the pt. needs dialysis. - Social History Smoking Status: Former smoker Smokeless Tobacco Status: No Alcohol use: none Drug use: none - Family History Father Hx Family Neurologic Disorders: Yes (stroke) Medications and Allergies Acetaminophen [Tylenol] 650 mg PO Q6HR PRN 12/09/16 [History] Amlodipine Besylate 10 mg PO DAILY 12/09/16 [History] Brimonidine 0.2% [Alphagan] 1 drop LEFT EYE TID 12/09/16 [History] Carvedilol 25 mg PO BID 12/09/16 [History] Doxazosin Mesylate [Cardura] 8 mg PO BID 12/09/16 [History] Finasteride [Proscar] 5 mg PO DAILY 12/09/16 [History] Hydralazine HCl 100 mg PO TID 12/09/16 [History] Insulin ASPART [NovoLOG] 2 unit SQ TID 12/09/16 [History] Insulin Glargine [Lantus] 2 unit SQ HS 12/09/16 [History] Ipratropium/Albuterol Neb [Duoneb] 3 ml IH Q4HR PRN 12/09/16 [History] Latanoprost [Xalatan] 1 drop LEFT EYE HS 12/09/16 [History] Sertraline [Zoloft] 100 mg PO DAILY 12/09/16 [History] Atorvastatin Calcium [Lipitor] 20 mg PO HS 04/21/17 [History] Omeprazole [PriLOSEC] 20 mg PO DAILY 04/21/17 [History] Sevelamer [Renvela] 800 mg PO TIDWM 04/21/17 [History] cloNIDine HCl [Clonidine HCl] 0.2 mg PO BID 04/21/17 [History] Erythromycin OPTH Oint 1 appl RIGHT EYE QID 11/01/17 [History] Polyvinyl Alcohol [Artificial Tears] 2 drop BOTH EYES QID 11/01/17 [History] Renal Vitamin [Renal Caps Softgel] 1 mg PO DAILY 11/01/17 [History] Furosemide [Lasix] 80 mg PO DAILY 04/19/18 [History] Isosorbide MONOnitrate (24 HR) [Imdur] 60 mg PO DAILY 04/19/18 [History] Lidocaine/Prilocaine [Emla] 1 appl TP AD 04/19/18 [History] Sennosides/Docusate Sodium [Senna-Docusate Sodium Tablet] 1 tab PO BID PRN 04/19 [History] Aspirin [Lo-Dose Aspirin EC] 81 mg PO DAILY 05/11/18 [History] 3 Allergy/AdvReac Type Severity Reaction Status Date / Time lisinopril AdvReac unknown Verified 05/10/17 15:37 Review of Systems ROS unobtainable: due to mental status Exam Initial Vital Signs Temp Pulse Resp BP Pulse Ox 98.8 F 71 20 132/61 96 05/28/18 21:39 05/28/18 21:39 05/28/18 21:39 05/28/18 21:39 05/28/18 21:39 - General physical appearance Present: well developed, well nourished, no distress - Eyes Absent: icteric - ENT Present: normal nares - Neck Present: trachea midline - Respiratory Present: normal respiratory effort - Cardiovascular Cardiovascular exam IM: RRR - Abdomen Abdomen: Present: soft - Genitourinary normal penis with no external lesions (22-Bruneian Syed catheter with CBI running. Urine is clear to light pink.) Urology Results - Labs 05/29/18 04:26 05/29/18 04:26 Abnormal lab results RBC 2.63 M/mcL (4.19-5.50) L 05/29/18 04:26 Hgb 7.3 g/dL (12.9-16.9) L 05/29/18 04:26 Hct 24.2 % (37.5-50.1) L 05/29/18 04:26 MCH 27.8 pg (28.0-33.3) L 05/29/18 04:26 MCHC 30.2 g/dL (31.6-35.5) L 05/29/18 04:26 RDW 16.2 % (11.5-14.5) H 05/29/18 04:26 PT 13.6 Seconds (9.4-12.1) H 05/28/18 21:52 Sodium 132 mEq/L (136-145) L 05/29/18 04:26 Chloride 97 mEq/L (98-107) L 05/29/18 04:26 BUN 63 mg/dL (8-23) H 05/29/18 04:26 Creatinine 5.36 mg/dL (0.70-1.30) H 05/29/18 04:26 Est GFR ( Amer) 12 (> 60) L 05/29/18 04:26 Est GFR (Non-Af Amer) 10 (> 60) L 05/29/18 04:26 Glucose 236 mg/dL (70-105) H 05/29/18 04:26 POC Glucose 237 mg/dL (70-99) H 05/29/18 05:30 Calcium 8.0 mg/dL (8.6-10.3) L 05/29/18 04:26 Serum Total Protein 6.2 g/dL (6.4-8.9) L 05/28/18 21:52 Albumin 3.1 g/dL (3.5-5.7) L 05/28/18 21:52 Albumin/Globulin Ratio 1.0 (1.1-2.2) L 05/28/18 21:52 Ur Specimen Adequacy See below A 05/28/18 23:05 Urine Color Red (Yellow) A 05/28/18 23:05 Urine Clarity Turbid (Clear) A 05/28/18 23:05 Urine Protein >=1000 mg/dL (Neg-Trace) H 05/28/18 23:05 Urine Ketones 15 mg/dL (Negative) H 05/28/18 23:05 Urine Blood Large (Negative) H 05/28/18 23:05 Urine Nitrite Positive (Negative) A 05/28/18 23:05 Urine Bilirubin Large (Negative) H 05/28/18 23:05 Ur Leukocyte Esterase Large (Negative) H 05/28/18 23:05 Ur Culture Indicated? YES (NO) A 05/28/18 23:05 Diabetes panel 05/29/18 Range/Units 04:26 Sodium 132 L (136-145) mEq/L Potassium 4.7 (3.5-5.1) mEq/L Chloride 97 L (98-107) mEq/L Carbon Dioxide 23 (23-29) mEq/L BUN 63 H (8-23) mg/dL Creatinine 5.36 H (0.70-1.30) mg/dL Glucose 236 H (70-105) mg/dL Calcium 8.0 L (8.6-10.3) mg/dL Calcium panel 05/29/18 Range/Units 04:26 Calcium 8.0 L (8.6-10.3) mg/dL Pituitary panel 05/29/18 Range/Units 04:26 Sodium 132 L (136-145) mEq/L Potassium 4.7 (3.5-5.1) mEq/L Chloride 97 L (98-107) mEq/L Carbon Dioxide 23 (23-29) mEq/L BUN 63 H (8-23) mg/dL Creatinine 5.36 H (0.70-1.30) mg/dL Glucose 236 H (70-105) mg/dL Calcium 8.0 L (8.6-10.3) mg/dL Adrenal panel 05/29/18 Range/Units 04:26 Sodium 132 L (136-145) mEq/L Potassium 4.7 (3.5-5.1) mEq/L Chloride 97 L (98-107) mEq/L Carbon Dioxide 23 (23-29) mEq/L BUN 63 H (8-23) mg/dL Creatinine 5.36 H (0.70-1.30) mg/dL Glucose 236 H (70-105) mg/dL Calcium 8.0 L (8.6-10.3) mg/dL All other labs normal. - Imaging CT scan - abdomen: report reviewed, image reviewed CT scan - pelvis: report reviewed, image reviewed Consult Discharge Plan - Plan [facility]errals: [facility] [Primary Care Provider] -
--- NOTE | 2018-05-29 08:39 | Event Note ---
Date of Encounter: 05/29/18 Time of Encounter: 08:38 Patient seen and examined sitting upright in bed in no apparent distress. CBI discontinued. Patient nonverbal. I explained catheter irrigation procedure to patient. I irrigated catheter with 1000cc sterile water. Multiple small clots were evacuated. Patient tolerated well.
[2018-05-29] MEDS: hydrALAZINE 25 MG TABLET PO SCH ×3 (08:50→23:00)
[2018-05-29] MEDS: Isosorbide MONOnitrate (24 HR) 60 MG TAB.ER.24H PO SCH (08:51)
[2018-05-29] MEDS: cefTRIAXone 1,000 MG in Water for inj. (sterile) 20 ML 10 ML IVP SCH (08:51)
[2018-05-29] MEDS: Aspirin Enteric Coated 81 MG Tablet PO SCH (08:51)
[2018-05-29] MEDS: cloNIDine HCl 0.1 MG TABLET PO SCH ×2 (08:51→21:02)
[2018-05-29] MEDS: Finasteride 5 MG TABLET PO SCH (08:51)
[2018-05-29] MEDS: amLODIPine 5 MG TABLET PO SCH (08:51)
[2018-05-29 09:34] LABS: Hepatitis B Surface Antigen Nonreactive (Nonreactive)
[2018-05-29] MEDS ORDERED: 0.9 % Sodium Chloride 250 ML IVC PRN (09:40)
[2018-05-29] MEDS ORDERED: 0.9 % Sodium Chloride 1,000 ML PRIME SCH (09:45)
[2018-05-29] MEDS ORDERED: Artificial Tears SOLN 15 ML BOTTLE BOTH EYES PRN (09:48)
--- NOTE | 2018-05-29 10:20 | Nephrology Consult Note ---
Date of Encounter: 05/29/18 Time of Encounter: 09:52 Assessment and Plan (1) ESRD (end stage renal disease) on dialysis Current Visit: Yes Status: Chronic ESRD regimen is TTS at [facility]. Last tx was Monday. HD in progress today. Avoid nephrotoxins and renal dose all medications. (2) Hematuria Current Visit: Yes Status: Acute Per urology. Qualifiers: Hematuria type: gross Qualified Code(s): R31.0 - Gross hematuria (3) UTI (urinary tract infection) Current Visit: Yes Status: Acute Per primary. Qualifiers: Urinary tract infection type: acute cystitis Hematuria presence: with hematuria Qualified Code(s): N30.01 - Acute cystitis with hematuria History of Present Illness - Reason for Consult Consult date: 05/29/18 end stage renal disease - Chief Complaint blood in cordoba cath - History of Present Illness Mr. Webb is an 82 year old Male with ESRD. Current regimen is TTS at [facility]. Last treatment was Monday. PMH: CHF, CAD, CVA, diabetes, hyperlipidemia, hypertension, peripheral arterial disease. He presented to ED with blood in his cordoba cath. Cordoba cath. According to ER report daughter was at bedside and stated the cordoba cath has been exchanged 3 days ago and has been bleeding since. Cat scan did show large amount of blood in bladder and a CBI was ordered. Urology is on board. HD is in progress today. Past Med Surg Social Fam HX - Past Medical History Medical history: arthritis, CHF, coronary artery disease, CVA, diabetes, GI bleed, hyperlipidemia, hypertension, myocardial infarction, osteoporosis, peripheral artery disease, renal disease, TIA, valvular heart disease, other Additional medical history: MS Psychiatric history: no psych history, other - Past Surgical History Surgical History: coronary bypass (CABG), other Additional surgical history: Pt. has a dialysis shunt in the left wrist in case the pt. needs dialysis. - Social History Smoking Status: Former smoker Smokeless Tobacco Status: No Alcohol use: none Drug use: none - Family History Father Hx Family Neurologic Disorders: Yes (stroke) Medications and Allergies Acetaminophen [Tylenol] 650 mg PO Q6HR PRN 12/09/16 [History] Amlodipine Besylate 10 mg PO DAILY 12/09/16 [History] Brimonidine 0.2% [Alphagan] 1 drop LEFT EYE TID 12/09/16 [History] Carvedilol 25 mg PO BID 12/09/16 [History] Finasteride [Proscar] 5 mg PO DAILY 12/09/16 [History] Hydralazine HCl 100 mg PO TID 12/09/16 [History] Insulin ASPART [NovoLOG] 3 unit SQ TID 12/09/16 [History] Insulin Glargine [Lantus] 6 unit SQ HS 12/09/16 [History] Ipratropium/Albuterol Neb [Duoneb] 3 ml IH Q4HR PRN 12/09/16 [History] Latanoprost [Xalatan] 1 drop LEFT EYE HS 12/09/16 [History] Sertraline [Zoloft] 100 mg PO DAILY 12/09/16 [History] Atorvastatin Calcium [Lipitor] 20 mg PO HS 04/21/17 [History] Omeprazole [PriLOSEC] 20 mg PO DAILY 04/21/17 [History] Sevelamer [Renvela] 800 mg PO TIDWM 04/21/17 [History] cloNIDine HCl [Clonidine HCl] 0.2 mg PO BID 04/21/17 [History] Erythromycin OPTH Oint 1 appl RIGHT EYE QID 11/01/17 [History] Polyvinyl Alcohol [Artificial Tears] 2 drop BOTH EYES QID 11/01/17 [History] Renal Vitamin [Renal Caps Softgel] 1 mg PO DAILY 11/01/17 [History] Furosemide [Lasix] 80 mg PO DAILY 04/19/18 [History] Lidocaine/Prilocaine [Emla] 1 appl TP AD 04/19/18 [History] Sennosides/Docusate Sodium [Senna-Docusate Sodium Tablet] 1 tab PO BID PRN 04/19 [History] Aspirin [Lo-Dose Aspirin EC] 81 mg PO DAILY 05/11/18 [History] Cyclosporine [Restasis] 1 drop OP BID 05/29/18 [History] Dorzolamide [Trusopt] 1 drop LEFT EYE BID 05/29/18 [History] Doxazosin [Cardura] 4 mg PO BID 05/29/18 [History] Isosorbide DInitrate [Isosorbide Dinitrate] 60 mg PO DAILY 05/29/18 [History] 3 Allergy/AdvReac Type Severity Reaction Status Date / Time lisinopril AdvReac unknown Verified 05/10/17 15:37 Review of Systems ROS unobtainable: due to mental status Exam - Vital Signs Vital signs: Initial Vital Signs Temp Pulse Resp BP Pulse Ox 98.8 F 71 20 132/61 96 05/28/18 21:39 05/28/18 21:39 05/28/18 21:39 05/28/18 21:39 05/28/18 21:39 Vital Signs - Last 8 Hours Temp Pulse Resp BP Pulse Ox 05/29/18 08:12 97.6 F 59 15 125/57 97 05/29/18 02:24 93 05/29/18 02:14 98 F 66 15 125/60 93 Intake and Output 05/28/18 05/29/18 05/29/18 23:59 07:59 15:59 Output Total 560 / 560 650 / 650 Balance -560 / -550 -650 / -650 Output: Urine 560 / 560 650 / 650 Other: Intake, CBI Fluid 3,000 Output, CBI Fluid 350 Weight 62.7 kg Blood Glucose* 237 Patient Weight 05/29/18 23:59 Weight 62.7 kg - General Appearance General appearance: well-developed, well-nourished EENT: ATNC, hearing intact Neck: supple Respiratory: clear Cardiology: no edema, normal S1, normal S2 - Dialysis Access Dialysis Vascular Access: Arteriovenous Fistula thrill: Yes bruit: Yes Gastrointestinal: normoactive bowel sounds, no tenderness, no guarding Integumentary: no rash, warm and dry Neurologic: alert and oriented x3 Psychiatric: mood/affect appropriate, cooperative Results - Lab Results 05/29/18 04:26 05/29/18 04:26 Most recent lab results Calcium 8.0 mg/dL (8.6-10.3) L 05/29/18 04:26 Consult Discharge Plan - Plan [facility]errals: [facility] [Primary Care Provider] -
--- NOTE | 2018-05-29 15:53 | Event Note ---
Date of Encounter: 05/29/18 Time of Encounter: 15:51 Patient seen and examined sitting upright in bed. Nurse present. Patient status post dialysis treatment. Scant transparent orange-pink tinged urine in bedside bag. Catheter irrigated with 750cc sterile water. One small clot evacuated. Urine completely clear after approximately 250cc instilled and irrigated.
--- NOTE | 2018-05-29 16:09 | Event Note ---
Date of Encounter: 05/29/18 Time of Encounter: 09:15 82-year-old male with history of end-stage renal disease, chronic indwelling Syed catheter, was admitted from [facility] with hematuria and blood in Syed bag. Seen and examined at bedside. Reports no abdominal pain, hematuria is clearing up. Chest- S1, S2 heard Hematuria-urology consult appreciated. Hematuria is currently improving/ clearing up. Per urology, This is likely bleeding from prostate/bladder in relation to infection versus occasional anticoagulant with dialysis. Recommend to continue CBI at a lower rate. Not her hemoglobin closely. Hemoglobin noted to be 7.3 today in a dialysis patient, will transfuse 2 units PRBC during dialysis. Discussed with nephrology. End-stage renal disease-nephrology consulted for dialysis needs. Plan for dialysis today.
[2018-05-29] MEDS: Latanoprost 2.5 ML BOTTLE LEFT EYE SCH (21:04)
[2018-05-30] MEDS: Insulin LISPRO 300 UNITS/3 ML VIAL SQ SCH ×4 (01:00→17:45)
[2018-05-30 05:01] LABS: Basophils # 0.1 K/mcL (0.0-0.2); Basophils % 0.7 %; Eosinophils # 0.1 K/mcL (0.0-0.6); Eosinophils % 1.8 %; Hematocrit 30.7 % (37.5-50.1); Immature Granulocytes % 0.6 % (0-4); Lymphocytes % 14.1 %; Mean Corpuscular HGB Conc 31.6 g/dL (31.6-35.5); Mean Corpuscular Hemoglobin 27.9 pg (28.0-33.3); Mean Corpuscular Volume 88.2 fL (83.0-100.0); Mean Platelet Volume 9.6 fL (9.4-12.4); Monocytes # 0.6 K/mcL (0.0-1.3); Monocytes % 9.2 %; Platelet Count 172 K/mcL (140-400); Red Blood Count 3.48 M/mcL (4.19-5.50); Segmented Neutrophils % 73.6 %
[2018-05-30 05:03] LABS: Hemoglobin 9.7 g/dL (12.9-16.9)
[2018-05-30 05:15] LABS: Albumin 3.3 g/dL (3.5-5.7); Phosphorous 4.5 mg/dL (2.7-4.5); Potassium 4.8 mEq/L (3.5-5.1)
[2018-05-30] MEDS: cloNIDine HCl 0.1 MG TABLET PO SCH ×2 (08:53→20:35)
[2018-05-30] MEDS: hydrALAZINE 25 MG TABLET PO SCH ×3 (08:53→20:40)
[2018-05-30] MEDS: Finasteride 5 MG TABLET PO SCH (08:54)
[2018-05-30] MEDS: Aspirin Enteric Coated 81 MG Tablet PO SCH (08:54)
[2018-05-30] MEDS: Isosorbide MONOnitrate (24 HR) 60 MG TAB.ER.24H PO SCH (08:54)
[2018-05-30] MEDS: amLODIPine 5 MG TABLET PO SCH (08:54)
[2018-05-30] MEDS: cefTRIAXone 1,000 MG in Water for inj. (sterile) 20 ML 10 ML IVP SCH (08:55)
--- NOTE | 2018-05-30 10:31 | Nephrology Progress Note ---
Date of Encounter: 05/30/18 Time of Encounter: 10:28 - Assessment and Plan (1) ESRD (end stage renal disease) on dialysis Current Visit: Yes Status: Chronic ESRD regimen is TTS at [facility]. HD treatment yesterda without complication. Plan for HD tomorrow. Avoid nephrotoxins and renal dose all medications. (2) Hematuria Current Visit: Yes Status: Acute Appears resolving with CBI. Per urology. Qualifiers: Hematuria type: gross Qualified Code(s): R31.0 - Gross hematuria (3) UTI (urinary tract infection) Current Visit: Yes Status: Acute Per primary. Qualifiers: Urinary tract infection type: acute cystitis Hematuria presence: with hematuria Qualified Code(s): N30.01 - Acute cystitis with hematuria Subjective Principal diagnosis: hematuria Interval history: Pt seen and examined, doing well. CBI continues to run. No family at bedside. Objective - Vital Signs Vital signs: Vital Signs Temp Pulse Resp BP Pulse Ox 05/30/18 08:17 97.8 F 69 16 116/71 95 05/30/18 04:11 98.3 F 65 15 135/57 98 05/30/18 00:44 98.1 F 61 16 150/70 97 05/29/18 21:00 96 05/29/18 20:22 98.4 F 65 16 121/47 96 05/29/18 15:23 97.8 F 67 14 118/46 97 05/29/18 13:20 97.4 F L 15 134/57 05/29/18 13:05 111/50 05/29/18 12:50 106/53 05/29/18 12:35 121/55 05/29/18 12:20 148/53 05/29/18 12:05 97.7 F 60 17 127/65 05/29/18 11:50 97.7 F 59 16 111/58 05/29/18 11:35 97.4 F L 58 15 123/57 05/29/18 11:20 97.1 F L 58 17 116/54 05/29/18 11:05 106/56 05/29/18 11:00 97.5 F L 59 17 107/55 05/29/18 10:50 106/54 05/29/18 10:45 6.8 F L 59 14 116/54 05/29/18 10:35 112/58 Intake and Output 05/29/18 05/30/18 05/30/18 23:59 07:59 15:59 Intake Total 470 / 470 Output Total 400 / 400 300 / 300 Balance 70 / 70 -300 / -300 Intake: Oral 120 / 120 Blood Product 350 / 350 Rbcs Leuko Poor As-1 Unit 350 / 350 [id number] Output: Urine 400 / 400 300 / 300 Other: Intake, CBI Fluid 3,000 Meal Dinner Percent of Meal Consumed 70% Output, CBI Fluid 3,300 Weight 56 kg Blood Glucose* 205 146 Patient Weight 05/30/18 23:59 Weight 56 kg - General Appearance General appearance: Present: well-developed, well-nourished EENT: Present: ATNC, hearing intact Neck: Present: supple Respiratory: Present: clear Cardiology: Present: no edema, normal S1, normal S2 Dialysis Vascular Access: Arteriovenous Fistula thrill: Yes bruit: Yes Gastrointestinal: Present: normoactive bowel sounds, no tenderness, no guarding Integumentary: Present: no rash, warm and dry Neurologic: Present: alert and oriented x3 Psychiatric: Present: mood/affect appropriate, cooperative - Lab 05/30/18 04:37 05/30/18 04:37 Most recent lab results Calcium 8.0 mg/dL (8.6-10.3) L 05/30/18 04:37 Phosphorus 4.5 mg/dL (2.7-4.5) 05/30/18 04:37 Consult Discharge Plan - Plan Referrals: [facility] [Primary Care Provider] -
--- NOTE | 2018-05-30 10:33 | Urology Progress Note ---
Date of Encounter: 05/30/18 Time of Encounter: 09:30 - Assessment and Plan (1) Gross hematuria Current Visit: Yes Status: Acute Assessment and plan: Patient is an 82 year old male who presents with gross hematuria. Urine is now transparent with no sediment. Plan to discontinue CBI and insert catheter plug. Plan outpatient follow up with Dr. Jarvis. Progress Note Subjective: no new complaints Narrative: Patient is an 82 year old male who presents with a history of gross hematuria. The patient is nonverbal. CBI has been discontinued and urine is transparent and improving. Objective Initial Vital Signs Temp Pulse Resp BP Pulse Ox 98.8 F 71 20 132/61 96 05/28/18 21:39 05/28/18 21:39 05/28/18 21:39 05/28/18 21:39 05/28/18 21:39 - General physical appearance Present: well developed, no distress, no pain - Respiratory Present: normal expansion, normal respiratory effort - Abdomen Present: soft, non tender - Genitourinary Present: normal penis with no external lesions Urine Appearance: Present: Clear, Hematuria (pink lemonade tinged urine ) - Integumentary Present: no rash, no abnormal pigmentation - Psychiatric Absent: oriented to time, oriented to person, oriented to place, speech is normal, memory intact - Labs 05/30/18 04:37 05/30/18 04:37 Diabetes panel 05/30/18 Range/Units 04:37 Sodium 135 L (136-145) mEq/L Potassium 4.8 (3.5-5.1) mEq/L Chloride 98 (98-107) mEq/L Carbon Dioxide 28 (23-29) mEq/L BUN 35 H (8-23) mg/dL Creatinine 3.71 H (0.70-1.30) mg/dL Glucose 157 H (70-105) mg/dL Calcium 8.0 L (8.6-10.3) mg/dL Albumin 3.3 L (3.5-5.7) g/dL Calcium panel 05/30/18 Range/Units 04:37 Calcium 8.0 L (8.6-10.3) mg/dL Phosphorus 4.5 (2.7-4.5) mg/dL Albumin 3.3 L (3.5-5.7) g/dL Pituitary panel 05/30/18 Range/Units 04:37 Sodium 135 L (136-145) mEq/L Potassium 4.8 (3.5-5.1) mEq/L Chloride 98 (98-107) mEq/L Carbon Dioxide 28 (23-29) mEq/L BUN 35 H (8-23) mg/dL Creatinine 3.71 H (0.70-1.30) mg/dL Glucose 157 H (70-105) mg/dL Calcium 8.0 L (8.6-10.3) mg/dL Adrenal panel 05/30/18 Range/Units 04:37 Sodium 135 L (136-145) mEq/L Potassium 4.8 (3.5-5.1) mEq/L Chloride 98 (98-107) mEq/L Carbon Dioxide 28 (23-29) mEq/L BUN 35 H (8-23) mg/dL Creatinine 3.71 H (0.70-1.30) mg/dL Glucose 157 H (70-105) mg/dL Calcium 8.0 L (8.6-10.3) mg/dL Albumin 3.3 L (3.5-5.7) g/dL Consult Discharge Plan - Plan Referrals: [facility] [Primary Care Provider] -
--- NOTE | 2018-05-30 15:58 | Internal Med Progress Note ---
Hospitalist Progress Note - Encounter Date of Encounter: 05/30/18 Time of Encounter: 09:45 - Subjective Interval History: Reports feeling well, wants to be discharged; denies fever/chills, does have some lower abdominal discomfort when palpated deep; no nausea/vomiting, chest pain, dyspnea; plan of care d/w his daughter at bedside; hematuria clearing up, has pink-tinged urine in Syed bag; - Exam Vitals: Temp Pulse Resp BP Pulse Ox 97.7 F 72 16 126/70 96 05/30/18 12:29 05/30/18 12:29 05/30/18 12:29 05/30/18 12:29 05/30/18 12:29 Exam: Gen.: No acute distress. AAOx2. Lying comfortably in bed; Cardiac: RRR, systolic murmur, +S1/S2 Pulmonary: CTA bilaterally, no wheezes, rales or rhonchi Abdomen: soft, grimaces with palpation of suprapubic region, BS noted, no guarding, no rebound. Extremities: no BLE edema, nontender calf, no cyanosis or clubbing Neuro: A&Ox2, moves all extremities, decreased motor power in B/L LE; garbled speech/dysphasia due to prior CVA - Assessment and Plan (1) Hematuria Current Visit: Yes Status: Acute Assessment and Plan: Recurrent hematuria with multiple admissions for the same. urology consult appreciated. Hematuria is currently improving/clearing up. Per urology, This is likely bleeding from prostate/bladder in relation to infection versus occasional anticoagulant with dialysis. Discontinued CBI today. Hb improved s/p 2units PRBC during dialysis. continue to monitor Hb; anticipate discharge when cleared by Urology; (2) UTI (urinary tract infection) Current Visit: Yes Status: Ruled-out Assessment and Plan: urine culture shows yeast sp; this is likely colonization due to chronic indwelling Syed catheter; will hold off antibiotics/antifungals at this time; he was just treated with Ciprofloxacin and Fluconazole for the same; (3) Anemia Current Visit: Yes Status: Chronic (4) Indwelling catheter present on admission Current Visit: Yes Status: Chronic (5) CAD (coronary artery disease) Current Visit: Yes Status: Chronic (6) Essential hypertension Current Visit: Yes Status: Chronic (7) Diabetes mellitus Current Visit: Yes Status: Chronic (8) ESRD (end stage renal disease) on dialysis Current Visit: Yes Status: Chronic Assessment and Plan: Nephrology on board, received HD yesterday; (9) DVT prophylaxis Current Visit: Yes Status: Acute Assessment and Plan: avoid medical anticoagulants due to hematuria; on EPCDs; - Time Spent with Patient Total time spent is greater than 50% in coordination of care (as documented) at patient's floor/unit and/or counseling patient: Plan of Care Discussed with: family Internal Medicine: Result - Labs CBC & Chem 7: 05/31/18 06:13 05/31/18 06:13 Labs: Short CBC 05/30/18 Range/Units 04:37 WBC 6.8 (4.3-11.1) K/mcL Hgb 9.7 L D (12.9-16.9) g/dL Hct 30.7 L (37.5-50.1) % Plt Count 172 (140-400) K/mcL Neutrophils # 5.0 (1.6-8.9) K/mcL BMP 05/30/18 04:37 Sodium 135 L Potassium 4.8 Chloride 98 Carbon Dioxide 28 BUN 35 H Creatinine 3.71 H Glucose 157 H Calcium 8.0 L Liver Function 05/30/18 Range/Units 04:37 Albumin 3.3 L (3.5-5.7) g/dL - ABG Interpretation ABG results: PT/INR, D-dimer PT 13.6 Seconds (9.4-12.1) H 05/28/18 21:52 Consult Discharge Plan - Plan Referrals: [facility] [Primary Care Provider] - (1) Hematuria Qualifiers: Hematuria type: gross Qualified Code(s): R31.0 - Gross hematuria (2) UTI (urinary tract infection) Qualifiers: Urinary tract infection type: acute cystitis Hematuria presence: with hematuria Qualified Code(s): N30.01 - Acute cystitis with hematuria (3) Anemia Qualifiers: Anemia type: due to chronic kidney disease Chronic kidney disease stage: on chronic dialysis Qualified Code(s): N18.6 - End stage renal disease; D63.1 - Anemia in chronic kidney disease; Z99.2 - Dependence on renal dialysis (5) CAD (coronary artery disease) Qualifiers: Coronary Disease-Associated Artery/Lesion type: bypass graft [place] vs. 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
[2018-05-30] MEDS: Latanoprost 2.5 ML BOTTLE LEFT EYE SCH (20:35)
[2018-05-31] MEDS: OXYCODONE Oral CONC 10 MG/0.5 ML ORAL.SYG SL PRN ×2 (00:12→09:57)
[2018-05-31] MEDS: Insulin LISPRO 300 UNITS/3 ML VIAL SQ SCH ×3 (01:47→11:50)
[2018-05-31 07:05] LABS: Basophils # 0.1 K/mcL (0.0-0.2); Basophils % 0.7 %; Eosinophils # 0.2 K/mcL (0.0-0.6); Eosinophils % 2.9 %; Hematocrit 31.9 % (37.5-50.1); Immature Granulocytes % 0.4 % (0-4); Lymphocytes # 1.1 K/mcL (0.6-4.6); Lymphocytes % 15.8 %; Mean Corpuscular HGB Conc 31.3 g/dL (31.6-35.5); Mean Corpuscular Hemoglobin 28.1 pg (28.0-33.3); Mean Corpuscular Volume 89.6 fL (83.0-100.0); Mean Platelet Volume 10.2 fL (9.4-12.4); Monocytes # 0.6 K/mcL (0.0-1.3); Monocytes % 9.1 %; Neutrophils # 4.8 K/mcL (1.6-8.9); Platelet Count 181 K/mcL (140-400); Red Blood Count 3.56 M/mcL (4.19-5.50); Red Cell Distribution Width 15.5 % (11.5-14.5); Segmented Neutrophils % 71.1 %
[2018-05-31 07:20] LABS: Calcium 7.5 mg/dL (8.6-10.3)
--- NOTE | 2018-05-31 08:40 | Internal Med Progress Note ---
Hospitalist Progress Note - Encounter Date of Encounter: 05/31/18 Time of Encounter: 08:39 - Subjective Interval History: Patient seen and examined this morning. Patient is nonverbal. Does not offer any complaint - Exam Vitals: Temp Pulse Resp BP Pulse Ox 98.3 F 69 19 137/74 97 05/31/18 08:16 05/31/18 08:16 05/31/18 08:16 05/31/18 08:16 05/31/18 08:16 Exam: Gen.: No acute distress. AAOx2. Lying comfortably in bed; Cardiac: RRR, systolic murmur, +S1/S2 Pulmonary: CTA bilaterally, no wheezes, rales or rhonchi Abdomen: soft, grimaces with palpation of suprapubic region, BS noted, no guarding, no rebound. 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 likely bleeding from prostate/ bladder in relation to infection versus occasional anticoagulant with dialysis. CBI Discontinued. Hb improved s/p 2units PRBC during dialysis. continue to monitor Hb; anticipate discharge when cleared by Urology; (2) UTI (urinary tract infection) Current Visit: Yes Status: Ruled-out Assessment and Plan: urine culture shows yeast sp -likely colonization due to chronic indwelling Syed catheter; -hold off antibiotics/antifungals at this time - Recently treated with Ciprofloxacin and Fluconazole for the same; (3) Anemia Current Visit: Yes Status: Chronic Assessment and Plan: - H/H on admission of 7.5/23.9 - Baseline hemoglobin appears to be around 8-9 - He is experiencing gross hematuria at this time most likely secondary to traumatic Syed insertion - We will continue to monitor with daily labs and if he continues to drop we will transfuse possibly during dialysis - SCDs for DVT prophylaxis (4) Indwelling catheter present on admission Current Visit: Yes Status: Chronic (5) CAD (coronary artery disease) Current Visit: Yes Status: Chronic Assessment and Plan: - Status post CABG No complaints of chest pain Continue monitor and continue home medications Will not transfuse as above at this time as he is near his baseline and end- stage renal disease. (6) Essential hypertension Current Visit: Yes Status: Chronic Assessment and Plan: - Well-controlled on admission at 122/58, continue home medications (7) Diabetes mellitus Current Visit: Yes Status: Chronic Assessment and Plan: - Cont sliding scale insulin coverage. Currently well controlled. (8) ESRD (end stage renal disease) on dialysis Current Visit: Yes Status: Chronic Assessment and Plan: Nephrology on board, received HD - Plan for HD today; (9) DVT prophylaxis Current Visit: Yes Status: Acute Assessment and Plan: avoid medical anticoagulants due to hematuria; on EPCDs; - Time Spent with Patient Total time spent is greater than 50% in coordination of care (as documented) at patient's floor/unit and/or counseling patient: Internal Medicine: Result - Labs CBC & Chem 7: 05/31/18 06:13 05/31/18 06:13 Labs: Short CBC 05/31/18 Range/Units 06:13 WBC 6.8 (4.3-11.1) K/mcL Hgb 10.0 L (12.9-16.9) g/dL Hct 31.9 L (37.5-50.1) % Plt Count 181 (140-400) K/mcL Neutrophils # 4.8 (1.6-8.9) K/mcL BMP 05/31/18 06:13 Sodium 134 L Potassium 5.0 Chloride 97 L Carbon Dioxide 24 BUN 53 H Creatinine 4.98 H Glucose 124 H Calcium 7.5 L - ABG Interpretation ABG results: PT/INR, D-dimer PT 13.6 Seconds (9.4-12.1) H 05/28/18 21:52 Consult Discharge Plan - Plan [facility]errals: [facility] [Primary Care Provider] - (1) Hematuria Qualifiers: Hematuria type: gross Qualified Code(s): R31.0 - Gross hematuria (2) UTI (urinary tract infection) Qualifiers: Urinary tract infection type: acute cystitis Hematuria presence: with hematuria Qualified Code(s): N30.01 - Acute cystitis with hematuria (3) Anemia Qualifiers: Anemia type: due to chronic kidney disease Chronic kidney disease stage: on chronic dialysis Qualified Code(s): N18.6 - End stage renal disease; D63.1 - Anemia in chronic kidney disease; Z99.2 - Dependence on renal dialysis (5) CAD (coronary artery disease) Qualifiers: Coronary Disease-Associated Artery/Lesion type: bypass graft [place] vs. 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
[2018-05-31] MEDS ORDERED: 0.9 % Sodium Chloride 250 ML IVC PRN (09:07)
[2018-05-31] MEDS ORDERED: 0.9 % Sodium Chloride 1,000 ML PRIME SCH (09:15)
--- NOTE | 2018-05-31 09:25 | Nephrology Progress Note ---
Date of Encounter: 05/31/18 Time of Encounter: 09:22 - Assessment and Plan (1) ESRD (end stage renal disease) on dialysis Current Visit: Yes Status: Chronic ESRD regimen is TTS at [facility]. HD in progress. He can go home from a renal standpoint. Avoid nephrotoxins and renal dose all medications. (2) Hematuria Current Visit: Yes Status: Acute Per urology. Qualifiers: Hematuria type: gross Qualified Code(s): R31.0 - Gross hematuria (3) UTI (urinary tract infection) Current Visit: Yes Status: Ruled-out Per primary. Qualifiers: Urinary tract infection type: acute cystitis Hematuria presence: with hematuria Qualified Code(s): N30.01 - Acute cystitis with hematuria Subjective Principal diagnosis: hematuria Interval history: Pt seen and examined, doing well. HD in progress. Objective - Vital Signs Vital signs: Vital Signs Temp Pulse Resp BP Pulse Ox 05/31/18 08:16 98.3 F 69 19 137/74 97 05/31/18 07:23 97 05/31/18 04:26 98 F 63 15 136/68 97 05/30/18 22:47 98.1 F 67 16 149/69 97 05/30/18 21:33 99 05/30/18 19:00 98.2 F 69 16 120/52 99 05/30/18 18:35 98.5 F 71 18 107/58 97 05/30/18 12:29 97.7 F 72 16 126/70 96 Intake and Output 05/30/18 05/31/18 05/31/18 23:59 07:59 15:59 Intake Total 520 / 520 300 / 300 Output Total 150 / 150 150 / 150 Balance 370 / 370 150 / 150 Intake: Oral 520 / 520 300 / 300 Output: Urine 0 / 0 Catheter 150 / 150 150 / 150 Other: Stool Size Moderate Stool Consistency soft formed Stool Color Brown # Bowel Movements 1 0 Weight 58.6 kg Blood Glucose* 193 118 147 - General Appearance General appearance: Present: well-developed, well-nourished EENT: Present: ATNC, hearing intact Neck: Present: supple Respiratory: Present: clear Cardiology: Present: no edema, normal S1, normal S2 Dialysis Vascular Access: Arteriovenous Fistula thrill: Yes bruit: Yes Gastrointestinal: Present: normoactive bowel sounds, no tenderness, no guarding Integumentary: Present: no rash, warm and dry Additional Comments: Alert to self, unable to answer questions, but does seem to understand what he is being asked. Psychiatric: Present: mood/affect appropriate, cooperative - Lab 05/31/18 06:13 05/31/18 06:13 Most recent lab results Calcium 7.5 mg/dL (8.6-10.3) L 05/31/18 06:13 Phosphorus 4.5 mg/dL (2.7-4.5) 05/30/18 04:37 Consult Discharge Plan - Plan Referrals: [facility] [Primary Care Provider] -
[2018-05-31] MEDS ORDERED: 0.9 % Sodium Chloride 1,000 ML ONE (09:54)
[2018-05-31] MEDS: Aspirin Enteric Coated 81 MG Tablet PO SCH (09:58)
[2018-05-31] MEDS: Finasteride 5 MG TABLET PO SCH (09:58)
--- NOTE | 2018-05-31 11:16 | Discharge Summary ---
Orders not resulted at time of discharge: Pending orders 06/01/18 04:00 Basic Metabolic Panel AM 0400 CBC no Diff [Complete Blood Count w/o Diff] [HEME] AM 04006/02/18 04:00 Basic Metabolic Panel AM 0400 CBC no Diff [Complete Blood Count w/o Diff] [HEME] AM 04006/03/18 04:00 Basic Metabolic Panel AM 0400 CBC no Diff [Complete Blood Count w/o Diff] [HEME] AM 04006/04/18 04:00 Basic Metabolic Panel AM 040 CBC no Diff [Complete Blood Count w/o Diff] [HEME] AM 04006/05/18 04:00 Basic Metabolic Panel AM 040 CBC no Diff [Complete Blood Count w/o Diff] [HEME] AM 040 Date of Encounter: 05/31/18 Time of Encounter: 11:14 - Discharge Diagnosis (1) Hematuria Priority: Primary Status: Acute Assessment and Plan: Hematuria is currently improving/clearing up. likely bleeding from prostate/ bladder in relation to infection versus occasional anticoagulant with dialysis. CBI Discontinued. Hb improved s/p 2units PRBC during dialysis. Cleared by urology to discharge with indwelling Syed; Qualifiers: Hematuria type: gross Qualified Code(s): R31.0 - Gross hematuria (2) Anemia Priority: Secondary Status: Chronic Assessment and Plan: -Likely combination from ESRD and hematuria. Status post PRBC . Currently stable Qualifiers: Anemia type: due to chronic kidney disease Chronic kidney disease stage: on chronic dialysis Qualified Code(s): N18.6 - End stage renal disease; D63.1 - Anemia in chronic kidney disease; Z99.2 - Dependence on renal dialysis (3) Indwelling catheter present on admission Priority: Secondary Status: Chronic (4) CAD (coronary artery disease) Priority: Secondary Status: Chronic Assessment and Plan: - Status post CABG No complaints of chest pain Continue monitor and continue home medications Will not transfuse as above at this time as he is near his baseline and end- stage renal disease. Qualifiers: Coronary Disease-Associated Artery/Lesion type: bypass graft [place] vs. transplanted heart: [place] heart Associated angina: without angina Qualified Code(s): I25.810 - Atherosclerosis of coronary artery bypass graft(s) without angina pectoris (5) Essential hypertension Priority: Secondary Status: Chronic Assessment and Plan: - Well-controlled on admission at 122/58, continue home medications (6) Diabetes mellitus Priority: Secondary Status: Chronic Assessment and Plan: - Cont sliding scale insulin coverage. Currently well controlled. 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 Webb is a 82 year old male with past extensive history of CHF CABG CVA or diabetes hypertension hyperlipidemia who presented with hematuria with recent history of 40 exchange about 3 days before admission with anemia of 7.5. CT showed a large amount of blood in the bladder. Patient received 2 units of PRBC . Urology was consulted and patient had CBI after 2 days of each urine cleared up. Urine cultures grew yeast. No antibiotics were prescribed. Nephrology was also consulted due to ESRD. Patient got his routine hemodialysis. Urine cleared up after 3 days of admission. patient was stable enough to be discharged to short-term rehabilitation at [facility] on 4th day. Patient was discharged with indwelling Syed catheter. - Time Spent with Patient Total time spent providing and/or coordinating discharge services: Greater than 30 minutes - Discharge Medications Home Medications: Acetaminophen [Tylenol] 650 mg PO Q6HR PRN 12/09/16 [History] Amlodipine Besylate 10 mg PO DAILY 12/09/16 [History] Brimonidine 0.2% [Alphagan] 1 drop LEFT EYE TID 12/09/16 [History] Carvedilol 25 mg PO BID 12/09/16 [History] Finasteride [Proscar] 5 mg PO DAILY 12/09/16 [History] Hydralazine HCl 100 mg PO TID 12/09/16 [History] Insulin ASPART [NovoLOG] 3 unit SQ TID 12/09/16 [History] Insulin Glargine [Lantus] 6 unit SQ HS 12/09/16 [History] Ipratropium/Albuterol Neb [Duoneb] 3 ml IH Q4HR PRN 12/09/16 [History] Latanoprost [Xalatan] 1 drop LEFT EYE HS 12/09/16 [History] Sertraline [Zoloft] 100 mg PO DAILY 12/09/16 [History] Atorvastatin Calcium [Lipitor] 20 mg PO HS 04/21/17 [History] Omeprazole [PriLOSEC] 20 mg PO DAILY 04/21/17 [History] Sevelamer [Renvela] 800 mg PO TIDWM 04/21/17 [History] cloNIDine HCl [Clonidine HCl] 0.2 mg PO BID 04/21/17 [History] Erythromycin OPTH Oint 1 appl RIGHT EYE QID 11/01/17 [History] Polyvinyl Alcohol [Artificial Tears] 2 drop BOTH EYES QID 11/01/17 [History] Renal Vitamin [Renal Caps Softgel] 1 mg PO DAILY 11/01/17 [History] Furosemide [Lasix] 80 mg PO DAILY 04/19/18 [History] Lidocaine/Prilocaine [Emla] 1 appl TP AD 04/19/18 [History] Sennosides/Docusate Sodium [Senna-Docusate Sodium Tablet] 1 tab PO BID PRN 04/19 [History] Aspirin [Lo-Dose Aspirin EC] 81 mg PO DAILY 05/11/18 [History] Cyclosporine [Restasis] 1 drop OP BID 05/29/18 [History] Dorzolamide [Trusopt] 1 drop LEFT EYE BID 05/29/18 [History] Doxazosin [Cardura] 4 mg PO BID 05/29/18 [History] Isosorbide DInitrate [Isosorbide Dinitrate] 60 mg PO DAILY 05/29/18 [History] Doxazosin [Cardura] 8 mg PO BID tablet 05/31/18 [Rx] Isosorbide MONOnitrate (24 HR) [Imdur] 60 mg PO DAILY tab.er.24h 05/31/18 [Rx] Allergies/Adverse Reactions: 3 Allergy/AdvReac Type Severity Reaction Status Date / Time lisinopril AdvReac unknown Verified 05/10/17 15:37 Date of admission: 05/29/18 00:57 Primary care physician: [facility] Consults: 05/29/18 01:52 Consult to Nephrology [CONS] Routine Consulting Provider: Kidney Екатерина/KAELYN/ASIYA/ELIANE Reason for Consult: ESRD on T, TH, Sa dialysis Call Completed: No Consult to Urology [CONS] Routine Consulting Provider: Urology Екатерина Reason for Consult: gross hematuria Call Completed: No 05/29/18 09:38 Consult to [employer] [CONS] Routine Reason for SW Consult: rtn [facility] 05/29/18 09:45 Consult to Dialysis [CONS] ONCE 05/31/18 09:15 Consult to Dialysis [CONS] ONCE Discharging clinician: Deo Stanley - Constitutional Vitals: Temp Pulse Resp BP Pulse Ox 98.3 F 69 19 137/74 97 05/31/18 08:16 05/31/18 08:16 05/31/18 08:16 05/31/18 08:16 05/31/18 08:16 Exam: Gen.: No acute distress. AAOx2. Lying comfortably in bed; Cardiac: RRR, systolic murmur, +S1/S2 Pulmonary: CTA bilaterally, no wheezes, rales or rhonchi Abdomen: soft, grimaces with palpation of suprapubic region, BS noted, no guarding, no rebound. 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
[2018-05-31] MEDS: cloNIDine HCl 0.1 MG TABLET PO SCH (11:50)
[2018-05-31] MEDS: hydrALAZINE 25 MG TABLET PO SCH (11:50)
[2018-05-31] MEDS: Isosorbide MONOnitrate (24 HR) 60 MG TAB.ER.24H PO SCH (12:33)
[2018-05-31] MEDS: amLODIPine 5 MG TABLET PO SCH (12:33)
[2018-05-31 12:45] VITALS: BP 148/76
== END 2018-05-31 13:25 ==
LOC: 2ANU 21:33 → EMEROOARM 21:33 → SUATTDRO 05-29 00:57 → 2ANU 05-29 01:27
PROVIDERS: ADMIT Internal Medicine; ATTEND Internal Medicine